=== PATIENT | female | born 1980 | race Caucasian/White ===

== ENCOUNTER 2023-01-20 06:49 | Outpatient (OUT) | payer OTHER, SELFPAY ==
[2023-01-20 07:29] LABS: Basophils Absolute Auto 0.1 10^3/uL (0.0-0.1); Eosinophils Absolute Auto 0.2 10^3/uL (0.0-0.7); Hematocrit 38.2 % (36.0-48.0); Hemoglobin 12.8 g/dL (12.0-16.0); Immature Granulocytes Abs Auto 0.01 10^3/uL (0.00-0.03); Immature Granulocytes Pct Auto 0.2 % (0.0-0.5); Lymphocytes Absolute Auto 2.2 10^3/uL (1.2-3.8); Lymphocytes Percent Auto 45.3 % (20.5-60.0); Mean Corpuscular HGB Conc 33.5 g/dL (29.9-35.2); Mean Corpuscular Volume 86.4 fL (81.0-99.0); Mean Platelet Volume 9.4 fL (9.5-13.5); Monocytes Absolute Auto 0.5 10^3/uL (0.3-0.8); Monocytes Percent Auto 9.5 % (1.7-12.0); Nucleated Red Blood Cells 0; Platelet Count 278 10^3/uL (150-450); Red Blood Count 4.42 10^6/uL (4.20-5.40); Red Cell Distribution Width 13.2 % (11.0-15.0)
[2023-01-20 07:39] LABS: Alanine Aminotransferase 25 U/L (14-59); Albumin Globulin Ratio 1.2; Alkaline Phosphatase 91 U/L (46-116); Anion Gap 12.7; Aspartate Amino Transferase 13 U/L (15-37); BUN Creatinine Ratio 14.6; Bilirubin Total 0.6 mg/dL (0.2-1.0); Calcium 8.9 mg/dL (8.5-10.1); Carbon Dioxide 31.2 mmol/L (21.0-32.0); Chloride 102 mmol/L (98-107); Chol HDL Ratio 2.6; Cholesterol 180 mg/dL (<=200); Estimated GFR (African America >60 (>=60); Estimated GFR (Non-African Ame >60 (>=60); Globulin 3.4 g/dL; Glucose 98 mg/dL (74-106); HDL Cholesterol 68 mg/dL (40-60); Potassium 3.9 mmol/L (3.5-5.1); Sodium 142 mmol/L (136-145); Thyroid Stimulating Hormone 2.219 uIU/mL (0.358-3.740); Total Protein 7.4 g/dL (6.4-8.2); Triglycerides 126 mg/dL (<=150); VLDL CHOLESTEROL 25.2 mg/dL
[2023-01-20 08:13] LABS: Estimated Average Glucose 111 mg/dL; Glycohemoglobin A1C 5.5 % (4.5-6.2)
[2023-01-20 10:31] LABS: Free T4 0.84 ng/dL (0.76-1.46)
[2023-01-21 09:53] LABS: FSH 97.3 mIU/mL (.); Luteinizing Hormone(LH) 40.6 mIU/mL (.)
== END 2023-01-20 06:50 ==
LOC: LAB 06:55
DX: N95.1 Menopausal and female climacteric states (principal)
CPT/HCPCS: 36415; 80053; 80061; 82306; 83001; 83002; 83036; 84439; 84443; 85025

== ENCOUNTER 2024-09-20 13:38 | Outpatient (OUT) | payer OTHER, SELFPAY ==
[2024-09-20 14:12] LABS: Alanine Aminotransferase 29 U/L (14-59); Aspartate Amino Transferase 14 U/L (15-37)
== END 2024-09-20 13:39 | disposition home or self-care (01) ==
LOC: LAB 13:41
PROVIDERS: PCP Internal Medicine; Visit Provider Orthopaedic Surgery
DX: B35.1 Tinea unguium (principal)
CPT/HCPCS: 36415; 84450; 84460

== ENCOUNTER 2024-10-26 07:48 | Outpatient (OUT) | payer OTHER, SELFPAY ==
--- OUTSIDE RECORDS SUMMARY | 2024-10-26 07:57 | XMS_ITS | CCD ---
Author Organization [facility] Care Team Providers Care Demand Manager Name Role Phone SUE JUNO Primary Care Unavailable PAY, DR GALVIN Admitting Unavailable PAY, DR GALVIN Attending Unavailable PAY, DR GALVIN Consulting Unavailable SAMANTA MARIN Consulting Unavailable SINDYARIANJUNO Admitting Unavailable SINDYARIANJUNO Attending Unavailable SINDYARIAN, JUNO Primary Care Unavailable SUE, JUNO Consulting Unavailable ASHLYAZARIAN, JUNO Primary Care Unavailable LAN, DR KNIGHT Admitting Unavailable LAN, DR KNIGHT Attending Unavailable ADE, DR SHERITA Soto Consulting Unavailable SAMANTA STRANGE Consulting Unavailable Yazmin Cash Unavailable KEDAR AGEE Attending Unavailable MARIANA BELTRAN Referring Unavailable MARIANA BELTRAN Attending Unavailable Sergo JAFFE Attending Unavailable Annel Teixeira Attending Unavailable ASHLYAZARIAN, JUNO Primary Care Unavailable ASHLYAZARIAN, JUNO Referring Unavailable GHAZARIAN, JUNO Referring Unavailable ASHLYAZARIAN, JUNO Primary Care Unavailable Pankaj Rogers MDhar Primary Care Provider Sue SKY Juno Primary Care Provider KIT SOLITARIO Attending Unavailable Unavailable Primary Care Provider Unavailabl e Allergies Allergy Classification Reported Allergen(s) Allergy Type Date of Onset Reaction(s) Facility (1 source) Clindamycin Drug Allergy 07-02-2019 [facility] Repository (6 sources) celecoxib; Translations: [CELECOXIB] Drug Allergy 01-11-2023 [facility] Repository (1 source) Clindamycin Drug Allergy 07-02-2019 [facility] Medications Current Medications Medication Drug Class(es) Dates Sig (Normalized) Sig (Original) Aircast Sport Ankle Brace/Left - (1 source) Start: 02-24-2022 Aircast Sport Ankle Brace/Left - as directed Feb, Active ascorbic acid 1000 mg oral tablet (6 sources) Vitamin C Start: 03-15-2022 End: 12-09-2023 take 1 tablet by mouth once daily [facility] VITAMIN C 1000 MG tablet TAKE 1 TABLET BY MOUTH EVERY DAY 30 tablet 3 03/15/2022 Active cephalexin 500 mg oral capsule (1 source) Cephalosporin Antibacterial Start: 04-16-2024 End: 04-23-2024 take 1 capsule by mouth twice daily cephALEXin (KEFLEX) 500 MG capsule Indications: Cough headache Take 1 capsule by mouth 2 times daily for 7 days 14 capsule 04/16/2024 04/23/2024 Active cholecalciferol 0.025 mg oral tablet (1 source) Vitamin D Start: 01-12-2022 take 2 tablets by mouth once daily vitamin D3 (CHOLECALCIFEROL) 25 MCG (1000 UT) TABS tablet TAKE 2 TABLETS BY MOUTH DAILY 30 tablet 01/12/2022 Active cyclobenzaprine hydrochloride 5 mg oral tablet (6 sources) Muscle Relaxant Start: 07-05-2022 take 1 tablet by mouth three times daily as needed for muscle spasms cyclobenzaprine (FLEXERIL) 5 MG tablet TAKE 1 TABLET BY MOUTH THREE TIMES A DAY NEEDED FOR MUSCLE SPASMS 90 tablet 1 07/05/2022 Active estradiol 0.1 mg/ml vaginal cream (6 sources) Estrogen Start: 10-25-2023 estradioL (ESTRACE) 0.01 % (0.1 mg/gram) vaginal cream Insert 1 g into the vagina in the morning. 42.5 g 1 10/25/2023 Active Start: 10-18-2023 End: 10-25-2023 estradioL (VAGIFEM) 10 mcg t ablet Indications: Rectocele , Vaginal prolapse , Stress incontinence of urine , Dyspareunia in female , Status post hysterectomy with oophorectomy Insert 1 tablet (10 mcg total) into the vagina in the morning. Daily for 2 weeks then twice weekly thereafter. 14 tablet 4 10/18/2023 10/25/2023 Discontinued 12 hr guaiFENesin 600 mg extended release oral tablet (1 source) Start: 07-29-2023 take 1 tablet by mouth twice daily guaiFENesin ([facility] MUCUS EXTENDED RELEASE) 600 MG extended release tablet Indications: Subacute bronchitis TAKE 1 TABLET BY MOUTH 2 TIMES DAILY FOR 15 DAYS 40 tablet 1 07/29/2023 Active magnesium gluconate 550 mg oral tablet (5 sources) take 1 tablet by mouth in the morning, then take 1 tablet by mouth at bedtime magnesium 30 mg tablet Take 1 tablet (30 mg total) by mouth in the morning and 1 tablet (30 mg total) before bedtime. Active naproxen 500 mg oral tablet (6 sources) Nonsteroidal Anti-inflammatory Drug Start: 11-15-2022 take 1 tablet by mouth twice daily at mealtime naproxen (NAPROSYN) 500 MG tablet Indications: Acute low back pain with bilateral sciatica, unspecified back pain laterality Take 1 tablet by mouth 2 times daily (with meals) 20 tablet 3 10/19/2023 Active terbinafine 250 mg oral tablet (2 sources) Allylamine Antifungal Start: 09-20-2024 End: 10-20-2024 take 1 tablet by mouth once daily terbinafine (LamISIL) 250 MG tablet Indications: Onychomycosis of Toenails Take 1 tablet (250 mg) by mouth Daily 30 tablet 09/20/2024 10/20/2024 Active zinc gluconate 50 mg oral tablet (1 source) Start: 08-11-2022 take 1 tablet by mouth once daily [facility] ZINC GLUCONATE 50 MG tablet TAKE 1 TABLET BY MOUTH EVERY DAY 30 tablet 1 08/11/2022 Active Completed/Discontinued Medications Medication Drug Class(es) Dates Sig (Normalized) Sig (Original) cefTRIAXone (1 source) Cephalosporin Antibacterial Start: 02-11-2014 Rocephin 500 mg Jan, 500 mg Problems Active Problems Problem Classification Problem Date Documented Da te Episodic/Chronic Anxiety disorders (2 sources) Anxiety disorder, unspecified; Translations: [Anxiety] Onset: 05-22-2018 05-22-2018 Chronic Conditions associated with dizziness or vertigo (1 source) Dizziness and giddiness; Translations: [DIZZINESS AND GIDDINESS] Onset: 08-10-2021 Episodic Genitourinary symptoms and ill-defined conditions (4 sources) Stress incontinence (female) (male); Translations: [Genuine stress incontinence] Onset: 12-07-2023 12-09-2023 Chronic Hepatitis (1 source) Chronic hepatitis C; Translations: [Chronic viral hepatitis C] Onset: 05-22-2018 05-22-2018 Chronic Hepatitis (1 source) Viral hepatitis C; Translations: [Hepatitis C] Episodic Malaise and fatigue (1 source) Weakness; Translations: [WEAKNESS] Onset: 08-10-2021 Episodic Menopausal disorders (1 source) Menopausal syndrome; Translations: [Menopausal and female climacteric states] 10-25-2023 Chronic Mycoses (4 sources) Pain in toe; Translations: [Tinea unguium] 09-20-2024 Episodic Other acquired deformities (2 sources) Contracture of joint of right ankle; Translations: [Contracture, right ankle] 09-20-2024 Chronic Other connective tissue disease (2 sources) Plantar fasciitis; Translations: [Plantar fascial fibromatosis] 09-20-2024 Episodic Other diseases of bladder and urethra (1 source) Overactive bladder; Translations: [Overactive bladder] 12-09-2023 Chronic Other female genital disorders (1 source) Unspecified dyspareunia; Translations: [Unspecified dyspareunia] Onset: 12-07-2023 Chronic Other female genital disorders (4 sources) Pain in female genitalia on intercourse; Translations: [Unspecified dyspareunia] 12-09-2023 Chronic Other nervous system disorders (3 sources) Other chronic pain; Translations: [Other chronic pain] Onset: 04-16-2024 Chronic Prolapse of female genital organs (7 sources) Rectocele; Translations: [Cystocele, unspecified] Onset: 12-07-2023 12-09-2023 Chronic Residual codes; unclassified (2 sources) Acquired absence of both cervix and uterus; Translations: [ACQUIRED ABSENCE BOTH CERVIX AND UTERUS] Onset: 08-10-2021 Episodic Residual codes; unclassified (1 source) Acquired absence of ovaries, unilateral; Translations: [Acquired absence of ovaries, unilateral] Onset: 10-18-2023 Episodic Spondylosis; intervertebral disc disorders; other back problems (1 source) Inflammation of sacroiliac joint; Translations: [Sacroiliitis] Chronic Spondylosis; intervertebral disc disorders; other back problems (6 sources) Lumbago with sciatica, right side; Translations: [Lumbago with sciatica, left side] Onset: 04-16-2024 Episodic Substance-related disorders (1 source) Nicotine dependence, cigarettes, uncomplicated; Translations: [NICOTINE DEPEND CIGARETTES UNCOMP] Onset: 08-10-2021 Chronic Unclassified (3 sources) COUGH, UNSPECIFIED; Translations: [COUGH, UNSPECIFIED] Onset: 08-10-2021 Unclassified (2 sources) CONTACT W/AND (SUSP) EXPOS COVID-19; Translations: [CONTACT W/AND (SUSP) EXPOS COVID-19] Onset: 05-28-2021 Unclassified (1 source) Vaginal Prolapse Onset: 12-07-2023 Unclassified (1 source) Prolapse Onset: 10-18-2023 Viral infection (1 source) COVID-19; Translations: [COVID-19] Onset: 08-10-2021 Past or Other Problems Problem Classification Problem Date Documented Da te Episodic/Chronic Abdominal pain (3 sources) Unspecified abdominal pain; Translations: [UNSPECIFIED ABDOMINAL PAIN] Onset: 03-03-2021 Episodic Fracture of lower limb (1 source) Other fracture of left lower leg, initial encounter for closed fracture Onset: 02-24-2022 Resolved: 02-24-2022 Episodic Gastritis and duodenitis (1 source) Gastritis, unspecified, without bleeding; Translations: [GASTRITIS UNS WITHOUT BLEEDING] Onset: 03-05-2021 Episodic Nausea and vomiting (1 source) Nausea; Translations: [NAUSEA] Onset: 03-05-2021 Episodic Other gastrointestinal disorders (2 sources) Constipation; Translations: [Constipation] 12-09-2023 Episodic Other lower respiratory disease (1 source) Cough; Translations: [Cough] Onset: 07-02-2019 Resolved: 10-08-2020 10-08-2020 Episodic Other non-traumatic joint disorders (1 source) Pain in left ankle and joints of left foot Onset: 02-24-2022 Resolved: 02-24-2022 Episodic Other upper respiratory infections (1 source) Acute sinusitis; Translations: [Other acute sinusitis] Onset: 07-04-2019 09-08-2020 Episodic Residual codes; unclassified (1 source) Acquired absence of cervix and uterus; Translations: [Acquired absence of both cervix and uterus] Onset: 07-04-2019 09-08-2020 Episodic Screening and history of mental health and substance abuse codes (1 source) Personal history of nicotine dependence; Translations: [PERSONAL HISTORY OF NICOTINE DEPEND] Onset: 03-05-2021 Episodic Unclassified (1 source) COUGH, UNSPECIFIED; Translations: [COUGH, UNSPECIFIED] Onset: 08-06-2021 Unclassified (1 source) CONTACT W/AND (SUSP) EXPOS COVID-19; Translations: [CONTACT W/AND (SUSP) EXPOS COVID-19] Onset: 05-15-2021 Results Test Name Value Interpretation Reference Range Facility XR LUMBAR SPINE (2-3 VIEWS)o n 04-16-2024 XR LUMBAR SPINE (2-3 VIEWS) EXAM: XR LUMBAR SPINE (2-3 VIEWS) HISTORY: Chronic midline low back pain with bilateral sciatica. COMPARISON: None. IMPRESSION: FINDINGS/IMPRESSIO N: 1. Normal vertebral body and disc space heights for age. 2. No significant degenerative change. 3. SI joints normal. 4. No pars defects or fracture. Interpreted by: Robin Glass Jr., MD Signed by: Robin Glass Jr., MD 04/16/24 Final result Normal [facility] Measure post void residualon 12-07-2023 Volume 45ml [facility] POCT urinalysis dipstick onl yon 12-07-2023 Appearance (U) clear [facility] Urine Blood Negative [facility] U[facility] Character clear [facility] Urine Color dark yellow [facility] Urine Glucose Negative [facility] Urine Ketones Negative [facility] Urine Leukocyte Esterase Negative [facility] Urine Nitrite Negative [facility] Urine Ph 5.0 [facility] Urine Protein 3+ [facility] XR ankle LT min 3V*on 2021 XR ankle LT min 3V* [facility] [address] [place] [address] XRay Report Signed Patient: Jazmin Cassidy MR#: [id number] 35 : 1980 Acct:[id number] Age/Sex: 41 / F ADM Date: 02/24/22 Loc: XDUCLY Room: Type: [facility] Attending Dr: Yazmin SORIA Copies to: YANG Dubon Ordering Provider: YANG Dubon Date of Service: 02/24/22 XR/XR ankle LT min 3V*: LEFT ANKLE INJURY 3views LEFTankle COMPARISON:None HISTORY: LEFT ankle injury. Mild anterior soft tissue swelling present. Tiny bony density inferior to the lateral malleolus may represent small avulsion fracture. Ankle mortise preserved. XR/XR ankle LT min 3V* IMPRESSION: Small avulsion fracture inferior to the lateral malleolus. Impression dictated by: Raoul Lindsey M.D.02/24/2022 7:00 PM Dictation Location: [place] [address] Transcribed By: [facility] 02/24/221899 Dictated By: Raoul Lindsey DO 02/24/221858 Signed By: 02/24/221899 Normal [facility] XR ankle LT min 3V* [facility] [employer] Other XR ankle LT min 3V* [facility] [employer] Other XR ankle LT min 3V* [address] [place] [address] [employer] Other XR ankle LT min 3V* [place] [address] [employer] Other XR ankle LT min 3V* XRay Report [employer] Other XR ankle LT min 3V* Signed [employer] Other XR ankle LT min 3V* Patient: Jazmin Cassidy MR#: [id number] [employer] Other XR ankle LT min 3V* 35 [employer] Other XR ankle LT min 3V* : 1980 Acct:[id number] [employer] Other XR ankle LT min 3V* Age/Sex: 41 / F ADM Date: 02/24/22 [employer] Other XR ankle LT min 3V* Loc: XDUCLY Room: Type: REG CLI [employer] Other XR ankle LT min 3V* Attending Dr: Yazmin SORIA [employer] Other XR ankle LT min 3V* Copies to: YANG Dubon [employer] Other XR ankle LT min 3V* Ordering Provider: YANG Dubon [employer] Other XR ankle LT min 3V* Date of Service: 02/24/22 [employer] Other XR ankle LT min 3V* XR/XR ankle LT min 3V*: LEFT ANKLE INJURY [employer] Other XR ankle LT min 3V* 3views LEFTankle [employer] Other XR ankle LT min 3V* COMPARISON:None [employer] Other XR ankle LT min 3V* HISTORY: LEFT ankle injury. [employer] Other XR ankle LT min 3V* Mild anterior soft tissue swelling present. Tiny bony density inferior to the lateral malleolus [employer] Other XR ankle LT min 3V* may represent small avulsion fracture. Ankle mortise preserved. [employer] Other XR ankle LT min 3V* XR/XR ankle LT min 3V* [employer] Other XR ankle LT min 3V* IMPRESSION: Small avulsion fracture inferior to the lateral malleolus. [employer] Other XR ankle LT min 3V* Impression dictated by: Raoul Lindsey M.D.02/24/2022 7:00 PM [employer] Other XR ankle LT min 3V* Dictation Location: [place] [address] [employer] Other XR ankle LT min 3V* Transcribed By: PWS 02/24/22 1900 [employer] Other XR ankle LT min 3V* Dictated By: Raoul Lindsey DO 02/24/22 1859 [employer] Other XR ankle LT min 3V* Signed By: [employer] Other XR ankle LT min 3V* 02/24/22 1900 [employer] Other CBC AUTO DIFFon 08-06-2021 BASO # 0.0 103/ul Normal 0.0-0.1 [facility] Comment on above: Performed By: #### C BC #### [facility] [address] [place] [address] Dr. Javier Hinton Basophils/100 WBC (Bld) 0.3 % Normal 0.2-2.0 [facility] Comment on above: Performed By: #### C BC #### [facility] [address] [place] [address] Dr. Javier Hinton EO # 0.0 103/ul Normal 0.0-0.7 [facility] Comment on above: Performed By: #### C BC #### [facility] [address] [place] [address] Dr. Javier Hinton Eosinophils/100 WBC (Bld) 0.3 % Critically low 0.9-7.0 [facility] Comment on above: Performed By: #### C BC #### [facility] [address] [place] [address] Dr. Javier Hinton Erythrocyte distribution width (RBC) [Ratio] 13.3 % Normal 11.0-15.0 [facility] Comment on above: Performed By: #### C BC #### [facility] [address] [place] [address] Dr. Javier Hinton Hematocrit (Bld) [Volume fraction] 41.7 % Normal 36.0-48.0 [facility] Comment on above: Performed By: #### C BC #### [facility] [address] [place] [address] Dr. Javier Hinton Hemoglobin (Bld) [Mass/Vol] 13.7 g/dL Normal 12.0-16.0 [facility] Comment on above: Performed By: #### C BC #### [facility] [address] [place] [address] Dr. Javier Hinton IG # 0.01 10e3/ul Normal 0.00-0.03 [facility] Comment on above: Performed By: #### C BC #### [facility] [address] [place] [address] Dr. Javier Hinton IG % 0.3 % Normal 0.0-0.5 [facility] Comment on above: Performed By: #### C BC #### [facility] [address] [place] [address] Dr. Javier Hinton LYMPH # 1.2 103/ul Normal 1.2-3.8 [facility] Comment on above: Performed By: #### C BC #### [facility] [address] [place] [address] Dr. Javier Hinton Lymphocytes/100 WBC (Bld) 31.4 % Normal 20.5-60.0 [facility] Comment on above: Performed By: #### C BC #### [facility] [address] [place] [address] Dr. Javier Hinton MANUAL DIFF REQ NO Normal [facility] Comment on above: Performed By: #### C BC #### [facility] [address] [place] [address] Dr. Javier Hinton MCH (RBC) [Entitic mass] 28.0 pg Normal 26.7-34.0 [facility] Comment on above: Performed By: #### C BC #### [facility] [address] [place] [address] Dr. Javier Hinton MCHC (RBC) [Mass/Vol] 32.9 g/dL Normal 29.9-35.2 [facility] Comment on above: Performed By: #### C BC #### [facility] [address] [place] [address] Dr. Javier Hinton MCV (RBC) [Entitic vol] 85.1 fL Normal 81.0-99.0 [facility] Comment on above: Performed By: #### C BC #### [facility] [address] [place] [address] [address] Javier Hinton MONO # 0.3 103/ul Normal 0.3-0.8 [facility] Comment on above: Performed By: #### C BC #### [facility] [address] [place] [address] [address] Javier Hinton Monocytes/100 WBC (Bld) 8.7 % Normal 1.7-12.0 [facility] Comment on above: Performed By: #### C BC #### [facility] [address] [place] [address] Dr. Javier Hinton NEUT # 2.3 103/ul Normal 1.4-6.5 [facility] Comment on above: Performed By: #### C BC #### [facility] [address] [place] [address] Dr. Javier Hinton Neutrophils/100 WBC (Bld) 59.0 % Normal 43.0-75.0 [facility] Comment on above: Performed By: #### C BC #### [facility] [address] [place] [address] Dr. Javier Hinton Platelet mean volume (Bld) [Entitic vol] 9.3 fL Critically low 9.5-13.5 [facility] Comment on above: Performed By: #### C BC #### [facility] [address] [place] [address] Dr. Javier Hinton PLT 187 103/ul Normal 150-450 [facility] Comment on above: Performed By: #### C BC #### [facility] [address] [place] [address] Dr. Javier Hinton RBC 4.90 106/ul Normal 4.20-5.40 [facility] Comment on above: Performed By: #### C BC #### [facility] [address] [place] [address] Dr. Javier Hinton WBC 3.9 103/ul Critically low 4.0-11.0 [facility] Comment on above: Performed By: #### C BC #### [facility] [address] [place] [address] Dr. Javier Hinton Covid-19 PCR (CVDTB)on 07-22 SARS-CoV-2 (COVID-19) RNA MITRA+probe Ql (Unsp spec) Detected Critically abnormal NOT DETECTED [facility] Comment on above: Result Comment: This test is not yet approved or cleared by the [place] FDA. When there are no FDA-approved or cleared tests available, and other criteria are met, FDA can make tests available under an emergency access mechanism called an Emergency Use Authorization (EUA). The EUA for this test is supported by the [place] of Health and Human Service's declaration that circumstances exist to justify the emergency use of in vitro diagnostics for the detection and/or diagnosis of the virus that causes COVID-19. This EUA will remain in effect for the duration of the COVID-19 declaration justifying emergency of IVDs, unless it is terminated or revoked by the FDA (after which the test may no longer be used). Performed By: #### C VDTBH #### [facility] [address] [place] [address] Dr. Javier Hinton ER URINE PROFILEon Bilirubin Ql (U) Negative Normal NEGATIVE [facility] Comment on above: Performed By: #### E RUR #### [facility] [address] [place] [address] Dr. Javier Hinton Clarity (U) CLEAR Normal CLEAR [facility] Comment on above: Performed By: #### E RUR #### [facility] [address] [place] [address] Dr. Javier Hinton Color (U) YELLOW Normal YELLOW [facility] Comment on above: Performed By: #### E RUR #### [facility] [address] [place] [address] Dr. Javier FRANK A micrscopic examination will be performed if indicated. Normal [facility] Comment on above: Performed By: #### E RUR #### [facility] [address] [place] [address] Dr. Javier Hinton Glucose Ql (U) Negative Normal NEGATIVE [facility] Comment on above: Performed By: #### E RUR #### [facility] [address] [place] [address] Dr. Javier Hinton Hemoglobin Ql (U) Negative Normal NEGATIVE [facility] Comment on above: Performed By: #### E RUR #### [facility] [address] [place] [address] Dr. Javier Hinton Ketones Ql (U) 40 mg/dl Abnormal NEGATIVE [facility] Comment on above: Performed By: #### E RUR #### [facility] [address] [place] [address] Dr. Javier Hinton LEUKOCYTES Negative Normal NEGATIVE [facility] Comment on above: Performed By: #### E RUR #### [facility] [address] [place] [address] Dr. Javier Hinton Nitrite Ql (U) Negative Normal NEGATIVE [facility] Comment on above: Performed By: #### E RUR #### [facility] [address] [place] [address] Dr. Javier Hinton pH (U) 6.0 [pH] Normal 5-9 [facility] Comment on above: Performed By: #### E RUR #### [facility] [address] [place] [address] Dr. Javier Hinton Protein (U) [Mass/Vol] 30 mg/dL Abnormal NEGATIVE/ TRACE [facility] Comment on above: Performed By: #### E RUR #### [facility] [address] [place] [address] Dr. Javier Hinton SPEC GRAVITY 1.025 Normal 1.005-<=1.025 [facility] Comment on above: Performed By: #### E RUR #### [facility] [address] [place] [address] Dr. Javier Hinton UR MICRO IND NOT INDICATED Normal [facility] Comment on above: Performed By: #### E RUR #### [facility] [address] [place] [address] Dr. Javier Hinton Urobilinogen Qn (U) 0.2 {Ericka'U}/dL Normal 0.2 - 1.0 [facility] Comment on above: Performed By: #### E RUR #### [facility] [address] [place] [address] Dr. Javier Hinton INFLUENZA A AND B AGon 08-06 INFLUANEGH SEE BELOW Normal [facility] Comment on above: Result Comment: Nega tive for Flu A protein angiten. Infection due to Flu A cannot be ruled out. Flu A angiten in the sample may be below the detection limit of the test. Performed By: #### I NFLUAB ####[facility] [address] [place], [place] [address]Dr. Javier Hinton INFLUBNEGH SEE BELOW Normal [facility] Comment on above: Result Comment: Nega tive for Flu B protein antigen. Infection due to Flu B cannot be ruled out. Flu B antigen in the sample may be below the detection limit of the test. Performed By: #### I NFLUAB ####[facility] [address] [place], [place] [address]Dr. Javier Hinton INFLUENZA A AG Negative Normal NEGATIVE SEE COMMENT [facility] Comment on above: Performed By: #### I NFLUAB ####[facility] [address] [place], [place] [address]DrKem Hinton INFLUENZA B AG Negative Normal NEGATIVE SEE COMMENT [facility] Comment on above: Performed By: #### I NFLUAB ####[facility] [address] [place], [place] [address]Dr. Javier Hinton INTERNAL CONTROLS Within Normal Limits Normal Within Normal Limits [facility] Comment on above: Performed By: #### I NFLUAB ####[facility] [address] [place], [place] [address]Dr. Javier Hinton LACTATE/LACTIC ACIDon 2020 Lactate [Moles/Vol] 0.9 mmol/L Normal 0.7-2.0 [facility] Comment on above: Performed By: #### L ACT ####[facility] [address] [place], [place] [address]DrKem Hinton PROF 14(COMP METB)on 021 Albumin [Mass/Vol] 3.7 g/dL Normal 3.5-5.0 [facility] Comment on above: Performed By: #### H GAYE, CMP #### [facility] [address] [address] [address] Javier Hinton Albumin/Globulin [Mass ratio] 0.9 {ratio} Normal [facility] Comment on above: Performed By: #### H GAYE, CMP #### [facility] [address] [address] [address] Javier Hinton ALP [Catalytic activity/Vol] 88 U/L Normal 38-126 [facility] Comment on above: Performed By: #### H GAYE, CMP #### [facility] [address] [address] [address] Javier Hinton ALT [Catalytic activity/Vol] 28 U/L Normal 9-52 [facility] Comment on above: Performed By: #### H GAYE, CMP #### [facility] [address] [address] [address] Javier Hinton Anion gap [Moles/Vol] 14.5 mmol/L Normal [facility] Comment on above: Performed By: #### H GAYE, CMP #### [facility] [address] [address] [address] Javier Hinton AST [Catalytic activity/Vol] 26 U/L Normal 14-36 [facility] Comment on above: Performed By: #### H GAYE, CMP #### [facility] [address] [address] [address] Javier Hinton Bilirubin [Mass/Vol] 0.7 mg/dL Normal 0.2-1.3 [facility] Comment on above: Performed By: #### H GAYE, CMP #### [facility] [address] [address] [address] Javier Hinton Calcium [Mass/Vol] 9.0 mg/dL Normal 8.4-10.2 [facility] Comment on above: Performed By: #### H GAYE, CMP #### [facility] [address] [place] [address] Dr. Javier Hinton Chloride [Moles/Vol] 99 mmol/L Normal 98-107 [facility] Comment on above: Performed By: #### H DEXTERPN, CMP #### [facility] [address] [place] [address] Dr. Javier Hinton CO2 [Moles/Vol] 29.2 mmol/L Normal 22.0-30.0 [facility] Comment on above: Performed By: #### H STROPN, CMP #### [facility] [address] [place] [address] Dr. Javier Hinton Creatinine [Mass/Vol] 0.80 mg/dL Normal 0.52-1.04 [facility] Comment on above: Performed By: #### H STROPN, CMP #### [facility] [address] [place] [address] Dr. Javier Hinton EGFR-AF SCOTTISH Normal >=60 [facility] Comment on above: Performed By: #### H STROPN, CMP #### [facility] [address] [place] [address] Dr. Javier Hinton EGFR-NON AF SCOTTISH Normal >=60 [facility] Comment on above: Performed By: #### H STROPN, CMP #### [facility] [address] [place] [address] Dr. Javier Hinton Globulin (S) [Mass/Vol] 4.3 g/dL Normal [facility] Comment on above: Performed By: #### H STROPN, CMP #### [facility] [address] [place] [address] Dr. Javier Hinton Glucose [Mass/Vol] 91 mg/dL Normal 74-106 [facility] Comment on above: Performed By: #### H STROPN, CMP #### [facility] [address] [place] [address] Dr. Javier Hinton Potassium [Moles/Vol] 3.7 mmol/L Normal 3.4-5.0 [facility] Comment on above: Performed By: #### H STROPN, CMP #### [facility] [address] [place] [address] Dr. Javier Hinton Protein [Mass/Vol] 8.0 g/dL Normal 6.1-8.2 [facility] Comment on above: Performed By: #### H GAYE, CMP #### [facility] [address] [address] [address] Javeir Hinton Sodium [Moles/Vol] 139 mmol/L Normal 137-145 [facility] Comment on above: Performed By: #### H GAYE, CMP #### [facility] [address] [address] [address] Javier Hinton Urea nitrogen [Mass/Vol] 15.0 mg/dL Normal 7.0-17.0 [facility] Comment on above: Performed By: #### H GAYE, CMP #### [facility] [address] [place] [address] Dr. Javier Hinton Urea nitrogen/Creatinin e [Mass ratio] 18.8 mg/mg Normal [facility] Comment on above: Performed By: #### H GAYE, CMP #### [facility] [address] [place] [address] Dr. Javier Hinton TROPONIN, HIGH SENSITIVITYon 08-06-2021 HSTROP 4.8 pg/mL Normal 4.0-35.5 [facility] Comment on above: Result Comment: CUT- OFF POINTS HAVE BEEN ESTABLISHED BASED ON THE FOURTH UNIVERSAL DEFINITIONS OF MYOCARDIAL INFARCTION. THE UPPER REFERENCE LIMIT (URL) OF TROPONIN, DEFINED THE 99TH PERCENTILE OF cTnI DISTRIBUTION IN A REFERENCE POPULATION, HAS BEEN CONFIRMED THE DECISION THRESHOLD FOR CT DIAGNOSIS. Performed By: #### H GAYE, CMP #### [facility] [address] [place] [address] Dr. Javier Hinton XR CHEST 1 Von 08-06-2021 XR CHEST 1 V EXAMINATION: XR CHEST 1 V HISTORY: COUGH , chest tightness, chills COMPARISON: No relevant comparison available. FINDINGS: LUNGS: Underexpanded lungs with mild haziness and stranding within the lung bases. VASCULATURE: No increased pulmonary vasculature. PLEURA: No pneumothorax, effusion, or pleural thickening. CARDIAC: No cardiomegaly or cardiac silhouette abnormality. MEDIASTINUM: No visible mass or adenopathy. BONES: No fracture or visible bone lesion. OTHER: Negative. IMPRESSION: 1. Underexpanded lungs with mild bibasilar infiltrates versus atelectasis. Electronically authenticated by: SHERITA BOOKER Date: 2021-08-06 16:56 Normal [facility] Covid-19 PCR (CVDTB)on 04-23 SARS-CoV-2 (COVID-19) RNA MITRA+probe Ql (Unsp spec) Detected Critically abnormal NOT DETECTED [facility] Comment on above: Result Comment: This test is not yet approved or cleared by the [place] FDA. When there are no FDA-approved or cleared tests available, and other criteria are met, FDA can make tests available under an emergency access mechanism called an Emergency Use Authorization (EUA). The EUA for this test is supported by the Video Manager of Health and Human Service's (HHS's) declaration that circumstances exist to justify the emergency use of in vitro diagnostics for the detection and/or diagnosis of the virus that causes COVID-19. This EUA will remain in effect (meaning this test can be used) for the duration of the COVID-19 declaration justifying emergency of IVDs, unless it is terminated or revoked by FDA (after which the test may no longer be used). Performed By: #### C VDTB #### [facility] [address] [place] [address] Dr. Javier Hinton AMYLASEon 03-03-2021 Amylase [Catalytic activity/Vol] 55 U/L Normal 31-110 [facility] Comment on above: Performed By: #### C MP, CAROLYN, LIPA #### [facility] [address] [place], [place] [address] Reji Debbie CBC AUTO DIFFon 03-03-2021 BASO # 0.0 103/ul Normal 0.0-0.1 [facility] Comment on above: Performed By: #### C BC ####[facility] [address] [id number] Debbie Basophils/100 WBC (Bld) 0.6 % Normal 0.2-2.0 [facility] Comment on above: Performed By: #### C BC ####[facility] [address] [place] [address] Debbie EO # 0.1 103/ul Normal 0.0-0.7 [facility] Comment on above: Performed By: #### C BC ####[facility] [address] [place] [address] Debbie Eosinophils/100 WBC (Bld) 2.1 % Normal 0.9-7.0 [facility] Comment on above: Performed By: #### C BC ####[facility] [address] [place] [address] Debbie Erythrocyte distribution width (RBC) [Ratio] 12.7 % Normal 11.0-15.0 [facility] Comment on above: Performed By: #### C BC ####[facility] [address] [place] [address] Debbie Hematocrit (Bld) [Volume fraction] 38.8 % Normal 36.0-48.0 [facility] Comment on above: Performed By: #### C BC ####[facility] [address] [place] [address] Debbie Hemoglobin (Bld) [Mass/Vol] 12.8 g/dL Normal 12.0-16.0 [facility] Comment on above: Performed By: #### C BC ####[facility] [address] [place] [address] Debbie IG # 0.02 10e3/ul Normal 0.00-0.03 [facility] Comment on above: Performed By: #### C BC ####[facility] [address] [place] [address] Debbie IG % 0.3 % Normal 0.0-0.5 [facility] Comment on above: Performed By: #### C BC ####[facility] [address] [place] [address] Debbie LYMPH # 2.3 103/ul Normal 1.2-3.8 [facility] Comment on above: Performed By: #### C BC ####[facility] [address] [place] [address] Debbie Lymphocytes/100 WBC (Bld) 33.7 % Normal 20.5-60.0 [facility] Comment on above: Performed By: #### C BC ####[facility] [address] [place] [address] Debbie MANUAL DIFF REQ NO Normal [facility] Comment on above: Performed By: #### C BC ####[facility] [address] Debbie MCH (RBC) [Entitic mass] 28.1 pg Normal 26.7-34.0 [facility] Comment on above: Performed By: #### C BC ####[facility] [address] [place] [address] Debbie MCHC (RBC) [Mass/Vol] 33.0 g/dL Normal 29.9-35.2 [facility] Comment on above: Performed By: #### C BC ####[facility] [address] [place] [address] Debbie MCV (RBC) [Entitic vol] 85.3 fL Normal 81.0-99.0 [facility] Comment on above: Performed By: #### C BC ####[facility] [address] [place] [address] Debbie MONO # 0.5 103/ul Normal 0.3-0.8 [facility] Comment on above: Performed By: #### C BC ####[facility] [address] [place] [address] Debbie Monocytes/100 WBC (Bld) 7.9 % Normal 1.7-12.0 [facility] Comment on above: Performed By: #### C BC ####[facility] [address] [place] [address] Debbie NEUT # 3.7 103/ul Normal 1.4-6.5 [facility] Comment on above: Performed By: #### C BC ####[facility] [address] [place] [address] Debbie Neutrophils/100 WBC (Bld) 55.4 % Normal 43.0-75.0 [facility] Comment on above: Performed By: #### C BC ####[facility] [address] [place] [address] Debbie Platelet mean volume (Bld) [Entitic vol] 9.6 fL Normal 9.5-13.5 [facility] Comment on above: Performed By: #### C BC ####[facility] [address] [place] [address] Debbie PLT 291 103/ul Normal 150-450 [facility] Comment on above: Performed By: #### C BC ####[facility] [address] [place] [address] Debbie RBC 4.55 106/ul Normal 4.20-5.40 [facility] Comment on above: Performed By: #### C BC ####[facility] [address] [place] [address] Debbie WBC 6.7 103/ul Normal 4.0-11.0 [facility] Comment on above: Performed By: #### C BC ####[facility] [address] [place] [address] Debbie ER URINE PROFILEon 1 Bilirubin Ql (U) Negative Normal NEGATIVE [facility] Comment on above: Performed By: #### E RUR ####[facility] [address] [place] [address] Debbie Clarity (U) CLEAR Normal CLEAR [facility] Comment on above: Performed By: #### E RUR ####[facility] [address] [place] [address] Debbie Color (U) LT. YELLOW Normal YELLOW [facility] Comment on above: Performed By: #### E RUR ####[facility] [address] [place] [address] Debbie ERUAHD A micrscopic examination will be performed if indicated. Normal [facility] Comment on above: Performed By: #### E RUR ####[facility] Eg[address] Debbie Glucose Ql (U) Negative Normal NEGATIVE The [facility] Comment on above: Performed By: #### E RUR ####[facility] [address] [place], [place] [address]Ger[place] Debbie Hemoglobin Ql (U) Negative Normal NEGATIVE [facility] Comment on above: Performed By: #### E RUR ####[facility] [address] [place] [address] Debbie Ketones Ql (U) Negative Normal NEGATIVE The [facility] Comment on above: Performed By: #### E RUR ####[facility] [address] [place] [address] Debbie LEUKOCYTES Negative Normal NEGATIVE [facility] Comment on above: Performed By: #### E RUR ####[facility] [address] [place] [address] Debbie Nitrite Ql (U) Negative Normal NEGATIVE The [facility] Comment on above: Performed By: #### E RUR ####[facility] [address] [place] [address] Debbie pH (U) 6.0 [pH] Normal 5-9 [facility] Comment on above: Performed By: #### E RUR ####[facility] [address] [place] [address] Debbie SPEC GRAVITY 1.010 Normal 1.005-<=1.025 [facility] Comment on above: Performed By: #### E RUR ####[facility] [address] [place] [address] Debbie UA PROTEIN Negative Normal NEGATIVE/ TRACE [facility] Comment on above: Performed By: #### E RUR ####[facility] [address] [place] [address] Debbie UR MICRO IND NOT INDICATED Normal [facility] Comment on above: Performed By: #### E RUR ####[facility] [address] [place] [address] Debbie Urobilinogen Qn (U) 0.2 {Ericka'U}/dL Normal 0.2 - 1.0 [facility] Comment on above: Performed By: #### E RUR ####[facility] [address] [place], [place] [address]Aiwtes Debbie LIPASEon 03-03-2021 Lipase [Catalytic activity/Vol] 67.0 U/L Normal 23.0-300.0 [facility] Comment on above: Performed By: #### C MP, CAROLYN, LIPA #### [facility] [address] [place], [place] [address] Reji Debbie PROF 14(COMP METB)on 021 Albumin [Mass/Vol] 4.2 g/dL Normal 3.5-5.0 [facility] Comment on above: Performed By: #### C MP, CAROLYN, LIPA #### [facility] [address] [place], [place] [address] Reji Debbie Albumin/Globulin [Mass ratio] 1.2 {ratio} Normal [facility] Comment on above: Performed By: #### C MP, CAROLYN, LIPA #### [facility] [address] [place], [place] [address] Reji Debbie ALP [Catalytic activity/Vol] 94 U/L Normal 38-126 [facility] Comment on above: Performed By: #### C MP, CAROLYN, LIPA #### [facility] [address] [place], [place] [address] Reji Debbie ALT [Catalytic activity/Vol] 27 U/L Normal 9-52 [facility] Comment on above: Performed By: #### C MP, CAROLYN, LIPA #### [facility] [address] [place], [place] [address] Reji Debibe Anion gap [Moles/Vol] 10.2 mmol/L Normal [facility] Comment on above: Performed By: #### C MP, CAROLYN, LIPA #### [facility] [address] [place], [place] [address] Reji Debbie AST [Catalytic activity/Vol] 13 U/L Critically low 14-36 [facility] Comment on above: Performed By: #### C MP, CAROLYN, LIPA #### [facility] [address] [place] [address] Reji Debbie Bilirubin [Mass/Vol] 0.5 mg/dL Normal 0.2-1.3 [facility] Comment on above: Performed By: #### C MP, CAROLYN, LIPA #### [facility] [address] [place] [address] Reji Debbie Calcium [Mass/Vol] 9.3 mg/dL Normal 8.4-10.2 [facility] Comment on above: Performed By: #### C MP, CAROLYN, LIPA #### [facility] [address] [place] [address] Reji Debbie Chloride [Moles/Vol] 106 mmol/L Normal 98-107 [facility] Comment on above: Performed By: #### C MP, CAROLYN, LIPA #### [facility] [address] [place] [address] Reji Debbie CO2 [Moles/Vol] 25.7 mmol/L Normal 22.0-30.0 [facility] Comment on above: Performed By: #### C MP, CAROLYN, LIPA #### [facility] [address] [place] [address] Reji Debbie Creatinine [Mass/Vol] 0.78 mg/dL Normal 0.52-1.04 [facility] Comment on above: Performed By: #### C MP, CAROLYN, LIPA #### [facility] [address] [place] [address] Reji Debbie EGFR-AF SCOTTISH >60 Normal >=60 [facility] Comment on above: Performed By: #### C MP, CAROLYN, LIPA #### [facility] [address] [place] [address] Reji Debbie EGFR-NON AF SCOTTISH >60 Normal >=60 [facility] Comment on above: Performed By: #### C MP, CAROLYN, LIPA #### [facility] [address] [place] [address] Reji Debbie Globulin (S) [Mass/Vol] 3.4 g/dL Normal [facility] Comment on above: Performed By: #### C CAROLYN MCKEON LIPA #### [facility] [address] [address] Reji Debbie Glucose [Mass/Vol] 94 mg/dL Normal 74-106 [facility] Comment on above: Performed By: #### C CAROLYN MCKEON LIPA #### [facility] [address] [place] [address] Reji Debbie Potassium [Moles/Vol] 3.9 mmol/L Normal 3.4-5.0 [facility] Comment on above: Performed By: #### C CAROLYN MCKEON LIPA #### [facility] [address] [place] [address] Reji Debbie Protein [Mass/Vol] 7.6 g/dL Normal 6.1-8.2 [facility] Comment on above: Performed By: #### C CAROLYN MCKEON LIPA #### [facility] [address] [place] [address] Reji Debbie Sodium [Moles/Vol] 138 mmol/L Normal 137-145 [facility] Comment on above: Performed By: #### C CAROLYN MCKEON LIPA #### [facility] [address] [place] [address] Reji Debbie Urea nitrogen [Mass/Vol] 14.0 mg/dL Normal 7.0-17.0 [facility] Comment on above: Performed By: #### C CAROLYN MCKEON LIPA #### [facility] [address] [place] [address] Reji Debbie Urea nitrogen/Creatinin e [Mass ratio] 17.9 mg/mg Normal [facility] Comment on above: Performed By: #### C CAROLYN MCKEON LIPA #### [facility] [address] [place], [place] [id number] Reji Debbie Vital Signs Date Time Vital Sign Value Performing Clinician Facility 09-20-2024 10:00-0500 Body height 172.7 cm Kit Solitario DPM Work Phone: [facility] 09-20-2024 10:00-0500 Body mass index (BMI) [Ratio] 27.83 kg/m2 Kit Solitario DPM Work Phone: [facility] 09-20-2024 10:00-0500 Body weight 83.01 kg Kit Solitario DPM Work Phone: [facility] 09-20-2024 10:00-0500 Respiratory rate 18 /min Kit Solitario DPM Work Phone: [facility] 12-07-2023 14:26-0400 Body height 172.7 cm Kedar Agee MD Work Phone: [facility] [employer] [facility] 12-07-2023 14:26-0400 Body mass index (BMI) [Ratio] 31.47 kg/m2 Kedar Agee MD Work Phone: [facility] 12-07-2023 14:26-0400 Body temperature 97.7 [degF] Kedar Agee MD Work Phone: [facility] 12-07-2023 14:26-0400 Body weight 93.89 kg Kedar Agee MD Work Phone: [facility] [employer] 12-07-2023 14:26-0400 Diastolic blood pressure 86 mm[Hg] Kedar Agee MD Work Phone: [facility] [employer] [facility] 12-07-2023 14:26-0400 Heart rate 72 /min Kedar Agee MD Work Phone: [facility] Comment on above: 98o2 12-07-2023 14:26-0400 Respiratory rate 14 /min Kedar Agee MD Work Phone: [facility] 12-07-2023 14:26-0400 Systolic blood pressure 126 mm[Hg] Kedar Agee MD Work Phone: [facility] 10-18-2023 09:54-0500 Body height 172.7 cm Mariana Beltran DO Work Phone: [facility] 10-18-2023 09:54-0500 Body mass index (BMI) [Ratio] 31.32 kg/m2 Mariana Beltran DO Work Phone: [employer] 10-18-2023 09:54-0500 Body weight 93.44 kg Mariana Beltran DO Work Phone: [employer] 10-18-2023 09:54-0500 Diastolic blood pressure 82 mm[Hg] [facility] 10-18-2023 09:54-0500 Systolic blood pressure 120 mm[Hg] [facility]an [facility] 02-24-2022 18:55-0400 Body height 171.45 cm Yazmin Cash Other [employer] Other 02-24-2022 18:55-0400 Body mass index (BMI) [Ratio] 29.62 kg/m2 Yazmin Cash Other [employer] Other 02-24-2022 18:55-0400 Body temperature 98.2 [degF] Yazmin Cash Other [employer] Other 02-24-2022 18:55-0400 Body weight 87.09 kg Yazmin Cash Other [employer] Other 02-24-2022 18:55-0400 Diastolic blood pressure 87 mm[Hg] Yazmin Cash Other [employer] Other 02-24-2022 18:55-0400 Respiratory rate 18 /min Yazmin Cash Other [employer] Other 02-24-2022 18:55-0400 SaO2% (BldA) [Mass fraction] 100 % Yazmin Cash Other [employer] Other 02-24-2022 18:55-0400 Systolic blood pressure 129 mm[Hg] Yazmin Cash Other [employer] Other Encounters Encounter Date Encounter Type Care Provider Facility Start: 09-20-2024 End: 09-20-2024 Bamboo flowsheet Kit Solitario DPM Work Phone: [facility] Start: 09-20-2024 End: 09-20-2024 Bamboo flowsheet Kit Solitario DPM Work Phone: [facility] Start: 09-20-2024 End: 09-20-2024 ambulatory KIT SOLITARIO Not Available Start: 09-20-2024 End: 09-20-2024 Office outpatient new 45 minutes Kit Solitario DPM Work Phone: [facility] Comment on above: Plantar fasciitis (P rimary Dx); Contracture of right ankle; Pain due to onychomycosis of toenails of both feet; Onychomycosis Start: 04-16-2024 ambulatory [facility] Start: 04-16-2024 End: 04-18-2024 Subsequent hospital visit by physician Juno Rogers MD Work Phone: [facility] Start: 12-26-2023 End: 12-27-2023 ambulatory Sergo JAFFE Facility:[facility] Start: 12-07-2023 End: 12-07-2023 ambulatory KEDAR AGEE [facility] Start: 12-07-2023 End: 12-07-2023 Office outpatient new 45 minutes Kedar Agee MD Work Phone: [facility] Comment on above: Rectocele (Primary D x); Stress incontinence of urine; Constipation, unspecified constipation type; Dyspareunia in female; OAB (overactive bladder) Start: 10-25-2023 Orders Only Mariana Beltran DO Work Phone: [facility] Comment on above: Dyspareunia in femal e (Primary Dx); Menopause syndrome Start: 10-24-2023 Orders Only Debra Camilo RN [facility] Comment on above: Rectocele (Primary D x); Vaginal prolapse; Stress incontinence of urine; Dyspareunia in female Start: 10-20-2023 Telephone encounter Faiza Sotelo [facility] [place] Start: 10-18-2023 End: 10-18-2023 ambulatory MARIANA BELTRAN [facility] Start: 10-18-2023 End: 10-18-2023 Office outpatient visit 15 minutes Mariana Beltran DO Work Phone: [facility] Comment on above: Vaginal prolapse (Pr imary Dx); Rectocele; Stress incontinence of urine; Dyspareunia in female; Status post hysterectomy with oophorectomy Start: 08-31-2023 End: 09-01-2023 ambulatory Annel Teixeira Facility:[facility] Start: 06-01-2023 ambulatory Sergo JAFFE Facility :[facility] Start: 02-24-2022 End: 02-24-2022 ambulatory Yazmin Cash Other [employer] Other Start: 02-24-2022 Office outpatient ne w 20 minutes Yazmin Cash [facility] Start: 08-06-2021 End: 08-06-2021 ambulatory [facility] Facility:[facility]1 Start: 05-15-2021 End: 05-15-2021 ambulatory [facility] Facility:[facility] Start: 03-03-2021 End: 03-03-2021 ambulatory [facility] Facility: Procedures Date Procedure Procedure Detail Performing Clinician Start: 12-07-2023 MEASURE POST VOID RESIDUAL Kedar Agee MD Work Phone: Start: 12-07-2023 Urnls dip stick/tabl et rgnt non-auto w/o micrscp Kedar Agee MD Work Phone: H/O: surgery Status post hyst erectomy with oophorectomy Mariana L Wes DO Work Phone: Plan of Treatment Date Care Activity Detail Author Start: 04-16-2025 Depression Screen Depression Screen [facility] Start: 01-20-2025 Screening for malignant neoplasm of breast Breast cancer screen [facility] Start: 12-08-2024 Tobacco Screening Tobacco Screening [facility] Start: 12-06-2024 Adult BMI Screening Adult BMI Screening [facility] Start: 10-25-2024 End: 10-25-2024 Patient encounter procedure 10/25/2024 10:20 AM EST Office Visit [facility] [address] [facility] [address] [place] [address] Kit Solitario, DPM [address] [facility] [address] [place] [address] [facility] Start: 10-18-2024 Adult BMI Screening Adult BMI Screening [facility] Start: 10-18-2024 Tobacco Screening Tobacco Screening [facility] Start: 09-20-2024 End: 10-19-2024 Alanine aminotransferase [Enzymatic activity/volume] in Serum or Plasma ALANINE AMINOTRANSFERASE Lab Routine Onychomycosis Expected: 09/20/2024 (Approximate), Expires: 10/19/2024 [facility] Comment on above: Expected: 09/20/2024 (Approximate), Expi res: 10/19/2024 Start: 09-20-2024 End: 10-19-2024 Aspartate aminotransferase [Enzymatic activity/volume] in Serum or Plasma ASPARTATE AMINO TRANSFERASE Lab Routine Onychomycosis Expected: 09/20/2024 (Approximate), Expires: 10/19/2024 [facility] Work Phone: Comment on above: Expected: 09/20/2024 (Approximate), Expi res: 10/19/2024 Start: 05-31-2024 End: 05-31-2024 Patient encounter procedure 05/31/2024 11:00 AM EDT Office Visit [facility] [address] [place] [id number] Jay Ryan, DO [address] [place] [address] M54.41, M54.42, G89.29 (ICD-10-CM) - Chronic midline low back pain with bilateral sciatica [facility] Comment on above: M54.41, M54.42, G89.29 (ICD-10-CM) - Chr onic midline low back pain with bilateral sciatica Start: 04-22-2024 Influenza vaccination Influenza Vaccine [facility] Start: 03-22-2024 Influenza vaccination Flu vaccine (#1) [facility] Start: 02-01-2024 End: 02-01-2024 Patient encounter procedure 02/01/2024 1:30 PM EDT Procedure visit [facility] [address] [facility] [address] [place] [address] Kedar Agee MD [address] [address] [facility] Start: 12-07-2023 End: 12-07-2023 Patient encounter procedure 12/07/2023 2:30 PM EDT Office Visit [facility] [address] [facility] [address] [place] [address] Kedar Agee MD [address] [place] [address] [facility] Start: 04-22-2023 COVID-19 Vaccine ( season) COVID-19 Vaccine ( season) [facility] Start: 04-22-2023 Influenza vaccination Influenza Vaccine [facility] Start: 2021 Lipid panel Lipids [facility] Start: 2016 Diabetes screen Diabetes screen [facility] Start: 2000 DTaP,Tdap and Td Vaccines (1 - Tdap) DTaP,Tdap and Td Vaccines (1 - Tdap) [facility] Start: 2000 DTaP/Tdap/Td vaccine (1 - Tdap) DTaP/Tdap/Td vaccine (1 - Tdap) [facility] Start: 2000 Hepatitis B vaccine (1 of 3 - 19+ 3-dose series) Hepatitis B vaccine (1 of 3 - 19+ 3-dose series) [facility] Start: 11-07-1999 Adult BMI Follow Up Plan Adult BMI Follow Up Plan [facility] Start: 1994 Varicella vaccine (1 of 2 - 13+ 2-dose series) Varicella vaccine (1 of 2 - 13+ 2-dose series) [facility] Start: 1993 Depression Screening Depression Screening [facility] Start: 11-07-1987 Pneumococcal 0-64 years Vaccine (1 of 2 - PCV) Pneumococcal 0-64 years Vaccine (1 of 2 - PCV) [facility] Immunizations Immunization Date Immunization Notes Care Provider Fa [facility] 11-04-2020 hepatitis A vaccine, adult dosage Juno Rogers MD Work Phone: [facility] 05-06-2020 hepatitis A vaccine, adult dosage Juno Rogers MD Work Phone: [facility] Payers Date Payer Category Payer Medicaid (Managed Care) [employer] [id number] 2021 Medicaid [employer] [id number] 2021-Present [phone] [address] [place] [address] [id number] 1981 Unknown [id number] 593 1981 Unknown [id number]. 593 1981 Unknown [id number]. 593 1981 Unknown [id number] [id number]. 1286 1981 Unknown [id number] [id number]. 1286 1981 Unknown [id number] [id number]. 727 1981 Unknown [id number] [id number]. 727 1981 Unknown [id number] [id number]. 727 1981 Unknown [id number] [id number]. 174 1981 Unknown [id number] [id number]. 174 1981 Unknown [id number]. 1259 1959 Unknown [id number] Social History Date Type Detail Facility Start: 01-11-2023 End: 04-16-2024 Sex Assigned At [employer] Other Start: 01-11-2023 End: 04-16-2024 Tobacco smoking status [facility] Ex-smoker [facility] Start: 10-20-2001 End: 10-21-2019 History of tobacco use [facility] Start: 10-20-2001 End: 10-21-2019 History of tobacco use [facility]ig[facility] Start: 01-11-2023 End: 04-16-2024 Cigarettes smoked current (pack per day) - [facility] Start: 01-11-2023 End: 04-16-2024 Tobacco use and exposure Smokeless tobacco [facility]-user [facility] Start: 04-16-2024 Alcoholic beverage intake Current non-drinker of alcohol (finding) [facility] How hard is it for y ou to pay for the very basics like food, housing, medical care, and heating Not hard at all [facility] (I/We) worried mounika prince (my/our) food would run out before (I/we) got money to buy more. Never true [facility] At any time in the p ast 12 months, were you homeless or living in nursing home [including now]? No [facility] Start: 07-15-2020 Education 14 [facility] Start: 1980 Sex assigned at Female [facility] Start: 03-02-2021 Gender identity Identifies as female gender (finding) [facility] Start: 03-02-2021 Sexual orientation Heterosexual (finding) [facility] Start: 09-20-2024 Tobacco smoking status DCIS Tobacco smoking consumption unknown [facility] Start: 1980 Sex assigned at Not on file [facility] Start: 10-18-2023 End: 12-09-2023 Alcoholic beverage intake Current drinker of alcohol (finding) [facility] Start: 01-11-2023 Alcohol Comment rare [facility] Clinical Notes 02-24-2022 to 09-20-2024 Kit Solitario, JOSE ANTONIO - 09/20/2024 9:40 AM Fouzia Agee MD - 12/07/2023 2:30 PM Asaf Beltran DO - 10/25/2023 4:32 PM ESTTelephone Encounter - Faiza Hancock LPN - 10/20/2023 8:35 AM EST Note Date & Type Note Facility 09-20-2024 History of Presen t illness Narrative Patient: Jazmin Cassidy : 1980 PCP: Juno Rogers MD SUBJECTIVE This is a 43 y.o. female that presents today for a chief complaint of painful bilateral great toenails that are painful with ambulation at times in shoe gear and thick and yellow in nature. Patient also states that she has had this problem for the past 2 years and also has pain to her right heel particularly 1st steps in the morning and is low-grade and that is history of plantar fasciitis in the past and does stretching exercises with positive improvement rates pain up to a 10/01. Allergies: No Known Allergies Past Medical History: History reviewed. No pertinent past medical history. Medications: No current outpatient medications on file. Social History: Social History Socioeconomic History Marital status: Unmarried Spouse name: Not on file Number of children: Not on file Years of education: Not on file Highest education level: Not on file Occupational History Not on file Tobacco Use Smoking status: Unknown Smokeless tobacco: Not on file Substance and Sexual Activity Alcohol use: Not on file Drug use: Not on file Sexual activity: Not on file Other Topics Concern Not on file Social History Narrative Not on file Social Drivers of Health Financial Resource Strain: Low Risk (04/16/2024) Received from [facility] Overall Financial Resource Strain (CARDIA) Difficulty of Paying Living Expenses: Not hard at all Food Insecurity: No Food Insecurity (04/16/2024) Received from [facility] Hunger Vital Sign Worried About Running Out of Food in the Last Year: Never true Ran Out of Food in the Last Year: Never true Transportation Needs: Unknown (04/16/2024) Received from [facility] PRAPARE - Transportation Lack of Transportation (Medical): Not on file Lack of Transportation (Non-Medical): No Physical Activity: Not on file Stress: Not on file Social Connections: Not on file Intimate Partner Violence: Not on file Housing Stability: Unknown (04/16/2024) Received from [facility] Housing Stability Vital Sign Unable to Pay for Housing in the Last Year: Not on file Number of Times Moved in the Last Year: Not on file Homeless in the Last Year: No ROS: General: denies fever, chills, fatigue, malaise Gastrointestinal: denies abdominal pain, ulcers, or changes in appetite or bowel habits. History hepatitis-C in the past but has been resolved with medication and patient states good liver function tests Musculoskeletal: denies arthritis, denies loss of strength, pain to hip, knees, back Cardiovascular: denies CP, palpitations, irregular rhythms OBJECTIVE LE EXAM: DERM: Positive hair growth to b/l feet with good skin turgor noted. Negative openings in skin. Elongated thick yellow crumbly nails to bilateral great digits and bilateral 2nd digits VASC: Palpable pedal pulsed b/l with warm to cool tibia to toes b/l NEURO: Gross sensation intact digits 1-10 and b/l feet ORTHO: +5/5 DF/PF/IN/EV right, +5/5 DF/PF/IN/EV left. 20 degrees inversion and 10 degrees eversion STJ b/l. Ankle ROM less than 10 degrees b/l. Positive pain on palpation to right hallux and right 1st toenail and left hallux and left 1st toenail Minimal palpation to right medial calcaneal tubercle XRAY: US: ASSESSMENT 1. Plantar fasciitis 2. Contracture of right ankle 3. Pain due to onychomycosis of toenails of both feet 4. Onychomycosis PLAN Patient to continue with oral anti - inflammatories as needed for pain and recommended OTC medications such as tylenol or Ibuprofen Pt presents today for casting of a removable foot inserts/orthotics today that was accomplished with scanning of feet and sent to orthotics lab.(L3020 right and L3020 left foot). Pt to have signed ABN for device if needed. It was explained to the patient of a break in period for the devices. The patient is ambulatory may benefit functionally for this device. It may be used for the following conditions as noted per EMR. Patient is to continue with stretching excercizes daily with patient to continue with night stretching splint or manual stretching. Patient education today with discussing diagnosis and treatment options for patient including risks and benefits of lamisil medication including liver interactions, side effects, and possible non resolution of nail fungus. Rx for lamisil x 30 d Rx for lfts today Pt to contact podiatry if any problems RTC one month Kit Solitario DPM documented in this encounter [facility] 12-07-2023 History of Presen t illness Narrative SUBJECTIVE Chief Complaint: POP HPI Ms. Jazmin Cassidy is a , 43 y.o. female who is referred by Dr. Beltran for evaluation of prolapse. She notes a 6 month h/o of vaginal bulge. Noticeable daily. Protrudes externally. More pronounced with constipation. Notes associated SP pressure. No prior treatments for POP. Notes UI occurring over the last 6-12 months. Leakage occurs with urgency. No valsalva related leakage. Experiences PV dribbling. Notes frequency q2-3hrs. Notes nocturia with 3 voids nightly. No dysuria, GH, RUTIs. Notes a long h/o chronic constipation. BMs occur daily or every other day. Stools often hard and pellet like. Tries to avoid straining. Digitates vaginally >50% of the time. Uses stool softeners regularly. She is sexually active and notes dyspareunia. Has recently started VET. 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, crack, heroin, anyform Past Surgical History: Procedure Laterality Date FINGER SURGERY extra bone removed from left middle finger HYSTERECTOMY OOPHORECTOMY Social History Tobacco Use Smoking status: Former Current packs/day: 0.00 Types: Cigarettes Quit date: 2019 Years since quittin.3 Smokeless tobacco: Never Vaping Use Vaping status: Former Substances: CBD Substance Use Topics Alcohol use: Yes Comment: rare Drug use: Not Currently Types: Heroin Family History Problem Relation Age of Onset Depression Mother Diabetes Maternal Grandmother Stroke Paternal Grandfather Breast cancer Neg Hx Current Outpatient Medications: cyclobenzaprine (FLEXERIL) 5 mg tablet, TAKE 1 TABLET BY MOUTH THREE TIMES A DAY NEEDED FOR MUSCLE SPASMS, Disp: , Rfl: estradioL (ESTRACE) 0.01 % (0.1 mg/gram) vaginal cream, Insert 1 g into the vagina in the morning., Disp: 42.5 g, Rfl: 1 magnesium 30 mg tablet, Take 1 tablet (30 mg total) by mouth in the morning and 1 tablet (30 mg total) before bedtime., Disp: , Rfl: naproxen (NAPROSYN) 500 mg tablet, Take 1 tablet (500 mg total) by mouth in the morning and 1 tablet (500 mg total) in the evening. Take with meals., Disp: , Rfl: ALLERGIES Celebrex [celecoxib] OBJECTIVE VITAL SIGNS BP 126/86 (BP Site: Left Wrist, BP Postition: Sitting, BP CUFF SIZE: M (9-13 inches)) Pulse 72 Comment: 98o2 Temp 36.5 C (97.7 F) (Temporal) Resp 14 Ht 172.7 cm (5' 8 ) Wt 93.9 kg (207 lb) BMI 31.47 kg/m PHYSICAL EXAM Constitutional: General: She is not in acute distress. Cardiovascular: Rate: Normal rate. Lower extremity edema: none. Pulmonary: Effort: No respiratory distress, normal effort. Abdominal: General: There is no distension. Palpations: Abdomen is soft. There is no hepatomegaly, splenomegaly or mass. Tenderness: There is no abdominal tenderness. Hernia: No hernia is observable. Genitourinary: External exam Vulva and introitus: Normal appearance for age, no lesions, no erythema. Urethra: No prolapse, mass, urethral pain or urethral lesion. Bladder: Not tender, no distention. Bartholin's glands: Normal size, non-tender. Perineum/anus: Normal appearance, no lesions or hemorrhoids. Internal exam Vagina: Mucosa is pale and thin, no discharge. Cervix: Absent. Uterus: Absent. Adnexa: Absent. Rectum: ITALO deferred. Pelvic floor spasm and myalgia: None Modified Garrett Scale 0-5: 2, weak muscle contraction Leakage with hard coughing or Valsalva? not present Anterior Wall -3 Aa Anterior Wall -3 Ba Cervix or Cuff -6 C Genital Hiatus 3 gH Perineal Body 2 pB TVL 9 TVL Posterior Wall 0 Ap Posterior Wall 0 Bp Posterior Fornix N/A cervix absent D Standing Stress Test: Negative Voided Volume: 100 mL Results for orders placed or performed in visit on 12/07/23 Measure post void residual Result Value Ref Range Volume 45ml POCT urinalysis dipstick only Result Value Ref Range External Poct Urine Color dark yellow External Poct Urine Character clear External Poct Urine Appearance clear External Poct Urine Glucose Negative External Poct Urine Ketones Negative External Poct Urine Blood Negative External Poct Urine Ph 5.0 External Poct Urine Protein 3+ External Poct Urine Nitrite Negative External Poct Urine Leukocyte Esterase Negative ASSESSMENT/PLAN ICD-10-CM 1. Rectocele N81.6 2. Stress incontinence of urine N39.3 3. Dyspareunia in female N94.10 4. OAB (overactive bladder) N32.81 Impression and Plan: On exam, there is an International Continence Society Stage 2 posterior compartment prolapse, rectocele. We discussed prolapse at length including epidemiology, pathophysiology, risk factors for development, associated symptoms, and treatment options. She was offered expectant management, pelvic floor muscle exercises, pelvic floor physical therapy, pessary trial and surgery. She was provided with written information on pelvic organ prolapse and pessaries from [facility]. She is interested in definitive surgical management. Would be a good candidate for [place] tissue repair - posterior colporrhaphy and iliococcygeal suspension. We discussed the correlation between chronic constipation and rectocele. I advised that her rectocele is likely related to years of straining. I advised that surgical correction of her prolapse is not advisable until/if she can improve her functional bowel symptoms. Otherwise, if she continues straining, likelihood of post-surgical recurrence is quite high. I encouraged her to work on improvement in dietary fiber intake, or to consider fiber supplementation. Encouraged improved hydration. Consider probiotic. Miralax prn. She has MIGEL. Offered pelvic floor strengthening/PT or continence device. Desires definitive surgical management. Is going to return for UDS. Avoid bladder irritants. PVR normal. 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 UA negative. This chart note was put together with the assistance of a speech recognition program. While intending to generate a timely document that accurately reflects the contents of the visit, no guarantee can be provided that every grammatical or spelling mistake has been or will be identified or corrected. Thank you for your understanding when reviewing this and similarly generated notes. documented in this encounter [facility] 10-25-2023 History of Presen t illness Narrative Vagifem was changed to Estrace vaginal cream documented in this encounter [facility] 10-20-2023 Miscellaneous Notes Formattin g of this note might be different from the original. Pts script for Vagifem got denied. Is there another medication you would like to try? Pt aware. documented in this encounter [facility] 10-20-2023 Telephone encount er Note Pts script for Vagifem got denied. Is there another medication you would like to try? Pt aware. [facility] 10-18-2023 History of Presen t illness Narrative Subjective Patient ID: Jazmin Cassidy is a 42 y.o. female who presents today with a complaint of feeling a lump outside of her vagina as well as having pain with intercourse, and losing urine. Patient had a hysterectomy with BSO at 27 years of age for severe endometriosis. She was initially on HRT, but self discontinued a few years into that process. She reports some pain with intercourse and vaginal dryness at this time. Patient also states that she has noticed a lump outside of her vagina recently. She is also losing urine and having some difficulties making it to the bathroom on time . She reports recently going to the [facility] and completely soaking her pants through. She states that she would like surgical treatment if possible. Chief Complaint: Vaginal prolapse after hysterectomy with stress urinary Menstrual History: OB History 2 Para 2 Term 2 AB Living SAB IAB Ectopic Multiple Live Births No LMP recorded. Patient has had a hysterectomy. The following portions of the patient's history were reviewed and updated as appropriate: allergies, current medications, past family history, past medical history, past social history, past surgical history, problem list, and medication reconciliation was completed including current medication and post discharge medication. Review of Systems Constitutional: negative Respiratory: negative Cardiovascular: negative Gastrointestinal: negative Genitourinary: Vaginal prolapse incontinence desires surgical management Objective BP 120/82 Ht 172.7 cm (5' 8 ) Wt 93.4 kg (206 lb) BMI 31.32 kg/m General: alert, appears stated age, and cooperative Heart: regular rate and rhythm, S1, S2 normal, no murmur, click, rub or gallop Lungs: clear to auscultation bilaterally Abdomen: soft, non-tender, without masses or organomegaly Vulva: Rectocele appreciated with Valsalva Vagina: Rectocele, small amount of vaginal prolapse appreciated Cervix: absent Uterus: Surgically absent Adnexa: no mass, fullness, tenderness Assessment 1. Vaginal prolapse 2. Rectocele 3. Stress incontinence of urine 4. Dyspareunia in female 5. Status post hysterectomy with oophorectomy Plan 1. Vaginal estrogen provided and patient instructed on use 2. Kegel exercises encouraged 3. Discussed pelvic floor physical therapy versus surgical management. Patient states that she has contemplated this prior to her appointment and knows that she would like to proceed with surgery if possible. She also request Dr. Sosa as his office is closer the [place]. Referral has been made documented in this encounter [facility] 02-24-2022 Evaluation note Encounter Date Diagnosis Assessment Notes Feb, Acute left ankle pain (ICD-10 - M25.572) Feb, Closed avulsion fracture of left ankle, initial encounter (ICD-10 - S82.892A) Wear the boot at all times until seen by your orthopedic physician. Ice and elevate your foot 2-3 times a day. You may bear weight as tolerated. Take Tylenol or Motrin as needed for pain. Call your orthopedic physician tomorrow morning for an appointment to be seen as soon as possible. Patient prefers to see Dr. Gabriel, orthopedic physician in [place] in follow-up. She states she will arrange her appointment Feb, Other Ankle fracture material was printed [employer] Other Evaluation note* Diagnosis Plantar fasciitis- Primary Plantar fascial fibromatosis Contracture of right ankle Pain due to onychomycosis of toenails of both feet Onychomycosis Dermatophytosis of nail [facility] Diagnosis Rectocele- Primary Stress incontinence of urine Constipation, unspecified constipation type Dyspareunia in female OAB (overactive bladder) documented in this encounter [facility] Diagnosis Vaginal prolapse- Primary Unspecified prolapse of vaginal chris Rectocele Stress incontinence of urine Dyspareunia in female 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 documented in [facility]* Diagnosis Rectocele- Primary Vaginal prolapse Unspecified prolapse of vaginal chris Stress incontinence of urine Dyspareunia in female documented in this [facility]* Diagnosis Dyspareunia in female- Primary Menopause syndrome Symptomatic menopausal or female climacteric states documented [facility] N[facility]ative - Reported* Type Description Date Medical History Endometriosis Medical History Back pain Medical History Seizures Medical History Migraines Medical History PTSD Medical History Anxiety Disorder Medical History Hepatitis C-per records from [facility] Surgical History Hysterectomy 2008 Surgical History Exploratory laparoscopy-endomet riosi (2) Surgical History Tumor removed left finger Hospitalization History See past surgical hx Hospitalization History Seizures [employer] Other InstructionsNot on filedocumented in this encounter [facility] [employer] SystemInstructions* Attachments The following attachments cannot be sent through Care Everywhere. * Pelvic Floor Exercises (Turkish) * Vaginal dryness (Turkish) * Vaginal Prolapse (Turkish) [facility] SystemInstructionsNot on file documented in this encounterPro[facility] SystemInstructionsNot on file documented in this [facility]Pro[facility] SystemReason for referral (narrative)* Consultation (Routine) - Pending Review Specialty Diagnoses / Procedures Referred By Ralph larkin Referred To Contact Urology Diagnoses Rectocele Vaginal prolapse Stress incontinence of urine Dyspareunia in female Status post hysterectomy with oophorectomy Mariana Beltran DO [address] [place] [address] [place] [address] [facility], [address] [address] Referral ID Status Reason Start Date Expiration Date Visits Requested Visits Authorized [id number] Pending Review Specialty Services Required 10/18/2023 10/17/2024 1 1 * Medication Prior Authorization - Pending Review Specialty Diagnoses / Procedures Referred By Contac t Referred To Contact Diagnoses Rectocele Vaginal prolapse Stress incontinence of urine Dyspareunia in female Status post hysterectomy with oophorectomy Mariana Beltran DO [address] [place] [address] Referral ID Status Reason Start Date Expiration Date V isits Requested Visits Authorized [id number] Pending Review 1 1 [employer] TechnologiesReason for referral (narrative)* Consultation (Routine) - Pending Review Specialty Diagnoses / Procedures Referred By Ralph larkin Referred To Contact Urogynecology / Gynecology Diagnoses Rectocele Vaginal prolapse Stress incontinence of urine Dyspareunia in female Mariana Beltran DO [address] [place] [address] Kedar Agee MD [address] [place] [address] Referral ID Status Reason Start Date Expiration Date Visits Requested Visits Authorized [id number] Pending Review Specialty Services Required 10/24/2023 10/23/2024 1 1 [employer] Summary Purpose Family History No Family History Records FoundNo Family History Records FoundNo Family History Records FoundNo Family History Records FoundNo Family History Records FoundNo Family History Records Found Advance Directives Healthcare Agents on File Name Relationship Healthcare Agent [facility] Communication Faviola Coolley Child Primary Decision Maker Reason for Referral Specialty Diagnoses / Procedures Referred By Ralph t Referred To Contact Diagnoses Rectocele Vaginal prolapse Stress incontinence of urine Dyspareunia in female Procedures Measure post void residual Kedar Agee MD [address] [place] [address] Referral ID Status Reason Start Date Expiration Date V isits Requested Visits Authorized [id number] Pending Review 12/07/2023 12/06/2024 1 1 Additional Source Comments INFORMATION SOURCE (unrecogn ized section and content) DATE CREATED AUTHOR 08/10/2021 [facility] DATE CREATED AUTHOR AUTHOR'S ORGANIZ ATION 03/11/2022 [facility] DATE CREATED AUTHOR AUTHOR'S ORGANIZ ATION 12/09/2023 [facility] DATE CREATED AUTHOR AUTHOR'S ORGANIZ ATION 12/28/2023 [facility] DATE CREATED AUTHOR AUTHOR'S ORGANIZ ATION 04/18/2024 [facility] DATE CREATED AUTHOR AUTHOR'S ORGANIZ ATION 09/22/2024 [facility] EPIC REASON FOR VISIT (unrecogniz ed section and content) Reason Comments Toenail Problem Thick nials, poss fu ngus Reason Comments Vaginal Prolapse Specialty Diagnoses / Procedures Referred By Contdami t Referred To Contact Urogynecology / Gynecology Diagnoses Rectocele Vaginal prolapse Stress incontinence of urine Dyspareunia in female Mariana Beltran, [address] [place] [address] Kedar Agee MD [address] [address] Referral ID Status Reason Start Date Expiration Date V isits Requested Visits Authorized [id number] Closed Specialty Services Required 10/24/2023 10/23/2024 1 1 Reason Comments Prolapse Noticed a few months ago, feels a bulge Care Teams (unrecognized sec tion and content) Demand Manager Relationship Specialty Start Date End Date Juno Rogers MD PCP - General Internal Medicine 05/22/18 Demand Manager Relationship Specialty Start Date End Date Juno Rogers MD [address] [place] [address] PCP - General Internal Medicine 09/20/24 Demand Manager Relationship Specialty Start Date End Date Juno Rogers MD [address] [place] [address] PCP - General Internal Medicine 09/20/24 FOR RECORDS PERTAINING TO PATIENTS WHO ARE OR HAVE BEEN ENROLLED IN A CHEMICAL DEPENDENCY/SUBSTANCEABUSE PROGRAM, SOME INFORMATION MAY BE OMITTED. This clinical summary was aggregated from multiple sources. Caution should be exercised in using it in the provision of clinical care. This summary normalizes information from multiple sources, and as a consequence, information in this document may materially change the coding, format and clinical context of patient data. In addition, data may be omitted in some cases. CLINICAL DECISIONS SHOULD BE BASED ON THE PRIMARY CLINICAL RECORDS. [employer] provides no warranty or guarantee of the accuracy or completeness of information in this document.
[2024-10-26 08:36] LABS: Basophils Absolute Auto 0.1 10^3/uL (0.0-0.1); Basophils Percent Auto 0.9 % (0.2-2.0); Eosinophils Absolute Auto 0.1 10^3/uL (0.0-0.7); Eosinophils Percent Auto 2.4 % (0.9-7.0); Hematocrit 40.8 % (36.0-48.0); Hemoglobin 13.1 g/dL (12.0-16.0); Immature Granulocytes Abs Auto 0.01 10^3/uL (0.00-0.03); Immature Granulocytes Pct Auto 0.2 % (0.0-0.5); Lymphocytes Absolute Auto 2.4 10^3/uL (1.2-3.8); Lymphocytes Percent Auto 41.2 % (20.5-60.0); Mean Corpuscular HGB Conc 32.1 g/dL (29.9-35.2); Mean Corpuscular Hemoglobin 28.5 pg (26.7-34.0); Mean Corpuscular Volume 88.9 fL (81.0-99.0); Mean Platelet Volume 9.8 fL (9.5-13.5); Monocytes Absolute Auto 0.5 10^3/uL (0.3-0.8); Monocytes Percent Auto 8.3 % (1.7-12.0); Neutrophils Absolute Auto 2.7 10^3/uL (1.4-6.5); Platelet Count 292 10^3/uL (150-450); Red Blood Count 4.59 10^6/uL (4.20-5.40); Red Cell Distribution Width 13.1 % (11.0-15.0); White Blood Count 5.8 10^3/uL (4.0-11.0)
[2024-10-26 10:14] LABS: Alanine Aminotransferase 30 U/L (14-59); Albumin Globulin Ratio 1.3; Albumin Level 3.9 g/dL (3.4-5.0); Alkaline Phosphatase 76 U/L (46-116); Anion Gap 11.9; Aspartate Amino Transferase 17 U/L (15-37); BUN Creatinine Ratio 16.9; Bilirubin Total 0.5 mg/dL (0.2-1.0); Calcium 8.7 mg/dL (8.5-10.1); Carbon Dioxide 29.2 mmol/L (21.0-32.0); Chloride 107 mmol/L (98-107); Estimated GFR (African America >60 (>=60 mL/min/1.73m^2); Estimated GFR (Non-African Ame >60 (>=60 mL/min/1.73m^2); Globulin 3.1 g/dL; Glucose 100 mg/dL (74-106); Percent Iron Saturation 18.3 %; Potassium 4.1 mmol/L (3.5-5.1); Sodium 144 mmol/L (136-145)
[2024-10-26 10:24] LABS: Chol HDL Ratio 2.2; Cholesterol 187 mg/dL (<=200); HDL Cholesterol 86 mg/dL (40-60); TSH W/ REFLEX FT4 1.482 uIU/mL (0.358-3.740); Triglycerides 73 mg/dL (<=150); VLDL CHOLESTEROL 14.6 mg/dL
[2024-10-27 05:10] LABS: Vitamin B12 747 pg/mL (232-1245)
== END 2024-10-26 07:49 | disposition home or self-care (01) ==
LOC: LAB 07:52
PROVIDERS: PCP Nurse Practitioner Family; Visit Provider Nurse Practitioner Family
DX: R42 Dizziness and giddiness (principal); Z13.220 Encounter for screening for lipoid disorders; E55.9 Vitamin D deficiency, unspecified; E53.8 Deficiency of other specified B group vitamins
CPT/HCPCS: 36415; 80053; 80061; 82306; 82607; 83540; 83550; 84443; 85025

== ENCOUNTER 2024-10-26 07:56 | Outpatient (OUT) | payer OTHER, SELFPAY ==
--- OUTSIDE RECORDS SUMMARY | 2024-10-26 08:04 | XMS_ITS | CCD ---
Author Organization [facility] Care Team Providers Care Habitat Management Coordinator Name Role Phone SUE JUNO Primary Care [...] (1 source) Clindamycin Drug Allergy 07-02-2019 [facility] (6 sources) celecoxib; Translations: [CELECOXIB] Drug Allergy 01-11-2023 [facility] (1 source) Clindamycin Drug Allergy 07-02-2019 [facility] Medications Current Medications Medication Drug Class(es) Dates [...] Glass Jr., MD 04/16/24 Final result Normal [facility] Measure post void residualon 12-07-2023 Volume 45ml [facility] POCT urinalysis dipstick onl yon 12-07-2023 Appearance (U) clear [facility] External Poct Urine Blood Negative [facility] External Poct Urine Character clear [facility] External Poct Urine Color dark yellow [facility] External Poct Urine Glucose Negative [facility] External Poct Urine Ketones Negative [facility] External Poct Urine Leukocyte Esterase Negative [facility] External Poct Urine Nitrite Negative [facility] External Poct Urine Ph 5.0 [facility] External Poct Urine Protein 3+ [facility] System XR ankle LT min 3V*on 2021 XR ankle LT min 3V* [facility] [place] [address] [place] [address] XRay Report Signed Patient: Jazmin Cassidy MR#: [id number] 35 : 1980 Acct:[id number] Age/Sex: 41 / F ADM Date: 02/24/22 Loc: XDUCLY Room: Type: [facility] Attending Dr: Yazmin SORIA Copies to: YANG [...] Raoul Lindsey M.D.02/24/2022 7:00 PM Dictation Location: [place] [address] Transcribed By: [facility] 02/24/221899 Dictated By: Raoul Lindsey DO 02/24/221858 Signed By: 02/24/221899 Normal [facility] XR ankle LT min 3V* [facility] [employer] Other XR ankle LT min 3V* [facility] [employer] Other XR ankle LT min 3V* [address] [place] [address] [employer] Other XR ankle LT min 3V* [place] [address] [employer] Other XR ankle LT min 3V* XRay Report [employer] Other XR ankle LT min 3V* Signed [employer] Other XR ankle LT min 3V* Patient: Jazmin Cassidy MR#: [id number] [employer] Other XR ankle LT min 3V* 35 [employer] Other XR ankle LT min 3V* : 1980 Acct:[id number] [employer] Other XR ankle LT min 3V* Age/Sex: 41 / F ADM Date: 02/24/22 [employer] Other XR ankle LT min 3V* Loc: XDUCLY Room: Type: REG CLI [employer] Other XR ankle LT min 3V* Attending Dr: Yazmin SORIA [employer] Other XR ankle LT min 3V* Copies to: YANG Dubon [employer] Other XR ankle LT min 3V* Ordering Provider: YANG Dubon [employer] Other XR ankle LT min 3V* Date of Service: 02/24/22 [employer] Other XR ankle LT min 3V* XR/XR ankle LT min 3V*: LEFT ANKLE INJURY [employer] Other XR ankle LT min 3V* 3views LEFTankle [employer] Other XR ankle LT min 3V* COMPARISON:None [employer] Other XR ankle LT min 3V* HISTORY: LEFT ankle injury. [employer] Other XR ankle LT min 3V* Mild anterior soft tissue swelling present. Tiny bony density inferior to the lateral malleolus [employer] Other XR ankle LT min 3V* may represent small avulsion fracture. Ankle mortise preserved. [employer] Other XR ankle LT min 3V* XR/XR ankle LT min 3V* [employer] Other XR ankle LT min 3V* IMPRESSION: Small avulsion fracture inferior to the lateral malleolus. [employer] Other XR ankle LT min 3V* Impression dictated by: Raoul Lindsey M.D.02/24/2022 7:00 PM [employer] Other XR ankle LT min 3V* Dictation Location: [place] [address] [employer] Other XR ankle LT min 3V* Transcribed By: [facility] 02/24/22 1900 [employer] Other XR ankle LT min 3V* Dictated By: Raoul Lindsey DO 02/24/22 1859 [employer] Other XR ankle LT min 3V* Signed By: [employer] Other XR ankle LT min 3V* 02/24/22 1900 [employer] Other CBC AUTO DIFFon 08-06-2021 BASO # 0.0 103/ul Normal 0.0-0.1 [facility] Comment on above: Performed By: #### C BC #### [facility] [address] [place] [address] Dr. Javier Hinton Basophils/100 WBC (Bld) 0.3 % Normal 0.2-2.0 [facility] Comment on above: Performed By: #### C BC #### [facility] [address] [place] [address] Dr. Javier Hinton EO # 0.0 103/ul Normal 0.0-0.7 [facility] Comment on above: Performed By: #### C BC #### [facility] [address] [place] [address] Dr. Javier Hinton Eosinophils/100 WBC (Bld) 0.3 % Critically low 0.9-7.0 [facility] Comment on above: Performed By: #### C BC #### [facility] [address] [place] [address] Dr. Javier Hinton Erythrocyte distribution width (RBC) [Ratio] 13.3 % Normal 11.0-15.0 [facility] Comment on above: Performed By: #### C BC #### [facility] [address] [place] [address] Dr. Javier Hinton Hematocrit (Bld) [Volume fraction] 41.7 % Normal 36.0-48.0 [facility] Comment on above: Performed By: #### C BC #### [facility] [address] [place] [address] Dr. Javier Hinton Hemoglobin (Bld) [Mass/Vol] 13.7 g/dL Normal 12.0-16.0 [facility] Comment on above: Performed By: #### C BC #### [facility] [address] [place] [address] Dr. Javier Hinton IG # 0.01 10e3/ul Normal 0.00-0.03 [facility] Comment on above: Performed By: #### C BC #### [facility] [address] [place] [address] Dr. Javier Hinton IG % 0.3 % Normal 0.0-0.5 [facility] Comment on above: Performed By: #### C BC #### [facility] [address] [place] [address] Dr. Javier Hinton LYMPH # 1.2 103/ul Normal 1.2-3.8 [facility] Comment on above: Performed By: #### C BC #### [facility] [address] [place] [address] Dr. Javier Hinton Lymphocytes/100 WBC (Bld) 31.4 % Normal 20.5-60.0 [facility] Comment on above: Performed By: #### C BC #### [facility] [address] [place] [address] Dr. Javier Hinton MANUAL DIFF REQ NO Normal [facility] Comment on above: Performed By: #### C BC #### [facility] [address] [place] [address] Dr. Javier Hinton MCH (RBC) [Entitic mass] 28.0 pg Normal 26.7-34.0 [facility] Comment on above: Performed By: #### C BC #### [facility] [address] [place] [address] Dr. Javier Hinton MCHC (RBC) [Mass/Vol] 32.9 g/dL Normal 29.9-35.2 [facility] Comment on above: Performed By: #### C BC #### [facility] [address] [place] [address] Dr. Javier Hinton MCV (RBC) [Entitic vol] 85.1 fL Normal 81.0-99.0 [facility] Comment on above: Performed By: #### C BC #### [facility] [address] [address] [address] Javier Hinton MONO # 0.3 103/ul Normal 0.3-0.8 [facility] Comment on above: Performed By: #### C BC #### [facility] [address] [address] [address] Javier Hinton Monocytes/100 WBC (Bld) 8.7 % Normal 1.7-12.0 [facility] Comment on above: Performed By: #### C BC #### [facility] [address] [place] [address] Dr. Javier Hinton NEUT # 2.3 103/ul Normal 1.4-6.5 [facility] Comment on above: Performed By: #### C BC #### [facility] [address] [place] [address] Dr. Javier Hinton Neutrophils/100 WBC (Bld) 59.0 % Normal 43.0-75.0 [facility] Comment on above: Performed By: #### C BC #### [facility] [address] [place] [address] Dr. Javier Hinton Platelet mean volume (Bld) [Entitic vol] 9.3 fL Critically low 9.5-13.5 [facility] Comment on above: Performed By: #### C BC #### [facility] [address] [place] [address] Dr. Javier Hinton PLT 187 103/ul Normal 150-450 [facility] Comment on above: Performed By: #### C BC #### [facility] [address] [place] [address] Dr. Javier Hinton RBC 4.90 106/ul Normal 4.20-5.40 [facility] Comment on above: Performed By: #### C BC #### [facility] [address] [place] [address] Dr. Javier Hinton WBC 3.9 103/ul Critically low 4.0-11.0 [facility] Comment on above: Performed By: #### C BC #### [facility] [address] [place] [address] Dr. Javier Hinton Covid-19 PCR (CVDTB)on 07-22 SARS-CoV-2 (COVID-19) RNA MITRA+probe Ql (Unsp spec) Detected Critically abnormal NOT DETECTED [facility] Comment on above: Result Comment: This test is not yet approved or cleared by the [place] FDA. When there are no FDA-approved or cleared tests available, and other criteria are met, FDA can make tests available under an emergency access mechanism called an Emergency Use Authorization (EUA). The EUA for this test is supported by the [place] of Health and Human Service's declaration that [...] used). Performed By: #### C VDTBH #### [facility] [address] [place] [address] Dr. Javier Hinton ER URINE PROFILEon Bilirubin Ql (U) Negative Normal NEGATIVE [facility] Comment on above: Performed By: #### E RUR #### [facility] [address] [place] [address] Dr. Javier Hinton Clarity (U) CLEAR Normal CLEAR [facility] Comment on above: Performed By: #### E RUR #### [facility] [address] [place] [address] Dr. Javier Hinton Color (U) YELLOW Normal YELLOW [facility] Comment on above: Performed By: #### E RUR #### [facility] [address] [place] [address] Dr. Javier FRANK A micrscopic examination will be performed if indicated. Normal [facility] Comment on above: Performed By: #### E RUR #### [facility] [address] [place] [address] Dr. Javier Hinton Glucose Ql (U) Negative Normal NEGATIVE [facility] Comment on above: Performed By: #### E RUR #### [facility] [address] [place] [address] Dr. Javier Hinton Hemoglobin Ql (U) Negative Normal NEGATIVE [facility] Comment on above: Performed By: #### E RUR #### [facility] [address] [place] [address] Dr. Javier Hinton Ketones Ql (U) 40 mg/dl Abnormal NEGATIVE [facility] Comment on above: Performed By: #### E RUR #### [facility] [address] [place] [address] Dr. Javier Hinton LEUKOCYTES Negative Normal NEGATIVE [facility] Comment on above: Performed By: #### E RUR #### [facility] [address] [place] [address] Dr. Javier Hinton Nitrite Ql (U) Negative Normal NEGATIVE [facility] Comment on above: Performed By: #### E RUR #### [facility] [address] [place] [address] Dr. Javier Hinton pH (U) 6.0 [pH] Normal 5-9 [facility] Comment on above: Performed By: #### E RUR #### [facility] [address] [place] [address] Dr. Javier Hinton Protein (U) [Mass/Vol] 30 mg/dL Abnormal NEGATIVE/ TRACE [facility] Comment on above: Performed By: #### E RUR #### [facility] [address] [place] [address] Dr. Javier Hinton SPEC GRAVITY 1.025 Normal 1.005-<=1.025 [facility] Comment on above: Performed By: #### E RUR #### [facility] [address] [place] [address] Dr. Javier Hinton UR MICRO IND NOT INDICATED Normal [facility] Comment on above: Performed By: #### E RUR #### [facility] [address] [place] [address] Dr. Javier Hinton Urobilinogen Qn (U) 0.2 {Ericka'U}/dL Normal 0.2 - 1.0 [facility] Comment on above: Performed By: #### E RUR #### [facility] [address] [place] [address] Dr. Javier Hinton INFLUENZA A AND B AGon 08-06 INFLUANEGH SEE BELOW Normal [facility] Comment on above: Result Comment: Nega tive for Flu A protein angiten. Infection due to Flu A cannot be ruled out. Flu A angiten in the sample may be below the detection limit of the test. Performed By: #### I NFLUAB ####[facility] [address] [place], [place] [address]Dr. Javier Hinton INFLUBNEGH SEE BELOW Normal [facility] Comment on above: Result Comment: Nega tive for Flu B protein antigen. Infection due to Flu B cannot be ruled out. Flu B antigen in the sample may be below the detection limit of the test. Performed By: #### I NFLUAB ####[facility] [address] [place], [place] [address]Dr. Javier Hinton INFLUENZA A AG Negative Normal NEGATIVE SEE COMMENT [facility] Comment on above: Performed By: #### I NFLUAB ####[facility] [address] [place], [place] [address]DrKem Hinton INFLUENZA B AG Negative Normal NEGATIVE SEE COMMENT [facility] Comment on above: Performed By: #### I NFLUAB ####[facility] [address] [place], [place] [address]Dr. Javier Hinton INTERNAL CONTROLS Within Normal Limits Normal Within Normal Limits [facility] Comment on above: Performed By: #### I NFLUAB ####[facility] [address] [place], [place] [address]Dr. Javier Hinton LACTATE/LACTIC ACIDon 2020 Lactate [Moles/Vol] 0.9 mmol/L Normal 0.7-2.0 [facility] Comment on above: Performed By: #### L ACT ####[facility] [address] [place], [place] [address]DrKem Hinton PROF 14(COMP METB)on 021 Albumin [Mass/Vol] 3.7 g/dL Normal 3.5-5.0 [facility] Comment on above: Performed By: #### H GAYE, CMP #### [facility] [address] [address] [address] Javier Hinton Albumin/Globulin [Mass ratio] 0.9 {ratio} Normal [facility] Comment on above: Performed By: #### H GAYE, CMP #### [facility] [address] [address] [address] Javier Hinton ALP [Catalytic activity/Vol] 88 U/L Normal 38-126 [facility] Comment on above: Performed By: #### H GAYE, CMP #### [facility] [address] [place] [address] [address] Javier Hinton ALT [Catalytic activity/Vol] 28 U/L Normal 9-52 [facility] Comment on above: Performed By: #### H GAYE, CMP #### [facility] [address] [place] [address] [address] Javier iHnton Anion gap [Moles/Vol] 14.5 mmol/L Normal [facility] Comment on above: Performed By: #### H GAYE, CMP #### [facility] [address] [place] [address] [address] Javier Hinton AST [Catalytic activity/Vol] 26 U/L Normal 14-36 [facility] Comment on above: Performed By: #### H GAYE, CMP #### [facility] [address] [place] [address] [address] Javier Hinton Bilirubin [Mass/Vol] 0.7 mg/dL Normal 0.2-1.3 [facility] Comment on above: Performed By: #### H GAYE, CMP #### [facility] [address] [address] [address] Javier Hinton Calcium [Mass/Vol] 9.0 mg/dL Normal 8.4-10.2 [facility] Comment on above: Performed By: #### H GAYE, CMP #### [facility] [address] [place] [address] Dr. Javier Hinton Chloride [Moles/Vol] 99 mmol/L Normal 98-107 [facility] Comment on above: Performed By: #### H DEXTERPN, CMP #### [facility] [address] [place] [address] Dr. Javier Hinton CO2 [Moles/Vol] 29.2 mmol/L Normal 22.0-30.0 [facility] Comment on above: Performed By: #### H STROPN, CMP #### [facility] [address] [place] [address] Dr. Javier Hinton Creatinine [Mass/Vol] 0.80 mg/dL Normal 0.52-1.04 [facility] Comment on above: Performed By: #### H STROPN, CMP #### [facility] [address] [place] [address] Dr. Javier Hinton EGFR-AF SAMOAN Normal >=60 [facility] Comment on above: Performed By: #### H STROPN, CMP #### [facility] [address] [place] [address] Dr. Javier Hinton EGFR-NON AF SAMOAN Normal >=60 [facility] Comment on above: Performed By: #### H STROPN, CMP #### [facility] [address] [place] [address] Dr. Javier Hinton Globulin (S) [Mass/Vol] 4.3 g/dL Normal [facility] Comment on above: Performed By: #### H STROPN, CMP #### [facility] [address] [place] [address] Dr. Javier Hinton Glucose [Mass/Vol] 91 mg/dL Normal 74-106 [facility] Comment on above: Performed By: #### H STROPN, CMP #### [facility] [address] [place] [address] Dr. Javier Hinton Potassium [Moles/Vol] 3.7 mmol/L Normal 3.4-5.0 [facility] Comment on above: Performed By: #### H STROPN, CMP #### [facility] [address] [place] [address] Dr. Javier Hinton Protein [Mass/Vol] 8.0 g/dL Normal 6.1-8.2 [facility] Comment on above: Performed By: #### H GAYE, CMP #### [facility] [address] [address] [address] Javier Hinton Sodium [Moles/Vol] 139 mmol/L Normal 137-145 [facility] Comment on above: Performed By: #### H GAYE, CMP #### [facility] [address] [address] [address] Javier Hinton Urea nitrogen [Mass/Vol] 15.0 mg/dL Normal 7.0-17.0 [facility] Comment on above: Performed By: #### H GAYE, CMP #### [facility] [address] [place] [address] Dr. Javier Hinton Urea nitrogen/Creatinin e [Mass ratio] 18.8 mg/mg Normal [facility] Comment on above: Performed By: #### H GAYE, CMP #### [facility] [address] [place] [address] Dr. Javier Hinton TROPONIN, HIGH SENSITIVITYon 08-06-2021 HSTROP 4.8 pg/mL Normal 4.0-35.5 [facility] Comment on above: Result Comment: CUT- OFF POINTS HAVE BEEN ESTABLISHED BASED ON THE FOURTH UNIVERSAL DEFINITIONS OF MYOCARDIAL INFARCTION. THE UPPER REFERENCE LIMIT (URL) OF TROPONIN, DEFINED THE 99TH PERCENTILE OF cTnI DISTRIBUTION IN A REFERENCE POPULATION, HAS BEEN CONFIRMED THE DECISION THRESHOLD FOR [place] DIAGNOSIS. Performed By: #### H GAYE, CMP #### [facility] [address] [place] [address] Dr. Javier Hinton XR CHEST 1 Von [...] SHERITA BOOKER Date: 2021-08-06 16:56 Normal [facility] Covid-19 PCR (CVDTB)on 04-23 SARS-CoV-2 (COVID-19) RNA MITRA+probe Ql (Unsp spec) Detected Critically abnormal NOT DETECTED [facility] Comment on above: Result Comment: This test is not yet approved or cleared by the [place] FDA. When there are no FDA-approved or cleared tests available, and other criteria are met, FDA can make tests available under an emergency access mechanism called an Emergency Use Authorization (EUA). The EUA for this test is supported by the [place] of Health and Human Service's (HHS's) declaration [...] used). Performed By: #### C VDTB #### [facility] [address] [place] [address] Dr. Javier Hinton AMYLASEon 03-03-2021 Amylase [Catalytic activity/Vol] 55 U/L Normal 31-110 [facility] Comment on above: Performed By: #### C MP, CAROLYN, LIPA #### [facility] [address] [place], [place] [address] Reji Debbie CBC AUTO DIFFon 03-03-2021 BASO # 0.0 103/ul Normal 0.0-0.1 [facility] Comment on above: Performed By: #### C BC ####[facility] [address] [place] [address] Debbie Basophils/100 WBC (Bld) 0.6 % Normal 0.2-2.0 [facility] Comment on above: Performed By: #### C BC ####[facility] [address] [place] [address] Debbie EO # 0.1 103/ul Normal 0.0-0.7 [facility] Comment on above: Performed By: #### C BC ####[facility] [address] [place] [address] Debbie Eosinophils/100 WBC (Bld) 2.1 % Normal 0.9-7.0 [facility] Comment on above: Performed By: #### C BC ####[facility] [address] [place] [address] Debbie Erythrocyte distribution width (RBC) [Ratio] 12.7 % Normal 11.0-15.0 [facility] Comment on above: Performed By: #### C BC ####[facility] [address] [place] [address] Debbie Hematocrit (Bld) [Volume fraction] 38.8 % Normal 36.0-48.0 [facility] Comment on above: Performed By: #### C BC ####[facility] [address] [place] [address] Debbie Hemoglobin (Bld) [Mass/Vol] 12.8 g/dL Normal 12.0-16.0 [facility] Comment on above: Performed By: #### C BC ####[facility] [address] [place] [address] Debbie IG # 0.02 10e3/ul Normal 0.00-0.03 [facility] Comment on above: Performed By: #### C BC ####[facility] [address] [place] [address] Debbie IG % 0.3 % Normal 0.0-0.5 [facility] Comment on above: Performed By: #### C BC ####[facility] [address] [place] [address] Debbie LYMPH # 2.3 103/ul Normal 1.2-3.8 [facility] Comment on above: Performed By: #### C BC ####[facility] [address] [place] [address] Debbie Lymphocytes/100 WBC (Bld) 33.7 % Normal 20.5-60.0 [facility] Comment on above: Performed By: #### C BC ####[facility] [address] [place] [address] Debbie MANUAL DIFF REQ NO Normal [facility] Comment on above: Performed By: #### C BC ####[facility] [address] Debbie MCH (RBC) [Entitic mass] 28.1 pg Normal 26.7-34.0 [facility] Comment on above: Performed By: #### C BC ####[facility] [id number] [place] [address] Debbie MCHC (RBC) [Mass/Vol] 33.0 g/dL Normal 29.9-35.2 [facility] Comment on above: Performed By: #### C BC ####[facility] [address] [place] [address] Debbie MCV (RBC) [Entitic vol] 85.3 fL Normal 81.0-99.0 [facility] Comment on above: Performed By: #### C BC ####[facility] [address] [place] [address] Debbie MONO # 0.5 103/ul Normal 0.3-0.8 [facility] Comment on above: Performed By: #### C BC ####[facility] [address] [place] [address] Debbie Monocytes/100 WBC (Bld) 7.9 % Normal 1.7-12.0 [facility] Comment on above: Performed By: #### C BC ####[facility] [address] [place] [address] Debbie NEUT # 3.7 103/ul Normal 1.4-6.5 [facility] Comment on above: Performed By: #### C BC ####[facility] [address] [place] [address] Debbie Neutrophils/100 WBC (Bld) 55.4 % Normal 43.0-75.0 [facility] Comment on above: Performed By: #### C BC ####[facility] [address] [place] [address] Debbie Platelet mean volume (Bld) [Entitic vol] 9.6 fL Normal 9.5-13.5 [facility] Comment on above: Performed By: #### C BC ####[facility] [address] [place] [address] Debbie PLT 291 103/ul Normal 150-450 [facility] Comment on above: Performed By: #### C BC ####[facility] [address] [place] [address] Debbie RBC 4.55 106/ul Normal 4.20-5.40 [facility] Comment on above: Performed By: #### C BC ####[facility] [address] [place] [address] Debbie WBC 6.7 103/ul Normal 4.0-11.0 [facility] Comment on above: Performed By: #### C BC ####[facility] [address] [place] [address] Debbie ER URINE PROFILEon 1 Bilirubin Ql (U) Negative Normal NEGATIVE [facility] Comment on above: Performed By: #### E RUR ####[facility] [address] [place] [address] Debbie Clarity (U) CLEAR Normal CLEAR [facility] Comment on above: Performed By: #### E RUR ####[facility] [address] [place] [address] Debbie Color (U) LT. YELLOW Normal YELLOW [facility] Comment on above: Performed By: #### E RUR ####[facility] [address] [place] [address] Debbie ERUAHD A micrscopic examination will be performed if indicated. Normal [facility] Comment on above: Performed By: #### E RUR ####[facility] [address] Debbie Glucose Ql (U) Negative Normal NEGATIVE [facility] Comment on above: Performed By: #### E RUR ####[facility] [address] [place], [place] [address] Debbie Hemoglobin Ql (U) Negative Normal NEGATIVE [facility] Comment on above: Performed By: #### E RUR ####[facility] [address] [place] [address] Debbie Ketones Ql (U) Negative Normal NEGATIVE [facility] Comment on above: Performed By: #### E RUR ####[facility] [address] [place] [address] Debbie LEUKOCYTES Negative Normal NEGATIVE [facility] Comment on above: Performed By: #### E RUR ####[facility] [address] [place] [address] Debbie Nitrite Ql (U) Negative Normal NEGATIVE The [facility] Comment on above: Performed By: #### E RUR ####[facility] [id number] [place] [address] Debbie pH (U) 6.0 [pH] Normal 5-9 [facility] Comment on above: Performed By: #### E RUR ####[facility] [id number] [place] [address] Debbie SPEC GRAVITY 1.010 Normal 1.005-<=1.025 The [facility] Comment on above: Performed By: #### E RUR ####[facility] [id number] [place] [address] Debbie UA PROTEIN Negative Normal NEGATIVE/ TRACE [facility] Comment on above: Performed By: #### E RUR ####[facility] [id number] [place] [address] Debbie UR MICRO IND NOT INDICATED Normal The [facility] Comment on above: Performed By: #### E RUR ####[facility] [id number] [place] [address] Debbie Urobilinogen Qn (U) 0.2 {Ericka'U}/dL Normal 0.2 - 1.0 [facility] Comment on above: Performed By: #### E RUR ####[facility] [address] [place], [place] [address]Ofuain Debbie LIPASEon 03-03-2021 Lipase [Catalytic activity/Vol] 67.0 U/L Normal 23.0-300.0 [facility] Comment on above: Performed By: #### C MP, CAROLYN, LIPA #### [facility] [address] [place], [place] [address] Reji Debbie PROF 14(COMP METB)on 021 Albumin [Mass/Vol] 4.2 g/dL Normal 3.5-5.0 [facility] Comment on above: Performed By: #### C MP, CAROLYN, LIPA #### [facility] [address] [place], [place] [address] Reji Debbie Albumin/Globulin [Mass ratio] 1.2 {ratio} Normal [facility] Comment on above: Performed By: #### C MP, CAROLYN, LIPA #### [facility] [address] [place], [place] [address] Reji Debbie ALP [Catalytic activity/Vol] 94 U/L Normal 38-126 [facility] Comment on above: Performed By: #### C MP, CAROLYN, LIPA #### [facility] [address] [place], [place] [address] Reji Debbie ALT [Catalytic activity/Vol] 27 U/L Normal 9-52 [facility] Comment on above: Performed By: #### C MP, CAROLYN, LIPA #### [facility] [address] [place], [place] [address] Reji Debbie Anion gap [Moles/Vol] 10.2 mmol/L Normal [facility] Comment on above: Performed By: #### C MP, CAROLYN, LIPA #### [facility] [address] [place], [place] [address] Reji Debbie AST [Catalytic activity/Vol] 13 U/L Critically low 14-36 [facility] Comment on above: Performed By: #### C MP, CAROLYN, LIPA #### [facility] [address] [place] [address] Reji Debbie Bilirubin [Mass/Vol] 0.5 mg/dL Normal 0.2-1.3 [facility] Comment on above: Performed By: #### C MP, CAROLYN, LIPA #### [facility] [address] [place] [address] Reji Debbie Calcium [Mass/Vol] 9.3 mg/dL Normal 8.4-10.2 [facility] Comment on above: Performed By: #### C MP, CAROLYN, LIPA #### [facility] [address] [place] [address] Reji Debbie Chloride [Moles/Vol] 106 mmol/L Normal 98-107 [facility] Comment on above: Performed By: #### C MP, CAROLYN, LIPA #### [facility] [address] [place] [address] Reji Debbie CO2 [Moles/Vol] 25.7 mmol/L Normal 22.0-30.0 [facility] Comment on above: Performed By: #### C MP, CAROLYN, LIPA #### [facility] [address] [place] [address] Reji Debbie Creatinine [Mass/Vol] 0.78 mg/dL Normal 0.52-1.04 [facility] Comment on above: Performed By: #### C MP, CAROLYN, LIPA #### [facility] [address] [place] [address] Reji Debbie EGFR-AF SAMOAN >60 Normal >=60 [facility] Comment on above: Performed By: #### C MP, CAROLYN, LIPA #### [facility] [address] [place] [address] Reji Debbie EGFR-NON AF SAMOAN >60 Normal >=60 [facility] Comment on above: Performed By: #### C MP, CAROLYN, LIPA #### [facility] [address] [place] [address] Reji Debbie Globulin (S) [Mass/Vol] 3.4 g/dL Normal [facility] Comment on above: Performed By: #### C CAROLYN MCKEON LIPA #### [facility] [address] [place] [address] Reji Debbie Glucose [Mass/Vol] 94 mg/dL Normal 74-106 [facility] Comment on above: Performed By: #### C CAROLYN MCKEON LIPA #### [facility] [address] [place] [address] Reji Debbie Potassium [Moles/Vol] 3.9 mmol/L Normal 3.4-5.0 [facility] Comment on above: Performed By: #### C CAROLYN MCKEON LIPA #### [facility] [address] [place] [address] Reji Debbie Protein [Mass/Vol] 7.6 g/dL Normal 6.1-8.2 [facility] Comment on above: Performed By: #### C CAROLYN MCKEON LIPA #### [facility] [address] [place] [address] Reji Debbie Sodium [Moles/Vol] 138 mmol/L Normal 137-145 [facility] Comment on above: Performed By: #### C CAROLYN MCKEON LIPA #### [facility] [address] [place] [address] Reji Debbie Urea nitrogen [Mass/Vol] 14.0 mg/dL Normal 7.0-17.0 [facility] Comment on above: Performed By: #### C CAROLYN MCKEON LIPA #### [facility] [address] [place] [address] Reji Debbie Urea nitrogen/Creatinin e [Mass ratio] 17.9 mg/mg Normal [facility] Comment on above: Performed By: #### C CAROLYN MCKEON LIPA #### [facility] [address] [place], [place] [address] Reji Debbie Vital Signs Date Time Vital Sign Value Performing Clinician Facility 09-20-2024 10:00-0500 Body height 172.7 cm Kit Solitario DPM Work Phone: [facility] 09-20-2024 10:00-0500 Body mass index (BMI) [Ratio] 27.83 kg/m2 Kit Solitario DPM Work Phone: [facility] 09-20-2024 10:00-0500 Body weight 83.01 kg Kit Solitario DPM Work Phone: [facility] 09-20-2024 10:00-0500 Respiratory rate 18 /min Kit Solitario DPM Work Phone: [facility] 12-07-2023 14:26-0400 Body height 172.7 cm Kedar Agee MD Work Phone: [facility] 12-07-2023 14:26-0400 Body mass index (BMI) [Ratio] 31.47 kg/m2 Kedar Agee MD Work Phone: [facility] 12-07-2023 14:26-0400 Body temperature 97.7 [degF] Kedar Agee MD Work Phone: [facility] 12-07-2023 14:26-0400 Body weight 93.89 kg Kedar Agee MD Work Phone: [facility] [employer] 12-07-2023 14:26-0400 Diastolic blood pressure 86 mm[Hg] Kedar Agee MD Work Phone: [facility] 12-07-2023 14:26-0400 Heart rate 72 /min Kedar Agee MD Work Phone: [facility] Comment on above: 98o2 12-07-2023 14:26-0400 Respiratory rate 14 /min Kedar Agee MD Work Phone: [facility] 12-07-2023 14:26-0400 Systolic blood pressure 126 mm[Hg] Kedar Agee MD Work Phone: [facility] 10-18-2023 09:54-0500 Body height 172.7 cm Mariana Beltran DO Work Phone: [facility] 10-18-2023 09:54-0500 Body mass index (BMI) [Ratio] 31.32 kg/m2 Mariana Beltran DO Work Phone: [employer] 10-18-2023 09:54-0500 Body weight 93.44 kg Mariana Beltran DO Work Phone: [employer] 10-18-2023 09:54-0500 Diastolic blood pressure 82 mm[Hg] [facility] 10-18-2023 09:54-0500 Systolic blood pressure 120 mm[Hg] Mariana Beltran DO [facility] 02-24-2022 18:55-0400 Body height 171.45 cm Yazmin Cash Other [facility] Other 02-24-2022 18:55-0400 Body mass index (BMI) [Ratio] 29.62 kg/m2 Yazmin Cash Other [facility] Other 02-24-2022 18:55-0400 Body temperature 98.2 [degF] Yazmin Cash Other [facility] Other 02-24-2022 18:55-0400 Body weight 87.09 kg Yazmin Cash Other [facility] Other 02-24-2022 18:55-0400 Diastolic blood pressure 87 mm[Hg] Yazmin Cash Other [facility] Other 02-24-2022 18:55-0400 Respiratory rate 18 /min Yazmin Cash Other [facility] Other 02-24-2022 18:55-0400 SaO2% (BldA) [Mass fraction] 100 % Yazmin Cash Other [facility] Other 02-24-2022 18:55-0400 Systolic blood pressure 129 mm[Hg] Yazmin Cash Other [facility] Other Encounters Encounter Date Encounter Type Care Provider Facility Start: 09-20-2024 End: 09-20-2024 Bamboo flowsheet Kit Solitario DPM Work Phone: [facility] Start: 09-20-2024 End: 09-20-2024 Bamboo flowsheet Kit Solitario DPM Work Phone: [facility] Start: 09-20-2024 End: 09-20-2024 ambulatory KIT SOLITARIO Not Available Start: 09-20-2024 End: 09-20-2024 Office outpatient new 45 minutes Kit Solitario DPM Work Phone: [facility] Comment on above: Plantar fasciitis (P rimary Dx); Contracture of right ankle; Pain due to onychomycosis of toenails of both feet; Onychomycosis Start: 04-16-2024 ambulatory [facility] Start: 04-16-2024 End: 04-18-2024 Subsequent hospital visit by physician Juno Rogers MD Work Phone: [facility] Start: 12-26-2023 End: 12-27-2023 ambulatory Sergo JAFFE Facility:[facility] Start: 12-07-2023 End: 12-07-2023 ambulatory KEDAR AGEE [facility] Start: 12-07-2023 End: 12-07-2023 Office outpatient new 45 minutes Kedar Agee MD Work Phone: [facility] Comment on [...] female Start: 10-20-2023 Telephone encounter Faiza Sotelo [facility] [place] Start: 10-18-2023 End: 10-18-2023 ambulatory MARIANA BELTRAN [facility] Start: 10-18-2023 End: 10-18-2023 Office [...] 02-24-2022 End: 02-24-2022 ambulatory Yazmin Cash Other [facility] Other Start: 02-24-2022 Office outpatient ne w 20 minutes Yazmin Cash [facility] Start: 08-06-2021 End: 08-06-2021 ambulatory [facility] Facility:H1 Start: 05-15-2021 End: 05-15-2021 ambulatory [facility] Facility:H1 Start: 03-03-2021 End: 03-03-2021 ambulatory [facility] Facility: Procedures Date Procedure Procedure Detail Performing Clinician Start: 12-07-2023 MEASURE POST VOID RESIDUAL Kedar Agee MD Work Phone: Start: 12-07-2023 Urnls dip stick/tabl et rgnt non-auto w/o micrscp Kedar Agee MD Work Phone: H/O: surgery Status post hyst erectomy with oophorectomy Mariana L Wes DO Work Phone: Plan of Treatment Date Care Activity Detail Author Start: 04-16-2025 Depression Screen Depression Screen [facility] Start: 01-20-2025 Screening for malignant neoplasm of breast Breast cancer screen [facility] Start: 12-08-2024 Tobacco Screening Tobacco Screening [facility] Start: 12-06-2024 Adult BMI Screening Adult BMI Screening [facility] Start: 10-25-2024 End: 10-25-2024 Patient encounter procedure 10/25/2024 10:20 AM EST Office Visit [facility] [address] [facility] [address] [place] [address] Kit Solitario, DPM [address] [facility] [place] [place] [address] [place] [address] [facility] Start: 10-18-2024 Adult BMI Screening Adult BMI Screening [facility] Start: 10-18-2024 Tobacco Screening Tobacco Screening [facility] Start: 09-20-2024 End: 10-19-2024 Alanine aminotransferase [Enzymatic activity/volume] in Serum or Plasma ALANINE AMINOTRANSFERASE Lab Routine Onychomycosis Expected: 09/20/2024 (Approximate), Expires: 10/19/2024 [facility] Comment on above: Expected: 09/20/2024 (Approximate), Expi res: 10/19/2024 Start: 09-20-2024 End: 10-19-2024 Aspartate aminotransferase [Enzymatic activity/volume] in Serum or Plasma ASPARTATE AMINO TRANSFERASE Lab Routine Onychomycosis Expected: 09/20/2024 (Approximate), Expires: 10/19/2024 [facility] Work Phone: Comment on above: Expected: 09/20/2024 (Approximate), Expi res: 10/19/2024 Start: 05-31-2024 End: 05-31-2024 Patient encounter procedure 05/31/2024 11:00 AM EDT Office Visit [facility] [address] [place] [address] Jay Ryan, DO [address] [place] [address] M54.41, M54.42, G89.29 (ICD-10-CM) - Chronic midline low back pain with bilateral sciatica [facility] Comment on above: M54.41, M54.42, G89.29 (ICD-10-CM) - Chr onic midline low back pain with bilateral sciatica Start: 04-22-2024 Influenza vaccination Influenza Vaccine [facility] Start: 03-22-2024 Influenza vaccination Flu vaccine (#1) [facility] Start: 02-01-2024 End: 02-01-2024 Patient encounter procedure 02/01/2024 1:30 PM EDT Procedure visit [facility] [address] [address] [place] [address] Kedar Agee MD [address] [address] [facility] Start: 12-07-2023 End: 12-07-2023 Patient encounter procedure 12/07/2023 2:30 PM EDT Office Visit [facility] [address] [place] [address] Kedar Agee MD [address] [place] [address] [facility] Start: 04-22-2023 COVID-19 Vaccine ( season) COVID-19 Vaccine ( season) [facility] Start: 04-22-2023 Influenza vaccination Influenza Vaccine [facility] Start: 2021 Lipid panel Lipids [facility] Start: 2016 Diabetes screen Diabetes screen [facility] Start: 2000 DTaP,Tdap and Td Vaccines (1 - Tdap) DTaP,Tdap and Td Vaccines (1 - Tdap) [facility] Start: 2000 DTaP/Tdap/Td vaccine (1 - Tdap) DTaP/Tdap/Td vaccine (1 - Tdap) [facility] Start: 2000 Hepatitis B vaccine (1 of 3 - 19+ 3-dose series) Hepatitis B vaccine (1 of 3 - 19+ 3-dose series) [facility] Start: 11-07-1999 Adult BMI Follow Up Plan Adult BMI Follow Up Plan [facility] Start: 1994 Varicella vaccine (1 of 2 - 13+ 2-dose series) Varicella vaccine (1 of 2 - 13+ 2-dose series) [facility] Start: 1993 Depression Screening Depression Screening [facility] Start: 11-07-1987 Pneumococcal 0-64 years Vaccine (1 of 2 - PCV) Pneumococcal 0-64 years Vaccine (1 of 2 - PCV) [facility] Immunizations Immunization Date Immunization Notes Care Provider Fa [facility] 11-04-2020 hepatitis A vaccine, adult dosage Juno Rogers MD Work Phone: [facility] 05-06-2020 hepatitis A vaccine, adult dosage Juno Rogers MD Work Phone: [facility] Payers Date Payer Category Payer Medicaid (Managed Care) [employer] [id number] 2021 Medicaid [employer] [id number] 2021-Present [phone] [address] [place] [address] [id number] 1981 Unknown [id number]. 593 1981 Unknown [id number] [id number]. 593 1981 Unknown [id number] [id number]. 593 1981 Unknown [id number] [id number]. 1286 1981 Unknown [id number] [id number]. 1286 1981 Unknown [id number] [id number]. 727 1981 Unknown [id number] [id number]. 727 1981 Unknown [id number] [id number]. 727 1981 Unknown [id number] [id number]. 174 1981 Unknown [id number] [id number]. 174 1981 Unknown [id number] [id number]. 1259 1959 Unknown [id number] Social History Date Type Detail Facility Start: 01-11-2023 End: 04-16-2024 Sex Assigned At [facility] Other Start: 01-11-2023 End: 04-16-2024 Tobacco smoking status [facility] Ex-smoker [facility] Start: 10-20-2001 End: 10-21-2019 History of tobacco use [facility] smoker [facility] Start: 10-20-2001 End: 10-21-2019 History of tobacco use Cigarette Smoker [facility] Start: 01-11-2023 End: 04-16-2024 Cigarettes smoked current (pack per day) - [facility]orted [facility].5 [facility] Start: 01-11-2023 End: 04-16-2024 Tobacco use and exposure Smokeless tobacco non-user [facility] Start: 04-16-2024 Alcoholic beverage intake Current non-drinker of alcohol (finding) [employer] How hard is it for y ou to pay for the very basics like food, housing, medical care, and heating Not hard at all [facility] (I/We) worried mounika prince (my/our) food would run out before (I/we) got money to buy more. Never true [employer] At any time in the p ast 12 months, were you homeless or living in halfway [including now]? No [employer] Start: 07-15-2020 Education 14 [employer] Start: 1980 Sex assigned at Female [employer] Start: 03-02-2021 Gender identity Identifies as female gender (finding) [employer] Start: 03-02-2021 Sexual orientation Heterosexual (finding) [employer] Start: 09-20-2024 Tobacco smoking status [facility]IS Tobacco smoking consumption unknown [facility] Start: 1980 Sex assigned at Not on file [facility] Start: 10-18-2023 End: 12-09-2023 Alcoholic beverage intake Current drinker of alcohol (finding) [facility] Start: 01-11-2023 Alcohol Comment rare [facility] Clinical Notes 02-24-2022 to 09-20-2024 [...] Resource Strain: Low Risk (04/16/2024) Received from [facility] Overall Financial Resource Strain (CARDIA) Difficulty of Paying Living Expenses: Not hard at all Food Insecurity: No Food Insecurity (04/16/2024) Received from [facility] Hunger Vital Sign Worried About Running Out of Food in the Last Year: Never true Ran Out of Food in the Last Year: Never true Transportation Needs: Unknown (04/16/2024) Received from [facility] PRAPARE - Transportation Lack of Transportation (Medical): Not on file Lack of Transportation (Non-Medical): No Physical Activity: Not on file Stress: Not on file Social Connections: Not on file Intimate Partner Violence: Not on file Housing Stability: Unknown (04/16/2024) Received from [facility] Housing Stability Vital Sign Unable to [...] Kit Solitario DPM documented in this encounter [facility] 12-07-2023 History of Presen t illness [...] notes dyspareunia. Has recently started VET. 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 She is interested in definitive surgical management. Would be a good candidate for chilkat tissue repair - posterior colporrhaphy and iliococcygeal [...] for UDS. Avoid bladder irritants. PVR normal. SUPERVISOR FILES negative. UA negative. This chart note was [...] similarly generated notes. documented in this encounter [facility] 10-25-2023 History of Presen t illness Narrative Vagifem was changed to Estrace vaginal cream documented in this encounter [facility] 10-20-2023 Miscellaneous Notes Formattin g of this note might be different from the original. Pts script for Vagifem got denied. Is there another medication you would like to try? Pt aware. documented in this encounter [facility] 10-20-2023 Telephone encount er Note Pts script for Vagifem got denied. Is there another medication you would like to try? Pt aware. [facility] 10-18-2023 History of Presen t illness Narrative [...] . She reports recently going to the [employer] and completely soaking her pants through. She [...] Sosa as his office is closer the [place]. Referral has been made documented in this encounter [facility] 02-24-2022 Evaluation note Encounter Date Diagnosis Assessment [...] to see Dr. Gabriel, orthopedic physician in [place] in follow-up. She states she will arrange her appointment Feb, Other Ankle fracture material was printed [facility] Other Evaluation note* Diagnosis Plantar fasciitis- Primary Plantar fascial fibromatosis Contracture of right ankle Pain due to onychomycosis of toenails of both feet Onychomycosis Dermatophytosis of nail [facility] Diagnosis Rectocele- Primary Stress incontinence of urine Constipation, unspecified constipation type Dyspareunia in female OAB (overactive bladder) [facility] Diagnosis Vaginal prolapse- Primary Unspecified prolapse of vaginal chris Rectocele Stress incontinence of urine Dyspareunia in female 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 [facility] Diagnosis Rectocele- Primary Vaginal prolapse Unspecified prolapse of vaginal chris Stress incontinence of urine Dyspareunia in female documented [facility]* Diagnosis Dyspareunia in female- Primary Menopause syndrome Symptomatic menopausal or female climacteric states documented in this encounter [facility] general Narrative - Reported* Type Description Date Medical History Endometriosis Medical History Back pain Medical History Seizures Medical History Migraines Medical History PTSD Medical History Anxiety Disorder Medical History Hepatitis C-per records [facility] Surgical History Hysterectomy 2008 Surgical History Exploratory laparoscopy-endomet riosi (2) Surgical History Tumor removed left finger Hospitalization History See past surgical hx Hospitalization History Seizures [facility] Other InstructionsNot on filedocumented in this encounter [facility]* Attachments The following attachments cannot be sent through Care Everywhere. * Pelvic Floor Exercises (Australian) * Vaginal dryness (Australian) * Vaginal Prolapse (Australian) [facility] on [facility] documented in this [facility] SystemInstructionsNot on file documented in this [facility] SystemReason for referral (narrative)* Consultation (Routine) - Pending Review Specialty Diagnoses / Procedures Referred By Ralph larkin Referred To Contact Urology Diagnoses Rectocele Vaginal prolapse Stress incontinence of urine Dyspareunia in female Status post hysterectomy with oophorectomy Mariana Beltran DO [address] [place] [address] [place] [address] [facility], [address] [address] Referral ID Status Reason Start Date Expiration Date Visits Requested Visits Authorized [id number] Pending Review Specialty Services Required 10/18/2023 10/17/2024 1 1 * Medication Prior Authorization - Pending Review Specialty Diagnoses / Procedures Referred By Contac t Referred To Contact Diagnoses Rectocele Vaginal prolapse Stress incontinence of urine Dyspareunia in female Status post hysterectomy with oophorectomy Mariana Beltran DO [address] [place] [address] Referral ID Status Reason Start Date Expiration Date V isits Requested Visits Authorized [id number] Pending Review 1 1 [facility] for referral (narrative)* Consultation (Routine) - Pending Review Specialty Diagnoses / Procedures Referred By Ralph larkin Referred To Contact Urogynecology / Gynecology Diagnoses Rectocele Vaginal prolapse Stress incontinence of urine Dyspareunia in female Mariana Beltran DO [address] [place] [address] Kedar Agee MD [address] [place] [address] Referral ID Status Reason Start Date Expiration Date Visits Requested Visits Authorized [id number] Pending Review Specialty Services Required 10/24/2023 10/23/2024 1 1 [employer] Summary Purpose Family History No Family History Records FoundNo Family History Records FoundNo Family History Records FoundNo Family History Records FoundNo Family History Records FoundNo Family History Records Found Advance Directives Healthcare Agents on File Name Relationship Healthcare Agent [facility] Communication Faviola Coolley Child Primary Decision Maker Reason for Referral Specialty Diagnoses / Procedures Referred By Ralph t Referred To Contact Diagnoses Rectocele Vaginal prolapse Stress incontinence of urine Dyspareunia in female Procedures Measure post void residual Kedar Agee MD [address] [place] [address] Referral ID Status Reason Start Date Expiration Date V isits Requested Visits Authorized [id number] Pending Review 12/07/2023 12/06/2024 1 1 Additional Source Comments INFORMATION SOURCE (unrecogn ized section and content) DATE CREATED AUTHOR 08/10/2021 [facility] DATE CREATED AUTHOR AUTHOR'S ORGANIZ ATION 03/11/[address] [facility] DATE CREATED AUTHOR AUTHOR'S ORGANIZ ATION 12/09/2023 [facility] DATE CREATED AUTHOR AUTHOR'S ORGANIZ ATION 12/28/2023 [facility] DATE CREATED AUTHOR AUTHOR'S ORGANIZ ATION 04/18/2024 [facility] DATE CREATED AUTHOR AUTHOR'S ORGANIZ ATION 09/22/2024 [facility] EPIC REASON FOR VISIT (unrecogniz ed section and content) Reason Comments Toenail Problem Thick nials, poss fu ngus Reason Comments Vaginal Prolapse Specialty Diagnoses / Procedures Referred By Contdami t Referred To Contact Urogynecology / Gynecology Diagnoses Rectocele Vaginal prolapse Stress incontinence of urine Dyspareunia in female Mariana Beltran, [address] [place] [address] Kedar Agee MD [address] [address] Referral ID Status Reason Start Date Expiration Date V isits Requested Visits Authorized [id number] Closed Specialty Services Required 10/24/2023 10/23/2024 1 1 Reason Comments Prolapse Noticed a few months ago, feels a bulge Care Teams (unrecognized sec tion and content) Habitat Management Coordinator Relationship Specialty Start Date End Date Juno Rogers MD PCP - General Internal Medicine 05/22/18 [employer]itat Management Coordinator Relationship Specialty Start Date End Date Juno Rogers MD [address] [place] [address] PCP - General Internal Medicine 09/20/24 Habitat Management Coordinator Relationship Specialty Start Date End Date Juno Rogers MD [address] [place] [address] PCP - General Internal Medicine 09/20/24 FOR [...] BE BASED ON THE PRIMARY CLINICAL RECORDS. [employer] provides no warranty or guarantee of the accuracy or completeness of information in this document.
== END 2024-10-26 07:57 | disposition home or self-care (01) ==
LOC: LAB 07:57
PROVIDERS: PCP Nurse Practitioner Family
DX: B35.1 Tinea unguium (principal)
CPT/HCPCS: 84450; 84460

== ENCOUNTER 2024-11-15 10:08 | Outpatient (OUT) | payer OTHER, SELFPAY ==
--- NOTE | 2024-11-15 10:31 | PM.CN ---
Consult Note: HPI Data of Consult Patient: new to practice Consult date: 11/15/24 Requesting Physician: Karolyn Baeza NP Primary Care Provider: GREGG WEAVER Consult Narrative Reason for consult: establish Narrative: Jazmin Cassidy a pleasant 44 year old female presents for evaluation and management of chronic back, right hip, right knee pain for many years. previously evaluated by PCP and pain management in [place] without benefit. no recent imaging or PT. currently utilizing naproxen without benefit. in the past failed flexeril and tramadol. pain today mild but increasing to 10/10 at times with standing, walking, sitting, and lying on right hip. finds benefit to topical cream she makes with persaud celio. cc:: CC: Karolyn Baeza NP Review of Systems ROS Status of ROS 10 or more systems reviewed and unremarkable except as noted in history and below Musculoskeletal Reports: back pain, neck pain and joint pain Exam Constitutional Documenting provider has reviewed patient's vital signs: yes Common normals: no apparent distress, oriented x3, healthy appearing, alert and well nourished General appearance: cooperative HENMT Common normals: normocephalic, hearing grossly normal bilaterally and moist oral mucous membranes Head and scalp: normocephalic Eye Common normals: PERRL Pupil: PERRL Neck & C-Spine Common normals: full ROM General: normal visual inspection Cervical spine: cervical ROM normal Chest Common normals: inspection of chest normal Respiratory Common normals: normal respiratory effort, no retractions and no use of accessory muscles Back & Pelvis Lumbar spine/lower back: lumbar ROM normal, pain with ROM and lumbar spinal tenderness Lumbar spinal tenderness location: L4 and L5; no paraspinal muscle tenderness and no paraspinal muscle spasm Sacroiliac joints: SI joint(s) abnormal Other: right sij positive sayra(patricks), gaenslens, thigh thrust, compression test intermittent radiculopathy to right L4,5,S1 strength 5/5 in BLE Neuro Common normals: oriented x3, CN's II-XII intact bilaterally, moves all extremities, no focal motor deficits, no sensory deficits noted and deep tendon reflexes 2+ bilaterally Sensorium/orientation: alert Motor exam: strength 5/5 throughout and no movement abnormalities noted Psych Common normals: mental status grossly normal, thought process normal, cooperative, affect normal, speech normal and activity/motor behavior normal Speech: normal speech Thought process: normal thought process Results Additional Findings Additional findings: If on a controlled substance or opioids, I have checked an [place]AR[place] report on this patient and there are no aberrancies noted in the prescribing history.??If on a controlled substance or opioid a drug screen was completed and reviewed within the last year, and if there has not been a drug screen completed we ordered one today to monitor higher risk, state monitored pain medication use. As part of providing excellent, safe, comprehensive care, the following was completed at our patient's visit: 1. A medication reconciliation and review to ensure accurate knowledge of current/active medications, including asking our patients to inform us about any [id number] medications or herbal remedies/nutritional supplements/alternative remedies. 2. A review to specifically ensure our patients have had annual screening for screening for depression, screening for tobacco use, and screening for unhealthy alcohol use. For concerning screenings had a discussion with the patient, provided patient education, and recommended follow-up with primary care provider when appropriate. If patient noted with a risk of falling, they received education on strength, gait, and balance training to prevent future risk of falling. Portions of this note may have been carried over from the previous visit and updated as appropriate. Please note this office utilizes paper charting in addition to the electronic medical record. A list of current medications, vitals, and PMH is available there as the clinical staff outside of myself do not have access to [employer] charting during the clinic day operations. As part of providing quality comprehensive care the current medications, vitals, and PMH were reviewed in the paper chart. Assessment and Plan Assessment and Plan (1) Chronic low back pain: Assessment and Plan: ROHITH 24% with pain impacting ADLs, sleep, social life and travel (2) Sacroiliitis: (3) Myalgia, other site: (4) Lumbar stenosis with neurogenic claudication: Plan update lumbar xray to assess low back pain and sacroilitis PT for chronic low back pain, sacroilitis, lumbar stenosis with NC start baclofen 10mg TID PRN pain/spasms, risks vs benefits reviewed DC naproxen, start mobic 7.5mg BID PRN pain. take with food. risks vs benefits reviewed f/u 6-8 weeks to review imaging and response to PT and medication regimen
== END 2024-11-15 10:09 | disposition home or self-care (01) ==
PROVIDERS: PCP Nurse Practitioner Family; Visit Provider Nurse Practitioner
DX: M54.50 Low back pain, unspecified (principal); M46.1 Sacroiliitis, not elsewhere classified; M79.18 Myalgia, other site; M48.062 Spinal stenosis, lumbar region with neurogenic claudication
CPT/HCPCS: G0463

== ENCOUNTER 2024-12-04 14:00 | Outpatient (RCR) | payer OTHER, SELFPAY | END 2024-12-05 13:42 | disposition home or self-care (01) | LOC: PT 14:00 | PROVIDERS: PCP Nurse Practitioner Family; Visit Provider Nurse Practitioner | DX: M54.50 Low back pain, unspecified (principal); M48.062 Spinal stenosis, lumbar region with neurogenic claudication; B35.1 Tinea unguium; M51.369 Other intervertebral disc degeneration, lumbar region without mention of lumbar back pain or lower extremity pain | CPT/HCPCS: 36415; 72110; 84460; 97110; 97161 ==

== ENCOUNTER 2024-12-04 15:16 | Outpatient (OUT) | payer OTHER, SELFPAY ==
--- NOTE | 2024-12-04 15:32 | XR_ITS ---
[place] [address] Patient Name: SHERYL VERGARA MRN: [id number] date: 1980 Sex: F Assigned Patient Location: [facility] Current Patient Location: [facility] Accession/Order Number: [id number] Exam Date: 12/04/2024 15:53 Report Date: 12/04/2024 15:54 At the request of: ANDRESSA PADILLA NP Procedure: XR lumbar spine min 4V 5 views Lumbar Spine HISTORY: Chronic lumbar pain radiating down the right leg COMPARISON: None POSTSURGICAL CHANGES: None BONY ALIGNMENT: Adequate HYPERMOBILITY:No bending imaging. LISTHESIS:None FRACTURE: None DEGENERATIVE CHANGES: Mild L4-5 and L5-S1 disc space narrowing. Lower lumbar hypertrophic facet changes. SOFT TISSUES: Unremarkable BONY MINERALIZATION:Adequate XR/XR lumbar spine min 4V IMPRESSION: Moderate lower lumbar degenerative change. Impression dictated by: Raoul Lindsey M.D.12/04/2024 3:54 PM Dictation Location: [place] [address] Electronically authenticated by: [id number] Y Date: 12/04/2024 15:54
--- OUTSIDE RECORDS SUMMARY | 2024-12-04 15:44 | XMS_ITS | CCD ---
Author Organization [facility] Care Team Providers Care Collision Repairer Name Role Phone CHINO JUNO Primary Care Unavailable PAY, DR GALVIN Admitting Unavailable PAY, DR GALVIN Attending Unavailable PAY, DR GALVIN Consulting Unavailable SAMANTA MARIN Consulting Unavailable SINDYARIANJUNO Admitting Unavailable JUNO ROGERS Attending Unavailable SINDYARIAN, JUNO Primary Care Unavailable CHINO, JUNO Consulting Unavailable ASHLYAZARIAN, JUNO Primary Care Unavailable LAN, DR KNIGHT Admitting Unavailable HAY, DR KNIGHT Attending Unavailable ADE, DR SHERITA Soto Consulting Unavailable SAMANTA STRANGE Consulting Unavailable Yazmin Cash Unavailable KEDAR AGEE Attending Unavailable MARIANA BELTRAN Referring Unavailable MARIANA BELTRAN Attending Unavailable Sergo JAFFE Attending Unavailable Annel Teixeira Attending Unavailable ASHLYAZARIAN, JUNO Primary Care Unavailable GHAZARIAN, JUNO Referring Unavailable GHAZARIAN, JUNO Referring Unavailable ASHLYAZARIAN, JUNO Primary Care Unavailable Juno Rogers MD Primary Care Provider Juno Rogers MD Primary Care Provider Unavailable Primary Care Provider UnavailKIT Mora Attending Unavailable KIT SOLITARIO Attending Unavailable Allergies Allergy Classification Reported Allergen(s) Allergy Type Date of Onset Reaction(s) Facility (1 source) Clindamycin Drug Allergy 07-02-2019 [facility] Repository (6 sources) celecoxib; Translations: [CELECOXIB] Drug Allergy 01-11-2023 [facility] Repository (1 source) Clindamycin Drug Allergy 07-02-2019 [facility] Medications Current Medications Medication Drug Class(es) Dates [...] 10/19/2023 Active terbinafine 250 mg oral tablet (4 sources) Allylamine Antifungal Start: 11-01-2024 End: 12-01-2024 take 1 tablet by mouth once daily terbinafine (LamISIL) 250 MG tablet Indications: Onychomycosis of Toenails Take 1 tablet (250 mg) by mouth Daily 30 tablet 1 11/01/2024 12/01/2024 Active Start: 09-20-2024 End: 10-20-2024 take 1 tablet [...] and female climacteric states] 10-25-2023 Chronic Mycoses (8 sources) Pain in toe; Translations: [Tinea unguium] 09-20-2024 Episodic Other acquired deformities (4 sources) Contracture of joint of right ankle; Translations: [Contracture, right ankle] 09-20-2024 Chronic Other connective tissue disease (4 sources) Plantar fasciitis; Translations: [Plantar fascial fibromatosis] [...] Glass Jr., MD 04/16/24 Final result Normal [facility] Measure post void residualon 12-07-2023 Volume 45ml [facility] POCT urinalysis dipstick onl yon 12-07-2023 Appearance (U) clear [facility] External Poct Urine Blood Negative [facility] External Poct Urine Character clear [facility] External Poct Urine Color dark yellow [facility] External Poct Urine Glucose Negative [facility] External Poct Urine Ketones Negative [facility] External Poct Urine Leukocyte Esterase Negative [facility] External Poct Urine Nitrite Negative [facility] External Poct Urine Ph 5.0 [facility] External Poct Urine Protein 3+ [facility] XR ankle LT min 3V*on 2021 XR ankle LT min 3V* [facility] Main [address] [address] XRay Report Signed Patient: Jazmin Cassidy MR#: [id number] 35 : 1980 Acct:[id number] Age/Sex: 41 / F ADM Date: 02/24/22 Loc: XDUCLY Room: Type: [facility] Attending Dr: Yazmin SORIA Copies to: [...] Raoul Lindsey M.D.02/24/2022 7:00 PM Dictation Location: [place] [address] Transcribed By: [facility] 02/24/221899 Dictated By: Raoul Lindsey DO 02/24/221858 Signed By: 02/24/221899 Normal [facility] XR ankle LT min 3V* [facility] [employer] Other XR ankle LT min 3V* [facility] [employer] Other XR ankle LT min 3V* [address] [place] [address] [employer] Other XR ankle LT min 3V* [place] [address] [employer] Other XR ankle LT min 3V* XRay Report [employer] Other XR ankle LT min 3V* Signed [employer] Other XR ankle LT min 3V* Patient: Jazmin Cassidy MR#: [id number] [employer] Other XR ankle LT min 3V* 35 [employer] Other XR ankle LT min 3V* : 1980 Acct:[id number] [employer] Other XR ankle LT min 3V* Age/Sex: 41 / F ADM Date: 02/24/22 [employer] Other XR ankle LT min 3V* Loc: XDUCLY Room: Type: [facility] [employer] Other XR ankle LT min 3V* Attending Dr: Yazmin SORIA [employer] Other XR ankle LT min 3V* Copies to: YANG Dubon [employer] Other XR ankle LT min 3V* Ordering Provider: YANG Dubon [employer] Other XR ankle LT min 3V* Date of Service: 02/24/22 [employer] Other XR ankle LT min 3V* XR/XR ankle LT min 3V*: LEFT ANKLE INJURY [employer] Other XR ankle LT min 3V* 3views LEFTankle [employer] Other XR ankle LT min 3V* COMPARISON:None [employer] Other XR ankle LT min 3V* HISTORY: LEFT ankle injury. [employer] Other XR ankle LT min 3V* Mild anterior soft tissue swelling present. Tiny bony density inferior to the lateral malleolus [employer] Other XR ankle LT min 3V* may represent small avulsion fracture. Ankle mortise preserved. [employer] Other XR ankle LT min 3V* XR/XR ankle LT min 3V* [employer] Other XR ankle LT min 3V* IMPRESSION: Small avulsion fracture inferior to the lateral malleolus. [employer] Other XR ankle LT min 3V* Impression dictated by: Raoul Lindsey M.D.02/24/2022 7:00 PM [employer] Other XR ankle LT min 3V* Dictation Location: [facility] [employer] Other XR ankle LT min 3V* Transcribed By: P[facility] 02/24/22 1900 [employer] Other XR ankle LT min 3V* Dictated By: Raoul Lindsey DO 02/24/22 1859 [employer] Other XR ankle LT min 3V* Signed By: [employer] Other XR ankle LT min 3V* 02/24/22 1900 [employer] Other CBC AUTO DIFFon 08-06-2021 BASO # 0.0 103/ul Normal 0.0-0.1 [facility] Comment on above: Performed By: #### C BC #### [facility] [address] [place] [address] Dr. Javier Hinton Basophils/100 WBC (Bld) 0.3 % Normal 0.2-2.0 [facility] Comment on above: Performed By: #### C BC #### [facility] [address] [place] [address] Dr. Javier Hinton EO # 0.0 103/ul Normal 0.0-0.7 [facility] Comment on above: Performed By: #### C BC #### [facility] [address] [place] [address] Dr. Javier Hinton Eosinophils/100 WBC (Bld) 0.3 % Critically low 0.9-7.0 [facility] Comment on above: Performed By: #### C BC #### [facility] [address] [place] [address] Dr. Javier Hinton Erythrocyte distribution width (RBC) [Ratio] 13.3 % Normal 11.0-15.0 [facility] Comment on above: Performed By: #### C BC #### [facility] [address] [place] [address] Dr. Javier Hinton Hematocrit (Bld) [Volume fraction] 41.7 % Normal 36.0-48.0 [facility] Comment on above: Performed By: #### C BC #### [facility] [address] [place] [address] Dr. Javier Hinton Hemoglobin (Bld) [Mass/Vol] 13.7 g/dL Normal 12.0-16.0 [facility] Comment on above: Performed By: #### C BC #### [facility] [address] [place] [address] Dr. Javier Hinton IG # 0.01 10e3/ul Normal 0.00-0.03 [facility] Comment on above: Performed By: #### C BC #### [facility] [address] [place] [address] Dr. Javier Hinton IG % 0.3 % Normal 0.0-0.5 [facility] Comment on above: Performed By: #### C BC #### [facility] [address] [place] [address] Dr. Javier Hinton LYMPH # 1.2 103/ul Normal 1.2-3.8 [facility] Comment on above: Performed By: #### C BC #### [facility] [address] [place] [address] Dr. Javier Hinton Lymphocytes/100 WBC (Bld) 31.4 % Normal 20.5-60.0 [facility] Comment on above: Performed By: #### C BC #### [facility] [address] [place] [address] Dr. Javier Hinton MANUAL DIFF REQ NO Normal [facility] Comment on above: Performed By: #### C BC #### [facility] [address] [place] [address] Dr. Javier Hinton MCH (RBC) [Entitic mass] 28.0 pg Normal 26.7-34.0 [facility] Comment on above: Performed By: #### C BC #### [facility] [address] [place] [address] Dr. Javier Hinton MCHC (RBC) [Mass/Vol] 32.9 g/dL Normal 29.9-35.2 [facility] Comment on above: Performed By: #### C BC #### [facility] [address] [place] [address] Dr. Javier Hinton MCV (RBC) [Entitic vol] 85.1 fL Normal 81.0-99.0 [facility] Comment on above: Performed By: #### C BC #### [facility] [address] [place] [address] Dr. Javier Hinton MONO # 0.3 103/ul Normal 0.3-0.8 [facility] Comment on above: Performed By: #### C BC #### [facility] [address] [place] [address] Dr. Javier Hinton Monocytes/100 WBC (Bld) 8.7 % Normal 1.7-12.0 [facility] Comment on above: Performed By: #### C BC #### [facility] [address] [place] [address] Dr. Javier Hinton NEUT # 2.3 103/ul Normal 1.4-6.5 [facility] Comment on above: Performed By: #### C BC #### [facility] [address] [place] [address] Dr. Javier Hinton Neutrophils/100 WBC (Bld) 59.0 % Normal 43.0-75.0 [facility] Comment on above: Performed By: #### C BC #### [facility] [address] [place] [address] Dr. Javier Hinton Platelet mean volume (Bld) [Entitic vol] 9.3 fL Critically low 9.5-13.5 [facility] Comment on above: Performed By: #### C BC #### [facility] [address] [place] [address] Dr. Javier Hinton PLT 187 103/ul Normal 150-450 [facility] Comment on above: Performed By: #### C BC #### [facility] [address] [place] [address] Dr. Javier Hinton RBC 4.90 106/ul Normal 4.20-5.40 [facility] Comment on above: Performed By: #### C BC #### [facility] [address] [place] [address] Dr. Javier Hinton WBC 3.9 103/ul Critically low 4.0-11.0 [facility] Comment on above: Performed By: #### C BC #### [facility] [address] [place] [address] Dr. Javier Hinton Covid-19 PCR (CVDTB)on 07-22 SARS-CoV-2 (COVID-19) RNA MITRA+probe Ql (Unsp spec) Detected Critically abnormal NOT DETECTED [facility] Comment on above: Result Comment: This test is not yet approved or cleared by the [place] FDA. When there are no FDA-approved or cleared tests available, and other criteria are met, FDA can make tests available under an emergency access mechanism called an Emergency Use Authorization (EUA). The EUA for this test is supported by the [place] of Health and Human Service's declaration that [...] used). Performed By: #### C VDTBH #### [facility] [address] [place] [address] Dr. Javier Hinton ER URINE PROFILEon Bilirubin Ql (U) Negative Normal NEGATIVE [facility] Comment on above: Performed By: #### E RUR #### [facility] [address] [place] [address] Dr. Javier Hinton Clarity (U) CLEAR Normal CLEAR [facility] Comment on above: Performed By: #### E RUR #### [facility] [address] [place] [address] Dr. Javier Hinton Color (U) YELLOW Normal YELLOW [facility] Comment on above: Performed By: #### E RUR #### [facility] [address] [place] [address] Dr. Javier FRANK A micrscopic examination will be performed if indicated. Normal [facility] Comment on above: Performed By: #### E RUR #### [facility] [address] [place] [address] Dr. Javier Hinton Glucose Ql (U) Negative Normal NEGATIVE [facility] Comment on above: Performed By: #### E RUR #### [facility] [address] [place] [address] Dr. Javier Hinton Hemoglobin Ql (U) Negative Normal NEGATIVE [facility] Comment on above: Performed By: #### E RUR #### [facility] [address] [place] [address] Dr. Javier Hinton Ketones Ql (U) 40 mg/dl Abnormal NEGATIVE [facility] Comment on above: Performed By: #### E RUR #### [facility] [address] [place] [address] Dr. Javier Hinton LEUKOCYTES Negative Normal NEGATIVE [facility] Comment on above: Performed By: #### E RUR #### [facility] [address] [place] [address] Dr. Javier Hinton Nitrite Ql (U) Negative Normal NEGATIVE [facility] Comment on above: Performed By: #### E RUR #### [facility] [address] [place] [address] Dr. Javier Hinton pH (U) 6.0 [pH] Normal 5-9 [facility] Comment on above: Performed By: #### E RUR #### [facility] [address] [place] [address] Dr. Javier Hinton Protein (U) [Mass/Vol] 30 mg/dL Abnormal NEGATIVE/ TRACE [facility] Comment on above: Performed By: #### E RUR #### [facility] [address] [place] [address] Dr. Javier Hinton SPEC GRAVITY 1.025 Normal 1.005-<=1.025 [facility] Comment on above: Performed By: #### E RUR #### [facility] [address] [place] [address] Dr. Javier Hinton UR MICRO IND NOT INDICATED Normal [facility] Comment on above: Performed By: #### E RUR #### [facility] [address] [place] [address] [address] Javier Hinton Urobilinogen Qn (U) 0.2 {Ericka'U}/dL Normal 0.2 - 1.0 [facility] Comment on above: Performed By: #### E RUR #### [facility] [address] [place] [address] [address] Javier Hinton INFLUENZA A AND B AGon 08-06 INFLUANEGH SEE BELOW Normal [facility] Comment on above: Result Comment: Nega tive for Flu A protein angiten. Infection due to Flu A cannot be ruled out. Flu A angiten in the sample may be below the detection limit of the test. Performed By: #### I NFLUAB ####[facility] [address] [place], [place] [address]DrKem Hinton INFLUBNEGH SEE BELOW Normal [facility] Comment on above: Result Comment: Nega tive for Flu B protein antigen. Infection due to Flu B cannot be ruled out. Flu B antigen in the sample may be below the detection limit of the test. Performed By: #### I NFLUAB ####[facility] [address] [place], [place] [address]Dr. Javier Hinton INFLUENZA A AG Negative Normal NEGATIVE SEE COMMENT [facility] Comment on above: Performed By: #### I NFLUAB ####[facility] [address] [place], [place] [address]DrKem Hinton INFLUENZA B AG Negative Normal NEGATIVE SEE COMMENT [facility] Comment on above: Performed By: #### I NFLUAB ####[facility] [address] [place], [place] [address]DrKem Hinton INTERNAL CONTROLS Within Normal Limits Normal Within Normal Limits [facility] Comment on above: Performed By: #### I NFLUAB ####[facility] [address] [place], [place] [address]DrKem Hinton LACTATE/LACTIC ACIDon 2020 Lactate [Moles/Vol] 0.9 mmol/L Normal 0.7-2.0 [facility] Comment on above: Performed By: #### L ACT ####[facility] [address] [place] [address]Dr. Javier GONSALEZ 14(COMP METB)on 021 Albumin [Mass/Vol] 3.7 g/dL Normal 3.5-5.0 [facility] Comment on above: Performed By: #### H STROPN, CMP #### [facility] [address] [place] [address] [address] Javier Hinton Albumin/Globulin [Mass ratio] 0.9 {ratio} Normal [facility] Comment on above: Performed By: #### H GAYE, CMP #### [facility] [address] [place] [address] [address] Javier Hinton ALP [Catalytic activity/Vol] 88 U/L Normal 38-126 [facility] Comment on above: Performed By: #### H DEXTERPN, CMP #### [facility] [address] [place] [address] [address] Javier Hinton ALT [Catalytic activity/Vol] 28 U/L Normal 9-52 [facility] Comment on above: Performed By: #### H DEXTERPN, CMP #### [facility] [address] [place] [address] [address] Javier Hinton Anion gap [Moles/Vol] 14.5 mmol/L Normal [facility] Comment on above: Performed By: #### H DEXTERPN, CMP #### [facility] [address] [place] [address] [address] Javier Hinton AST [Catalytic activity/Vol] 26 U/L Normal 14-36 [facility] Comment on above: Performed By: #### H STROPN, CMP #### [facility] [address] [place] [address] [address] Javier Hinton Bilirubin [Mass/Vol] 0.7 mg/dL Normal 0.2-1.3 [facility] Comment on above: Performed By: #### H DEXTERPN, CMP #### [facility] [address] [place] [address] [address] Javier Hinton Calcium [Mass/Vol] 9.0 mg/dL Normal 8.4-10.2 [facility] Comment on above: Performed By: #### H STROPN, CMP #### [facility] [address] [place] [address] [address] Javier Hinton Chloride [Moles/Vol] 99 mmol/L Normal 98-107 [facility] Comment on above: Performed By: #### H STROPN, CMP #### [facility] [address] [place] [address] [address] Javier Hinton CO2 [Moles/Vol] 29.2 mmol/L Normal 22.0-30.0 [facility] Comment on above: Performed By: #### H STROPN, CMP #### [facility] [address] [place] [address] Dr. Javier Hinton Creatinine [Mass/Vol] 0.80 mg/dL Normal 0.52-1.04 [facility] Comment on above: Performed By: #### H STROPN, CMP #### [facility] [address] [place] [address] Dr. Javier Hinton EGFR-[place] Normal >=60 [facility] Comment on above: Performed By: #### H STROPN, CMP #### [facility] [address] [place] [address] Dr. Javier Hinton EGFR-NON AF [place] Normal >=60 [facility] Comment on above: Performed By: #### H STROPN, CMP #### [facility] [address] [place] [address] Dr. Javier Hinton Globulin (S) [Mass/Vol] 4.3 g/dL Normal [facility] Comment on above: Performed By: #### H STROPN, CMP #### [facility] [address] [place] [address] Dr. Javier Hinton Glucose [Mass/Vol] 91 mg/dL Normal 74-106 [facility] Comment on above: Performed By: #### H STROPN, CMP #### [facility] [address] [address] [address] Javier Hinton Potassium [Moles/Vol] 3.7 mmol/L Normal 3.4-5.0 [facility] Comment on above: Performed By: #### H DEXTERPN, CMP #### [facility] [address] [place] [address] Dr. Javier Hinton Protein [Mass/Vol] 8.0 g/dL Normal 6.1-8.2 [facility] Comment on above: Performed By: #### H DEXTERPN, CMP #### [facility] [address] [place] [address] [address] Javier Hinton Sodium [Moles/Vol] 139 mmol/L Normal 137-145 [facility] Comment on above: Performed By: #### H GAYE, CMP #### [facility] [address] [place] [address] Dr. Javier Hinton Urea nitrogen [Mass/Vol] 15.0 mg/dL Normal 7.0-17.0 [facility] Comment on above: Performed By: #### H GAYE, CMP #### [facility] [address] [place] [address] Dr. Javier Hinton Urea nitrogen/Creatinin e [Mass ratio] 18.8 mg/mg Normal [facility] Comment on above: Performed By: #### H GAYE, CMP #### [facility] [address] [place] [address] Dr. Javier Hinton TROPONIN, HIGH SENSITIVITYon 08-06-2021 HSTROP 4.8 pg/mL Normal 4.0-35.5 [facility] Comment on above: Result Comment: CUT- OFF POINTS HAVE BEEN ESTABLISHED BASED ON THE FOURTH UNIVERSAL DEFINITIONS OF MYOCARDIAL INFARCTION. THE UPPER REFERENCE LIMIT (URL) OF TROPONIN, DEFINED THE 99TH PERCENTILE OF cTnI DISTRIBUTION IN A REFERENCE POPULATION, HAS BEEN CONFIRMED THE DECISION THRESHOLD FOR [place] DIAGNOSIS. Performed By: #### H GAYE, CMP #### [facility] [address] [place] [address] Dr. Javier Hinton XR CHEST 1 Von [...] SHERITA BOOKER Date: 2021-08-06 16:56 Normal [facility] Covid-19 PCR (CVDTBH)on 04-23 SARS-CoV-2 (COVID-19) RNA MITRA+probe Ql (Unsp spec) Detected Critically abnormal NOT DETECTED [facility] Comment on above: Result Comment: This test is not yet approved or cleared by the [place] FDA. When there are no FDA-approved or cleared tests available, and other criteria are met, FDA can make tests available under an emergency access mechanism called an Emergency Use Authorization (EUA). The EUA for this test is supported by the [place] of Health and Human Service's (HHS's) declaration [...] used). Performed By: #### C VDTBH #### [facility] [address] [address] [address] Javier Hinton AMYLASEon 03-03-2021 Amylase [Catalytic activity/Vol] 55 U/L Normal 31-110 [facility] Comment on above: Performed By: #### C CAROLYN MCKEON, LIPA #### [facility] [address] [address] Reji Lewis CBC AUTO DIFFon 03-03-2021 BASO # 0.0 103/ul Normal 0.0-0.1 [facility] Comment on above: Performed By: #### C BC ####[facility] [address] [place] [id number] Debbie Basophils/100 WBC (Bld) 0.6 % Normal 0.2-2.0 [facility] Comment on above: Performed By: #### C BC ####[facility] [address] [place] [address]Yoopcx Debbie EO # 0.1 103/ul Normal 0.0-0.7 [facility] Comment on above: Performed By: #### C BC ####[facility] [address] [place] [address]Kxhnvy Debbie Eosinophils/100 WBC (Bld) 2.1 % Normal 0.9-7.0 [facility] Comment on above: Performed By: #### C BC ####[facility] [address] [place], [place] [id number] Debbie Erythrocyte distribution width (RBC) [Ratio] 12.7 % Normal 11.0-15.0 [facility] Comment on above: Performed By: #### C BC ####[facility] [address] [place], [place] [id number] Debbie Hematocrit (Bld) [Volume fraction] 38.8 % Normal 36.0-48.0 [facility] Comment on above: Performed By: #### C BC ####[facility] [address] [place], [place] [id number] Debbie Hemoglobin (Bld) [Mass/Vol] 12.8 g/dL Normal 12.0-16.0 [facility] Comment on above: Performed By: #### C BC ####[facility] [address] [place], [place] [id number] Debbie IG # 0.02 10e3/ul Normal 0.00-0.03 [facility] Comment on above: Performed By: #### C BC ####[facility] [address] [place], [place] [id number] Debbie IG % 0.3 % Normal 0.0-0.5 [facility] Comment on above: Performed By: #### C BC ####[facility] [address] [place] [id number] Debbie LYMPH # 2.3 103/ul Normal 1.2-3.8 [facility] Comment on above: Performed By: #### C BC ####[facility] [address] [place] [id number] Debbie Lymphocytes/100 WBC (Bld) 33.7 % Normal 20.5-60.0 [facility] Comment on above: Performed By: #### C BC ####[facility] [address] [place] [id number] Debbie MANUAL DIFF REQ NO Normal [facility] Comment on above: Performed By: #### C BC ####[facility] [address] [place], [place] [id number] Debbie MCH (RBC) [Entitic mass] 28.1 pg Normal 26.7-34.0 [facility] Comment on above: Performed By: #### C BC ####[facility] [address] [place], [place] [id number] Debbie MCHC (RBC) [Mass/Vol] 33.0 g/dL Normal 29.9-35.2 [facility] Comment on above: Performed By: #### C BC ####[facility] [address] [place], [place] [id number] Debbie MCV (RBC) [Entitic vol] 85.3 fL Normal 81.0-99.0 [facility] Comment on above: Performed By: #### C BC ####[facility] [address] [place] [id number] Debbie MONO # 0.5 103/ul Normal 0.3-0.8 [facility] Comment on above: Performed By: #### C BC ####[facility] [address] [place], [place] [address]Gerken Debbie Monocytes/100 WBC (Bld) 7.9 % Normal 1.7-12.0 [facility] Comment on above: Performed By: #### C BC ####[facility] [address] [place] [address] Debbie NEUT # 3.7 103/ul Normal 1.4-6.5 [facility] Comment on above: Performed By: #### C BC ####[facility] [address] [place] [address] Debbie Neutrophils/100 WBC (Bld) 55.4 % Normal 43.0-75.0 [facility] Comment on above: Performed By: #### C BC ####[facility] [address] [place] [address] Debbie Platelet mean volume (Bld) [Entitic vol] 9.6 fL Normal 9.5-13.5 [facility] Comment on above: Performed By: #### C BC ####[facility] [address] [place] [address] Debbie PLT 291 103/ul Normal 150-450 [facility] Comment on above: Performed By: #### C BC ####[facility] [address] [place] [address] Debbie RBC 4.55 106/ul Normal 4.20-5.40 [facility] Comment on above: Performed By: #### C BC ####[facility] [address] [place] [address] Debbie WBC 6.7 103/ul Normal 4.0-11.0 [facility] Comment on above: Performed By: #### C BC ####[facility] [address] [place] [address] Debbie ER URINE PROFILEon 1 Bilirubin Ql (U) Negative Normal NEGATIVE The [facility] Comment on above: Performed By: #### E RUR ####[facility] [address] [place] [address] Debbie Clarity (U) CLEAR Normal CLEAR [facility] Comment on above: Performed By: #### E RUR ####[facility] [address] [place] [address] Debbie Color (U) LT. YELLOW Normal YELLOW [facility] Comment on above: Performed By: #### E RUR ####[facility] [address] [place] [id number] Debbie ERUAHD A micrscopic examination will be performed if indicated. Normal [facility] Comment on above: Performed By: #### E RUR ####[facility] [address] [place], [place] [address]Jodsyx Debbie Glucose Ql (U) Negative Normal NEGATIVE The [facility] Comment on above: Performed By: #### E RUR ####[facility] [address] [place] [id number] Debbie Hemoglobin Ql (U) Negative Normal NEGATIVE [facility] Comment on above: Performed By: #### E RUR ####[facility] [address] [place], [place] [address]Gerken Debbie Ketones Ql (U) Negative Normal NEGATIVE The [facility] Comment on above: Performed By: #### E RUR ####[facility] [address] [place], [place] [id number] Debbie LEUKOCYTES Negative Normal NEGATIVE [facility] Comment on above: Performed By: #### E RUR ####[facility] [address] [place], [place] [id number] Debbie Nitrite Ql (U) Negative Normal NEGATIVE The [facility] Comment on above: Performed By: #### E RUR ####[facility] [address] [place], [place] [phone] Debbie pH (U) 6.0 [pH] Normal 5-9 [facility] Comment on above: Performed By: #### E RUR ####[facility] [address] [place] [address] Debbie SPEC GRAVITY 1.010 Normal 1.005-<=1.025 [facility] Comment on above: Performed By: #### E RUR ####[facility] [address] [place], [place] [address]Gerken Debbie UA PROTEIN Negative Normal NEGATIVE/ TRACE [facility] Comment on above: Performed By: #### E RUR ####[facility] [address] [place], [place] [address]Vephek Debbie UR MICRO IND NOT INDICATED Normal [facility] Comment on above: Performed By: #### E RUR ####[facility] [address] [place], [place] [address]Mpmzhj Karen Urobilinogen Qn (U) 0.2 {Ericka'U}/dL Normal 0.2 - 1.0 [facility] Comment on above: Performed By: #### E RUR ####[facility] [address] [place], [place] [address]BxmdklReji Lewis LIPASEon 03-03-2021 Lipase [Catalytic activity/Vol] 67.0 U/L Normal 23.0-300.0 [facility] Comment on above: Performed By: #### C MIKE CAROLYN, LIPA #### [facility] [address] [place], [place] [id number] Reji Lewis PROF 14(COMP METB)on 021 Albumin [Mass/Vol] 4.2 g/dL Normal 3.5-5.0 [facility] Comment on above: Performed By: #### C MP, CAROLYN, LIPA #### [facility] [address] [place], [place] [phone] Rejigino Lewis Albumin/Globulin [Mass ratio] 1.2 {ratio} Normal [facility] Comment on above: Performed By: #### C MP, CAROLYN, LIPA #### [facility] [address] [place], [place] [phone] Reji Debbie ALP [Catalytic activity/Vol] 94 U/L Normal 38-126 [facility] Comment on above: Performed By: #### C MP, CAROLYN, LIPA #### [facility] [address] [place], [place] [phone] Reji Debbie ALT [Catalytic activity/Vol] 27 U/L Normal 9-52 [facility] Comment on above: Performed By: #### C MP, CAROLYN, LIPA #### [facility] [address] [phone] Reji Debbie Anion gap [Moles/Vol] 10.2 mmol/L Normal [facility] Comment on above: Performed By: #### C CAROLYN MCKEON LIPA #### [facility] [address] [place] [address] Reji Debbie AST [Catalytic activity/Vol] 13 U/L Critically low 14-36 [facility] Comment on above: Performed By: #### C CAROLYN MCKEON LIPA #### [facility] [address] [place] [address] Reji Debbie Bilirubin [Mass/Vol] 0.5 mg/dL Normal 0.2-1.3 [facility] Comment on above: Performed By: #### C CAROLYN MCKEON LIPA #### [facility] [address] [place] [address] Reji Debbie Calcium [Mass/Vol] 9.3 mg/dL Normal 8.4-10.2 [facility] Comment on above: Performed By: #### C CAROLYN MCKEON LIPA #### [facility] [address] [place] [address] Reji Debbie Chloride [Moles/Vol] 106 mmol/L Normal 98-107 [facility] Comment on above: Performed By: #### C CAROLYN MCKEON LIPA #### [facility] [address] [place] [address] Reji Debbie CO2 [Moles/Vol] 25.7 mmol/L Normal 22.0-30.0 The [facility] Comment on above: Performed By: #### C CAROLYN MCKEON LIPA #### [facility] [address] [place] [address] Reji Debbie Creatinine [Mass/Vol] 0.78 mg/dL Normal 0.52-1.04 [facility] Comment on above: Performed By: #### C CAROLYN MCKEON LIPA #### [facility] [address] [place] [address] Reji Debbie EGFR-AF CITIZEN [place] >60 Normal >=60 The [facility] Comment on above: Performed By: #### C CAROLYN MCKEON LIPA #### [facility] [address] [place] [address] Reji Debbie EGFR-NON AF CITIZEN OF [place] >60 Normal >=60 [facility] Comment on above: Performed By: #### C CAROLYN MCKEON LIPA #### [facility] [address] [place] [address] Reji Debbie Globulin (S) [Mass/Vol] 3.4 g/dL Normal [facility] Comment on above: Performed By: #### C CAROLYN MCKEON LIPA #### [facility] [address] [place] [address] Reji Debbie Glucose [Mass/Vol] 94 mg/dL Normal 74-106 [facility] Comment on above: Performed By: #### C CAROLYN MCKEON LIPA #### [facility] [address] [place] [address] Reji Debbie Potassium [Moles/Vol] 3.9 mmol/L Normal 3.4-5.0 [facility] Comment on above: Performed By: #### C CAROLYN MCKEON LIPA #### [facility] [address] [place] [address] Reji Debbie Protein [Mass/Vol] 7.6 g/dL Normal 6.1-8.2 [facility] Comment on above: Performed By: #### C CAROLYN MCKEON LIPA #### [facility] [address] [place] [address] Reji Debbie Sodium [Moles/Vol] 138 mmol/L Normal 137-145 [facility] Comment on above: Performed By: #### C CAROLYN CMKEON LIPA #### [facility] [address] [place] [address] Reji Debbie Urea nitrogen [Mass/Vol] 14.0 mg/dL Normal 7.0-17.0 [facility] Comment on above: Performed By: #### C CAROLYN MCKEON LIPA #### [facility] [address] [place] [address] Reji Debbie Urea nitrogen/Creatinin e [Mass ratio] 17.9 mg/mg Normal [facility] Comment on above: Performed By: #### C CAROLYN MCKEON LIPA #### [facility] [address] [phone] Reji Lewis Vital Signs Date Time Vital Sign Value Performing Clinician Facility 11-01-2024 11:16-0400 Body height 172.7 cm Kit Solitario DPM Work Phone: [facility] 11-01-2024 11:16-0400 Body mass index (BMI) [Ratio] 27.83 kg/m2 Kit Solitario DPM Work Phone: [facility] 11-01-2024 11:16-0400 Body weight 83.01 kg Kit Brown DPM Work Phone: [facility] 11-01-2024 11:16-0400 Respiratory rate 18 /min Kit Solitario DPM Work Phone: [facility] 09-20-2024 10:00-0500 Body height 172.7 cm Kit Solitario DPM Work Phone: [facility] 09-20-2024 10:00-0500 Body mass index (BMI) [Ratio] 27.83 kg/m2 Kit Solitario DPM Work Phone: [facility] 09-20-2024 10:00-0500 Body weight 83.01 kg Kit Solitario DPM Work Phone: [facility] 09-20-2024 10:00-0500 Respiratory rate 18 /min Kit Solitario DPM Work Phone: [facility] 12-07-2023 14:26-0400 Body height 172.7 cm Kedar Agee MD Work Phone: [facility] 12-07-2023 14:26-0400 Body mass index (BMI) [Ratio] 31.47 kg/m2 Kedar Agee MD Work Phone: [facility] 12-07-2023 14:26-0400 Body temperature 97.7 [degF] Kedar Agee MD Work Phone: [facility] 12-07-2023 14:26-0400 Body weight 93.89 kg Kedar [facility]e MD [facility] 12-07-2023 14:26-0400 Diastolic blood pressure 86 mm[Hg] Kedar Agee MD [facility] 12-07-2023 14:26-0400 Heart rate 72 /min Kedar Agee MD Work Phone: [facility] Comment on above: 98o2 12-07-2023 14:26-0400 Respiratory rate 14 /min Kedar Agee MD [facility] 12-07-2023 14:26-0400 Systolic blood pressure 126 mm[Hg] Kedar Agee MD [facility] 10-18-2023 09:54-0500 Body height 172.7 cm Mariana Beltran DO [facility] 10-18-2023 09:54-0500 Body mass index (BMI) [Ratio] 31.32 kg/m2 Mariana Beltran DO Work Phone: [employer] 10-18-2023 09:54-0500 Body weight 93.44 kg Mariana Beltran DO Work Phone: [employer] 10-18-2023 09:54-0500 Diastolic blood pressure 82 mm[Hg] Mariana Beltran DO Work Phone: [employer] 10-18-2023 09:54-0500 Systolic blood pressure 120 mm[Hg] Mariana Beltran DO Work Phone: [employer] 02-24-2022 18:55-0400 Body height 171.45 cm Yazmin Cash Other [employer] Other 02-24-2022 18:55-0400 Body mass index (BMI) [Ratio] 29.62 kg/m2 Yazmin Cash Other [employer] Other 02-24-2022 18:55-0400 Body temperature 98.2 [degF] Yazmin Cash Other [employer] Other 02-24-2022 18:55-0400 Body weight 87.09 kg Yazmin Cash Other [employer] Other 02-24-2022 18:55-0400 Diastolic blood pressure 87 mm[Hg] Yazmin Cash Other [employer] Other 02-24-2022 18:55-0400 Respiratory rate 18 /min Yazmin Cash Other [employer] Other 02-24-2022 18:55-0400 SaO2% (BldA) [Mass fraction] 100 % Yazmin Cash Other [employer] Other 02-24-2022 18:55-0400 Systolic blood pressure 129 mm[Hg] Yazmin Cash Other [employer] Other Encounters Encounter Date Encounter Type Care Provider Facility Start: 11-01-2024 End: 11-01-[address] Kit Solitario DPM Work Phone: [facility] Start: 11-01-2024 End: 11-01-[address] Kit Solitario DPM Work Phone: [facility] Start: 11-01-2024 End: 11-01-2024 Office outpatient visit 25 minutes Kit Solitario DPM Work Phone: [facility] Comment on above: Plantar fasciitis (P rimary Dx); Contracture of right ankle; Pain due to onychomycosis of toenails of both feet; Onychomycosis Start: 11-01-2024 End: 11-01-2024 ambulatory KIT SOLITARIO Not Available Start: 09-20-2024 End: 09-20-2024 Bamboo flowsheet Kit Solitario DPM Work Phone: [facility] Start: 09-20-2024 End: 09-20-2024 Bamboo flowsheet Kit Solitario DPM Work Phone: [facility] Start: 09-20-2024 End: 09-20-2024 ambulatory KIT SOLITARIO Not Available Start: 09-20-2024 End: 09-20-2024 Office outpatient new 45 minutes Kit Solitario DPM Work Phone: [facility] Comment on above: Plantar fasciitis (P rimary Dx); Contracture of right ankle; Pain due to onychomycosis of toenails of both feet; Onychomycosis Start: 04-16-2024 ambulatory [facility] Start: 04-16-2024 End: 04-18-2024 Subsequent hospital visit by physician Juno Rogers MD Work Phone: [facility] Start: 12-26-2023 End: 12-27-2023 ambulatory Sergo JAFFE Facility:[facility] Start: 12-07-2023 End: 12-07-2023 ambulatory KEDAR AGEE [facility] Start: 12-07-2023 End: 12-07-2023 Office outpatient new 45 minutes Kedar Agee MD Work Phone: [facility] Comment on above: Rectocele (Primary D x); Stress incontinence of urine; Constipation, unspecified constipation type; Dyspareunia in female; OAB (overactive bladder) Start: 10-25-2023 Orders Only Mariana Beltran DO Work Phone: [facility] Comment on above: Dyspareunia in femal e (Primary Dx); Menopause syndrome Start: 10-24-2023 Orders Only Debra Camilo RN [facility] Comment on above: Rectocele (Primary D x); Vaginal prolapse; Stress incontinence of urine; Dyspareunia in female Start: 10-20-2023 Telephone encounter Faiza Sotelo [facility] Start: 10-18-2023 End: 10-18-2023 ambulatory MARIANA BELTRAN [facility] Start: 10-18-2023 End: 10-18-2023 Office outpatient visit 15 minutes Mariana Beltran DO Work Phone: [facility] Comment on above: Vaginal prolapse (Pr imary Dx); Rectocele; Stress incontinence of urine; Dyspareunia in female; Status post hysterectomy with oophorectomy Start: 08-31-2023 End: 09-01-2023 ambulatory Annle KeithKem Hortonisiah Facility:[facility] Start: 06-01-2023 ambulatory Sergo JAFFE Facility :[facility] Start: 02-24-2022 End: 02-24-2022 ambulatory Yazmin Cash Other [employer] Other Start: 02-24-2022 Office outpatient ne w 20 minutes Yazmin Cash [facility] Start: 08-06-2021 End: 08-06-2021 ambulatory [facility] Facility: Start: 05-15-2021 End: 05-15-2021 ambulatory [facility] Facility: Start: 03-03-2021 End: 03-03-2021 ambulatory [facility] Facility: Procedures Date Procedure Procedure Detail Performing Clinician Start: 12-07-2023 MEASURE POST VOID RESIDUAL Kedar Agee MD Work Phone: Start: 12-07-2023 Urnls dip stick/tabl et rgnt non-auto w/o micrscp Kedar Agee MD Work Phone: H/O: surgery Status post hyst erectomy with oophorectomy Mariana Beltran DO Work Phone: Plan of Treatment Date Care Activity Detail Author Start: 04-16-2025 Depression Screen Depression Screen [facility] Start: 01-20-2025 Screening for malignant neoplasm of breast Breast cancer screen [facility] Start: 12-08-2024 Tobacco Screening Tobacco Screening [facility] Start: 12-06-2024 Adult BMI Screening Adult BMI Screening [facility] Start: 11-01-2024 End: 12-02-2024 Alanine aminotransferase [Enzymatic activity/volume] in Serum or Plasma ALANINE AMINOTRANSFERASE Lab Routine Onychomycosis Expected: 11/01/2024 (Approximate), Expires: 12/02/2024 [facility] Comment on above: Expected: 11/01/2024 (Approximate), Expi res: 12/02/2024 Start: 11-01-2024 End: 12-02-2024 Aspartate aminotransferase [Enzymatic activity/volume] in Serum or Plasma ASPARTATE AMINO TRANSFERASE Lab Routine Onychomycosis Expected: 11/01/2024 (Approximate), Expires: 12/02/2024 [facility] Work Phone: Comment on above: Expected: 11/01/2024 (Approximate), Expi res: 12/02/2024 Start: 11-01-2024 End: 11-01-2024 Patient encounter procedure 11/01/2024 11:10 AM EDT Office Visit [facility] [address] [place] [address] Kit Solitario DPM [address] [address] Plantar fasciitis (Primary Dx); Contracture of right ankle; Pain due to onychomycosis of toenails of both feet [facility] Comment on above: Plantar fasciitis (Primary Dx); Contracture of right ankle; Pain due to onychomycosis of toenails of both feet Start: 10-25-2024 End: 10-25-2024 Patient encounter procedure 10/25/2024 10:20 AM EST Office Visit [facility] [address] [facility] [address] [place] [address] Kit Solitario DPM [address] [address] [facility] Start: 10-18-2024 Adult BMI Screening Adult BMI Screening [facility] Start: 10-18-2024 Tobacco Screening Tobacco Screening [facility] Start: 09-20-2024 End: 10-19-2024 Alanine aminotransferase [Enzymatic activity/volume] in Serum or Plasma ALANINE AMINOTRANSFERASE Lab Routine Onychomycosis Expected: 09/20/2024 (Approximate), Expires: 10/19/2024 [facility] Comment on above: Expected: 09/20/2024 (Approximate), Expi res: 10/19/2024 Start: 09-20-2024 End: 10-19-2024 Aspartate aminotransferase [Enzymatic activity/volume] in Serum or Plasma ASPARTATE AMINO TRANSFERASE Lab Routine Onychomycosis Expected: 09/20/2024 (Approximate), Expires: 10/19/2024 [facility] Work Phone: Comment on above: Expected: 09/20/2024 (Approximate), Expi res: 10/19/2024 Start: 05-31-2024 End: 05-31-2024 Patient encounter procedure 05/31/2024 11:00 AM EDT Office Visit [facility] [address] [place], [place] [id number] Jay Ryan [address] [address] M54.41, M54.42, G89.29 (ICD-10-CM) - Chronic midline low back pain with bilateral sciatica [facility] Comment on above: M54.41, M54.42, G89.29 (ICD-10-CM) - Chr onic midline low back pain with bilateral sciatica Start: 04-22-2024 Influenza vaccination Influenza Vaccine [facility] Start: 03-22-2024 Influenza vaccination Flu vaccine (#1) KAYE MCCLAIN [facility] Start: 02-01-2024 End: 02-01-2024 Patient encounter procedure 02/01/2024 1:30 PM EDT Procedure visit [facility] [address] [place] [address] Kedar Agee MD [address] [place] [address] [facility] Start: 12-07-2023 End: 12-07-2023 Patient encounter procedure 12/07/2023 2:30 PM EDT Office Visit [facility] [address] [place] [address] Kedar Agee MD [address] [facility] [address] [place] [address] [facility] Start: 04-22-2023 COVID-19 Vaccine ( season) COVID-19 Vaccine ( season) [facility] Start: 04-22-2023 Influenza vaccination Influenza Vaccine [facility] Start: 2021 Lipid panel Lipids [facility] Start: 2016 Diabetes screen Diabetes screen [facility] Start: 2000 DTaP,Tdap and Td Vaccines (1 - Tdap) DTaP,Tdap and Td Vaccines (1 - Tdap) [facility] Start: 2000 DTaP/Tdap/Td vaccine (1 - Tdap) DTaP/Tdap/Td vaccine (1 - Tdap) [facility] Start: 2000 Hepatitis B vaccine (1 of 3 - 19+ 3-dose series) Hepatitis B vaccine (1 of 3 - 19+ 3-dose series) [facility] Start: 11-07-1999 Adult BMI Follow Up Plan Adult BMI Follow Up Plan [facility] Start: 1994 Varicella vaccine (1 of 2 - 13+ 2-dose series) Varicella vaccine (1 of 2 - 13+ 2-dose series) [facility] Start: 1993 Depression Screening Depression Screening [facility] Start: 11-07-1987 Pneumococcal 0-64 years Vaccine (1 of 2 - PCV) Pneumococcal 0-64 years Vaccine (1 of 2 - PCV) [facility] Immunizations Immunization Date Immunization Notes Care Provider Rosanne maurer 11-04-2020 hepatitis A vaccine, adult dosage Juno Rogers MD Work Phone: [facility] [facility] 05-06-2020 hepatitis A vaccine, adult dosage Juno Rogers MD Work Phone: [facility] Payers Date Payer Category Payer Medicaid (Managed Care) [employer] [id number] 2021 Medicaid [employer] [id number] 2021-Present [phone] [address] [place] [id number] 1981 Unknown [id number] 2.16.840.1.984471.3.579.2. 593 1981 Unknown [id number] 2.16.840.1.094536.3.579.2. 593 1981 Unknown [id number] 2.16.840.1.304948.3.579.2. 593 1981 Unknown [id number] 2.16.840.1.882368.3.579.2. 1286 1981 Unknown [id number] 2.16.840.1.504406.3.579.2. 1286 1981 Unknown [id number] 2.16.840.1.363462.3.579.2. 727 1981 Unknown [id number] 2.16.840.1.912161.3.579.2. 727 1981 Unknown [id number] 2.16.840.1.644369.3.579.2. 727 1981 Unknown [id number] 2.16.840.1.182763.3.579.2. 174 1981 Unknown [id number] 2.16.840.1.056424.3.579.2. 174 1981 Unknown [id number] 2.16.840.1.351874.3.579.2. 1259 1981 Unknown [id number] 2.16.840.1.960878.3.579.2. 1259 1959 Unknown [id number] Social History Date Type Detail Facility Start: 01-11-2023 End: 04-16-2024 Sex Assigned At [employer] Other Start: 01-11-2023 End: 04-16-2024 Tobacco smoking status [facility] Ex-smoker [facility] Start: 10-20-2001 End: 10-21-2019 History of tobacco use Current smoker [facility] Start: 10-20-2001 End: 10-21-2019 History of tobacco use Cigarette Smoker [facility] Start: 01-11-2023 End: 04-16-2024 Cigarettes smoked current (pack per day) - [facility] Start: 01-11-2023 End: 04-16-2024 Tobacco use and exposure Smokeless tobacco non-user [facility] Start: 04-16-2024 Alcoholic beverage intake Current non-drinker of alcohol (finding) [facility] How hard is it for y ou to pay for the very basics like food, housing, medical care, and heating Not hard at all [facility] (I/We) worried mounika er (my/our) food would run out before (I/we) got money to buy more. Never true [employer] At any time in the p ast 12 months, were you homeless or living in correction [including now]? No [facility] [employer] [facility] Start: 07-15-2020 Education 14 [facility] [employer] [facility] Start: 1980 Sex assigned at Female [facility] [facility] Start: 03-02-2021 Gender identity Identifies as female gender (finding) [facility] [employer] [facility] Start: 03-02-2021 Sexual orientation Heterosexual (finding) [facility] [facility] Start: 09-20-2024 Tobacco smoking status [facility] Tobacco smoking consumption unknown [facility] Start: 1980 Sex assigned at Not on file [facility] Start: 10-18-2023 End: 12-09-2023 Alcoholic beverage intake Current drinker of alcohol (finding) [facility] Start: 01-11-2023 Alcohol Comment [facility] 02-24-2022 to 11-01-2024 Kit Solitario DPM - 11/01/2024 11:10 AM Michelle Solitario DPM - 09/20/2024 9:40 AM Fouzia Agee MD - 12/07/2023 2:30 PM Asaf Beltran DO - 10/25/2023 4:32 PM EST Note Date & Type Note Facility 11-01-2024 History of Presen t illness Narrative Patient: Jazmin Santos Ange : 1980 PCP: Juno Rogers MD SUBJECTIVE This is a 43 y.o. female that presents today for a follow up of Lamisil medication for the past 30 days and states with minimal improvement to bilateral great digit nails Patient also states that she has had this problem for the past 2 years and also has pain to her right heel particularly 1st steps in the morning with plantar fasciitis and has been doing stretching exercises and taking anti-inflammatories Patient rates pain a 3/10. Patient was casted for covered orthotics on previous visit Allergies: No Known Allergies Past Medical History: No past medical history on file. Medications: No current outpatient medications on file. [...] Resource Strain: Low Risk (04/16/2024) [facility] Overall Financial Resource Strain (CARDIA) Difficulty of Paying Living Expenses: Not hard at all Food Insecurity: No Food Insecurity (04/16/2024) Received from [facility] Hunger Vital Sign Worried About Running Out of Food in the Last Year: Never true Ran Out of Food in the Last Year: Never true Transportation Needs: Unknown (04/16/2024) Received from [facility] PRAPARE - Transportation Lack of Transportation (Medical): Not on file Lack of Transportation (Non-Medical): No Physical Activity: Not on file Stress: Not on file Social Connections: Not on file Intimate Partner Violence: Not on file Housing Stability: Unknown (04/16/2024) Received from [facility] Housing Stability Vital Sign Unable to [...] Minimal palpation to right medial calcaneal tubercle AST/ALT: November 02, 2019 25 AST 17 ALT 30 ASSESSMENT 1. Plantar fasciitis 2. Contracture of right ankle 3. Pain due to onychomycosis of toenails of both feet PLAN Patient to continue with oral anti - inflammatories as needed for pain and recommended OTC medications such as tylenol or Ibuprofen Patient may stop in [place] location for orthotic pickup Patient is to continue with stretching excercizes daily with patient to continue with night stretching splint or manual stretching. Patient education today with discussing diagnosis and treatment options for patient including risks and benefits of lamisil medication including liver interactions, side effects, and possible non resolution of nail fungus. Rx for lamisil x 60 d Rx for lfts today Pt to contact podiatry if any problems RTC 2 months Kit Solitario DPM documented in this encounter [facility] 09-20-2024 History of Presen t illness Narrative [...] positive improvement rates pain up to a 2/10. Allergies: No Known Allergies Past Medical History: [...] Resource Strain: Low Risk (04/16/2024) Received from [facility] Overall Financial Resource Strain (CARDIA) Difficulty of Paying Living Expenses: Not hard at all Food Insecurity: No Food Insecurity (04/16/2024) Received from [facility] Hunger Vital Sign Worried About Running Out of Food in the Last Year: Never true Ran Out of Food in the Last Year: Never true Transportation Needs: Unknown (04/16/2024) Received from [facility] PRAPARE - Transportation Lack of Transportation (Medical): Not on file Lack of Transportation (Non-Medical): No Physical Activity: Not on file Stress: Not on file Social Connections: Not on file Intimate Partner Violence: Not on file Housing Stability: Unknown (04/16/2024) Received from [facility] Housing Stability Vital Sign Unable to [...] Kit Solitario DPM documented in this encounter [facility] 12-07-2023 History of Presen t illness Narrative [...] notes dyspareunia. Has recently started VET. Previous obstetrics gyn physician/abdominal surgeries/procedures: TVH/BSO Obstetrical history: Number of vaginal deliveries:2 Past Medical History: Diagnosis Date Anxiety Endometriosis Hepatitis C Substance abuse ([facility]) sober for 6 years-drug of choice, crack, [...] Pelvic floor spasm and myalgia: None Modified Lismore Scale 0-5: 2, weak muscle contraction Leakage [...] on pelvic organ prolapse and pessaries from [facility]. She is interested in definitive surgical management. Would be a good candidate for curyung tissue repair - posterior colporrhaphy and iliococcygeal [...] for UDS. Avoid bladder irritants. PVR normal. COURT SPECIALIST negative. UA negative. This chart note was [...] similarly generated notes. documented in this encounter [facility] 10-25-2023 History of Presen t illness Narrative Vagifem was changed to Estrace vaginal cream documented in this encounter [facility] 10-20-2023 Miscellaneous Notes Formattin g of this note might be different from the original. Pts script for Vagifem got denied. Is there another medication you would like to try? Pt aware. documented in this encounter [facility] 10-20-2023 Telephone encount er Note Pts script for Vagifem got denied. Is there another medication you would like to try? Pt aware. [facility] 10-18-2023 History of Presen t [...] . She reports recently going to the [employer] and completely soaking her pants through. She [...] as his office is closer the [place]. Referral has been made documented in this encounter [facility] 02-24-2022 Evaluation note Encounter Date [...] to see Dr. Gabriel, orthopedic physician in [place] in follow-up. She states she will arrange her appointment Feb, Other Ankle fracture material was printed [employer] Other Evaluation note* Diagnosis Plantar fasciitis- Primary Plantar fascial fibromatosis Contracture of right ankle Pain due to onychomycosis of toenails of both feet Onychomycosis Dermatophytosis of nail documented in this encounter [facility] Healthcare[facility]* Diagnosis Rectocele- Primary Stress incontinence of urine Constipation, unspecified constipation type Dyspareunia in female OAB (overactive bladder) documented in this encounter [facility]* Diagnosis Vaginal prolapse- Primary Unspecified prolapse of vaginal chris Rectocele Stress incontinence of urine Dyspareunia in female 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 documented in this encounter [facility]* Diagnosis Rectocele- Primary Vaginal prolapse Unspecified prolapse of vaginal chris Stress incontinence of urine Dyspareunia in female documented in this encounter [facility]* Diagnosis Dyspareunia in female- Primary Menopause syndrome Symptomatic menopausal or female climacteric states documented in this encounter [facility]* Diagnosis Plantar fasciitis- Primary Plantar fascial fibromatosis Contracture of right ankle Pain due to onychomycosis of toenails of both feet Onychomycosis Dermatophytosis of nail documented in this encounter [facility] HealthcareHistory general Narrative - Reported* Type Description Date Medical History Endometriosis Medical History Back pain Medical History Seizures Medical History Migraines Medical History PTSD Medical History Anxiety Disorder Medical History Hepatitis C-per records from [facility] Surgical History Hysterectomy 2008 Surgical History Exploratory laparoscopy-endomet riosi (2) Surgical History Tumor removed left finger Hospitalization History See past surgical hx Hospitalization History Seizures [employer] Other InstructionsNot on filedocumented in this encounter [facility]* Attachments The following attachments cannot be sent through Care Everywhere. * Pelvic Floor Exercises (Nicaraguan) * Vaginal dryness (Nicaraguan) * Vaginal Prolapse (Nicaraguan) documented in this [facility] SystemInstructionsNot on file documented in this encounterProMedivt Health SystemInstructionsNot on file documented in this encounterProUniversity [facility] SystemReason for referral (narrative)* Consultation (Routine) - Pending Review Specialty Diagnoses / Procedures Referred By Ralph larkin Referred To Contact Urology Diagnoses Rectocele Vaginal prolapse Stress incontinence of urine Dyspareunia in female Status post hysterectomy with oophorectomy Mariana Beltran DO [address] [place] [address] Ruben Sosa, [address] [place] [address] Referral ID Status Reason Start Date Expiration Date Visits Requested Visits Authorized [id number] Pending Review Specialty Services Required 10/18/2023 10/17/2024 1 1 * Medication Prior Authorization - Pending Review Specialty Diagnoses / Procedures Referred By Ralph larkin Referred To Contact Diagnoses Rectocele Vaginal prolapse Stress incontinence of urine Dyspareunia in female Status post hysterectomy with oophorectomy Mariana Beltran DO [address] [place] [address] Referral ID Status Reason Start Date Expiration Date V isits Requested Visits Authorized [id number] Pending Review 1 1 AppGratisReason for referral (narrative)* Consultation (Routine) - Pending Review Specialty Diagnoses / Procedures Referred By Contac t Referred To Contact Urogynecology / Gynecology Diagnoses Rectocele Vaginal prolapse Stress incontinence of urine Dyspareunia in female Mariana Beltran DO [address] [place] [address] Kedar Agee MD [address] [place] [address] Referral ID Status Reason Start Date Expiration Date Visits Requested Visits Authorized [id number] Pending Review Specialty Services Required 10/24/2023 10/23/2024 1 1 [facility] [employer] Summary Purpose Family History No Family History Records FoundNo Family History Records FoundNo Family History Records FoundNo Family History Records FoundNo Family History Records FoundNo Family History Records Found Advance Directives No Advanced Directives Records FoundHealthcare Agents on File Name Relationship Healthcare Agent Relationshi p Communication Faviola [place] Child Primary Decision Maker Reason for Referral Specialty Diagnoses / Procedures Referred By Ralph larkin Referred To Contact Diagnoses Rectocele Vaginal prolapse Stress incontinence of urine Dyspareunia in female Procedures Measure post void residual Kedar Agee MD [address] [place] [address] Referral ID Status Reason Start Date Expiration Date V isits Requested Visits Authorized [id number] Pending Review 12/07/2023 12/06/2024 1 1 Additional Source Comments INFORMATION SOURCE (unrecogn ized section and content) DATE CREATED AUTHOR 08/10/2021 [facility] DATE CREATED AUTHOR AUTHOR'S ORGANIZ ATION 03/11/2022 [facility] DATE CREATED AUTHOR AUTHOR'S ORGANIZ ATION 12/09/2023 [facility] DATE CREATED AUTHOR AUTHOR'S ORGANIZ ATION 12/28/2023 [facility] DATE CREATED AUTHOR AUTHOR'S ORGANIZ ATION 04/18/2024 [facility] DATE CREATED AUTHOR AUTHOR'S ORGANIZ ATION 11/04/2024 [facility] dical Specialists EPIC REASON FOR VISIT (unrecogniz ed section and content) Reason Comments Toenail Problem Thick nials, poss fu ngus Reason Comments Vaginal Prolapse Specialty Diagnoses / Procedures Referred By Contac t Referred To Contact Urogynecology / Gynecology Diagnoses Rectocele Vaginal prolapse Stress incontinence of urine Dyspareunia in female Mariana Beltran DO [address] [place] [address] Kedar Agee MD [address] [id number] Referral ID Status Reason Start Date Expiration Date V isits Requested Visits Authorized [id number] Closed Specialty Services Required 10/24/2023 10/23/2024 1 1 Reason Comments Prolapse Noticed a few months ago, feels a bulge Reason Comments Follow-up Rt pf check Care Teams (unrecognized sec tion and content) Collision Repairer Relationship Specialty Start Date End Date Juno Rogers MD PCP - General Internal Medicine 05/22/18 Collision Repairer Relationship Specialty Start Date End Date Juno Rogers MD [address] [place] [id number] PCP - General Internal Medicine 09/20/24 Collision Repairer Relationship Specialty Start Date End Date Juno Rogers MD [address] [place] [id number] PCP - General Internal Medicine 09/20/24 Collision Repairer Relationship Specialty Start Date End Date Juno Rogers MD [address] [place] [id number] PCP - General Internal Medicine 09/20/24 Collision Repairer Relationship Specialty Start Date End Date Juno Roegrs MD [address] [place] [address] PCP - General Internal Medicine 09/20/24 FOR [...] BE BASED ON THE PRIMARY CLINICAL RECORDS. [employer] [facility]. provides no warranty or guarantee of the accuracy or completeness of information in this document.
== END 2024-12-04 15:17 | disposition home or self-care (01) ==
LOC: RAD 15:17
PROVIDERS: PCP Nurse Practitioner Family; Visit Provider Nurse Practitioner
DX: M54.50 Low back pain, unspecified (principal); M51.369 Other intervertebral disc degeneration, lumbar region without mention of lumbar back pain or lower extremity pain
CPT/HCPCS: 72110

== ENCOUNTER 2024-12-04 15:20 | Outpatient (OUT) | payer OTHER, SELFPAY ==
[2024-12-04 16:16] LABS: Alanine Aminotransferase 28 U/L (14-59)
== END 2024-12-04 15:21 | disposition home or self-care (01) ==
LOC: LAB 15:20
PROVIDERS: PCP Nurse Practitioner Family
DX: B35.1 Tinea unguium (principal)
CPT/HCPCS: 36415; 84460

== ENCOUNTER 2025-01-23 10:01 | Outpatient (OUT) | payer OTHER, SELFPAY ==
--- OUTSIDE RECORDS SUMMARY | 2025-01-23 10:03 | XMS_ITS | Encounter Summary ---
Author Organization [facility] Address [address] [place] [address] Care Team Providers Care Lease Purchase Truck Driver Name Role Phone Juno Rogers MD Primary Care Provider [phone] Encounter Details Date Type Department Care Team (Late st Contact Info) Description 01/01/2021 Telephone [facility] [address] [place] [id number] Joe Kelly MD Social History Tobacco Use Types Packs/Day Years Used Date Smoking Tobacco: Former Cigarettes 0.5 18 0 10/2001 - 10/2019 Smokeless Tobacco: Never Alcohol Use Standard Drinks/Week Comments No 0 (1 standard drink = 0.6 oz pur e alcohol) Overall Financial Resource Strain (CARDIA) Answe r Date Recorded How hard is it for you to pa y for the very basics like food, housing, medical care, and heating? Not hard at all 07/15/2020 PHQ-2 Answer Date Recorded PHQ-2 Score 0 10/23/2019 Hunger Vital Sign Answer Date Recorded Within the past 12 months, y ou worried that your food would run out before you got the money to buy more. Never true 07/15/20 20 Within the past 12 months, t he food you bought just didn't last and you didn't have money to get more. Never true 07/15/2020 PRAPARE - Transportation Answer Date Re corded In the past 12 months, has l ack of transportation kept you from medical appointments or from getting medications? No 06/23 In the past 12 months, has l ack of transportation kept you from meetings, work, or from getting things needed for daily living? No 07/15/2020 Education Answer Date Recorded What is the highest level of school you have completed or the highest degree you have received? GED or equivalent Comments No Sex and Gender Information Value Date Recorded Sex Assigned at Female 03/02/2021 5:08 PM EDT Legal Sex Female 9:17 PM EST Gender Identity Female 03/02/2021 5:08 PM EDT Sexual Orientation Straight 03/02/2021 5: 08 PM EDT documented as of this encounter Plan of Treatment Not on file documented as of this encounter Visit Diagnoses Not on filedocumented in this encounter Care Teams [employer] Truck Driver Relationship Specialty Start Date End Date Juno Rogers MD PCP - General Internal Medicine 05/22/18 documented as of this encounter
--- OUTSIDE RECORDS SUMMARY | 2025-01-23 10:03 | XMS_ITS | Clinical Summary ---
Author Organization [facility] Address [address] [place] [address] Care Team Providers Care Lawn Care Worker Name Role Phone Juno Rogers MD Primary Care Provider [phone] Allergies Active Allergy Reactions Criticality Noted Date Comments Clindamycin 07/02/2019 Medications vitamin D3 (CHOLECALCIFEROL ) 25 MCG (1000 UT) TABS tablet TAKE 2 TABLETS BY MOUTH DAILY 30 tablet 2 Active Additional Information Patient not taking.Reported on 12/07/2022 [facility] VITAMIN C 1000 MG tablet TAKE 1 TABLET BY MOUTH EVERY DAY 30 tablet 3 2 Active Additional Information Patient not taking.Reported on 12/07/2022 cyclobenzaprine (FLEXERIL) 5 MG tablet TAKE 1 TABLET BY MOUTH THREE TIMES A DAY NEEDED FOR MUSCLE SPASMS 90 tablet 1 2 Active [facility] ZINC GLUCONATE 50 MG tablet TAKE 1 TABLET BY MOUTH EVERY DAY 30 tablet 1 2 Active Additional Information Patient not taking.Reported on 12/07/2022 guaiFENesin ([facility] MUCUS EXTENDED RELEASE) 600 MG extended release tabletIndication s:Subacute bronchitis TAKE 1 TABLET BY MOUTH 2 TIMES DAILY FOR 15 DAYS 40 tablet 1 3 Active naproxen (NAPROSYN) 500 MG tabletIndication s:Acute low back pain with bilateral sciatica, unspecified back pain laterality TAKE 1 TABLET BY MOUTH TWICE A DAY WITH FOOD 20 tablet 3 5 Active Active Problems Problem Noted Date Diagnosed Date Breast cancer screening by mammogram 11/12/2024 Acquired absence of both cervix and uterus 07/04 Other acute sinusitis 07/04/2019 Chronic hepatitis C without hepatic coma 018 Anxiety 05/22/2018 Resolved Problems Problem Noted Date Diagnosed Date Resolved Date Cough 07/02/2019 10/08/2020 Encounters Date Type Department Care Team Description 12/19/2024 Refill [facility] [address] [place] [address] Juno Rogers MD Medication Refill 11/12/2024 Orders Only [facility] [address] [place] [address] Juno oRgers MD Breast cancer screening by mammogram (Primary Dx) from Last 3 Months Immunizations Immunization Administration Dates Next Due Hep A, HAVRIX, VAQTA, (age 19y+), IM, 1mL 2020,05/06/2020 Family History Relation Name Status Comments Father Alive Mother Alive Social History Tobacco Use Types Packs/Day Years Used Date Smoking Tobacco: Former Cigarettes 0.5 18 0 10/2001 - 10/2019 Smokeless Tobacco: Never Tobacco Cessation:Counseling Given: Not Answered Alcohol Use Standard Drinks/Week Comments No 0 (1 standard drink = 0.6 oz pur e alcohol) Overall Financial Resource Strain (CARDIA) Answe r Date Recorded How hard is it for you to pa y for the very basics like food, housing, medical care, and heating? Not hard at all 04/16/2024 PHQ-2 Answer Date Recorded PHQ-9 Total Score 0 04/16/2024 Hunger Vital Sign Answer Date Recorded Within the past 12 months, y ou worried that your food would run out before you got the money to buy more. Never true 04/16/20 24 Within the past 12 months, t he food you bought just didn't last and you didn't have money to get more. Never true 04/16/2024 PRAPARE - Transportation Answer Date Re corded Lack of Transportation (Medical) Not on file 04/16/2024 In the past 12 months, has l ack of transportation kept you from meetings, work, or from getting things needed for daily living? No 04/16/2024 Housing Stability Vital Sign Answer Olivier e Recorded Unable to Pay for Housing in the Last Year Not o n file 12/07/2022 Number of Places Lived in the Last Year Not on f ile 12/07/2022 In the last 12 months, was t here a time when you did not have a steady place to sleep or slept in a usp (including now)? No 12/07/2022 Housing Stability Vital Sign Answer Olivier e Recorded Unable to Pay for Housing in the Last Year Not o n file 04/16/2024 Number of Times Moved in the Last Year Not on fi le 04/16/2024 At any time in the past 12 m [facility] [place], were you homeless or living in a usp (including now)? No 04/16/2024 Food Insecurity Answer Date Recorded Within the past 12 months, y ou worried that your food would run out before you got the money to buy more. 1 04/16/2024 Within the past 12 months, t he food you bought just didn't last and you didn't have money to get more. 1 04/16/2024 Education Answer Date Recorded What is the highest level of school you have completed or the highest degree you have received? GED or equivalent Comments No Sex and Gender Information Value Date Recorded Sex Assigned at Female 03/02/2021 5:08 PM EDT Legal Sex Female 9:17 PM EST Gender Identity Female 03/02/2021 5:08 PM EDT Sexual Orientation Straight 03/02/2021 5: 08 PM EDT Last Filed Vital Signs Vital Sign Reading Time Taken Comments Blood Pressure 118/82 04/16/2024 1:48 PM EDT Pulse 93 04/16/2024 1:48 PM EDT Temperature 36.4 C (97.5 F) 01/30/2021 11:29 AM EDT Respiratory Rate 18 04/16/2024 1:48 PM EDT Oxygen Saturation 97% 04/16/2024 1:48 PM EDT Inhaled Oxygen Concentration - - Weight 86.6 kg (191 lb) 04/16/2024 1:48 PM EDT Height 172.7 cm (5' 8 ) 04/16/2024 1:48 PM EDT Body Mass Index 29.04 04/16/2024 1:48 PM EDT Plan of Treatment Health Maintenance Due Date Last Done Comments Varicella vaccine (1 of 2 - 13+ 2-dose series) 1994 DTaP/Tdap/Td vaccine (1 - Tdap) 2000 Hepatitis B vaccine (1 of 3 - 19+ 3-dose series) 2000 Pneumococcal 0-49 years Vaccine (1 of 2 - PCV) 2000 Diabetes screen 2016 Lipids 2021 COVID-19 Vaccine (1 - 2023-2 5 season) 2024 Breast cancer screen 01/20/2025 01/20/2023 Flu vaccine (Season Ended) 2025 Depression Screen 04/16/2025 04/16/2024, 04/16/2024 HIV screen Completed 05/25/2018 Hepatitis A vaccine Completed 11/04/2020, 05/06/2020 HPV vaccine Aged Out No longer eligi ble based on patient's age to complete this topic Hib vaccine Aged Out No longer eligi ble based on patient's age to complete this topic Meningococcal (ACWY) vaccine Aged Out No longer eligible based on patient's age to complete this topic Meningococcal B vaccine Aged Out No l onger eligible based on patient's age to complete this topic Polio vaccine Aged Out No longer elig ible based on patient's age to complete this topic Procedures Procedure Name Priority Date/Time Associated Diagnosis Comments HIV SCREEN Routine 05/25/2018 Encounter for screening for HIV from Last 3 Months or Most Recently Relevant to Health Maintenance Results * HIV Screen (05/25/2018) HIV Ag/Ab non reactive BLOOD SPECIMEN / Unknown 05/25/2018 Juno Rogers MD IMMUNOLOGY ORDERABLES Edited Result - Final from Last 3 Months or Most Recently Relevant to Health Maintenance [place] [address] [place] [address] Advance Directives Healthcare Agents on File Name Relationship Healthcare Agent Relationshi p Communication Faviola Naranjo Child Primary Decision Maker Care Teams Lawn Care Worker Relationship Specialty Start Date End Date Juno Rogers MD PCP - General Internal Medicine 05/22/18
--- OUTSIDE RECORDS SUMMARY | 2025-01-23 10:03 | XMS_ITS | Patient Health Record ---
Author Organization [facility] Address [address] [place] [address] Care Team Providers Care Gang Rider Name Role Phone Edmundo Hammonds Primary Care Provider [phone] Reason For Referral No Information Medications Medication SIG (Take, Route, Frequency, Duration) Notes Start Date End Date Status Methadone HCl 10 mg 1 tablet Orally four times a day (qid) Dr. Schroeder Not-Taking ALPRAZolam 1 MG 1 tablet Orally Thre e times a day Dr. Schroeder Not-Taking Escitalopram Oxalate 10 MG 1 tablet Orally Once a day for 30 day(s) 07/28/2015 Not-Taking Vistaril 25 MG 1 capsule as needed Orally every 8 hrs for 30 day(s) 07/28/2015 Not-Taking Adderall 10 MG Orally Once a day Dr. Schroeder Not-Taking Plan Of Treatment No Information Insurance Providers Payer Name Payer Address Payer Phone Subscriber Number Group Number Insured Name Patient Relationship to Insured Coverage Start Date Coverage End Date [employer] [address] [place] [address] [id number] SHERYL VERGARA Self - patient is the insured 2 zMEDICAID C after [employer] [address] [place] [address] [id number] SHERYL VERGARA Self - patient is the insured 2 z[employer]AL [employer] [address] [address] [place] [address] [id number] SHERYL VERGARA Self - patient is the insured 2 [facility] after [facility] med [address] [place] [address] [id number] SHERYL VERGARA Self - patient is the insured 2 Medical (General) History Medical History History ICD Code back pain neck pain 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
--- OUTSIDE RECORDS SUMMARY | 2025-01-23 10:03 | XMS_ITS | Clinical Summary ---
Author Organization [facility] Address [address] [place] [address] Care Team Providers Care Ignition Specialist Name Role Phone Juno Rogers MD Primary Care Provider [phone] Allergies No known active allergies Medications meloxicam (Mobic) 7.5 MG tablet Take 7.5 mg by mouth 2 (two) times a day as needed Active Active Problems Problem Noted Date Diagnosed Date Rectocele 12/07/2024 Encounters Date Type Department Care Team Description 12/26/2024 Refill [facility] [address] [facility] [address] [place] [phone] Kit Solitario DPM Onychomycosis 12/07/2024 10:00 AM EDT Consult [facility] [address] [facility] [address] [place] [phone] Ernie Isaac DO Rectocele 12/07/2024 Travel 11/15/2024 Travel 11/01/2024 11:10 AM EDT Office Visit [facility] [address] [place] [address] [place] [phone] Kit Solitario DPM Plantar fasciitis (Primary Dx); Contracture of right ankle; Pain due to onychomycosis of toenails of both feet; Onychomycosis 11/01/2024 Bamboo flowsheet [facility] [address] [place] [address] [place] [address] Kit Solitario DPM 11/01/2024 Travel 10/23/2024 Orders Only [facility] [address] [place] [phone] RonRachelh Onychomycosis from Last 3 Months Family History Medical History Relation Name Comments Hypertension Mother foot problems Mother Relation Name Status Comments Father Alive Mother Alive Social History Tobacco Use Types Packs/Day Years Used Date Smoking Tobacco: Never Smokeless Tobacco: Never Tobacco Cessation:Counseling Given: Not Answered Alcohol Use Standard Drinks/Week Comments Yes 3 (1 standard drink = 0.6 oz pur e alcohol) Comments Unknown Sex and Gender Information Value Date Recorded Sex Assigned at Not on file Legal Sex Female 7:00 PM EDT Gender Identity Not on file Sexual Orientation Not on file Last Filed Vital Signs Vital Sign Reading Time Taken Comments Blood Pressure 110/74 08/05/2020 12:00 PM EST Pulse - - Temperature - - Respiratory Rate 18 11/01/2024 11:16 AM EDT Oxygen Saturation - - Inhaled Oxygen Concentration - - Weight 83.5 kg (184 lb) 12/07/2024 10:09 AM EDT Height 172.7 cm (5' 8 ) 12/07/2024 10:09 AM EDT Body Mass Index 27.98 12/07/2024 10:09 AM EDT Plan of Treatment Not on file Insurance [employer] Care Teams Ignition Specialist Relationship Specialty Start Date End Date Juno Rogers MD [address] [place] [id number] PCP - General Internal Medicine 09/20/24
--- OUTSIDE RECORDS SUMMARY | 2025-01-23 10:03 | XMS_ITS | Clinical Summary ---
Author Organization [facility] Address [address] [place], [place] [id number] Care Team Providers Care Transcriber Name Role Phone Steve Avila Primary Care Provider [phone] Medications XANAX 1MG TABLET Take one(1) tablet three times daily. 0 04/20/2004 Active PAXIL CR 25MG TABLET Take one(1) tablet daily. 0 04/20/2004 Active Social History Tobacco Use Types Packs/Day Years Used Date Smoking Tobacco: Never Assessed Comments No Sex and Gender Information Value Date Recorded Sex Assigned at Not on file Legal Sex Female 8:58 AM EST Gender Identity Not on file Sexual Orientation Not on file Last Filed Vital Signs Vital Sign Reading Time Taken Comments Blood Pressure 142/91 04/20/2004 1:00 PM EDT Pulse 77 04/20/2004 1:00 PM EDT Temperature - - Respiratory Rate - - Oxygen Saturation - - Inhaled Oxygen Concentration - - Weight 53.9 kg (118 lb 13.3 oz) 04/20/2004 1:00 PM EDT Height 170.2 cm (5' 7 ) 04/20/2004 1:00 PM EDT Body Mass Index 18.61 04/20/2004 1:00 PM EDT Plan of Treatment Health Maintenance Due Date Last Done Comments Anxiety Screening 11/07/1999 Depression Screening 11/07/1999 HIV Screening 11/07/1999 DTaP,Tdap,Td Vaccine (1 - Tdap) 2000 Hepatitis B Vaccine (1 of 3 - 19+ 3-dose series) 2000 Cervical Cancer Screening 2002 Mammogram Screening 2021 Covid-19 Vaccine (2023-2 5 season) 2024 Influenza Vaccine (Season Ended) 2025 Hepatitis C Screening Completed 04/20/2004 , 04/20/2004, 04/20/2004 Procedures Procedure Name Priority Date/Time Associated Diagnosis Comments HEPATITIS C VIRUS (HCV) RNA, QUANTITATIVE PCR, PLASMA/SERUM Routine 04/20/2004 2:09 PM EDT Vir Hep Nec W/O Coma W Hep C Chron from Last 3 Months or Most Recently Relevant to Health Maintenance Results * HCV QUANT RNA BY PCR (04/20/2004 2:09 PM EDT) HCV RNA by PCR 3,400,000 [facility] Comment: IU/mL The linear range of this assay is 600 IU/mL to 700,000 IU/mL. This test was developed and its performance characteristics determined by the Clinical Laboratories of the [facility]. It has not been cleared or approved by the US Food and Drug Administration. The FDA has determined that such clearance or approval is not necessary. Blood specimen (specimen) BLOOD SPECIMEN / Unknown 04/20/2004 2:09 PM EDT us Efrain Holland MD LABORATORY Final Result [facility] [address] [place] [address] from Last 3 Months or Most Recently Relevant to Health Maintenance Insurance [employer] Care Teams Transcriber Relationship Specialty Start Date End Date [place] Steve Gorge [address] [place] [address] PCP - General 03/03/04
--- OUTSIDE RECORDS SUMMARY | 2025-01-23 10:03 | XMS_ITS | Encounter Summary ---
Author Organization [facility] Address [address] [place] [address] Care Team Providers Care Machine Shorthand Teacher Name Role Phone Juno Rogers MD Primary Care Provider [phone] Reason for Visit * Reason Comments Medication Refill Encounter Details Date Type Department Care Team (Late st Contact Info) Description 01/13/2020 Refill [facility] Primary Care [address] [place], [place] [address] Juno Rogers MD [address] [phone] Medication Refill Social History Tobacco Use Types Packs/Day Years Used Date Smoking Tobacco: Every Day Cigarettes 0.5 18 Smokeless Tobacco: Never Alcohol Use Standard Drinks/Week Comments No 0 (1 standard drink = 0.6 oz pur e alcohol) PHQ-2 Answer Date Recorded PHQ-2 Score 0 10/23/2019 Comments No Sex and Gender Information Value Date Recorded Sex Assigned at Female 03/02/2021 5:08 PM EDT Legal Sex Female 9:17 PM EST Gender Identity Female 03/02/2021 5:08 PM EDT Sexual Orientation Straight 03/02/2021 5: 08 PM EDT documented as of this encounter Plan of Treatment Not on file documented as of this encounter Visit Diagnoses Diagnosis Anxiety Anxiety state, unspecified documented in this encounter Care Teams Machine Shorthand Teacher Relationship Specialty Start Date End Date Juno Rogers MD PCP - General Internal Medicine 05/22/18 documented as of this encounter
--- OUTSIDE RECORDS SUMMARY | 2025-01-23 10:03 | XMS_ITS | Encounter Summary ---
Author Organization [facility] Address [address] [place] [address] Care Team Providers Care Siding Installer Name Role Phone Juno Rogers MD Primary Care Provider [phone] Reason for Visit * Reason Comments Medication Refill Encounter Details Date Type Department Care Team (Late st Contact Info) Description 11/14/2019 Refill [facility] Primary Care [address] [place], [place] [phone] Juno Rogers MD [address] [phone] Medication Refill Social History Tobacco Use Types [...] unspecified documented in this encounter Care Teams Siding Installer Relationship Specialty Start Date End Date Juno Rogers MD PCP - General Internal Medicine 05/22/18 documented as of this encounter
--- OUTSIDE RECORDS SUMMARY | 2025-01-23 10:03 | XMS_ITS | Encounter Summary ---
Author Organization [facility] Address [address] [place] [address] Care Team Providers Care Chiller Hand Name Role Phone Juno Rogers MD Primary Care Provider [phone] Reason for Visit * Reason Comments Med Refill Encounter Details Date Type Department Care Team ([facility] st Contact Info) Description 12/26/2024 Refill [facility] [address] [facility] [address] [place] [phone] Kit Solitario DPM [address] [facility] [address] [place] [address] Onychomycosis Social History Tobacco Use Types Packs/Day Years Used Date Smoking Tobacco: Never Smokeless Tobacco: Never Alcohol Use Standard Drinks/Week Comments Yes 3 (1 standard drink = 0.6 oz pur e alcohol) Comments Unknown Sex and Gender Information Value Date Recorded Sex Assigned at Not on file Legal Sex Female 7:00 PM EDT Gender Identity Not on file Sexual Orientation Not on file documented as of this encounter Miscellaneous Notes * Telephone Encounter - Kit Solitario DPM - 12/30/2024 9:35 PM EDT Patient has finished 90 d course of medication, no refill documented in this encounter Plan of Treatment Not on file documented as of this encounter Visit Diagnoses Diagnosis Onychomycosis Dermatophytosis of nail documented in this encounter Care Teams Chiller Hand Relationship Specialty Start Date End Date Juno Rogers MD [address] [place] [address] PCP - General Internal Medicine 09/20/24 documented as of this encounter
--- OUTSIDE RECORDS SUMMARY | 2025-01-23 10:16 | XMS_ITS | CCD ---
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 Role Phone JUNO ROGERS Primary Care Unavailable PAY, DR GALVIN Admitting Unavailable PAY, DR GALVIN Attending Unavailable PAY, DR GALVIN Consulting Unavailable SAMANTA MARIN Consulting Unavailable SINDYARIANJUNO Admitting Unavailable JUNO ROGERS Attending Unavailable SUE, JUNO Primary Care Unavailable JUNO ROGERS Consulting Unavailable SINDYARIAN, JUNO Primary Care Unavailable LAN, DR KNIGHT Admitting Unavailable HAY, DR KNIGHT Attending Unavailable ADE, DR SHERITA Soto Consulting Unavailable SAMANTA STRANGE Consulting Unavailable Yazmin Cash Unavailable KEDAR AGEE Attending Unavailable MARIANA BELTRAN Referring Unavailable MARIANA BELTRAN Attending Unavailable Sergo JAFFE Attending Unavailable Annel Teixeira Attending Unavailable ASHLYAZARIAN, JUNO Primary Care Unavailable ASHLYAZARIAN, JUNO Referring Unavailable ASHLYAZARIAN, JUNO Referring Unavailable SINDYARIAN, JUNO Primary Care Unavailable Juno Rogers MD Primary Care Provider Sue SKY Juno Primary Care Provider Unavailable Primary Care Provider UnavailKIT Mora Attending Unavailable KIT SOLITARIO Attending Unavailable ERNEI PALMER Attending Unavailable ANA IBANEZ Referring Unavailab le Allergies Allergy Classification Reported Allergen(s) Allergy Type Date of Onset Reaction(s) Facility (1 source) Clindamycin Drug Allergy 07-02-2019 [facility] Repository (6 sources) celecoxib; Translations: [CELECOXIB] Drug Allergy 01-11-2023 [facility] Repository (1 source) Clindamycin Drug Allergy 07-02-2019 [facility] Medications Current Medications Medication Drug Class(es) [...] tablet (30 mg total) before bedtime. 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 (9 sources) Rectocele; Translations: [Cystocele, unspecified] Onset: 12-07-2023 [...] Glass Jr., MD 04/16/24 Final result Normal [facility] Measure post void residualon 12-07-2023 Volume 45ml [facility] POCT urinalysis dipstick onl yon 12-07-2023 Appearance (U) clear [facility] External Poct Urine Blood Negative [facility] External Poct Urine Character clear [facility] External Poct Urine Color dark yellow [facility] External Poct Urine Glucose Negative [facility] External Poct Urine Ketones Negative [facility] External Poct Urine Leukocyte Esterase Negative [facility] External Poct Urine Nitrite Negative [facility] External Poct Urine Ph 5.0 [facility] External Poct Urine Protein 3+ [facility] XR ankle LT min 3V*on 2021 XR ankle LT min 3V* [facility] [address] [place] [address] XRay Report Signed Patient: Jazmin Cassidy MR#: [id number] 35 : 1980 Acct:[id number] Age/Sex: 41 / F ADM Date: 02/24/22 Loc: XDUCLY Room: Type: [facility] Attending Dr: Yazmin SORIA Copies to: [...] Raoul Lindsey M.D.02/24/2022 7:00 PM Dictation Location: [place] [address] Transcribed By: [facility] 02/24/221899 Dictated By: Raoul Lindsey DO 02/24/22 185 Signed By: 02/24/22 190 Normal [facility] XR ankle LT min 3V* [facility] [email or web address] Other XR ankle LT min 3V* [facility] [email or web address] Other XR ankle LT min 3V* [address] [facility] [email or web address] Other XR ankle LT min 3V* [place] [address] [facility] [email or web address] Other XR ankle LT min 3V* XRay Report [facility] [employer] Other XR ankle LT min 3V* Signed [employer] Other XR ankle LT min 3V* Patient: Jazmin Cassidy MR#: [id number] [employer] Other XR ankle LT min 3V* 35 [employer] Other XR ankle LT min 3V* : 1980 Acct:[id number] [employer] Other XR ankle LT min 3V* Age/Sex: 41 / F ADM Date: 02/24/22 [employer] Other XR ankle LT min 3V* Loc: XDUCLY Room: Type: [facility] [employer] Other XR ankle LT min 3V* Attending Dr: Yazmin SORIA [employer] Other XR ankle LT min 3V* Copies to: YANG Dubon [employer] Other XR ankle LT min 3V* Ordering Provider: YANG Dubon [employer] Other XR ankle LT min 3V* Date of Service: 02/24/22 [employer] Other XR ankle LT min 3V* XR/XR ankle LT min 3V*: LEFT ANKLE INJURY [employer] Other XR ankle LT min 3V* 3views LEFTankle [employer] Other XR ankle LT min 3V* COMPARISON:None [employer] Other XR ankle LT min 3V* HISTORY: LEFT ankle injury. [employer] Other XR ankle LT min 3V* Mild anterior soft tissue swelling present. Tiny bony density inferior to the lateral malleolus [employer] Other XR ankle LT min 3V* may represent small avulsion fracture. Ankle mortise preserved. [employer] Other XR ankle LT min 3V* XR/XR ankle LT min 3V* [employer] Other XR ankle LT min 3V* IMPRESSION: Small avulsion fracture inferior to the lateral malleolus. [employer] Other XR ankle LT min 3V* Impression dictated by: Raoul Lindsey M.D.02/24/2022 7:00 PM [employer] Other XR ankle LT min 3V* Dictation Location: [place] [address] [employer] Other XR ankle LT min 3V* Transcribed By: PWS 02/24/22 190 [employer] Other XR ankle LT min 3V* Dictated By: Raoul Lindsey DO 02/24/22 1859 [employer] Other XR ankle LT min 3V* Signed By: [employer] Other XR ankle LT min 3V* 02/24/22 1900 [employer] Other CBC AUTO DIFFon 08-06-2021 BASO # 0.0 103/ul Normal 0.0-0.1 [facility] Comment on above: Performed By: #### C BC #### [facility] [address] [place] [address] Dr. Javier Hinton Basophils/100 WBC (Bld) 0.3 % Normal 0.2-2.0 [facility] Comment on above: Performed By: #### C BC #### [facility] [address] [place] [address] Dr. Javier Hinton EO # 0.0 103/ul Normal 0.0-0.7 [facility] Comment on above: Performed By: #### C BC #### [facility] [address] [place] [address] Dr. Javier Hinton Eosinophils/100 WBC (Bld) 0.3 % Critically low 0.9-7.0 [facility] Comment on above: Performed By: #### C BC #### [facility] [address] [place] [address] Dr. Javier Hinton Erythrocyte distribution width (RBC) [Ratio] 13.3 % Normal 11.0-15.0 [facility] Comment on above: Performed By: #### C BC #### [facility] [address] [place] [address] Dr. Javier Hinton Hematocrit (Bld) [Volume fraction] 41.7 % Normal 36.0-48.0 [facility] Comment on above: Performed By: #### C BC #### [facility] [address] [place] [address] Dr. Javier Hinton Hemoglobin (Bld) [Mass/Vol] 13.7 g/dL Normal 12.0-16.0 [facility] Comment on above: Performed By: #### C BC #### [facility] [address] [place] [address] Dr. Javier Hinton IG # 0.01 10e3/ul Normal 0.00-0.03 [facility] Comment on above: Performed By: #### C BC #### [facility] [address] [place] [address] Dr. Javier Hinton IG % 0.3 % Normal 0.0-0.5 [facility] Comment on above: Performed By: #### C BC #### [facility] [address] [place] [address] Dr. Javier Hinton LYMPH # 1.2 103/ul Normal 1.2-3.8 [facility] Comment on above: Performed By: #### C BC #### [facility] [address] [place] [address] Dr. Javier Hinton Lymphocytes/100 WBC (Bld) 31.4 % Normal 20.5-60.0 [facility] Comment on above: Performed By: #### C BC #### [facility] [address] [place] [address] Dr. Javier Hinton MANUAL DIFF REQ NO Normal [facility] Comment on above: Performed By: #### C BC #### [facility] [address] [place] [address] Dr. Javier Hinton MCH (RBC) [Entitic mass] 28.0 pg Normal 26.7-34.0 [facility] Comment on above: Performed By: #### C BC #### [facility] [address] [place] [address] Dr. Javier Hinton MCHC (RBC) [Mass/Vol] 32.9 g/dL Normal 29.9-35.2 [facility] Comment on above: Performed By: #### C BC #### [facility] [address] [place] [address] Dr. Javier Hinton MCV (RBC) [Entitic vol] 85.1 fL Normal 81.0-99.0 [facility] Comment on above: Performed By: #### C BC #### [facility] [address] [place] [address] Dr. Javier Hinton MONO # 0.3 103/ul Normal 0.3-0.8 [facility] Comment on above: Performed By: #### C BC #### [facility] [address] [place] [address] Dr. Javier Hinton Monocytes/100 WBC (Bld) 8.7 % Normal 1.7-12.0 [facility] Comment on above: Performed By: #### C BC #### [facility] [address] [place] [address] Dr. Javier Hinton NEUT # 2.3 103/ul Normal 1.4-6.5 [facility] Comment on above: Performed By: #### C BC #### [facility] [address] [place] [address] Dr. Javier Hinton Neutrophils/100 WBC (Bld) 59.0 % Normal 43.0-75.0 [facility] Comment on above: Performed By: #### C BC #### [facility] [address] [place] [address] Dr. Javier Hinton Platelet mean volume (Bld) [Entitic vol] 9.3 fL Critically low 9.5-13.5 [facility] Comment on above: Performed By: #### C BC #### [facility] [address] [place] [address] Dr. Javier Hinton PLT 187 103/ul Normal 150-450 [facility] Comment on above: Performed By: #### C BC #### [facility] [address] [place] [address] Dr. Javier Hinton RBC 4.90 106/ul Normal 4.20-5.40 [facility] Comment on above: Performed By: #### C BC #### [facility] [address] [place] [address] Dr. Javier Hinton WBC 3.9 103/ul Critically low 4.0-11.0 [facility] Comment on above: Performed By: #### C BC #### [facility] [address] [place] [address] Dr. Javier Hinton Covid-19 PCR ([facility])on 07-22 SARS-CoV-2 (COVID-19) RNA MITRA+probe Ql (Unsp spec) Detected Critically abnormal NOT DETECTED [facility] Comment on above: Result Comment: This test is not yet approved or cleared by the [place] FDA. When there are no FDA-approved or cleared tests available, and other criteria are met, FDA can make tests available under an emergency access mechanism called an Emergency Use Authorization (EUA). The EUA for this test is supported by the [place] of Health and Human Service's declaration that [...] used). Performed By: #### C VDTBH #### [facility] [address] [place] [address] Dr. Javier Hinton ER URINE PROFILEon 1 Bilirubin Ql (U) Negative Normal NEGATIVE [facility] Comment on above: Performed By: #### E RUR #### [facility] [address] [place] [address] Dr. Javier Hinton Clarity (U) CLEAR Normal CLEAR [facility] Comment on above: Performed By: #### E RUR #### [facility] [address] [place] [address] Dr. Javier Hinton Color (U) YELLOW Normal YELLOW [facility] Comment on above: Performed By: #### E RUR #### [facility] [address] [place] [address] Dr. Javier FRANK A micrscopic examination will be performed if indicated. Normal [facility] Comment on above: Performed By: #### E RUR #### [facility] [address] [place] [address] Dr. Javier Hinton Glucose Ql (U) Negative Normal NEGATIVE [facility] Comment on above: Performed By: #### E RUR #### [facility] [address] [place] [address] Dr. Javier Hinton Hemoglobin Ql (U) Negative Normal NEGATIVE [facility] Comment on above: Performed By: #### E RUR #### [facility] [address] [place] [address] Dr. Javier Hinton Ketones Ql (U) 40 mg/dl Abnormal NEGATIVE [facility] Comment on above: Performed By: #### E RUR #### [facility] [address] [place] [address] Dr. Javier Hinton LEUKOCYTES Negative Normal NEGATIVE [facility] Comment on above: Performed By: #### E RUR #### [facility] [address] [place] [address] Dr. Javier Hinton Nitrite Ql (U) Negative Normal NEGATIVE [facility] Comment on above: Performed By: #### E RUR #### [facility] [address] [place] [address] Dr. Javier Hinton pH (U) 6.0 [pH] Normal 5-9 [facility] Comment on above: Performed By: #### E RUR #### [facility] [address] [place] [address] Dr. Javier Hinton Protein (U) [Mass/Vol] 30 mg/dL Abnormal NEGATIVE/ TRACE [facility] Comment on above: Performed By: #### E RUR #### [facility] [address] [place] [address] [address] Javier Hinton SPEC GRAVITY 1.025 Normal 1.005-<=1.025 [facility] Comment on above: Performed By: #### E RUR #### [facility] [address] [place] [address] Dr. Javier Hinton UR MICRO IND NOT INDICATED Normal [facility] Comment on above: Performed By: #### E RUR #### [facility] [address] [place] [address] [address] Javier Hinton Urobilinogen Qn (U) 0.2 {Ericka'U}/dL Normal 0.2 - 1.0 [facility] Comment on above: Performed By: #### E RUR #### [facility] [address] [place] [address] Dr. Javier Hinton INFLUENZA A AND B AGon 08-06 [facility] SEE BELOW Normal [facility] Comment on above: Result Comment: Nega tive for Flu A protein angiten. Infection due to Flu A cannot be ruled out. Flu A angiten in the sample may be below the detection limit of the test. Performed By: #### I NFLUAB ####[facility] [address] [place], [place] [address]Dr. Javier Hinton INFLUBNEGH SEE BELOW Normal [facility] Comment on above: Result Comment: Nega tive for Flu B protein antigen. Infection due to Flu B cannot be ruled out. Flu B antigen in the sample may be below the detection limit of the test. Performed By: #### I NFLUAB ####[facility] [address] [place] [address]Dr. Javier Hinton INFLUENZA A AG Negative Normal NEGATIVE SEE COMMENT [facility] Comment on above: Performed By: #### I NFLUAB ####[facility] [address] [place] [address]Dr. Javier Hinton INFLUENZA B AG Negative Normal NEGATIVE SEE COMMENT [facility] Comment on above: Performed By: #### I NFLUAB ####[facility] [address] [place] [address]Dr. Javier Hinton INTERNAL CONTROLS Within Normal Limits Normal Within Normal Limits [facility] Comment on above: Performed By: #### I NFLUAB ####[facility] [address] [place] [address]Dr. Javier Hinton LACTATE/LACTIC ACIDon 2020 Lactate [Moles/Vol] 0.9 mmol/L Normal 0.7-2.0 [facility] Comment on above: Performed By: #### L ACT ####[facility] [address] [place] [address]Dr. Javier Hinton PROF 14(COMP METB)on 021 Albumin [Mass/Vol] 3.7 g/dL Normal 3.5-5.0 [facility] Comment on above: Performed By: #### H STROPN, CMP #### [facility] [address] [place] [address] [address] Javier Hinton Albumin/Globulin [Mass ratio] 0.9 {ratio} Normal [facility] Comment on above: Performed By: #### H STROPN, CMP #### [facility] [address] [place] [address] [address] Javier Hinton ALP [Catalytic activity/Vol] 88 U/L Normal 38-126 [facility] Comment on above: Performed By: #### H STROPN, CMP #### [facility] [address] [place] [address] [address] Javier Hinton ALT [Catalytic activity/Vol] 28 U/L Normal 9-52 [facility] Comment on above: Performed By: #### H STROPN, CMP #### [facility] [address] [place] [address] [address] Javier Hinton Anion gap [Moles/Vol] 14.5 mmol/L Normal [facility] Comment on above: Performed By: #### H STROPN, CMP #### [facility] [address] [place] [address] [address] Javier Hinton AST [Catalytic activity/Vol] 26 U/L Normal 14-36 [facility] Comment on above: Performed By: #### H STROPN, CMP #### [facility] [address] [place] [address] [address] Javier Hinton Bilirubin [Mass/Vol] 0.7 mg/dL Normal 0.2-1.3 [facility] Comment on above: Performed By: #### H STROPN, CMP #### [facility] [address] [place] [address] Dr. Javier Hinton Calcium [Mass/Vol] 9.0 mg/dL Normal 8.4-10.2 [facility] Comment on above: Performed By: #### H STROPN, CMP #### [facility] [address] [place] [address] Dr. Javier Hinton Chloride [Moles/Vol] 99 mmol/L Normal 98-107 [facility] Comment on above: Performed By: #### H STROPN, CMP #### [facility] [address] [place] [address] Dr. Javier Hinton CO2 [Moles/Vol] 29.2 mmol/L Normal 22.0-30.0 [facility] Comment on above: Performed By: #### H STROPN, CMP #### [facility] [address] [place] [address] Dr. Javier Hinton Creatinine [Mass/Vol] 0.80 mg/dL Normal 0.52-1.04 [facility] Comment on above: Performed By: #### H STROPN, CMP #### [facility] [address] [place] [address] Dr. Javier Hinton EGFR-AF AZERBAIJANI Normal >=60 [facility] Comment on above: Performed By: #### H STROPN, CMP #### [facility] [address] [place] [address] Dr. Javier Hinton EGFR-NON AF AZERBAIJANI Normal >=60 [facility] Comment on above: Performed By: #### H STROPN, CMP #### [facility] [address] [place] [address] Dr. Javier Hinton Globulin (S) [Mass/Vol] 4.3 g/dL Normal [facility] Comment on above: Performed By: #### H STROPN, CMP #### [facility] [address] [place] [address] [address] Javier Hinton Glucose [Mass/Vol] 91 mg/dL Normal 74-106 [facility] Comment on above: Performed By: #### H STROPN, CMP #### [facility] [address] [place] [address] [address] Javier Hinton Potassium [Moles/Vol] 3.7 mmol/L Normal 3.4-5.0 [facility] Comment on above: Performed By: #### H STROPN, CMP #### [facility] [address] [place] [address] [address] Javier Hinton Protein [Mass/Vol] 8.0 g/dL Normal 6.1-8.2 [facility] Comment on above: Performed By: #### H STROPN, CMP #### [facility] [address] [place] [address] [address] Javier Hinton Sodium [Moles/Vol] 139 mmol/L Normal 137-145 [facility] Comment on above: Performed By: #### H STROPN, CMP #### [facility] [address] [place] [address] [address] Javier Hinton Urea nitrogen [Mass/Vol] 15.0 mg/dL Normal 7.0-17.0 [facility] Comment on above: Performed By: #### H STROPN, CMP #### [facility] [address] [place] [address] [address] Javier Hinton Urea nitrogen/Creatinin e [Mass ratio] 18.8 mg/mg Normal [facility] Comment on above: Performed By: #### H STROPN, CMP #### [facility] [address] [place] [address] [address] Javier Hinton TROPONIN, HIGH SENSITIVITYon 08-06-2021 HSTROP 4.8 pg/mL Normal 4.0-35.5 [facility] Comment on above: Result Comment: CUT- OFF POINTS HAVE BEEN ESTABLISHED BASED ON THE FOURTH UNIVERSAL DEFINITIONS OF MYOCARDIAL INFARCTION. THE UPPER REFERENCE LIMIT (URL) OF TROPONIN, DEFINED THE 99TH PERCENTILE OF cTnI DISTRIBUTION IN A REFERENCE POPULATION, HAS BEEN CONFIRMED THE DECISION THRESHOLD FOR [place] DIAGNOSIS. Performed By: #### H STROPN, CMP #### [facility] [address] [place], [place] [address] Dr. Javier Hinton XR CHEST 1 Von [...] SHERITA BOOKER Date: 2021-08-06 16:56 Normal [facility] Covid-19 PCR ([facility])on 04-23 SARS-CoV-2 (COVID-19) RNA MITRA+probe Ql (Unsp spec) Detected Critically abnormal NOT DETECTED [facility] Comment on above: Result Comment: This test is not yet approved or cleared by the [place] FDA. When there are no FDA-approved or cleared tests available, and other criteria are met, FDA can make tests available under an emergency access mechanism called an Emergency Use Authorization (EUA). The EUA for this test is supported by the [place] of Health and Human Service's (HHS's) declaration [...] used). Performed By: #### C VDTBH #### [facility] [address] [place], [place] [address] Dr. Javier Hinton AMYLASEon 03-03-2021 Amylase [Catalytic activity/Vol] 55 U/L Normal 31-110 [facility] Comment on above: Performed By: #### C MP, CAROLYN, LIPA #### [facility] [address] [place], [place] [address] Reji Debbie CBC AUTO DIFFon 03-03-2021 BASO # 0.0 103/ul Normal 0.0-0.1 [facility] Comment on above: Performed By: #### C BC ####[facility] [address] [place], [place] [address]Aumjgt Debbie Basophils/100 WBC (Bld) 0.6 % Normal 0.2-2.0 [facility] Comment on above: Performed By: #### C BC ####[facility] [address] [place], [place] [address]Atnabs Debbie EO # 0.1 103/ul Normal 0.0-0.7 [facility] Comment on above: Performed By: #### C BC ####[facility] [address] [place], [place] [address]Xlfzef Debbie Eosinophils/100 WBC (Bld) 2.1 % Normal 0.9-7.0 [facility] Comment on above: Performed By: #### C BC ####[facility] [address] [place], [place] [address]Uvakfo Debbie Erythrocyte distribution width (RBC) [Ratio] 12.7 % Normal 11.0-15.0 [facility] Comment on above: Performed By: #### C BC ####[facility] [address] [place], [place] [address]Mwcpgt Debbie Hematocrit (Bld) [Volume fraction] 38.8 % Normal 36.0-48.0 [facility] Comment on above: Performed By: #### C BC ####[facility] [address] [place], [place] [address]Immeyc Debbie Hemoglobin (Bld) [Mass/Vol] 12.8 g/dL Normal 12.0-16.0 [facility] Comment on above: Performed By: #### C BC ####[facility] [address] [place] [id number] Debbie IG # 0.02 10e3/ul Normal 0.00-0.03 [facility] Comment on above: Performed By: #### C BC ####[facility] [address] Debbie IG % 0.3 % Normal 0.0-0.5 [facility] Comment on above: Performed By: #### C BC ####[facility] [address] [place] [address] Debbie LYMPH # 2.3 103/ul Normal 1.2-3.8 [facility] Comment on above: Performed By: #### C BC ####[facility] [address] [place] [address] Debbie Lymphocytes/100 WBC (Bld) 33.7 % Normal 20.5-60.0 [facility] Comment on above: Performed By: #### C BC ####[facility] [address] [place] [address] Debbie MANUAL DIFF REQ NO Normal [facility] Comment on above: Performed By: #### C BC ####[facility] [address] [place] [address] Debbie MCH (RBC) [Entitic mass] 28.1 pg Normal 26.7-34.0 [facility] Comment on above: Performed By: #### C BC ####[facility] [address] [place], [place] [address]Gerken Debbie MCHC (RBC) [Mass/Vol] 33.0 g/dL Normal 29.9-35.2 [facility] Comment on above: Performed By: #### C BC ####[facility] [address] [place] [address] Debbie MCV (RBC) [Entitic vol] 85.3 fL Normal 81.0-99.0 [facility] Comment on above: Performed By: #### C BC ####[facility] [address] [place] [address] Debbie MONO # 0.5 103/ul Normal 0.3-0.8 [facility] Comment on above: Performed By: #### C BC ####[facility] [address]wf[address] [place], [place] [address]Boklvm Debbie Monocytes/100 WBC (Bld) 7.9 % Normal 1.7-12.0 [facility] Comment on above: Performed By: #### C BC ####[facility] [address]ho[address] [place], [place] [address]Dbzkvb Debbie NEUT # 3.7 103/ul Normal 1.4-6.5 [facility] Comment on above: Performed By: #### C BC ####[facility] [address] [place] [address]Gerken Debbie Neutrophils/100 WBC (Bld) 55.4 % Normal 43.0-75.0 [facility] Comment on above: Performed By: #### C BC ####[facility] [address]wykewric[address] [place], [place] [address]Gergino Lewis Platelet mean volume (Bld) [Entitic vol] 9.6 fL Normal 9.5-13.5 [facility] Comment on above: Performed By: #### C BC ####[facility] Y[address] [place], [place] [address]Gerken Debbie PLT 291 103/ul Normal 150-450 [facility] Comment on above: Performed By: #### C BC ####[facility] [address] [place], [place] [address]Gerken Debbie RBC 4.55 106/ul Normal 4.20-5.40 [facility] Comment on above: Performed By: #### C BC ####[facility] [address]qsxf[address] [place], [place] [address]Gerken Debbie WBC 6.7 103/ul Normal 4.0-11.0 [facility] Comment on above: Performed By: #### C BC ####[facility] [address] [place], [place] [address]Gergino Lewis ER URINE PROFILEon 1 Bilirubin Ql (U) Negative Normal NEGATIVE [facility] Comment on above: Performed By: #### E RUR ####[facility] [address] [place], [place] [address]ken Debbie Clarity (U) CLEAR Normal CLEAR [facility] Comment on above: Performed By: #### E RUR ####[facility] [address] [place] [address] Debbie Color (U) LT. YELLOW Normal YELLOW [facility] Comment on above: Performed By: #### E RUR ####[facility] [address] [place] [address] Debbie ERUAHD A micrscopic examination will be performed if indicated. Normal [facility] Comment on above: Performed By: #### E RUR ####[facility] [address] [place] [address] Debbie Glucose Ql (U) Negative Normal NEGATIVE [facility] Comment on above: Performed By: #### E RUR ####[facility] [address] [place] [address] Debbie Hemoglobin Ql (U) Negative Normal NEGATIVE [facility] Comment on above: Performed By: #### E RUR ####[facility] [address] [place] [address] Debbie Ketones Ql (U) Negative Normal NEGATIVE [facility] Comment on above: Performed By: #### E RUR ####[facility] [address] [place] [address] Debbie LEUKOCYTES Negative Normal NEGATIVE [facility] Comment on above: Performed By: #### E RUR ####[facility] Q[address] [place] [address] Debbie Nitrite Ql (U) Negative Normal NEGATIVE The [facility] Comment on above: Performed By: #### E RUR ####[facility] [address] [place] [address] Debbie pH (U) 6.0 [pH] Normal 5-9 [facility] Comment on above: Performed By: #### E RUR ####[facility] [address] [place] [address] Debbie SPEC GRAVITY 1.010 Normal 1.005-<=1.025 The [facility] Comment on above: Performed By: #### E RUR ####[facility] [address] [place] [address]Gergino Lewis UA PROTEIN Negative Normal NEGATIVE/ TRACE [facility] Comment on above: Performed By: #### E RUR ####[facility] Z[address]kfwtaqc[address] Debbie UR MICRO IND NOT INDICATED Normal [facility] Comment on above: Performed By: #### E RUR ####[facility] Lffxrqouqq[address] Debbie Urobilinogen Qn (U) 0.2 {Ericka'U}/dL Normal 0.2 - 1.0 [facility] Comment on above: Performed By: #### E RUR ####[facility] [address] [place] [address] Debbie LIPASEon 03-03-2021 Lipase [Catalytic activity/Vol] 67.0 U/L Normal 23.0-300.0 [facility] Comment on above: Performed By: #### C MIKE CAROLYN, LIPA #### [facility] [address] [place] [address] Reji Lewis PROF 14(COMP METB)on 021 Albumin [Mass/Vol] 4.2 g/dL Normal 3.5-5.0 The [facility] Comment on above: Performed By: #### C MP CAROLYN, LIPA #### [facility] [address] [place] [address] Reji Debbie Albumin/Globulin [Mass ratio] 1.2 {ratio} Normal [facility] Comment on above: Performed By: #### C MP, CAROLYN, LIPA #### [facility] [address] [place] [address] Reji Debbie ALP [Catalytic activity/Vol] 94 U/L Normal 38-126 [facility] Comment on above: Performed By: #### C MP CAROLYN, LIPA #### [facility] [address] [place] [address] Reji Debbie ALT [Catalytic activity/Vol] 27 U/L Normal 9-52 [facility] Comment on above: Performed By: #### C CAROLYN MCKEON LIPA #### [facility] [address] [place] [address] Reji Debbie Anion gap [Moles/Vol] 10.2 mmol/L Normal [facility] Comment on above: Performed By: #### C CAROLYN MCKEON LIPA #### [facility] [address] [place] [address] Reji Debbie AST [Catalytic activity/Vol] 13 U/L Critically low 14-36 [facility] Comment on above: Performed By: #### C CAROLYN MCKEON LIPA #### [facility] [address] [place] [address] Reji Debbie Bilirubin [Mass/Vol] 0.5 mg/dL Normal 0.2-1.3 [facility] Comment on above: Performed By: #### C CAROLYN MCKEON LIPA #### [facility] [address] [place] [address] Reji Debbie Calcium [Mass/Vol] 9.3 mg/dL Normal 8.4-10.2 The [facility] Comment on above: Performed By: #### C CAROLYN MCKEON LIPA #### [facility] [address] [place] [address] Reji Debbie Chloride [Moles/Vol] 106 mmol/L Normal 98-107 [facility] Comment on above: Performed By: #### C CAROLYN MCKEON LIPA #### [facility] [address] [place] [address] Reji Debbie CO2 [Moles/Vol] 25.7 mmol/L Normal 22.0-30.0 [facility] Comment on above: Performed By: #### C CAROLYN MCKEON LIPA #### [facility] [address] [place] [address] Reji Debbie Creatinine [Mass/Vol] 0.78 mg/dL Normal 0.52-1.04 [facility] Comment on above: Performed By: #### C CAROLYN MCKEON LIPA #### [facility] [address] [place] [id number] Reji Debbie EGFR-AF AZERBAIJANI >60 Normal >=60 [facility] Comment on above: Performed By: #### C CAROLYN MCKEON LIPA #### [facility] [address] [place] [address] Reji Debbie EGFR-NON AF AZERBAIJANI >60 Normal >=60 [facility] Comment on above: Performed By: #### C CAROLYN MCKEON LIPA #### [facility] [address] [place] [address] Reji Debbie Globulin (S) [Mass/Vol] 3.4 g/dL Normal [facility] Comment on above: Performed By: #### C CAROLYN MCKEON LIPA #### [facility] [address] [place] [address] Reji Debbie Glucose [Mass/Vol] 94 mg/dL Normal 74-106 The [facility] Comment on above: Performed By: #### C CAROLYN MCKEON LIPA #### [facility] [address] [place] [address] Reji Debbie Potassium [Moles/Vol] 3.9 mmol/L Normal 3.4-5.0 [facility] Comment on above: Performed By: #### C CAROLYN MCKEON LIPA #### [facility] [address] [place] [address] Reji Debbie Protein [Mass/Vol] 7.6 g/dL Normal 6.1-8.2 The [facility] Comment on above: Performed By: #### C CAROLYN MCKEON LIPA #### [facility] [address] [place] [address] Reji Debbie Sodium [Moles/Vol] 138 mmol/L Normal 137-145 The [facility] Comment on above: Performed By: #### C CAROLYN MCKEON LIPA #### [facility] [address] [place] [address] Reji Debbie Urea nitrogen [Mass/Vol] 14.0 mg/dL Normal 7.0-17.0 [facility] Comment on above: Performed By: #### C CAROLYN MCKEON LIPA #### [facility] [address] [place], [place] [address] Reji Lewis Urea nitrogen/Creatinin e [Mass ratio] 17.9 mg/mg Normal [facility] Comment on above: Performed By: #### C CAROLYN MCKEON LIPA #### [facility] [address] [place], [place] [address] Reji Lewis Vital Signs Date Time Vital Sign Value Performing Clinician Facility 12-07-2024 10:09-0400 Body height 172.7 cm Ernie JeffersonID90Temili DO Work Phone: [facility] 12-07-2024 10:09-0400 Body mass index (BMI) [Ratio] 27.98 kg/m2 Ernie JeffersonMallstreet DO Work Phone: [facility] 12-07-2024 10:09-0400 Body weight 83.46 kg Ernie Codingpeople DO Work Phone: [facility] 11-01-2024 11:16-0400 Body height 172.7 cm Kit Brown DPM Work Phone: [facility] 11-01-2024 11:16-0400 Body mass index (BMI) [Ratio] 27.83 kg/m2 Kit Brown DPM Work Phone: [facility] 11-01-2024 11:16-0400 Body weight 83.01 kg Kit Brown DPM Work Phone: [facility] 11-01-2024 11:16-0400 Respiratory rate 18 /min Kit Brown DPM Work Phone: [facility] 09-20-2024 10:00-0500 Body height 172.7 cm Kit Solitario DPM Work Phone: [facility] 09-20-2024 10:00-0500 Body mass index (BMI) [Ratio] 27.83 kg/m2 Kit Solitario DPM Work Phone: [facility] 09-20-2024 10:00-0500 Body weight 83.01 kg Kit Altaf DPM Work Phone: [facility] 09-20-2024 10:00-0500 Respiratory rate 18 /min Kit Altaf DPM Work Phone: [facility] 12-07-2023 14:26-0400 Body height 172.7 cm Kedar Agee MD Work Phone: [facility] 12-07-2023 14:26-0400 Body mass index (BMI) [Ratio] 31.47 kg/m2 Kedar Agee MD Work Phone: [facility] 12-07-2023 14:26-0400 Body temperature 97.7 [degF] Kedar Agee MD Work Phone: [facility] 12-07-2023 14:26-0400 Body weight 93.89 kg Kedar Agee MD Work Phone: [facility] 12-07-2023 14:26-0400 Diastolic blood pressure 86 mm[Hg] Kedar Agee MD Work Phone: [facility] 12-07-2023 14:26-0400 Heart rate 72 /min Kedar Agee MD Work Phone: [facility] Comment on above: 98o2 12-07-2023 14:26-0400 Respiratory rate 14 /min Kedar Agee MD Work Phone: [facility] 12-07-2023 14:26-0400 Systolic blood pressure 126 mm[Hg] [facility]e MD [facility] 10-18-2023 09:54-0500 Body height 172.7 cm Mariana Beltran DO Work Phone: [facility] 10-18-2023 09:54-0500 Body mass index (BMI) [Ratio] 31.32 kg/m2 Mariana Beltran DO [facility] 10-18-2023 09:54-0500 Body weight 93.44 kg Mariana Beltran DO Work Phone: [employer] 10-18-2023 09:54-0500 Diastolic blood pressure 82 mm[Hg] Mariana Beltran DO Work Phone: [employer] 10-18-2023 09:54-0500 Systolic blood pressure 120 mm[Hg] Mariana Beltran DO Work Phone: [employer] 02-24-2022 18:55-0400 Body height 171.45 cm Yazmin Shreya Other [employer] Other 02-24-2022 18:55-0400 Body mass index (BMI) [Ratio] 29.62 kg/m2 Yazmin Shreya Other [employer] Other 02-24-2022 18:55-0400 Body temperature 98.2 [degF] Yazmin Shreya Other [employer] Other 02-24-2022 18:55-0400 Body weight 87.09 kg Yazmin Shreya Other [employer] Other 02-24-2022 18:55-0400 Diastolic blood pressure 87 mm[Hg] Yazmin Shreya Other [employer] Other 02-24-2022 18:55-0400 Respiratory rate 18 /min Yazmin Shreya Other [employer] Other 02-24-2022 18:55-0400 SaO2% (BldA) [Mass fraction] 100 % Yazmin Cash Other [employer] Other 02-24-2022 18:55-0400 Systolic blood pressure 129 mm[Hg] Yazmin Cash Other [employer] Other Encounters Encounter Date Encounter Type Care Provider Facility Start: 12-07-2024 End: 12-07-2024 ambulatory ERNIE PALMER Not Available Start: 12-07-2024 End: 12-07-2024 Office outpatient new 45 minutes Ernie Palmer DO Work Phone: [facility] Comment on above: Rectocele Start: 11-01-2024 End: 11-01-2024 Bamboo flowsheet Kit Solitario DPM Work Phone: [facility] Start: 11-01-2024 End: 11-01-2024 Bamboo flowsheet Kit Solitario DPM Work Phone: [facility] Start: 11-01-2024 End: 11-01-2024 Office outpatient visit 25 minutes Kit Solitario DPM Work Phone: [facility] Comment on above: Plantar fasciitis (P rimary Dx); Contracture of right ankle; Pain due to onychomycosis of toenails of both feet; Onychomycosis Start: 11-01-2024 End: 11-01-2024 ambulatory KIT SOLITARIO Not Available Start: 09-20-2024 End: 09-20-2024 Bamboo flowsheet Kit Solitario DPM Work Phone: [facility] Start: 09-20-2024 End: 09-20-2024 Bamboo flowsheet Kit Solitario DPM Work Phone: [facility] Start: 09-20-2024 End: 09-20-2024 ambulatory KIT SOLITARIO Not Available Start: 09-20-2024 End: 09-20-2024 Office outpatient new 45 minutes Kit Solitario DPM Work Phone: [facility] Comment on above: Plantar fasciitis (P rimary Dx); Contracture of right ankle; Pain due to onychomycosis of toenails of both feet; Onychomycosis Start: 04-16-2024 ambulatory JUNO ROGERS [facility] Start: 04-16-2024 End: 04-18-2024 Subsequent hospital visit by physician Juno Rogers MD Work Phone: [facility] Start: 12-26-2023 End: 12-27-2023 ambulatory Sergo JAFFE Facility:[facility] Start: 12-07-2023 End: 12-07-2023 ambulatory KEDAR AGEE [facility] Start: 12-07-2023 End: 12-07-2023 Office outpatient new 45 minutes Kedar Agee MD [facility] Comment on [...] female Start: 10-20-2023 Telephone encounter Faiza Sotelo [facility] Start: 10-18-2023 End: 10-18-2023 ambulatory MARIANA BELTRAN [facility] Start: 10-18-2023 End: 10-18-2023 Office outpatient visit 15 minutes Mariana Beltran DO [facility] Comment on above: Vaginal prolapse (Pr imary Dx); Rectocele; Stress incontinence of urine; Dyspareunia in female; Status post hysterectomy with oophorectomy Start: 08-31-2023 End: 09-01-2023 ambulatory Annel Teixeira Facility:[facility] Start: 06-01-2023 ambulatory Sergo JAFFE Facility :[facility] Start: 02-24-2022 End: 02-24-2022 ambulatory Yazmin Cash Other [facility] [email or web address] Other Start: 02-24-2022 Office outpatient ne w 20 minutes Yazmin Cash [facility] Start: 08-06-2021 End: 08-06-2021 ambulatory [facility] Facility: Start: 05-15-2021 End: 05-15-2021 ambulatory [facility] Facility: Start: 03-03-2021 End: 03-03-2021 ambulatory [facility] Facility: Procedures Date Procedure Procedure Detail Performing Clinician Start: 12-07-2023 MEASURE POST VOID RESIDUAL Kedar Agee MD Work Phone: Start: 12-07-2023 Urnls dip stick/tabl et rgnt non-auto w/o micrscp Kedar Agee MD Work Phone: H/O: surgery Status post hyst erectomy with oophorectomy Mariana Beltran DO Work Phone: Plan of Treatment Date Care Activity Detail Author Start: 04-16-2025 Depression Screen Depression Screen [facility] Start: 01-20-2025 Screening for malignant neoplasm of breast Breast cancer screen [facility] Start: 12-08-2024 Tobacco Screening Tobacco Screening [facility] Start: 12-06-2024 Adult BMI Screening Adult BMI Screening [facility] Start: 11-01-2024 End: 12-02-2024 Alanine aminotransferase [Enzymatic activity/volume] in Serum or Plasma ALANINE AMINOTRANSFERASE Lab Routine Onychomycosis Expected: 11/01/2024 (Approximate), Expires: 12/02/2024 [facility] Comment on above: Expected: 11/01/2024 (Approximate), Expi res: 12/02/2024 Start: 11-01-2024 End: 12-02-2024 Aspartate aminotransferase [Enzymatic activity/volume] in Serum or Plasma ASPARTATE AMINO TRANSFERASE Lab Routine Onychomycosis Expected: 11/01/2024 (Approximate), Expires: 12/02/2024 [facility] Work Phone: Comment on above: Expected: 11/01/2024 (Approximate), Expi res: 12/02/2024 Start: 11-01-2024 End: 11-01-2024 Patient encounter procedure 11/01/2024 11:10 AM EDT Office Visit [facility] [address] [facility] [address] [place] [address] Kit Solitario, DPM [address] [address] Plantar fasciitis (Primary Dx); Contracture of right ankle; Pain due to onychomycosis of toenails of both feet [facility] Comment on above: Plantar fasciitis (Primary Dx); Contracture of right ankle; Pain due to onychomycosis of toenails of both feet Start: 10-25-2024 End: 10-25-2024 Patient encounter procedure 10/25/2024 10:20 AM EST Office Visit [facility] [address] [facility] [address] [place] [address] Kti Solitario, DPM [address] [address] [facility] Start: 10-18-2024 Adult BMI Screening Adult BMI Screening [facility] Start: 10-18-2024 Tobacco Screening Tobacco Screening [facility] Start: 09-20-2024 End: 10-19-2024 Alanine aminotransferase [Enzymatic activity/volume] in Serum or Plasma ALANINE AMINOTRANSFERASE Lab Routine Onychomycosis Expected: 09/20/2024 (Approximate), Expires: 10/19/2024 [facility] Comment on above: Expected: 09/20/2024 (Approximate), Expi res: 10/19/2024 Start: 09-20-2024 End: 10-19-2024 Aspartate aminotransferase [Enzymatic activity/volume] in Serum or Plasma ASPARTATE AMINO TRANSFERASE Lab Routine Onychomycosis Expected: 09/20/2024 (Approximate), Expires: 10/19/2024 [facility] Work Phone: Comment on above: Expected: 09/20/2024 (Approximate), Expi res: 10/19/2024 Start: 05-31-2024 End: 05-31-2024 Patient encounter procedure 05/31/2024 11:00 AM EDT Office Visit [facility] [address] [place] [address] Jay Ryan, [address] [place] [address] M54.41, M54.42, G89.29 (ICD-10-CM) - Chronic midline low back pain with bilateral sciatica [facility] Comment on above: M54.41, M54.42, G89.29 (ICD-10-CM) - Chr onic midline low back pain with bilateral sciatica Start: 04-22-2024 Influenza vaccination Influenza Vaccine [facility] Start: 03-22-2024 Influenza vaccination Flu vaccine (#1) [facility] Start: 02-01-2024 End: 02-01-2024 Patient encounter procedure 02/01/2024 1:30 PM EDT Procedure visit [facility] [address] [address] [place] [address] Kedar Agee MD [address] [address] [facility] Start: 12-07-2023 End: 12-07-2023 Patient encounter procedure 12/07/2023 2:30 PM EDT Office Visit [facility] [address] [place] [address] Kedar Agee MD [address] [place] [address] [facility] Start: 04-22-2023 COVID-19 Vaccine ( season) COVID-19 Vaccine ( season) [facility] Start: 04-22-2023 Influenza vaccination Influenza Vaccine [facility] Start: 2021 Lipid panel Lipids [facility] Start: 2016 Diabetes screen Diabetes screen [facility] Start: 2000 DTaP,Tdap and Td Vaccines (1 - Tdap) DTaP,Tdap and Td Vaccines (1 - Tdap) [facility] Start: 2000 DTaP/Tdap/Td vaccine (1 - Tdap) DTaP/Tdap/Td vaccine (1 - Tdap) [facility] Start: 2000 Hepatitis B vaccine (1 of 3 - 19+ 3-dose series) Hepatitis B vaccine (1 of 3 - 19+ 3-dose series) [facility] Start: 11-07-1999 Adult BMI Follow Up Plan Adult BMI Follow Up Plan [facility] Start: 1994 Varicella vaccine (1 of 2 - 13+ 2-dose series) Varicella vaccine (1 of 2 - 13+ 2-dose series) [facility] Start: 1993 Depression Screening Depression Screening [facility] Start: 11-07-1987 Pneumococcal 0-64 years Vaccine (1 of 2 - PCV) Pneumococcal 0-64 years Vaccine (1 of 2 - PCV) [facility] Immunizations Immunization Date Immunization Notes Care Provider Rosanne briggs 11-04-2020 hepatitis A vaccine, adult dosage Juno Rogers MD Work Phone: [facility] 05-06-2020 hepatitis A vaccine, adult dosage Juno Rogers MD Work Phone: [facility] Payers Date Payer Category Payer Medicaid (Managed Care) [facility] MEDICAID [id number] 2021 Medicaid [place] [employer] [place] [employer] [id number] 2021-Present [phone] [address] [place] [address] [id number] 1981 Unknown [id number] [id number]. 593 1981 Unknown [id number] 2.16.840.1.856375.3.579.2. 593 1981 Unknown [id number] 2.16.840.1.153023.3.579.2. 593 1981 Unknown [id number] 2.16.840.1.797410.3.579.2. 1286 1981 Unknown [id number] 2.16.840.1.866375.3.579.2. 1286 1981 Unknown [id number] 2.16.840.1.682234.3.579.2. 727 1981 Unknown [id number] 2.16.840.1.837522.3.579.2. 727 1981 Unknown [id number] 2.16.840.1.755090.3.579.2. 727 1981 Unknown [id number] 2.16.840.1.310570.3.579.2. 174 1981 Unknown [id number] 2.16.840.1.401049.3.579.2. 174 1981 Unknown [id number] 2.16.840.1.703585.3.579.2. 1259 1981 Unknown [id number] 2.16.840.1.631052.3.579.2. 1259 1981 Unknown [id number] 2.16.840.1.211398.3.579.2. 1259 1959 Unknown [id number] Social History Date Type Detail Facility Start: 04-16-2024 End: 12-07-2024 Sex Assigned At [employer] Other Start: 01-11-2023 End: 04-16-2024 Tobacco smoking status NHIS [facility] Start: 10-20-2001 End: 10-21-2019 History of tobacco use Current smoker [employer] Start: 10-20-2001 End: 10-21-2019 History of tobacco use [facility]igarette [facility] [employer] Start: 04-16-2024 End: 12-07-2024 Cigarettes smoked current (pack per day) - Reported 0.5 [employer] Start: 04-16-2024 End: 12-07-2024 Tobacco use and exposure [facility]ok[facility] Start: 04-16-2024 Alcoholic beverage intake Current non-drinker of alcohol (finding) [employer] How hard is it for y ou to pay for the very basics like food, housing, medical care, and heating Not hard at all [facility] (I/We) worried mounika er (my/our) food would run out before (I/we) got money to buy more. Never true [employer] At any time in the p ast 12 months, were you homeless or living in residential [including now]? No [employer] Start: 07-15-2020 Education 14 [employer] Start: 1980 Sex assigned at Female [employer] Start: 03-02-2021 Gender identity Identifies as female gender (finding) [employer] Start: 03-02-2021 Sexual orientation Heterosexual (finding) [employer] Start: 09-20-2024 Tobacco smoking status NEIS Tobacco smoking consumption unknown [facility] Start: 1980 Sex assigned at Not on file [facility] Start: 12-09-2023 End: 12-07-2024 Alcoholic beverage intake Current drinker of alcohol (finding) [facility] Start: 01-11-2023 Alcohol Comment rare [facility] Start: 12-07-2024 Tobacco smoking status NHIS Never smoked tobacco [facility] Clinical Notes 02-24-2022 to 12-07-2024 Ernie Palmer DO - 12/07/2024 10:00 AM Michelle Solitario, BENEDICTO - 11/01/2024 11:10 AM Michelle Solitario, JOSE ANTONIO - 09/20/2024 9:40 AM Fouzia Agee MD - 12/07/2023 2:30 PM EDT Note Date & Type Note Facility 12-07-2024 History of Presen t illness Narrative Images from the original note were not included. Jazmin Cassidy 1980 Jazmin Cassidy is a 44 y.o. female presents with chief complaint of Consult (Rectal prolapse) HPI: HPI Patient said that she gets a bulging at her vagina where she has to push in her vagina to help her have a stool. This has been going on for several years. It seems to be getting a little bit worse. She did see a surgeon that she was referred to about that who discussed with her dietary modification and better bowel movements before considering any surgery. She does not have any prolapse from her anus. She has no rectal bleeding. She has not having anything pushing out of her anus. SUBJECTIVE: MEDICATIONS: ALLERGIES No current outpatient medications No Known Allergies PAST MEDICAL HISTORY: SOCIAL HISTORY SURGICAL HISTORY: No past medical history on file. Social History Tobacco Use Smoking status: Unknown Past Surgical History: Procedure Laterality Date HYSTERECTOMY REVIEW OF SYMPTOMS: Review of Systems Constitutional: Negative for appetite change, fatigue and fever. HENT: Negative for trouble swallowing. Respiratory: Negative for cough and shortness of breath. Cardiovascular: Negative for chest pain. Gastrointestinal: Negative for abdominal pain. Genitourinary: Negative for hematuria. Musculoskeletal: Negative for back pain. Skin: Negative for wound. Neurological: Negative for seizures. OBJECTIVE: Visit Vitals Smoking Status Unknown Physical Exam Exam conducted with a personnel scheduler present. Constitutional: Appearance: Normal appearance. HENT: Head: Atraumatic. Eyes: General: No scleral icterus. Cardiovascular: Rate and Rhythm: Regular rhythm. Pulmonary: Effort: No respiratory distress. Abdominal: General: There is no distension. Tenderness: There is no abdominal tenderness. Genitourinary: Comments: On visual inspection of the anus there is no prolapse. There is no significant hemorrhoids. With Valsalva there is no pushing out or prolapse. On digital exam there is good tone there is no gross blood there is no masses. Skin: Findings: No bruising. Neurological: Mental Status: She is alert. Gait: Gait normal. ASSESSMENT AND PLAN: Assessment/Plan Diagnoses and all orders for this visit: Rectocele - Ambulatory referral to General Surgery Patient has a symptomatic rectocele she does not have rectal prolapse. That was confirmed by evaluation by Gynecology in [place] previously. I do not fix rectocele. I did educate patient on the difference between rectal prolapse and rectocele which she appreciated. She will call that bookkeeper receptionist back and see them about possible repair. I will see her again on an as-needed basis otherwise she is discharged from my care. documented in this encounter [facility] 11-01-2024 History of Presen t illness Narrative [...] Resource Strain: Low Risk (04/16/2024) Received from [employer] [facility] Overall Financial Resource Strain (CARDIA) Difficulty of Paying Living Expenses: Not hard at all Food Insecurity: No Food Insecurity (04/16/2024) Received from [employer] [facility] Hunger Vital Sign Worried About Running Out of Food in the Last Year: Never true Ran Out of Food in the Last Year: Never true Transportation Needs: Unknown (04/16/2024) Received from [employer] [facility] PRAPARE - Transportation Lack of Transportation (Medical): Not on file Lack of Transportation (Non-Medical): No Physical Activity: Not on file Stress: Not on file Social Connections: Not on file Intimate Partner Violence: Not on file Housing Stability: Unknown (04/16/2024) Received from [employer] [facility] Housing Stability Vital Sign Unable to [...] tylenol or Ibuprofen Patient may stop in [place] location for orthotic pickup Patient is to [...] Kit Solitario DPM documented in this encounter [facility] 09-20-2024 History of Presen t illness Narrative [...] Resource Strain: Low Risk (04/16/2024) Received from [facility] [employer] [facility] Overall Financial Resource Strain (CARDIA) Difficulty of Paying Living Expenses: Not hard at all Food Insecurity: No Food Insecurity (04/16/2024) [facility] Hunger Vital Sign Worried About Running Out of Food in the Last Year: Never true Ran Out of Food in the Last Year: Never true Transportation Needs: Unknown (04/16/2024) [facility] PRAPARE - Transportation Lack of Transportation (Medical): Not on file Lack of Transportation (Non-Medical): No Physical Activity: Not on file Stress: Not on file Social Connections: Not on file Intimate Partner Violence: Not on file Housing Stability: Unknown (04/16/2024) [facility] Housing Stability Vital Sign Unable to [...] Kit Solitario DPM documented in this encounter [facility] 12-07-2023 History of Presen t illness Narrative [...] notes dyspareunia. Has recently started VET. 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 Would be a good candidate for [place] tissue repair - posterior colporrhaphy and iliococcygeal [...] for UDS. Avoid bladder irritants. PVR normal. 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 UA negative. This chart note was [...] similarly generated notes. documented in this encounter [facility] 10-25-2023 History of Presen t illness Narrative Vagifem was changed to Estrace vaginal cream documented in this encounter [facility] 10-20-2023 Miscellaneous Notes Formattin g of this note might be different from the original. Pts script for Vagifem got denied. Is there another medication you would like to try? Pt aware. documented in this encounter [facility] 10-20-2023 Telephone encount er Note Pts script for Vagifem got denied. Is there another medication you would like to try? Pt aware. [facility] 10-18-2023 History of Presen t illness Narrative [...] . She reports recently going to the [facility] and completely soaking her pants through. She [...] Sosa as his office is closer the [place]. Referral has been made documented in this encounter [facility] 02-24-2022 Evaluation note Encounter Date Diagnosis Assessment [...] to see Dr. Gabriel, orthopedic physician in [place] in follow-up. She states she will arrange her appointment Feb, Other Ankle fracture material was printed [employer] Other Evaluation note* Diagnosis Plantar fasciitis- Primary Plantar fascial fibromatosis Contracture of right ankle Pain due to onychomycosis of toenails of both feet Onychomycosis Dermatophytosis of nail documented in this encounter [facility] HealthcareEvaluation note* Diagnosis Rectocele- Primary Stress incontinence of urine Constipation, unspecified constipation type Dyspareunia in female OAB (overactive bladder) documented in this encounter [facility]* Diagnosis Vaginal prolapse- Primary Unspecified prolapse of vaginal chris Rectocele Stress incontinence of urine Dyspareunia in female 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 [facility] Diagnosis Rectocele- Primary Vaginal prolapse Unspecified prolapse of vaginal chris Stress incontinence of urine Dyspareunia in female documented in this encounter [facility]* Diagnosis Dyspareunia in female- Primary Menopause syndrome Symptomatic menopausal or female climacteric states documented in this encounter [facility]* Diagnosis Plantar fasciitis- Primary Plantar fascial fibromatosis Contracture of right ankle Pain due to onychomycosis of toenails of both feet Onychomycosis Dermatophytosis of nail documented in this encounter [facility] HealthcareEvaluation note* Diagnosis Rectocele documented in this encounter [facility] HealthcareHistory general Narrative - Reported* Type Description Date Medical History Endometriosis Medical History Back pain Medical History Seizures Medical History Migraines Medical History PTSD Medical History Anxiety Disorder Medical History Hepatitis C-per records from [facility] Surgical History Hysterectomy 2007 Surgical History Exploratory laparoscopy-endomet riosi (2) Surgical History Tumor removed left finger Hospitalization History See past surgical hx Hospitalization History Seizures [employer] Other InstructionsNot on filedocumented in this encounter [facility]* Attachments The following attachments cannot be sent through Care Everywhere. * Pelvic Floor Exercises (Gibraltarian) * Vaginal dryness (Gibraltarian) * Vaginal Prolapse (Gibraltarian) [facility]ructionsNot on file documented in this encounterProMed[facility] SystemInstructionsNot on file documented in this encounterPro[facility] SystemReason for referral (narrative)* Consultation (Routine) - Pending Review Specialty Diagnoses / Procedures Referred By Contac t Referred To Contact Urology Diagnoses Rectocele Vaginal prolapse Stress incontinence of urine Dyspareunia in female Status post hysterectomy with oophorectomy Mariana Beltran DO [address] [place] [address] Ruben Sosa, [address] [place] [address] Referral ID Status Reason Start Date Expiration Date Visits Requested Visits Authorized [id number] Pending Review Specialty Services Required 10/18/2023 10/17/2024 1 1 * Medication Prior Authorization - Pending Review Specialty Diagnoses / Procedures Referred By Contac t Referred To Contact Diagnoses Rectocele Vaginal prolapse Stress incontinence of urine Dyspareunia in female Status post hysterectomy with oophorectomy Mariana Beltran DO [address] [place] [address] Referral ID Status Reason Start Date Expiration Date V isits Requested Visits Authorized [id number] Pending Review 1 1 [facility] SystemReason for referral (narrative)* Consultation (Routine) - Pending Review Specialty Diagnoses / Procedures Referred By Contac t Referred To Contact Urogynecology / Gynecology Diagnoses Rectocele Vaginal prolapse Stress incontinence of urine Dyspareunia in female Mariana Beltran DO [address] [place] [address] Kedar Agee MD [address] [place] [address] Referral ID Status Reason Start Date Expiration Date Visits Requested Visits Authorized [id number] Pending Review Specialty Services Required 10/24/2023 10/23/2024 1 1 [facility] Summary Purpose Family History No Family History [...] [address] [place] [address] Referral ID Status Reason Start Date Expiration Date V isits Requested Visits Authorized [id number] Pending Review 12/07/2023 12/06/2024 1 1 Additional Source Comments INFORMATION SOURCE (unrecogn ized section and content) DATE CREATED AUTHOR 08/10/2021 [facility] DATE CREATED AUTHOR AUTHOR'S ORGANIZ ATION 03/11/2022 [facility] DATE CREATED AUTHOR AUTHOR'S ORGANIZ ATION 12/09/2023 [facility] DATE CREATED AUTHOR AUTHOR'S ORGANIZ ATION 12/28/2023 [facility] DATE CREATED AUTHOR AUTHOR'S ORGANIZ ATION 04/18/2024 [facility] DATE CREATED AUTHOR AUTHOR'S ORGANIZ ATION 12/09/2024 [facility] EPIC REASON FOR VISIT (unrecogniz ed section and content) Reason Comments Toenail Problem Thick nials, poss fu ngus Reason Comments Vaginal Prolapse Specialty Diagnoses / Procedures Referred By Contac t Referred To Contact Urogynecology / Gynecology Diagnoses Rectocele Vaginal prolapse Stress incontinence of urine Dyspareunia in female Mariana Beltran DO [address] [place] [address] Kedar Agee MD [address] [facility] [address] [place] [address] Referral ID Status Reason Start Date Expiration Date V isits Requested Visits Authorized [id number] Closed Specialty Services Required 10/24/2023 10/23/2024 1 1 Reason Comments Prolapse Noticed a few months ago, feels a bulge Reason Comments Follow-up Rt pf check Reason Comments Consult Rectal prolapse Specialty Diagnoses / Procedures Referred By Contac t Referred To Contact General Surgery Diagnoses Rectal prolapse Procedures MA OFFICE/OUTPATIENT [facility] 60 MINUTES Ana Ibanez, SCHEDULING CLERK [address] [place] [address] Phone: tel: fax: [facility] [address] [facility] [address] [place] [address] Phone: tel: fax: Referral ID Status Reason Start Date Expiration Date V isits Requested Visits Authorized [id number] Closed Specialty Services Required 10/24/2024 04/22/2025 1 1 Care Teams (unrecognized sec tion and content) [employer] Relationship Specialty Start Date End Date Juno Rogers MD PCP - General Internal Medicine 05/22/18 [employer] Operator Relationship Specialty Start Date End Date Juno Rogers MD [address] [place] [id number] PCP - General Internal Medicine 09/20/24 [employer] Operator Relationship Specialty Start Date End Date Juno Rogers MD [address] [place] [id number] PCP - General Internal Medicine 09/20/24 [employer] Operator Relationship Specialty Start Date End Date Juno Rogers MD [address] [place] [id number] PCP - General Internal Medicine 09/20/24 [employer] Operator Relationship Specialty Start Date End Date Juno Rogers MD [address] [place] [id number] PCP - General Internal Medicine 09/20/24 [employer] Operator Relationship Specialty Start Date End Date Juno Rogers MD [address] [place] [id number] PCP - General Internal Medicine 09/20/24 FOR [...] BE BASED ON THE PRIMARY CLINICAL RECORDS. [employer] provides no warranty or guarantee of the accuracy or completeness of information in this document.
--- NOTE | 2025-01-23 10:21 | P.CN_ITS ---
Consult Note: HPI Data of Consult Patient: known to practice within the last 3 years Consult date: 11/15/24 Requesting Physician: Karolyn Baeza NP Primary Care Provider: GREGG WEAVER Consult Narrative Reason for consult: establish Narrative: Jazmin montilla pleasant 44 year old female presents for evaluation and management of chronic back, right hip, right knee pain for many years. previously evaluated by PCP and pain management in [place] without benefit. currently utilizing naproxen and baclofen with mild benefit. in the past failed flexeril and tramadol. pain today 4/10 but increasing to 10/10 at times with standing, walking, sitting, and lying on right hip. attended 1 PT visit with significant pain per pt. recent lumbar xray consitent with lumbar ddd and facet arthropathy L4-S1 cc:: CC: Karolyn Baeza NP Review of Systems ROS Status of ROS 10 or more systems reviewed and unremark able except as noted in history and below Musculoskeletal Reports: back pain, neck pain and joint pain Meds Home Medications and Allergies Home Medications ?Medication ?Instructions ?Recorded ?Confirmed ?Type baclofen 10 mg tablet 10 mg PO TID PRN muscle spas m #90 11/15/24 Rx tabs meloxicam 7.5 mg tablet 7.5 mg PO BID PRN pain #60 t abs 11/15/24 Rx Exam Constitutional Documenting provider has reviewed patient's vital signs: yes Common normals: no apparent distress, oriented x3, healthy appearing, alert and well nourished General appearance: cooperative HENMT Common normals: normocephalic, hearing grossly normal bilaterally and moist oral mucous membranes Head and scalp: normocephalic Eye Common normals: PERRL Pupil: PERRL Neck & C-Spine Common normals: full ROM General: normal visual inspection Cervical spine: cervical ROM normal Chest Common normals: inspection of chest normal Respiratory Common normals: normal respiratory effort, no retractions and no use of accessory muscles Back & Pelvis Lumbar spine/lower back: lumbar ROM normal, pain with ROM and lumbar spinal tenderness Lumbar spinal tenderness location: L4 and L5; no paraspinal muscle tenderness and no paraspinal muscle spasm Sacroiliac joints: SI joint(s) abnormal Other: right sij positive sayra(patricks), gaenslens, thigh thrust, compression test intermittent radiculopathy to right L4,5,S1 strength 5/5 in BLE Neuro Common normals: oriented x3, CN's II-XII intact bilaterally, moves all extremities, no focal motor deficits, no sensory deficits noted and deep tendon reflexes 2+ bilaterally Sensorium/orientation: alert Motor exam: strength 5/5 throughout and no movement abnormalities noted Psych Common normals: mental status grossly normal, thought process normal, cooperative, affect normal, speech normal and activity/motor behavior normal Speech: normal speech Thought process: normal thought process Results Additional Findings Additional findings: If on a controlled substance or opioids, I have checked an OARRS report on this patient and there are no aberrancies noted in the prescribing history.??If on a controlled substance or opioid a drug screen was completed and reviewed within the last year, and if there has not been a drug screen completed we ordered one today to monitor higher risk, state monitored pain medication use. As part of providing excellent, safe, comprehensive care, the following was completed at our patient's visit: 1. A medication reconciliation and review to ensure accurate knowledge of current/active medications, including asking our patients to inform us about any [id number] medications or herbal remedies/nutritional supple ments/alternative remedies. 2. A review to specifically ensure our patients have had annual screening for screening for depression, screening for tobacco use, and screening for unhealthy alcohol use. For concerning screenings had a discussion with the patient, provided patient education, and recommended follow-up with primary care provider when appropriate. If patient noted with a risk of falling, they received education on strength, gait, and balance training to prevent future risk of falling. Portions of this note may have been carried over from the previous visit and updated as appropriate. Please note this office utilizes paper charting in addition to the electronic medical record. A list of current medications, vitals, and PMH is available there as the clinical staff outside of myself do not have access to [employer] charting during the clinic day operations. As part of providing quality comprehensive care the current medications, vitals, and PMH were reviewed in the paper chart. Assessment and Plan Assessment and Plan (1) Degenerative disc disease (DDD) of lumbar region with discogenic back pain and leg pain: Assessment and Plan: The patient has had over 3 months of moderate to severe low back with intermittent right leg pain with functional impairment and inadequate response to conservative care including NSAIDS (unless there are contraindication such as concurrent blood thinners), multiple oral or topical pain medications, and home exercise program/physical therapy.? The Oswestry Disability Index was completed, and the patient scored a 18%.? The patient noted the following:?? moderate to severe pain impacting ADLs (2) Lumbar spondylosis: (3) Sacroiliitis: (4) Lumbar stenosis with neurogenic claudication: (5) Myalgia, other site: Plan lumbar xray reviewed, pt could not tolerate PT due to severe pain. change baclofen 5-10mg TID PRN pain/spasms. continue naproxen PRN. update lumbar MRI without contrast to assess lumbar DDD with discogenic low back pain and leg pain. f/u to review MRI
== END 2025-01-23 10:02 | disposition home or self-care (01) ==
LOC: PM 10:02
PROVIDERS: PCP Nurse Practitioner Family; Visit Provider Nurse Practitioner
DX: M51.369 Other intervertebral disc degeneration, lumbar region without mention of lumbar back pain or lower extremity pain (principal); M47.816 Spondylosis without myelopathy or radiculopathy, lumbar region; M46.1 Sacroiliitis, not elsewhere classified; M48.062 Spinal stenosis, lumbar region with neurogenic claudication; M79.18 Myalgia, other site
CPT/HCPCS: G0463

== ENCOUNTER 2025-03-15 07:30 | Outpatient (OUT) | payer OTHER, SELFPAY ==
--- OUTSIDE RECORDS SUMMARY | 2025-03-15 07:32 | XMS_ITS | Encounter Summary ---
Author Organization [employer] s tem Address [id number] [address] [place] [address] Care Team Providers Care Microfilm Operator Name Role Phone Unavailable Primary Care Provider Unavailabl e Encounter Details Date Type Department Care Team (Late st Contact Info) Description 10/25/2023 Telephone [facility] [address] [place] [address] Cria Harvey DO [address] [place] [address] Social History Tobacco Use Types Packs/Day Years Used Date Smoking Tobacco: Former Cigarettes Q uit: 2020 Smokeless Tobacco: Never Alcohol Use Standard Drinks/Week Comments Yes 0 (1 standard drink = 0.6 oz pur e alcohol) rare Hunger Screening Answer Date Recorded Within the past 12 months we worried whether our food would run out before we got money to buy more. Never True 01/11/2023 Within the past 12 months th e food we bought just didn't last and we didn't have money to get more. Never True 01/11/2023 Comments No Sex and Gender Information Value Date Recorded Sex Assigned at Not on file Legal Sex Female 11:21 AM EDT Gender Identity Not on file Sexual Orientation Not on file documented as of this encounter Miscellaneous Notes * Telephone Encounter - Danni Fields CMA - 10/25/2023 4:33 PM EST Called and spoke to pt and informed her of new Rx sent documented in this encounter Plan of Treatment Not on file documented as of this encounter Visit Diagnoses Not on filedocumented in this encounter
--- OUTSIDE RECORDS SUMMARY | 2025-03-15 07:32 | XMS_ITS | Patient Health Record ---
Author Organization [facility] Address [address] [place] [address] Care Team Providers Care Silver Miner Blasting Name Role Phone Edmundo Hammonds Primary Care Provider Reason For Referral No Information Medications Medication SIG (Take, Route, Frequency, Duration) Notes Start Date End Date Status Methadone HCl 10 mg 1 tablet Orally four times a day (qid) Dr. Schroeder Not-Taking ALPRAZolam 1 MG 1 tablet Orally Thre e times a day Dr. Schroeder Not-Taking Escitalopram Oxalate 10 MG 1 tablet Orally Once a day; Duration: 30 day(s) 07/28/2015 Not-Taking Vistaril 25 MG 1 capsule as needed Orally every 8 hrs; Duration: 30 day(s) 07/28/2015 Not-Taking Adderall 10 MG Orally Once a day Dr. Schroeder Not-Taking Plan Of Treatment No Information Insurance Providers Payer Name Payer Address Payer Phone Subscriber Number Group Number Insured Name Patient Relationship to Insured Coverage Start Date Coverage End Date [employer] [address] [place] [address] [id number] SHERYL VERGARA Self - patient is the insured 2 zMEDICAID [facility] after [employer] [address] [place] [address] [id number] SHERYL VERGARA Self - patient is the insured 2 zDENTAL [employer] [address] [address] [place] [address] [id number] SHERYL VERGARA Self - patient is the insured 2 zDental MEDICAID C after [facility] [address] [place] [address] [id number] VERGARAINGRIDCY Self - patient is the insured 2 Medical (General) History Medical History History ICD Code back pain neck pain 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
--- OUTSIDE RECORDS SUMMARY | 2025-03-15 07:32 | XMS_ITS | Encounter Summary ---
Author Organization [facility] Address [address] [place] [address] Care Team Providers Care Chemical Laboratory Chief Name Role Phone Juno Rogers MD Primary Care Provider [phone] Reason for Visit * Reason Comments Med Refill Encounter Details Date Type Department Care Team ([facility] st Contact Info) Description 12/26/2024 Refill [facility] [address] [facility] [address] [place] [phone] Kit Solitario DPM [address] [facility] [address] [place] [address] Onychomycosis Social History Tobacco Use Types Packs/Day [...] nail documented in this encounter Care Teams Chemical Laboratory Chief Relationship Specialty Start Date End Date Juno Rogers MD PCP - General Internal Medicine 09/20/24 documented as of this encounter
--- OUTSIDE RECORDS SUMMARY | 2025-03-15 07:32 | XMS_ITS | Clinical Summary ---
Author Organization [facility] Address [address] [place] [address] Care Team Providers Care Equipment Service Engineer Name Role Phone Juno Rogers MD Primary Care Provider [phone] Allergies No known active allergies Medications meloxicam (Mobic) 7.5 MG tablet Take 7.5 mg by mouth 2 (two) times a day as needed Active Active Problems Problem Noted Date Diagnosed Date Rectocele 12/07/2024 Encounters Date Type Department Care Team Description 02/04/2025 Bamboo flowsheet [facility] [address] [place] [phone] Kit Solitario DPM 02/01/2025 2:50 PM EDT Office Visit [facility] [address] [place] [address] Kit Solitario DPM Plantar fasciitis (Primary Dx); Contracture of right ankle; Contracture of left ankle 01/26/2025 Refill [facility] [address] [place] [address] [place] [id number] Kit Solitario DPM Onychomycosis 12/26/2024 Refill [facility] [address] [place] [address] [place] [phone] Kit Solitario DPM Onychomycosis from Last 3 Months Family History [...] file Insurance [employer] Care Teams Equipment Service Engineer Relationship Specialty Start Date End Date Juno Rogers MD PCP - General Internal Medicine 09/20/24
--- OUTSIDE RECORDS SUMMARY | 2025-03-15 07:32 | XMS_ITS | Clinical Summary ---
Author Organization [employer] tem Address [id number] [address] [place] [address] Care Team Providers Care Computer Drafter Name Role Phone Unavailable Primary Care Provider Unavailabl e Allergies Active Allergy Reactions Criticality Noted Date Comments Celecoxib 01/11/2023 Chest pain Medications cyclobenzaprine (FLEXERIL) 5 mg tablet TAKE 1 TABLET BY MOUTH THREE TIMES A DAY NEEDED FOR MUSCLE SPASMS 07/05/2022 Active naproxen (NAPROSYN) 500 mg tablet Take 1 tablet (500 mg total) by mouth in the morning and 1 tablet (500 mg total) in the evening. Take with meals. 11/15/2022 Active magnesium 30 mg tablet Take 1 tablet (30 mg total) by mouth in the morning and 1 tablet (30 mg total) before bedtime. Active estradioL (ESTRACE) 0.01 % (0.1 mg/gram) vaginal cream Insert 1 g into the vagina in the morning. 42.5 g 1 10/25/2023 Active Active Problems No known active problems Family History Medical History Relation Name Comments Diabetes Maternal Grandmother Depression Mother Stroke Paternal Grandfather Breast cancer Neg Hx Relation Name Status Comments Maternal Grandmother Mother Paternal Grandfather Social History Tobacco Use Types Packs/Day Years Used Date Smoking Tobacco: Former Cigarettes Q uit: 2020 Smokeless Tobacco: Never Tobacco Cessation:Counseling Given: Not Answered Alcohol Use Standard Drinks/Week Comments Yes 0 (1 standard drink = 0.6 oz pur e alcohol) rare Hunger Screening Answer Date Recorded Within the past 12 months we worried whether our food would run out before we got money to buy more. Never True 12/07/2023 Within the past 12 months th e food we bought just didn't last and we didn't have money to get more. Never True 12/07/2023 Comments No Sex and Gender Information Value Date Recorded Sex Assigned at Not on file Legal Sex Female 11:21 AM EDT Gender Identity Not on file Sexual Orientation Not on file Last Filed Vital Signs Vital Sign Reading Time Taken Comments Blood Pressure 126/86 12/07/2023 2:26 PM EDT Pulse 72 12/07/2023 2:26 PM EDT 98o2 Temperature 36.5 C (97.7 F) 12/07/2023 2:26 PM EDT Respiratory Rate 14 12/07/2023 2:26 PM EDT Oxygen Saturation - - Inhaled Oxygen Concentration - - Weight 93.9 kg (207 lb) 12/07/2023 2:26 PM EDT Height 172.7 cm (5' 8 ) 12/07/2023 2:26 PM EDT Body Mass Index 31.47 12/07/2023 2:26 PM EDT Plan of Treatment Health Maintenance Due Date Last Done Comments Depression Screening 1993 DTaP,Tdap and Td Vaccines (1 - Tdap) 2000 Adult BMI Screening 12/06/2024 12/07/2023 Tobacco Screening 12/08/2024 12/09/2023 Influenza Vaccine 04/22/2025 Medical Devices Not on file Insurance [employer] [place] [id number]
--- OUTSIDE RECORDS SUMMARY | 2025-03-15 07:33 | XMS_ITS | Clinical Summary ---
Author Organization [facility] Address [address], [address] [place] [address] Care Team Providers Care Director Insurance Name Role Phone Juno Rogers MD Primary Care Provider [phone] Allergies Active Allergy Reactions Criticality Noted Date [...] Type Department Care Team Description 12/19/2024 Refill [facility] [address] [place] [address] Juno Rogers MD Medication Refill from Last 3 Months Immunizations Immunization Administration [...] place to sleep or slept in a longterm (including now)? No 12/07/2022 Housing Stability Vital Sign Answer Olivier e Recorded Unable to Pay for Housing in the Last Year Not o n file 04/16/2024 Number of Times Moved in the Last Year Not on fi le 04/16/2024 At any time in the past 12 m [facility], were you homeless or living in a longterm (including now)? No 04/16/2024 Food Insecurity Answer [...] Breast cancer screen 01/20/2025 01/20/2023 Flu vaccine (#1) 03/22/2025 Depression Screen 04/16/2025 04/16/2024, 04/16/2024 HIV screen [...] Most Recently Relevant to Health Maintenance [place] [address] [place] [address] PLAN Advance Directives Healthcare Agents on File Name Relationship Healthcare Agent [facility] p Communication Faviola Naranjo Child Primary Decision Maker Care Teams Director Insurance Relationship Specialty Start Date End Date Juno Rogers MD PCP - General Internal Medicine 05/22/18
--- OUTSIDE RECORDS SUMMARY | 2025-03-15 07:33 | XMS_ITS | Encounter Summary ---
Author Organization [facility] tem Address [id number] [address] [place] [address] Care Team Providers Care Vending Route Driver Name Role Phone Unavailable Primary Care Provider Unavailabl e Encounter Details Date Type Department Care Team (Late st Contact Info) Description 02/07/2023 Orders Only [facility] [address] [place] [address] Joselin Wilson Menopause syndrome Social History Tobacco Use Types Packs/Day Years [...] on file documented as of this encounter Plan of Treatment Not on file documented as of this encounter Procedures Procedure Name Priority Date/Time Associated Diagnosis Comments VITAMIN D 25 HYDROXY Routine 01/20/2023 Menopause syndrome CBC (NO DIFF) Routine 01/20/2023 Menopause syndrome TSH Routine 01/20/2023 Menopause syndrome T4, FREE Routine 01/20/2023 Menopause syndrome HEMOGLOBIN A1C Routine 01/20/2023 Menopause syndrome LUTEINIZING HORMONE Routine 01/20/2023 Menopause syndrome FOLLICLE STIMULATING HORMONE Routine 01/20/2023 Menopause syndrome LIPID PROFILE Routine 01/20/2023 Menopause syndrome COMPREHENSIVE METABOLIC PANEL Routine 01/20/2023 Menopause syndrome documented in this encounter Results * CBC without diff (01/20/2023) 01/20/2023 Rohini Banerjee MD LAB BLOOD ORDERABLES Final Res ult Performing Organization Address [facility] de Phone Number SUNQUEST * Follicle stimulating hormone (01/20/2023) 01/20/2023 Rohini Banerjee MD LAB BLOOD ORDERABLES Final Res ult Performing Organization Address [facility] de Phone Number SUNQUEST * Luteinizing hormone (01/20/2023) 01/20/2023 Rohini Banerjee MD LAB BLOOD ORDERABLES Final Res ult Performing Organization Address [facility] de Phone Number SUNQUEST * T4, free (01/20/2023) 01/20/2023 us Rohini Banerjee MD LAB BLOOD ORDERABLES Final Res ult Performing Organization Address [facility] de Phone Number SUNQUEST * TSH (01/20/2023) 01/20/2023 us Rohini Banerjee MD LAB BLOOD ORDERABLES Final Res ult Performing Organization Address [facility] de Phone Number SUNQUEST * Lipid profile (01/20/2023) 01/20/2023 us Rohini Banerjee MD LAB BLOOD ORDERABLES Final Res ult Performing Organization Address [facility] de Phone Number SUNQUEST * Comprehensive metabolic panel (01/20/2023) 01/20/2023 us Rohini Banerjee MD LAB BLOOD ORDERABLES Final Res ult Performing Organization Address [facility] de Phone Number SUNQUEST * Vitamin D 25 (01/20/2023) 01/20/2023 Rohini Banerjee MD LAB BLOOD ORDERABLES Final Res ult Performing Organization Address [facility] de Phone Number SUNQUEST * Hemoglobin A1c (01/20/2023) 01/20/2023 us Rohini Banerjee MD LAB BLOOD ORDERABLES Final Res ult Performing Organization Address [facility] de Phone Number SUNQUEST documented in this encounter Visit Diagnoses Diagnosis Menopause syndrome Symptomatic menopausal or female climacteric states documented in this encounter
--- OUTSIDE RECORDS SUMMARY | 2025-03-15 07:33 | XMS_ITS | Encounter Summary ---
Author Organization [facility] Address [address] [place] [address], [address] [place] [address] Care Team Providers Care Business Development Professional Name Role Phone Juno Rogers MD Primary Care Provider [phone] Reason for Visit * Reason Comments Medication Refill Encounter Details Date Type Department Care Team (Late st Contact Info) Description 01/13/2020 [facility] Primary Care [address] [place], [place] [id number] Juno Rogers MD [address] [id number] Medication Refill Social History Tobacco Use Types [...] unspecified documented in this encounter Care Teams Business Development Professional Relationship Specialty Start Date End Date Juno Rogers MD PCP - General Internal Medicine 05/22/18 documented as of this encounter
--- OUTSIDE RECORDS SUMMARY | 2025-03-15 07:33 | XMS_ITS | Clinical Summary ---
Author Organization [facility] Address [address] [place], [place] [address] Care Team Providers Care Rn School Name Role Phone Steve Avila Primary Care Provider [phone] Medications XANAX 1MG TABLET Take one(1) tablet [...] Vaccine (2023-2 5 season) 2024 Influenza Vaccine (#1) 2025 Hepatitis C Screening Completed 04/20/2004 , [...] PM EDT) HCV RNA by PCR 3,400,000 [facility] Comment: IU/mL The linear range of this assay is 600 IU/mL to 700,000 IU/mL. This test was developed and its performance characteristics determined by the Clinical Laboratories of the [facility]. It has not been cleared or approved by the [place] Food and Drug Administration. The FDA has determined that such clearance or approval is not necessary. Blood specimen (specimen) BLOOD SPECIMEN / Unknown 04/20/2004 2:09 PM EDT us Efrain Holland MD LABORATORY Final Result [facility] [address] [place] [address] from Last 3 Months or Most Recently Relevant to Health Maintenance Insurance [employer] Care Teams Rn School Relationship Specialty Start Date End Date [place] Gorge [address] [place] [address] PCP - General 03/03/04
--- OUTSIDE RECORDS SUMMARY | 2025-03-15 07:33 | XMS_ITS | CCD ---
Author Organization [facility] [place] [facility] Care Team Providers Care Can Patcher Name Role Phone SUE JUNO Primary Care Unavailable PAY, DR GALVIN Admitting Unavailable PAY, DR GALVIN Attending Unavailable PAY, DR GALVIN Consulting Unavailable SAMANTA MARIN Consulting Unavailable SINDYARIANJUNO Admitting Unavailable JUNO ROGERS Attending Unavailable SINDYARIAN, JUNO Primary Care Unavailable JUNO ROGERS Consulting Unavailable ASHLYAZARIAN, JUNO Primary Care Unavailable LAN, DR KNIGHT Admitting Unavailable HAY, DR KNIGHT Attending Unavailable ADE, DR SHERITA Soto Consulting Unavailable SAMANTA STRANGE Consulting Unavailable Yazmin Cash Unavailable KEDAR AGEE Attending Unavailable MARIANA BELTRAN Referring Unavailable MARIANA BELTRAN Attending Unavailable Sergo JAFFE Attending Unavailable Annel Teixeira Attending Unavailable ASHLYAZARIAN, JUNO Primary Care Unavailable ASHLYAZARIAN, JUNO Referring Unavailable ASHLYAZARIAN, JUNO Referring Unavailable ASHLYAZARIAN, JUNO Primary Care Unavailable Sue SKY [facility] Primary Care Provider Sue SKY [facility] Primary Care Provider Unavailable Primary Care Provider UnavailKIT Mora Attending Unavailable KIT SOLITARIO Attending Unavailable ERNIE PALMER Attending Unavailable ANA IBANEZ Referring Unavailab KIT Nunez Attending Unavailable Allergies Allergy Classification Reported Allergen(s) Allergy Type Date of Onset Reaction(s) Facility (1 source) Clindamycin Drug Allergy 07-02-2019 [facility] Repository (6 sources) celecoxib; Translations: [CELECOXIB] Drug Allergy 01-11-2023 [facility] Repository (1 source) Clindamycin Drug Allergy 07-02-2019 [facility] Medications Current Medications Medication Drug Class(es) [...] bedtime. Active meloxicam 7.5 mg oral tablet (4 sources) Nonsteroidal Anti-inflammatory Drug take 1 tablet by [...] [Tinea unguium] 09-20-2024 Episodic Other acquired deformities (6 sources) Contracture of joint of right ankle; Translations: [Contracture, right ankle] 09-20-2024 Chronic Other acquired deformities (2 sources) Contracture of joint of left ankle; Translations: [Contracture, left ankle] 02-04-2025 Chronic Other connective tissue disease (6 sources) Plantar fasciitis; Translations: [Plantar fascial fibromatosis] [...] 04-16-2024 Chronic Prolapse of female genital organs (12 sources) Rectocele; Translations: [Cystocele, unspecified] Onset: 12-07-2023 [...] Glass Jr., MD 04/16/24 Final result Normal [facility] Measure post void residualon 12-07-2023 Volume 45ml [facility] POCT urinalysis dipstick onl yon 12-07-2023 Appearance (U) clear [facility] External Poct Urine Blood Negative [facility] External Poct Urine Character clear [facility] External Poct Urine Color dark yellow [facility] External Poct Urine Glucose Negative [facility] External Poct Urine Ketones Negative [facility] External Poct Urine Leukocyte Esterase Negative [facility] External Poct Urine Nitrite Negative [facility] External Poct Urine Ph 5.0 [facility] Poct Urine Protein 3+ [facility] XR ankle LT min 3V*on 2021 XR ankle LT min 3V* [facility] [address] [place] [address] XRay Report Signed Patient: Jazmin Cassidy MR#: [id number] 35 : 1980 Acct:[id number] Age/Sex: 41 / F ADM Date: 02/24/22 Loc: XDUCLY Room: Type: [facility] Attending Dr: Yazmin SORIA Copies to: YANG [...] Raoul Lindsey M.D.02/24/2022 7:00 PM Dictation Location: [place] [address] Transcribed By: [facility] 02/24/221899 Dictated By: Raoul Lindsey DO 02/24/22 185 Signed By: 02/24/22 190 Normal [facility] XR ankle LT min 3V* [facility] Other XR ankle LT min 3V* [facility] Other XR ankle LT min 3V* [address] [facility] Other XR ankle LT min 3V* [place] [address] [facility] Other XR ankle LT min 3V* XRay Report [facility] Other XR ankle LT min 3V* Signed [employer] Other XR ankle LT min 3V* Patient: Jazmin Cassidy MR#: [id number] [employer] Other XR ankle LT min 3V* 35 [employer] Other XR ankle LT min 3V* : 1980 Acct:[id number] [employer] Other XR ankle LT min 3V* Age/Sex: 41 / F ADM Date: 02/24/22 [employer] Other XR ankle LT min 3V* Loc: XDUCLY Room: Type: [facility] [employer] Other XR ankle LT min 3V* Attending Dr: Yazmin SORIA [employer] Other XR ankle LT min 3V* Copies to: YANG Dubon [employer] Other XR ankle LT min 3V* Ordering Provider: YANG Dubon [employer] Other XR ankle LT min 3V* Date of Service: 02/24/22 [employer] Other XR ankle LT min 3V* XR/XR ankle LT min 3V*: LEFT ANKLE INJURY [employer] Other XR ankle LT min 3V* 3views LEFTankle [employer] Other XR ankle LT min 3V* COMPARISON:None [employer] Other XR ankle LT min 3V* HISTORY: LEFT ankle injury. [employer] Other XR ankle LT min 3V* Mild anterior soft tissue swelling present. Tiny bony density inferior to the lateral malleolus [employer] Other XR ankle LT min 3V* may represent small avulsion fracture. Ankle mortise preserved. [employer] Other XR ankle LT min 3V* XR/XR ankle LT min 3V* [employer] Other XR ankle LT min 3V* IMPRESSION: Small avulsion fracture inferior to the lateral malleolus. [employer] Other XR ankle LT min 3V* Impression dictated by: Raoul Lindsey M.D.02/24/2022 7:00 PM [employer] Other XR ankle LT min 3V* Dictation Location: [place] [address] [employer] Other XR ankle LT min 3V* Transcribed By: PWS 02/24/22 190 [employer] Other XR ankle LT min 3V* Dictated By: Raoul Lindsey DO 02/24/22 1859 [employer] Other XR ankle LT min 3V* Signed By: [employer] Other XR ankle LT min 3V* 02/24/22 190 [employer] Other CBC AUTO DIFFon 08-06-2021 BASO # 0.0 103/ul Normal 0.0-0.1 [facility] Comment on above: Performed By: #### C BC #### [facility] [address] [place] [address] Dr. Javier Hinton Basophils/100 WBC (Bld) 0.3 % Normal 0.2-2.0 [facility] Comment on above: Performed By: #### C BC #### [facility] [address] [place] [address] Dr. Javier Hinton EO # 0.0 103/ul Normal 0.0-0.7 [facility] Comment on above: Performed By: #### C BC #### [facility] [address] [place] [address] Dr. Javier Hinton Eosinophils/100 WBC (Bld) 0.3 % Critically low 0.9-7.0 [facility] Comment on above: Performed By: #### C BC #### [facility] [address] [place] [address] Dr. Javier Hinton Erythrocyte distribution width (RBC) [Ratio] 13.3 % Normal 11.0-15.0 [facility] Comment on above: Performed By: #### C BC #### [facility] [address] [place] [address] Dr. Javier Hinton Hematocrit (Bld) [Volume fraction] 41.7 % Normal 36.0-48.0 [facility] Comment on above: Performed By: #### C BC #### [facility] [address] [place] [address] Dr. Javier Hinton Hemoglobin (Bld) [Mass/Vol] 13.7 g/dL Normal 12.0-16.0 [facility] Comment on above: Performed By: #### C BC #### [facility] [address] [place] [address] Dr. Javier Hinton IG # 0.01 10e3/ul Normal 0.00-0.03 [facility] Comment on above: Performed By: #### C BC #### [facility] [address] [place] [address] Dr. Javier Hinton IG % 0.3 % Normal 0.0-0.5 [facility] Comment on above: Performed By: #### C BC #### [facility] [address] [place] [address] Dr. Javier Hinton LYMPH # 1.2 103/ul Normal 1.2-3.8 [facility] Comment on above: Performed By: #### C BC #### [facility] [address] [place] [address] Dr. Javier Hinton Lymphocytes/100 WBC (Bld) 31.4 % Normal 20.5-60.0 [facility] Comment on above: Performed By: #### C BC #### [facility] [address] [place] [address] Dr. Javier Hinton MANUAL DIFF REQ NO Normal [facility] Comment on above: Performed By: #### C BC #### [facility] [address] [place] [address] Dr. Javier Hniton MCH (RBC) [Entitic mass] 28.0 pg Normal 26.7-34.0 [facility] Comment on above: Performed By: #### C BC #### [facility] [address] [place] [address] Dr. Javier Hinton MCHC (RBC) [Mass/Vol] 32.9 g/dL Normal 29.9-35.2 [facility] Comment on above: Performed By: #### C BC #### [facility] [address] [place] [address] Dr. Javier Hinton MCV (RBC) [Entitic vol] 85.1 fL Normal 81.0-99.0 [facility] Comment on above: Performed By: #### C BC #### [facility] [address] [place] [address] Dr. Javier Hinton MONO # 0.3 103/ul Normal 0.3-0.8 [facility] Comment on above: Performed By: #### C BC #### [facility] [address] [place] [address] Dr. Javier Hinton Monocytes/100 WBC (Bld) 8.7 % Normal 1.7-12.0 [facility] Comment on above: Performed By: #### C BC #### [facility] [address] [place] [address] Dr. Javier Hinton NEUT # 2.3 103/ul Normal 1.4-6.5 [facility] Comment on above: Performed By: #### C BC #### [facility] [address] [place] [address] Dr. Javier Hinton Neutrophils/100 WBC (Bld) 59.0 % Normal 43.0-75.0 [facility] Comment on above: Performed By: #### C BC #### [facility] [address] [place] [address] Dr. Javier Hinton Platelet mean volume (Bld) [Entitic vol] 9.3 fL Critically low 9.5-13.5 [facility] Comment on above: Performed By: #### C BC #### [facility] [address] [place] [address] [address] Javier Hinton PLT 187 103/ul Normal 150-450 [facility] Comment on above: Performed By: #### C BC #### [facility] [address] [place] [id number] Javier Hinton RBC 4.90 106/ul Normal 4.20-5.40 [facility] Comment on above: Performed By: #### C BC #### [facility] [address] [place] [id number] Javier Hinton WBC 3.9 103/ul Critically low 4.0-11.0 [facility] Comment on above: Performed By: #### C BC #### [facility] [address] [place] [address] Dr. Javier Hinton Covid-19 PCR (CVDTBH)on 07-22 SARS-CoV-2 (COVID-19) RNA IMTRA+probe Ql (Unsp spec) Detected Critically abnormal NOT DETECTED [facility] Comment on above: Result Comment: This test is not yet approved or cleared by the [place] FDA. When there are no FDA-approved or cleared tests available, and other criteria are met, FDA can make tests available under an emergency access mechanism called an Emergency Use Authorization (EUA). The EUA for this test is supported by the [place] of Health and Human Service's declaration that [...] used). Performed By: #### C VDTBH #### [facility] [address] [place] [address] Dr. Javier Hinton ER URINE PROFILEon Bilirubin Ql (U) Negative Normal NEGATIVE [facility] Comment on above: Performed By: #### E RUR #### [facility] [address] [place] [address] Dr. Javier Hinton Clarity (U) CLEAR Normal CLEAR [facility] Comment on above: Performed By: #### E RUR #### [facility] [address] [place] [address] Dr. Javier Hinton Color (U) YELLOW Normal YELLOW [facility] Comment on above: Performed By: #### E RUR #### [facility] [address] [place] [address] Dr. Javier FRANK A micrscopic examination will be performed if indicated. Normal [facility] Comment on above: Performed By: #### E RUR #### [facility] [address] [place] [address] Dr. Javier Hinton Glucose Ql (U) Negative Normal NEGATIVE [facility] Comment on above: Performed By: #### E RUR #### [facility] [address] [place] [address] Dr. Javier Hinton Hemoglobin Ql (U) Negative Normal NEGATIVE [facility] Comment on above: Performed By: #### E RUR #### [facility] [address] [place] [address] Dr. Javier Hinton Ketones Ql (U) 40 mg/dl Abnormal NEGATIVE [facility] Comment on above: Performed By: #### E RUR #### [facility] [address] [place] [address] Dr. Javier Hinton LEUKOCYTES Negative Normal NEGATIVE [facility] Comment on above: Performed By: #### E RUR #### [facility] [address] [place] [address] Dr. Javier Hinton Nitrite Ql (U) Negative Normal NEGATIVE [facility] Comment on above: Performed By: #### E RUR #### [facility] [address] [place] [address] Dr. Javier Hinton pH (U) 6.0 [pH] Normal 5-9 [facility] Comment on above: Performed By: #### E RUR #### [facility] [address] [place] [address] Dr. Javier Hinton Protein (U) [Mass/Vol] 30 mg/dL Abnormal NEGATIVE/ TRACE [facility] Comment on above: Performed By: #### E RUR #### [facility] [address] [place] [address] Dr. Javier Hinton SPEC GRAVITY 1.025 Normal 1.005-<=1.025 [facility] Comment on above: Performed By: #### E RUR #### [facility] [address] [place] [address] [address] Javier Hinton UR MICRO IND NOT INDICATED Normal [facility] Comment on above: Performed By: #### E RUR #### [facility] [address] [place] [address] Dr. Javier Hinton Urobilinogen Qn (U) 0.2 {Ericka'U}/dL Normal 0.2 - 1.0 [facility] Comment on above: Performed By: #### E RUR #### [facility] [address] [place] [address] Dr. Javier Hinton INFLUENZA A AND B AGon 08-06 INFLUANEGH SEE BELOW Normal [facility] Comment on above: Result Comment: Nega tive for Flu A protein angiten. Infection due to Flu A cannot be ruled out. Flu A angiten in the sample may be below the detection limit of the test. Performed By: #### I NFLUAB ####[facility] [address] [place], [place] [address]DrKem Hinton INFLUBNEGH SEE BELOW Normal [facility] Comment on above: Result Comment: Nega tive for Flu B protein antigen. Infection due to Flu B cannot be ruled out. Flu B antigen in the sample may be below the detection limit of the test. Performed By: #### I NFLUAB ####[facility] [address] [place], [place] [address]DrKem Hinton INFLUENZA A AG Negative Normal NEGATIVE SEE COMMENT [facility] Comment on above: Performed By: #### I NFLUAB ####[facility] [address] [place], [place] [address]Dr. Javier Hinton INFLUENZA B AG Negative Normal NEGATIVE SEE COMMENT [facility] Comment on above: Performed By: #### I NFLUAB ####[facility] [address] [place] [address]Dr. Javier Hinton INTERNAL CONTROLS Within Normal Limits Normal Within Normal Limits [facility] Comment on above: Performed By: #### I NFLUAB ####[facility] [address] [place] [id number]. Javier Hinton LACTATE/LACTIC ACIDon 2020 Lactate [Moles/Vol] 0.9 mmol/L Normal 0.7-2.0 [facility] Comment on above: Performed By: #### L ACT ####[facility] [address] [place] [address]Dr. Javier Hinton PROF 14(COMP METB)on Albumin [Mass/Vol] 3.7 g/dL Normal 3.5-5.0 [facility] Comment on above: Performed By: #### H GAYE, CMP #### [facility] [address] [place] [address] [address] Javier Hinton Albumin/Globulin [Mass ratio] 0.9 {ratio} Normal [facility] Comment on above: Performed By: #### H GAYE, CMP #### [facility] [address] [place] [address] [address] Javier Hinton ALP [Catalytic activity/Vol] 88 U/L Normal 38-126 [facility] Comment on above: Performed By: #### H GAYE, CMP #### [facility] [address] [place] [address] [address] Javier Hinton ALT [Catalytic activity/Vol] 28 U/L Normal 9-52 [facility] Comment on above: Performed By: #### H GAYE, CMP #### [facility] [address] [place] [address] [address] Javier Hinton Anion gap [Moles/Vol] 14.5 mmol/L Normal [facility] Comment on above: Performed By: #### H GAYE, CMP #### [facility] [address] [place] [address] [address] Javier Hinton AST [Catalytic activity/Vol] 26 U/L Normal 14-36 [facility] Comment on above: Performed By: #### H STROPN, CMP #### [facility] [address] [place] [address] [address] Javier Hinton Bilirubin [Mass/Vol] 0.7 mg/dL Normal 0.2-1.3 [facility] Comment on above: Performed By: #### H STROPN, CMP #### [facility] [address] [place] [address] Dr. Javier Hinton Calcium [Mass/Vol] 9.0 mg/dL Normal 8.4-10.[address] [facility] Comment on above: Performed By: #### H STROPN, CMP #### [facility] [address] [place] [address] Dr. Javier Hinton Chloride [Moles/Vol] 99 mmol/L Normal 98-107 [facility] Comment on above: Performed By: #### H STROPN, CMP #### [facility] [address] [place] [address] Dr. Javier Hinton CO2 [Moles/Vol] 29.2 mmol/L Normal 22.0-30.0 [facility] Comment on above: Performed By: #### H STROPN, CMP #### [facility] [address] [place] [address] Dr. Javier Hinton Creatinine [Mass/Vol] 0.80 mg/dL Normal 0.52-1.04 [facility] Comment on above: Performed By: #### H STROPN, CMP #### [facility] [address] [place] [address] Dr. Javier Hinton EGFR-AF GUATEMALAN Normal >=60 [facility] Comment on above: Performed By: #### H STROPN, CMP #### [facility] [address] [place] [address] Dr. Javier Hinton EGFR-NON AF GUATEMALAN Normal >=60 [facility] Comment on above: Performed By: #### H STROPN, CMP #### [facility] [address] [place] [address] Dr. Javier Hinton Globulin (S) [Mass/Vol] 4.3 g/dL Normal [facility] Comment on above: Performed By: #### H GAYE, CMP #### [facility] [address] [place] [address] [address] Javier Hinton Glucose [Mass/Vol] 91 mg/dL Normal 74-[address] [facility] Comment on above: Performed By: #### H GAYE, CMP #### [facility] [address] [place] [address] [address] Javier Hinton Potassium [Moles/Vol] 3.7 mmol/L Normal 3.4-5.0 [facility] Comment on above: Performed By: #### H GAYE, CMP #### [facility] [address] [place] [address] Dr. Javier Hinton Protein [Mass/Vol] 8.0 g/dL Normal 6.1-8.[address] [facility] Comment on above: Performed By: #### H GAYE, CMP #### [facility] [address] [place] [address] Dr. Jvaier Hinton Sodium [Moles/Vol] 139 mmol/L Normal 137-[address] [facility] Comment on above: Performed By: #### H GAYE, CMP #### [facility] [address] [place] [address] Dr. Javier Hinton Urea nitrogen [Mass/Vol] 15.0 mg/dL Normal 7.0-17.0 [facility] Comment on above: Performed By: #### H GAYE, CMP #### [facility] [address] [place] [address] Dr. Javier Hinton Urea nitrogen/Creatinin e [Mass ratio] 18.8 mg/mg Normal [facility] Comment on above: Performed By: #### H GAYE, CMP #### [facility] [address] [place] [address] Dr. Javier Hinton TROPONIN, HIGH SENSITIVITYon 08-06-2021 HSTROP 4.8 pg/mL Normal 4.0-35.5 [facility] Comment on above: Result Comment: CUT- OFF POINTS HAVE BEEN ESTABLISHED BASED ON THE FOURTH UNIVERSAL DEFINITIONS OF MYOCARDIAL INFARCTION. THE UPPER REFERENCE LIMIT (URL) OF TROPONIN, DEFINED THE 99TH PERCENTILE OF cTnI DISTRIBUTION IN A REFERENCE POPULATION, HAS BEEN CONFIRMED THE DECISION THRESHOLD FOR VT DIAGNOSIS. Performed By: #### H GAYE, CMP #### [facility] [address] [place], [place] [address] Dr. Javier Hinton XR CHEST 1 Von [...] SHERITA BOOKER Date: 2021-08-06 16:56 Normal [facility] Covid-19 PCR (CVDTBH)on 04-23 SARS-CoV-2 (COVID-19) RNA MITRA+probe Ql (Unsp spec) Detected Critically abnormal NOT DETECTED [facility] Comment on above: Result Comment: This test is not yet approved or cleared by the [place] FDA. When there are no FDA-approved or cleared tests available, and other criteria are met, FDA can make tests available under an emergency access mechanism called an Emergency Use Authorization (EUA). The EUA for this test is supported by the [place] of Health and Human Service's (HHS's) declaration [...] used). Performed By: #### C VDTBH #### [facility] [address] [place], [place] [address] Dr. Javier Hinton AMYLASEon 03-03-2021 Amylase [Catalytic activity/Vol] 55 U/L Normal 31-110 [facility] Comment on above: Performed By: #### C CAROLYN MCKEON LIPA #### [facility] [address] [place], [place] [address] Reji Debbie CBC AUTO DIFFon 03-03-2021 BASO # 0.0 103/ul Normal 0.0-0.1 [facility] Comment on above: Performed By: #### C BC ####[facility] [address] [place], [place] [address]Tcgqxf Debbie Basophils/100 WBC (Bld) 0.6 % Normal 0.2-2.0 [facility] Comment on above: Performed By: #### C BC ####[facility] [address] [place], [place] [address]Zwusdg Debbie EO # 0.1 103/ul Normal 0.0-0.7 [facility] Comment on above: Performed By: #### C BC ####[facility] [address] [place], [place] [address]Lzzqii Debbie Eosinophils/100 WBC (Bld) 2.1 % Normal 0.9-7.0 [facility] Comment on above: Performed By: #### C BC ####[facility] [address] [place], [place] [address]Edqwyz Debbie Erythrocyte distribution width (RBC) [Ratio] 12.7 % Normal 11.0-15.0 [facility] Comment on above: Performed By: #### C BC ####[facility] [address] [place], [place] [address]Ohmzvj Debbie Hematocrit (Bld) [Volume fraction] 38.8 % Normal 36.0-48.0 [facility] Comment on above: Performed By: #### C BC ####[facility] [address] [place], [place] [address]Oxvhvl Debbie Hemoglobin (Bld) [Mass/Vol] 12.8 g/dL Normal 12.0-16.0 [facility] Comment on above: Performed By: #### C BC ####[facility] [address] Debbie IG # 0.02 10e3/ul Normal 0.00-0.03 [facility] Comment on above: Performed By: #### C BC ####[facility] [address] Debbie IG % 0.3 % Normal 0.0-0.5 [facility] Comment on above: Performed By: #### C BC ####[facility] [address] [place] [address] Debbie LYMPH # 2.3 103/ul Normal 1.2-3.8 [facility] Comment on above: Performed By: #### C BC ####[facility] [address] [place] [address] Debbie Lymphocytes/100 WBC (Bld) 33.7 % Normal 20.5-60.0 [facility] Comment on above: Performed By: #### C BC ####[facility] [address] [place] [address] Debbie MANUAL DIFF REQ NO Normal [facility] Comment on above: Performed By: #### C BC ####[facility] [address] [place] [address] Debbie MCH (RBC) [Entitic mass] 28.1 pg Normal 26.7-34.0 [facility] Comment on above: Performed By: #### C BC ####[facility] [address] [place] [address] Debbie MCHC (RBC) [Mass/Vol] 33.0 g/dL Normal 29.9-35.2 [facility] Comment on above: Performed By: #### C BC ####[facility] [address] [place] [address] Debbie MCV (RBC) [Entitic vol] 85.3 fL Normal 81.0-99.0 [facility] Comment on above: Performed By: #### C BC ####[facility] [address] [place] [address] Debbie MONO # 0.5 103/ul Normal 0.3-0.8 [facility] Comment on above: Performed By: #### C BC ####[facility] [address] [place] [address]Reji eLwis Monocytes/100 WBC (Bld) 7.9 % Normal 1.7-12.0 [facility] Comment on above: Performed By: #### C BC ####[facility] Rdrwpxivew2607 [address]ino Kingsleyen NEUT # 3.7 103/ul Normal 1.4-6.5 [facility] Comment on above: Performed By: #### C BC ####[facility] [address] [place], [place] [address]gino Lewis Neutrophils/100 WBC (Bld) 55.4 % Normal 43.0-75.0 [facility] Comment on above: Performed By: #### C BC ####[facility] [address] [place], [place] [address]Reji Lewis Platelet mean volume (Bld) [Entitic vol] 9.6 fL Normal 9.5-13.5 [facility] Comment on above: Performed By: #### C BC ####[facility] [address] [place], [place] [address]Reji Lewis PLT 291 103/ul Normal 150-450 [facility] Comment on above: Performed By: #### C BC ####[facility] [address] [place], [place] [address]Reji Kingsleyen RBC 4.55 106/ul Normal 4.20-5.40 [facility] Comment on above: Performed By: #### C BC ####[facility] [address] [place] [address]Reji Kingsleyen WBC 6.7 103/ul Normal 4.0-11.0 [facility] Comment on above: Performed By: #### C BC ####[facility] [address] [place], [place] [address]Reji Lewis ER URINE PROFILEon 1 Bilirubin Ql (U) Negative Normal NEGATIVE [facility] Comment on above: Performed By: #### E RUR ####[facility] [address] [place], [place] [address]Gerken Debbie Clarity (U) CLEAR Normal CLEAR [facility] Comment on above: Performed By: #### E RUR ####[facility] [address]ocl[address] [place], [place] [address]Nojdha Debbie Color (U) LT. YELLOW Normal YELLOW [facility] Comment on above: Performed By: #### E RUR ####[facility] [address] [place], [place] [id number] Debbie ERUAHD A micrscopic examination will be performed if indicated. Normal [facility] Comment on above: Performed By: #### E RUR ####[facility] [address]my[address] [place], [place] [address]Gerken Debbie Glucose Ql (U) Negative Normal NEGATIVE [facility] Comment on above: Performed By: #### E RUR ####[facility] [address] [place], [place] [address]Gerken Debbie Hemoglobin Ql (U) Negative Normal NEGATIVE [facility] Comment on above: Performed By: #### E RUR ####[facility] [address] [place], [place] [address]Gerken Debbie Ketones Ql (U) Negative Normal NEGATIVE [facility] Comment on above: Performed By: #### E RUR ####[facility] [address] [place], [place] [address]Gerken Debbie LEUKOCYTES Negative Normal NEGATIVE [facility] Comment on above: Performed By: #### E RUR ####[facility] [address] [place], [place] [address]Gerken Debbie Nitrite Ql (U) Negative Normal NEGATIVE [facility] Comment on above: Performed By: #### E RUR ####[facility] [address] [place], [place] [address]Gerken Debbie pH (U) 6.0 [pH] Normal 5-9 [facility] Comment on above: Performed By: #### E RUR ####[facility] [address]wc[address] [place], [place] [address]TbovsqReji Lewis SPEC GRAVITY 1.010 Normal 1.005-<=1.025 [facility] Comment on above: Performed By: #### E RUR ####[facility] [address] [place], [place] [address]FvpxnkReji Lewis UA PROTEIN Negative Normal NEGATIVE/ TRACE [facility] Comment on above: Performed By: #### E RUR ####[facility] [address] [place] [id number] Kingsleyen UR MICRO IND NOT INDICATED Normal [facility] Comment on above: Performed By: #### E RUR ####[facility] [address] [place] [id number] Lewis Urobilinogen Qn (U) 0.2 {Ericka'U}/dL Normal 0.2 - 1.0 [facility] Comment on above: Performed By: #### E RUR ####[facility] Fujmypaobg[address] [place] [id number] Lewis LIPASEon 03-03-2021 Lipase [Catalytic activity/Vol] 67.0 U/L Normal 23.0-300.0 [facility] Comment on above: Performed By: #### C CAROLYN MCKEON, LIPA #### [facility] [address] [place] [id number] Reji Lewis PROF 14(COMP METB)on 021 Albumin [Mass/Vol] 4.2 g/dL Normal 3.5-5.0 [facility] Comment on above: Performed By: #### C MIKE CAROLYN, LIPA #### [facility] [address] [place] [id number] Reji Debbie Albumin/Globulin [Mass ratio] 1.2 {ratio} Normal [facility] Comment on above: Performed By: #### C MIKE CAROLYN, LIPA #### [facility] [address] [place] [id number] Reji Debbie ALP [Catalytic activity/Vol] 94 U/L Normal 38-126 [facility] Comment on above: Performed By: #### C MP, CAROLYN, LIPA #### [facility] [address] [place] [address] Reji Debbie ALT [Catalytic activity/Vol] 27 U/L Normal 9-52 [facility] Comment on above: Performed By: #### C MP, CAROLYN, LIPA #### [facility] [address] [place] [address] Reji Debbie Anion gap [Moles/Vol] 10.2 mmol/L Normal [facility] Comment on above: Performed By: #### C MP, CAROLYN, LIPA #### [facility] [address] [place] [address] Reji Debbie AST [Catalytic activity/Vol] 13 U/L Critically low 14-36 [facility] Comment on above: Performed By: #### C MP, CAROLYN, LIPA #### [facility] [address] [place] [address] Reji Debbie Bilirubin [Mass/Vol] 0.5 mg/dL Normal 0.2-1.3 [facility] Comment on above: Performed By: #### C MP, CAROLYN, LIPA #### [facility] [address] [place] [address] Reji Debbie Calcium [Mass/Vol] 9.3 mg/dL Normal 8.4-10.2 [facility] Comment on above: Performed By: #### C MP, CAROLYN, LIPA #### [facility] [address] [place] [address] Reji Debbie Chloride [Moles/Vol] 106 mmol/L Normal 98-107 [facility] Comment on above: Performed By: #### C MP, CAROLYN, LIPA #### [facility] [address] [place] [address] Reji Debbie CO2 [Moles/Vol] 25.7 mmol/L Normal 22.0-30.0 [facility] Comment on above: Performed By: #### C MP, CAROLYN, LIPA #### [facility] [address] [place] [address] Reji Debbie Creatinine [Mass/Vol] 0.78 mg/dL Normal 0.52-1.04 [facility] Comment on above: Performed By: #### C CAROLYN MCKEON, LIPA #### [facility] [address] [place], [place] [phone] Reji Debbie EGFR-AF GUATEMALAN >60 Normal >=60 [facility] Comment on above: Performed By: #### C MIKE CAROLYN, LIPA #### [facility] [address] [place] [address] Reji Debbie EGFR-NON AF GUATEMALAN >60 Normal >=60 [facility] Comment on above: Performed By: #### C MIKE CAROLYN, LIPA #### [facility] [address] [place] [address] Reji Debbie Globulin (S) [Mass/Vol] 3.4 g/dL Normal [facility] Comment on above: Performed By: #### C MIKE CAROLYN, LIPA #### [facility] [address] [place] [address] Reji Debbie Glucose [Mass/Vol] 94 mg/dL Normal 74-[address] [facility] Comment on above: Performed By: #### C MIKE CAROLYN, LIPA #### [facility] [address] [place] [address] Reji Debibe Potassium [Moles/Vol] 3.9 mmol/L Normal 3.4-5.0 [facility] Comment on above: Performed By: #### C MIKE CAROLYN, LIPA #### [facility] [address] [place] [address] Reji Debbie Protein [Mass/Vol] 7.6 g/dL Normal 6.1-8.[address] [facility] Comment on above: Performed By: #### C CAROLYN MCKEON, LIPA #### [facility] [address] [place] [address] Reji Debbie Sodium [Moles/Vol] 138 mmol/L Normal 137-[address] [facility] Comment on above: Performed By: #### C MIKE CAROLYN, LIPA #### [facility] [address] [place] [address] Reji Debbie Urea nitrogen [Mass/Vol] 14.0 mg/dL Normal 7.0-17.0 [facility] Comment on above: Performed By: #### C CAROLYN MCKEON LIPA #### [facility] [address] [place], [place] [address] Reji Lewis Urea nitrogen/Creatinin e [Mass ratio] 17.9 mg/mg Normal [facility] Comment on above: Performed By: #### C CAROLYN MCKEON LIPA #### [facility] [address] [place], [place] [address] Reji Lewis Vital Signs Date Time Vital Sign Value Performing Clinician Facility 12-07-2024 10:09-0400 Body height 172.7 cm Ernie JeffersonSportsyemili DO Work Phone: [facility] 12-07-2024 10:09-0400 Body mass index (BMI) [Ratio] 27.98 kg/m2 Ernie [employer] Work Phone: [facility] 12-07-2024 10:09-0400 Body weight 83.46 kg Ernie Jeffersonrosanneemili DO Work Phone: [facility] 11-01-2024 11:16-0400 Body height 172.7 cm Kit Solitario DPM Work Phone: [facility] 11-01-2024 11:16-0400 Body mass index (BMI) [Ratio] 27.83 kg/m2 Kit Solitario DPM Work Phone: [facility] 11-01-2024 11:16-0400 Body weight 83.01 kg Kit Solitario DPM Work Phone: [facility] 11-01-2024 11:16-0400 Respiratory rate 18 /min Kit Solitario DPM Work Phone: [facility] 09-20-2024 10:00-0500 Body height 172.7 cm Kit Solitario DPM Work Phone: [facility] 09-20-2024 10:00-0500 Body mass index (BMI) [Ratio] 27.83 kg/m2 Kit Solitario DPM Work Phone: [facility] 09-20-2024 10:00-0500 Body weight 83.01 kg Kit Solitario DPM Work Phone: [facility] 09-20-2024 10:00-0500 Respiratory rate 18 /min Kit Solitario DPM Work Phone: [facility] 12-07-2023 14:26-0400 Body height 172.7 cm Kedar Agee MD Work Phone: [facility] 12-07-2023 14:26-0400 Body mass index (BMI) [Ratio] 31.47 kg/m2 Kedar Agee MD Work Phone: [facility] 12-07-2023 14:26-0400 Body temperature 97.7 [degF] Kedar Agee MD Work Phone: [facility] 12-07-2023 14:26-0400 Body weight 93.89 kg Kedar Agee MD Work Phone: [facility] 12-07-2023 14:26-0400 Diastolic blood pressure 86 mm[Hg] Kedar Agee MD Work Phone: [facility] 12-07-2023 14:26-0400 Heart rate 72 /min Kedar Agee MD Work Phone: [facility] Comment on above: 98o2 12-07-2023 14:26-0400 Respiratory rate 14 /min Kedar Agee MD Work Phone: [facility] 12-07-2023 14:26-0400 Systolic blood pressure 126 mm[Hg] Kedar Agee MD Work Phone: [facility] 10-18-2023 09:54-0500 Body height 172.7 cm Mariana Beltran DO Work Phone: [facility] 10-18-2023 09:54-0500 Body mass index (BMI) [Ratio] 31.32 kg/m2 [employer] DO Work Phone: [facility] 10-18-2023 09:54-0500 Body weight 93.44 kg Mariana Beltran DO Work Phone: [facility] 10-18-2023 09:54-0500 Diastolic blood pressure 82 mm[Hg] Mariana iiMonde DO Work Phone: [facility] 10-18-2023 09:54-0500 Systolic blood pressure 120 mm[Hg] Mariana iiMonde DO Work Phone: [facility] 02-24-2022 18:55-0400 Body height 171.45 cm Yazmin Cash Other [employer] Other 02-24-2022 18:55-0400 Body mass index (BMI) [Ratio] 29.62 kg/m2 Yazmin Cash Other [employer] Other 02-24-2022 18:55-0400 Body temperature 98.2 [degF] Yazmin Shreya Other [employer] Other 02-24-2022 18:55-0400 Body weight 87.09 kg Yazmin Shreya Other [employer] Other 02-24-2022 18:55-0400 Diastolic blood pressure 87 mm[Hg] Yazmin Shreya Other [employer] Other 02-24-2022 18:55-0400 Respiratory rate 18 /min Yazmin Cash Other [employer] Other 02-24-2022 18:55-0400 SaO2% (BldA) [Mass fraction] 100 % Yazmin Cash Other [employer] Other 02-24-2022 18:55-0400 Systolic blood pressure 129 mm[Hg] Yazmin Cash Other [employer] Other Encounters Encounter Date Encounter Type Care Provider Facility Start: 02-04-2025 End: 02-04-2025 Bamboo flowsheet Kit Solitario DPM Work Phone: [facility] Start: 02-04-2025 End: 02-04-2025 Bamboo flowsheet Kit Solitario DPM Work Phone: [facility] Start: 02-04-2025 End: 02-04-2025 ambulatory KIT SOLITARIO Not Available Start: 02-01-2025 End: 02-04-2025 Patient encounter procedure Kit Solitario DPM Work Phone: [facility] Comment on above: Plantar fasciitis (P rimary Dx); Contracture of right ankle; Contracture of left ankle Start: 12-07-2024 End: 12-07-2024 ambulatory ERNIE PALMER Not Available Start: 12-07-2024 End: 12-07-2024 Office outpatient new 45 minutes Ernie Palmer DO Work Phone: [facility] Comment on above: Rectocele Start: 11-01-2024 End: 11-01-2024 Bamboo flowsheet Kit Solitario DPM Work Phone: [facility] Start: 11-01-2024 End: 11-01-2024 Bamboo flowsheet Kit Solitario DPM Work Phone: [facility] Start: 11-01-2024 End: 11-01-2024 Office outpatient visit 25 minutes Kit Solitario DPM Work Phone: [facility] Comment on above: Plantar fasciitis (P rimary Dx); Contracture of right ankle; Pain due to onychomycosis of toenails of both feet; Onychomycosis Start: 11-01-2024 End: 11-01-2024 ambulatory KIT SLOITARIO Not Available Start: 09-20-2024 End: 09-20-2024 Bamboo flowsheet Kit Solitario DPM Work Phone: [facility] Start: 09-20-2024 End: 09-20-2024 Bamboo flowsheet Kit Solitario DPM Work Phone: [facility] Start: 09-20-2024 End: 09-20-2024 ambulatory KIT SOLITARIO Not Available Start: 09-20-2024 End: 09-20-2024 Office outpatient new 45 minutes Kit Solitario DPM Work Phone: [facility] Comment on above: Plantar fasciitis (P rimary Dx); Contracture of right ankle; Pain due to onychomycosis of toenails of both feet; Onychomycosis Start: 04-16-2024 ambulatory JUNO ROGERS [facility] Start: 04-16-2024 End: 04-18-2024 Subsequent hospital visit by physician Juno Rogers MD Work Phone: [facility] Start: 12-26-2023 End: 12-27-2023 ambulatory Sergo JAFFE Facility:[facility] Start: 12-07-2023 End: 12-07-2023 ambulatory KEDAR AGEE [facility] Start: 12-07-2023 End: 12-07-2023 Office outpatient new 45 minutes [facility] Agee MD [facility] Comment on [...] female Start: 10-20-2023 Telephone encounter Faiza Sotelo [facility] Start: 10-18-2023 End: 10-18-2023 ambulatory MARIANA BELTRAN [facility] Start: 10-18-2023 End: 10-18-2023 Office outpatient visit 15 minutes Mariana Beltran DO Work Phone: [facility] Comment on above: Vaginal prolapse (Pr imary Dx); Rectocele; Stress incontinence of urine; Dyspareunia in female; Status post hysterectomy with oophorectomy Start: 08-31-2023 End: 09-01-2023 ambulatory Annel Teixeira Facility:[facility] Start: 06-01-2023 ambulatory Sergo JAFFE Facility :[facility] Start: 02-24-2022 End: 02-24-2022 ambulatory Yazmin Cash Other [employer] Other Start: 02-24-2022 Office outpatient ne w 20 minutes Yazmin Cash [facility] Start: 08-06-2021 End: 08-06-2021 ambulatory [facility] Facility: Start: 05-15-2021 End: 05-15-2021 ambulatory [facility] Facility:[facility]1 Start: 03-03-2021 End: 03-03-2021 ambulatory [facility] Facility: Procedures Date Procedure Procedure Detail Performing Clinician Start: 12-07-2023 MEASURE POST VOID RESIDUAL Kedar Agee MD Work Phone: Start: 12-07-2023 Urnls dip stick/tabl et rgnt non-auto w/o micrscp Kedar Agee MD Work Phone: H/O: surgery Status post hyst erectomy with oophorectomy Mariana Beltran DO Work Phone: Plan of Treatment Date Care Activity Detail Author Start: 04-16-2025 Depression Screen Depression Screen [facility] Start: 01-20-2025 Screening for malignant neoplasm of breast Breast cancer screen [facility] Start: 12-08-2024 Tobacco Screening Tobacco Screening [facility] Start: 12-06-2024 Adult BMI Screening Adult BMI Screening [facility] Start: 11-01-2024 End: 12-02-2024 Alanine aminotransferase [Enzymatic activity/volume] in Serum or Plasma ALANINE AMINOTRANSFERASE Lab Routine Onychomycosis Expected: 11/01/2024 (Approximate), Expires: 12/02/2024 [facility] Comment on above: Expected: 11/01/2024 (Approximate), [...] [facility] [address] [place] [id number] Kit Solitario DPM [address] [address] Plantar fasciitis (Primary Dx); Contracture of right ankle; Pain due to onychomycosis of toenails of both feet [facility] Comment on above: Plantar fasciitis (Primary Dx); Contracture of right ankle; Pain due to onychomycosis of toenails of both feet Start: 10-25-2024 End: 10-25-2024 Patient encounter procedure 10/25/2024 10:20 AM EST Office Visit [facility] [address] [place] [address] Kit Solitario DPM [address] [address] [facility] Start: 10-18-2024 Adult BMI Screening Adult BMI Screening [facility] Start: 10-18-2024 Tobacco Screening Tobacco Screening [facility] Start: 09-20-2024 End: 10-19-2024 Alanine aminotransferase [Enzymatic activity/volume] in Serum or Plasma ALANINE AMINOTRANSFERASE Lab Routine Onychomycosis Expected: 09/20/2024 (Approximate), Expires: 10/19/2024 [facility] Comment on above: Expected: 09/20/2024 (Approximate), Expi res: 10/19/2024 Start: 09-20-2024 End: 10-19-2024 Aspartate aminotransferase [Enzymatic activity/volume] in Serum or Plasma ASPARTATE AMINO TRANSFERASE Lab Routine Onychomycosis Expected: 09/20/2024 (Approximate), Expires: 10/19/2024 [facility] Work Phone: Comment on above: Expected: 09/20/2024 (Approximate), Expi res: 10/19/2024 Start: 05-31-2024 End: 05-31-2024 Patient encounter procedure 05/31/2024 11:00 AM EDT Office Visit [facility] [address] [place] [address] Jay Ryan DO [address] [place] [address] M54.41, M54.42, G89.29 (ICD-10-CM) - Chronic midline low back pain with bilateral sciatica [facility] Comment on above: M54.41, M54.42, G89.29 (ICD-10-CM) - Chr onic midline low back pain with bilateral sciatica Start: 04-22-2024 Influenza vaccination Influenza Vaccine [facility] Start: 03-22-2024 Influenza vaccination Flu vaccine (#1) [facility] Start: 02-01-2024 End: 02-01-2024 Patient encounter procedure 02/01/2024 1:30 PM EDT Procedure visit [facility] [address] [place] [address] Kedar Agee MD [address] [facility] [address] [place] [address] [facility] Start: 12-07-2023 End: 12-07-2023 Patient encounter procedure 12/07/2023 2:30 PM EDT Office Visit [facility] [address] [place] [address] Kedar Agee MD [address] [facility] [address] [place] [address] [facility] Start: 04-22-2023 COVID-19 Vaccine ( season) COVID-19 Vaccine () [facility] Start: 04-22-2023 Influenza vaccination Influenza Vaccine [facility] Start: 2021 Lipid panel Lipids [facility] Start: 2016 Diabetes screen Diabetes screen [facility] Start: 2000 DTaP,Tdap and Td Vaccines (1 - Tdap) DTaP,Tdap and Td Vaccines (1 - Tdap) [facility] Start: 2000 DTaP/Tdap/Td vaccine (1 - Tdap) DTaP/Tdap/Td vaccine (1 - Tdap) [facility] Start: 2000 Hepatitis B vaccine (1 of 3 - 19+ 3-dose series) Hepatitis B vaccine (1 of 3 - 19+ 3-dose series) [facility] Start: 11-07-1999 Adult BMI Follow Up Plan Adult BMI Follow Up Plan [facility] Start: 1994 Varicella vaccine (1 of 2 - 13+ 2-dose series) Varicella vaccine (1 of 2 - 13+ 2-dose series) [facility] Start: 1993 Depression Screening Depression Screening [facility] Start: 11-07-1987 Pneumococcal 0-64 years Vaccine (1 of 2 - PCV) Pneumococcal 0-64 years Vaccine (1 of 2 - PCV) [facility] Immunizations Immunization Date Immunization Notes Care Provider Rosanne maurer 11-04-2020 hepatitis A vaccine, adult dosage Juno Rogers MD Work Phone: [facility] [employer] [facility] 05-06-2020 hepatitis A vaccine, adult dosage Juno Rogers MD Work Phone: [facility] Payers Date Payer Category Payer Medicaid (Managed Care) [employer] [id number] 2021 Medicaid [employer] [id number] 2021-Present [phone] [place] [address] [id number] 1981 Unknown [id number] [id number]. 593 1981 Unknown [id number] 2.16.840.1.068853.3.579.2. 593 1981 Unknown [id number] 2.16.840.1.665162.3.579.2. 593 1981 Unknown [id number] 2.16.840.1.997074.3.579.2. 1286 1981 Unknown [id number] 2.16.840.1.031495.3.579.2. 1286 1981 Unknown [id number] 2.16.840.1.121448.3.579.2. 727 1981 Unknown [id number] 2.16.840.1.557326.3.579.2. 727 1981 Unknown [id number] 2.16.840.1.892328.3.579.2. 727 1981 Unknown [id number] 2.16.840.1.276392.3.579.2. 174 1981 Unknown [id number] 2.16.840.1.578000.3.579.2. 174 1981 Unknown [id number] 2.16.840.1.439469.3.579.2. 1259 1981 Unknown [id number] 2.16.840.1.314952.3.579.2. 9 1981 Unknown [id number] 2.16.840.1.227698.3.579.2. 1259 1981 Unknown [id number] 2.16.840.1.627404.3.579.2. 1259 1959 Unknown [id number] Social History Date Type Detail Facility Start: 04-16-2024 End: 12-07-2024 Sex Assigned At [employer] Other Start: 01-11-2023 End: 04-16-2024 Tobacco smoking status ALIS Ex-smoker [facility] Start: 10-20-2001 End: 10-21-2019 History of tobacco use Current smoker [facility] Start: 10-20-2001 End: 10-21-2019 History of tobacco use Cigarette Smoker [facility] Start: 04-16-2024 End: 12-07-2024 Cigarettes smoked current (pack per day) - Reported 0.5 [facility] Start: 04-16-2024 End: 12-07-2024 Tobacco use and exposure Smokeless tobacco non-user [facility] Start: 04-16-2024 Alcoholic beverage intake Current non-drinker of alcohol (finding) [facility] How hard is it for y ou to pay for the very basics like food, housing, medical care, and heating Not hard at all [facility] (I/We) worried mounika er (my/our) food would run out before (I/we) got money to buy more. Never true [employer] At any time in the p ast 12 months, were you homeless or living in senior living [including now]? No [employer] Start: 07-15-2020 Education 14 [employer] Start: 1980 Sex assigned at Female [employer] Start: 03-02-2021 Gender identity Identifies as female gender (finding) [employer] Start: 03-02-2021 Sexual orientation Heterosexual (finding) [employer] Start: 09-20-2024 Tobacco smoking status ALIS Tobacco smoking consumption unknown [facility] Start: 1980 Sex assigned at Not on file [facility] Start: 12-09-2023 End: 12-07-2024 Alcoholic beverage intake Current drinker of alcohol (finding) [facility] Start: 01-11-2023 Alcohol Comment rare [facility] Start: 12-07-2024 Tobacco smoking status NHIS Never smoked tobacco [facility] Clinical Notes 02-24-2022 to 02-01-2025 Kit Solitario DPM - 02/01/2025 2:50 PM YEYOTPrishabh Palmer DO - 12/07/2024 10:00 AM Michelle Solitario DPM - 11/01/2024 11:10 AM Michelle Solitario DPM - 09/20/2024 9:40 AM EST Note Date & Type Note Facility 02-01-2025 History of Presen t illness Narrative Pt was f dispensedcustom made orthotics today. Patient informedof proper break in of devices. Patient education on break in of device. ABN signed and in chart if warranted. 1. Plantar fasciitis 2. Contracture of right ankle 3. Contracture of left ankle documented in this encounter [facility] 12-07-2024 History of Presen t illness Narrative [...] Unknown Physical Exam Exam conducted with a mining plant operator present. Constitutional: Appearance: Normal appearance. HENT: Head: [...] was confirmed by evaluation by Gynecology in [place] previously. I do not fix rectocele. I did educate patient on the difference between rectal prolapse and rectocele which she appreciated. She will call that gang tailer back and see them about possible repair. I will see her again on an as-needed basis otherwise she is discharged from my care. documented in this encounter [facility] 11-01-2024 History of Presen t illness Narrative [...] Resource Strain: Low Risk (04/16/2024) Received from [facility] Overall Financial Resource Strain (CARDIA) Difficulty of Paying Living Expenses: Not hard at all Food Insecurity: No Food Insecurity (04/16/2024) Received from [facility] Hunger Vital Sign Worried About Running Out of Food in the Last Year: Never true Ran Out of Food in the Last Year: Never true Transportation Needs: Unknown (04/16/2024) Received from [facility] PRAPARE - Transportation Lack of Transportation (Medical): Not on file Lack of Transportation (Non-Medical): No Physical Activity: Not on file Stress: Not on file Social Connections: Not on file Intimate Partner Violence: Not on file Housing Stability: Unknown (04/16/2024) [facility] Housing Stability Vital Sign Unable to [...] tylenol or Ibuprofen Patient may stop in [place] location for orthotic pickup Patient is to [...] Kit Solitario DPM documented in this encounter [facility] 09-20-2024 History of Presen t illness Narrative [...] Resource Strain: Low Risk (04/16/2024) Received from [facility] Overall Financial Resource Strain (CARDIA) Difficulty of Paying Living Expenses: Not hard at all Food Insecurity: No Food Insecurity (04/16/2024) Received from [facility] Hunger Vital Sign Worried About Running Out of Food in the Last Year: Never true Ran Out of Food in the Last Year: Never true Transportation Needs: Unknown (04/16/2024) Received from [facility] PRAPARE - Transportation Lack of Transportation (Medical): Not on file Lack of Transportation (Non-Medical): No Physical Activity: Not on file Stress: Not on file Social Connections: Not on file Intimate Partner Violence: Not on file Housing Stability: Unknown (04/16/2024) Received from [facility] Housing Stability Vital Sign Unable to [...] Kit Solitario DPM documented in this encounter [facility] 12-07-2023 History of Presen t illness Narrative [...] notes dyspareunia. Has recently started VET. 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 She is interested in definitive surgical management. Would be a good candidate for alatna tissue repair - posterior colporrhaphy and iliococcygeal [...] for UDS. Avoid bladder irritants. PVR normal. HOUSEFELLOW negative. UA negative. This chart note was [...] similarly generated notes. documented in this encounter [facility] 10-25-2023 History of Presen t illness Narrative Vagifem was changed to Estrace vaginal cream documented in this encounter [facility] 10-20-2023 Miscellaneous Notes Formattin g of this note might be different from the original. Pts script for Vagifem got denied. Is there another medication you would like to try? Pt aware. documented in this encounter [facility] 10-20-2023 Telephone encount er Note Pts script for Vagifem got denied. Is there another medication you would like to try? Pt aware. [facility] 10-18-2023 History of Presen t illness [...] . She reports recently going to the [employer] and completely soaking her pants through. She [...] Sosa as his office is closer the [place]. Referral has been made documented in this encounter [facility] 02-24-2022 Evaluation note Encounter Date Diagnosis [...] to see Dr. Gabriel, orthopedic physician in [place] in follow-up. She states she will arrange her appointment Feb, Other Ankle fracture material was printed [employer] Other Evaluation note* Diagnosis Plantar fasciitis- Primary Plantar fascial fibromatosis Contracture of right ankle Pain due to onychomycosis of toenails of both feet Onychomycosis Dermatophytosis of nail [facility] Diagnosis Rectocele- Primary Stress incontinence of urine Constipation, unspecified constipation type Dyspareunia in female OAB (overactive bladder) documented [facility] Diagnosis Vaginal prolapse- Primary Unspecified prolapse of vaginal chris Rectocele Stress incontinence of urine Dyspareunia in female 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 documented [facility]* Diagnosis Rectocele- Primary Vaginal prolapse Unspecified prolapse of vaginal chris Stress incontinence of urine Dyspareunia in female documented [facility]* Diagnosis Dyspareunia in female- Primary Menopause syndrome Symptomatic menopausal or female climacteric states documented [facility]* Diagnosis Plantar fasciitis- Primary Plantar fascial fibromatosis Contracture of right ankle Pain due to onychomycosis of toenails of both feet Onychomycosis Dermatophytosis of nail [facility] Diagnosis Rectocele [facility] Diagnosis Plantar fasciitis- Primary Plantar fascial fibromatosis Contracture of right ankle Contracture of left ankle [facility] Narrative - Reported* Type Description Date Medical History Endometriosis Medical History Back pain Medical History Seizures Medical History Migraines Medical History PTSD Medical History Anxiety Disorder Medical History Hepatitis C-per records from [facility] Surgical History Hysterectomy 2007 Surgical History Exploratory laparoscopy-endomet riosi (2) Surgical History Tumor removed left finger Hospitalization History See past surgical hx Hospitalization History Seizures [employer] Other InstructionsNot on filedocumented in this encounter [facility]* Attachments The following attachments cannot be sent through Care Everywhere. * Pelvic Floor Exercises (Bahraini) * Vaginal dryness (Bahraini) * Vaginal Prolapse (Bahraini) [facility] System[facility]ructionsNot on file documented in this [facility]Pro[facility] SystemInstructionsNot on file documented in this encounterProPromed[facility] HospitalReason for referral (narrative)* Consultation (Routine) - Pending Review Specialty Diagnoses / Procedures Referred By Ralph larkin Referred To Contact Urology Diagnoses Rectocele Vaginal prolapse Stress incontinence of urine Dyspareunia in female Status post hysterectomy with oophorectomy Mariana Beltran DO [address] [place] [address] [place] [address], [facility] [address] [place] [address] Referral ID Status Reason Start Date Expiration Date Visits Requested Visits Authorized [id number] Pending Review Specialty Services Required 10/18/2023 10/17/2024 1 1 * Medication Prior Authorization - Pending Review Specialty Diagnoses / Procedures Referred By Ralph larkin Referred To Contact Diagnoses Rectocele Vaginal prolapse Stress incontinence of urine Dyspareunia in female Status post hysterectomy with oophorectomy Mariana Beltran DO [address] [place] [address] Referral ID Status Reason Start Date Expiration Date V isits Requested Visits Authorized [id number] Pending Review 1 1 [facility] (narrative)* Consultation (Routine) - Pending Review Specialty Diagnoses / Procedures Referred By Ralph larkin Referred To Contact Urogynecology / Gynecology Diagnoses Rectocele Vaginal prolapse Stress incontinence of urine Dyspareunia in female Mariana Beltran DO [address] [place] [address] Kedar Agee MD [address] [address] Referral ID Status Reason Start Date Expiration Date Visits Requested Visits Authorized [id number] Pending Review Specialty Services Required 10/24/2023 10/23/2024 1 1 [facility] Summary Purpose Family History No Family History Records FoundNo Family History Records FoundNo Family History Records FoundNo Family History Records FoundNo Family History Records FoundNo Family History Records Found Advance Directives No Advanced Directives Records FoundHealthcare Agents on File Name Relationship Healthcare Agent Relationshi p Communication Faviola [place] Child Primary Decision Maker Reason for Referral Specialty Diagnoses / Procedures Referred By Contac t Referred To Contact Diagnoses Rectocele Vaginal prolapse Stress incontinence of urine Dyspareunia in female Procedures Measure post void residual Kedar Agee MD [address] [place] [address] Referral ID Status Reason Start Date Expiration Date V isits Requested Visits Authorized [id number] Pending Review 12/07/2023 12/06/2024 1 1 Additional Source Comments INFORMATION SOURCE (unrecogn ized section and content) DATE CREATED AUTHOR 08/10/2021 [facility] DATE CREATED AUTHOR AUTHOR'S ORGANIZ ATION 03/11/2022 [facility] DATE CREATED AUTHOR AUTHOR'S ORGANIZ ATION 12/09/2023 [facility] DATE CREATED AUTHOR AUTHOR'S ORGANIZ ATION 12/28/2023 [facility] DATE CREATED AUTHOR AUTHOR'S ORGANIZ ATION 04/18/2024 [facility] DATE CREATED AUTHOR AUTHOR'S ORGANIZ ATION 02/05/2025 [facility] dical Specialists EPIC REASON FOR VISIT (unrecogniz ed section and content) Reason Comments Toenail Problem Thick nials, poss fu ngus Reason Comments Vaginal Prolapse Specialty Diagnoses / Procedures Referred By Contac t Referred To Contact Urogynecology / Gynecology Diagnoses Rectocele Vaginal prolapse Stress incontinence of urine Dyspareunia in female Mariana Beltran DO [address] [place] [address] Kedar Agee MD [address] [place] [address] Referral ID Status Reason Start Date Expiration Date V isits Requested Visits Authorized [id number] Closed Specialty Services Required 10/24/2023 10/23/2024 1 1 Reason Comments Prolapse Noticed a few months ago, feels a bulge Reason Comments Follow-up Rt pf check Reason Comments Consult Rectal prolapse Specialty Diagnoses / Procedures Referred By Contac t Referred To Contact General Surgery Diagnoses Rectal prolapse Procedures TX OFFICE/OUTPATIENT NEW HIGH MDM 60 MINUTES Ana Ibanez, SENIOR SYSTEMS DEVELOPER [address] [facility] [place] [address] [place] [address] Phone: tel: fax: [facility] [address] [address] Phone: tel: fax: Referral ID Status Reason Start Date Expiration Date V isits Requested Visits Authorized [id number] Closed Specialty Services Required 10/24/2024 04/22/2025 1 1 Care Teams (unrecognized sec tion and content) Can Patcher Relationship Specialty Start Date End Date Juno Rogers MD PCP - General Internal Medicine 05/22/18 Can Patcher Relationship Specialty Start Date End Date Juno Rogers MD [address] [place] [address] PCP - General Internal Medicine 09/20/24 Can Patcher Relationship Specialty Start Date End Date Juno Rogers MD [address] [place] [address] PCP - General Internal Medicine 09/20/24 Can Patcher Relationship Specialty Start Date End Date Juno Rogers MD [address] [place] [address] PCP - General Internal Medicine 09/20/24 Can Patcher Relationship Specialty Start Date End Date Juno Rogers MD [address] [place], [place] [id number] PCP - General Internal Medicine 09/20/24 Can Patcher Relationship Specialty Start Date End Date Juno Rogers MD [address] [place] [address] PCP - General Internal Medicine 09/20/24 FOR [...] BE BASED ON THE PRIMARY CLINICAL RECORDS. [employer] [facility]. provides no warranty or guarantee of the accuracy or completeness of information in this document.
--- OUTSIDE RECORDS SUMMARY | 2025-03-15 07:33 | XMS_ITS | Encounter Summary ---
Author Organization [facility] Address [address] [facility] [address], [address] [place] [address] Care Team Providers Care Annual Giving Manager Name Role Phone Juno Rogers MD Primary Care Provider [phone] Encounter Details Date Type Department Care Team (Late st Contact Info) Description 01/01/2021 Telephone [place] [facility] [address] [place], [place] [phone] Joe Kelly MD Social History Tobacco Use [...] on filedocumented in this encounter Care Teams Annual Giving Manager Relationship Specialty Start Date End Date Juno Rogers MD PCP - General Internal Medicine 05/22/18 documented as of this encounter
--- OUTSIDE RECORDS SUMMARY | 2025-03-15 07:33 | XMS_ITS | Encounter Summary ---
Author Organization [facility] Address [address] [place] [address] Care Team Providers Care Cathead Operator Name Role Phone Juno Rogers MD Primary Care Provider [phone] Reason for Visit * Reason Comments Med Refill Encounter Details Date Type Department Care Team (Late st Contact Info) Description 01/26/2025 Refill [facility] [address] [facility] [address] [place] [phone] Kit Solitario DPM [address] [facility] [address] [place] [address] Onychomycosis Social History Tobacco Use Types Packs/Day [...] nail documented in this encounter Care Teams Cathead Operator Relationship Specialty Start Date End Date Juno Rogers MD PCP - General Internal Medicine 09/20/24 documented as of this encounter
--- OUTSIDE RECORDS SUMMARY | 2025-03-15 07:33 | XMS_ITS | Encounter Summary ---
Author Organization [facility] Address [address] [place] [address], [address] [place] [address] Care Team Providers Care Fitness Supervisor Name Role Phone Juno Rogers MD Primary Care Provider [phone] Reason for Visit * Reason Comments Medication Refill Encounter Details Date Type Department Care Team (Late st Contact Info) Description 11/14/2019 [facility] [address] [place], [place] [phone] Juno Rogers MD [address] [place] [phone] Medication Refill Social History Tobacco Use Types [...] unspecified documented in this encounter Care Teams Fitness Supervisor Relationship Specialty Start Date End Date Juno Rogers MD PCP - General Internal Medicine 05/22/18 documented as of this encounter
--- NOTE | 2025-03-15 07:35 | MR_ITS ---
The [address] [address] Patient Name: SHERYL VERGARA MRN: [id number] date: 1980 Sex: F Assigned Patient Location: MRI Current Patient Location: MRI Accession/Order Number: [id number] Exam Date: 03/15/2025 11:13 Report Date: 03/15/2025 11:41 At the request of: ANDRESSA PADILLA NP Procedure: MR lumbar spine wo con MRI LUMBAR THE LUMBAR SPINE PERFORMED WITHOUT CONTRAST INDICATION: Spinal stenosis of lumbar region, spondylosis COMPARISON: X-rays lumbar spine 12/04/2024 FINDINGS: Mild dextrocurvature. Otherwise, the Lumbar vertebral heights, alignment and bone marrow signal is unremarkable. Incidental hemangioma involving the T11 and S1 vertebral bodies. Mild intervertebral space narrowing L5-S1. Conus medullaris terminates normally at L1-L2 T12-L4: No significant disease, central canal or neural from narrowing identified. L4-5: Broad-based disc bulge with left foraminal zone protrusion with associated T2 hyperintense signal this appears to contact the exiting left L4 nerve root. Otherwise mild rights and [id number] left neural from narrowing. Mild facet arthropathy. L5-S1: Circumferential disc bulge paracentral protrusion with central bulge with associated T2 signal. There is moderate facet arthropathy. Mild foraminal narrowing. Canal is patent. MR/MR lumbar spine wo con IMPRESSION: Mild degenerative changes L4-S1 notably in left at L4-5, correlate with possible left L4 radiculopathy. Impression dictated by: Saud [place] M.D. 03/15/2025 11:41 AM Dictation Location: [place] [address] Electronically authenticated by: [id number] Y Date: 03/15/2025 11:41
== END 2025-03-15 07:31 | disposition home or self-care (01) ==
LOC: MRI 07:31
PROVIDERS: PCP Nurse Practitioner Family; Visit Provider Nurse Practitioner
DX: M48.062 Spinal stenosis, lumbar region with neurogenic claudication (principal); M47.816 Spondylosis without myelopathy or radiculopathy, lumbar region; M51.369 Other intervertebral disc degeneration, lumbar region without mention of lumbar back pain or lower extremity pain
CPT/HCPCS: 72148

== ENCOUNTER 2025-04-03 14:57 | Outpatient (OUT) | payer OTHER, SELFPAY ==
--- OUTSIDE RECORDS SUMMARY | 2025-04-03 15:00 | XMS_ITS | Encounter Summary ---
Author Organization [facility] Address [address] [place] [address], [address] [place] [address] Care Team Providers Care Food Service Manager Name Role Phone Juno Rogers MD Primary Care Provider [phone] Reason for Visit * Reason Comments Medication Refill Encounter Details Date Type Department Care Team (Late st Contact Info) Description 01/13/2020 [facility] [address] [place], [place] [phone] Juno Rogers MD [address] [place] [phone] Medication Refill Social History Tobacco Use Types [...] unspecified documented in this encounter Care Teams Food Service Manager Relationship Specialty Start Date End Date Juno Rogers MD PCP - General Internal Medicine 05/22/18 documented as of this encounter
--- OUTSIDE RECORDS SUMMARY | 2025-04-03 15:00 | XMS_ITS | Clinical Summary ---
Author Organization [facility] Address [address] [place] [address] Care Team Providers Care Wood Caulker Name Role Phone Juno Rogers MD Primary Care Provider [phone] Allergies No known active allergies Medications meloxicam (Mobic) 7.5 MG tablet Take 7.5 mg by mouth 2 (two) times a day as needed Active Active Problems Problem Noted Date Diagnosed Date Rectocele 12/07/2024 Encounters Date Type Department Care Team Description 02/04/2025 Bamboo flowsheet [facility] [address] [place] [phone] Kit Solitario DPM 02/01/2025 2:50 PM EDT Office Visit [facility] [address] [place] [phone] Kit Solitario DPM Plantar fasciitis (Primary Dx); Contracture of right ankle; Contracture of left ankle 01/26/2025 Refill [facility] [address] [place] [address] Kit Solitario DPM Onychomycosis from Last 3 [...] file Insurance [employer] Care Teams Wood Caulker Relationship Specialty Start Date End Date Juno Rogers MD PCP - General Internal Medicine 09/20/24
--- OUTSIDE RECORDS SUMMARY | 2025-04-03 15:00 | XMS_ITS | Encounter Summary ---
Author Organization [facility] Address [address] [facility] [address], [address] [place] [address] Care Team Providers Care Medical Instrument Cable Fabricator Name Role Phone Juno Rogers MD Primary Care Provider [phone] Encounter Details Date Type Department Care Team (Late st Contact Info) Description 01/01/2021 Telephone [facility] [address] [place], [place] [phone] Joe Kelly MD Social History Tobacco Use [...] on filedocumented in this encounter Care Teams Medical Instrument Cable Fabricator Relationship Specialty Start Date End Date Juno Rogers MD PCP - General Internal Medicine 05/22/18 documented as of this encounter
--- OUTSIDE RECORDS SUMMARY | 2025-04-03 15:00 | XMS_ITS | Clinical Summary ---
Author Organization [facility] Address [address] [place], [place] [phone] Care Team Providers Care Transit Operator Name Role Phone Steve Avila Primary Care Provider [phone] Medications XANAX 1MG TABLET Take one(1) tablet [...] 3-dose series) 2000 Cervical Cancer Screening 2002 HPV Vaccine (1 - 3-dose SCDM series) 2008 Mammogram Screening 2021 Influenza Vaccine (#1) 2025 Hepatitis C Screening [...] PM EDT) HCV RNA by PCR 3,400,000 [facility] Comment: IU/mL The linear range of this assay is 600 IU/mL to 700,000 IU/mL. This test was developed and its performance characteristics determined by the Clinical Laboratories of the [facility]. It has not been cleared or approved by the US Food and Drug Administration. The FDA has determined that such clearance or approval is not necessary. Blood specimen (specimen) BLOOD SPECIMEN / Unknown 04/20/2004 2:09 PM EDT Efrain Holland MD LABORATORY Final Result [facility] [address] [place] [address] from Last 3 Months or Most Recently Relevant to Health Maintenance Insurance [employer] Care Teams Transit Operator Relationship Specialty Start Date End Date Steve Avila [address] [place] [phone] PCP - General 03/03/04
--- OUTSIDE RECORDS SUMMARY | 2025-04-03 15:00 | XMS_ITS | Encounter Summary ---
Author Organization [employer] [facility] tem Address [id number] [address] [place] [address] Care Team Providers Care Front End Drupal Developer Name Role Phone Unavailable Primary Care Provider Unavailabl e Encounter Details Date Type Department Care Team (Late st Contact Info) Description 02/07/2023 Orders Only [facility] Ob[facility]necology [address] [place] [address] Joselin Wilson Menopause syndrome Social History [...] ORDERABLES Final Res ult Performing Organization Address [facility] de Phone Number SUNQUEST * Follicle stimulating hormone (01/20/2023) 01/20/2023 Rohini Banerjee MD LAB BLOOD ORDERABLES Final Res ult Performing Organization Address [facility] de Phone Number SUNQUEST * Luteinizing hormone (01/20/2023) 01/20/2023 Rohini Banerjee MD LAB BLOOD ORDERABLES Final Res ult Performing Organization Address [facility] de Phone Number SUNQUEST * T4, free (01/20/2023) 01/20/2023 us Rohini Banerjee MD LAB BLOOD ORDERABLES Final Res ult Performing Organization Address [facility] de Phone Number SUNQUEST * TSH (01/20/2023) 01/20/2023 us Rohini Banerjee MD LAB BLOOD ORDERABLES Final Res ult Performing Organization Address [facility] de Phone Number SUNQUEST * Lipid profile (01/20/2023) 01/20/2023 us Rohini Banerjee MD LAB BLOOD ORDERABLES Final Res ult Performing Organization Address [facility] Co de Phone Number SUNQUEST * Comprehensive metabolic panel (01/20/2023) 01/20/2023 us Rohini Banerjee MD LAB BLOOD ORDERABLES Final Res ult Performing Organization Address [facility] de Phone Number SUNQUEST * Vitamin D 25 (01/20/2023) 01/20/2023 Rohini aBnerjee MD LAB BLOOD ORDERABLES Final Res ult Performing Organization Address [facility] de Phone Number SUNQUEST * Hemoglobin A1c (01/20/2023) 01/20/2023 us Rohini Banerjee MD LAB BLOOD ORDERABLES Final Res ult Performing Organization Address [facility] Co de Phone Number SUNQUEST documented in this encounter Visit Diagnoses Diagnosis Menopause syndrome Symptomatic menopausal or female climacteric states documented in this encounter
--- OUTSIDE RECORDS SUMMARY | 2025-04-03 15:00 | XMS_ITS | Encounter Summary ---
Author Organization [employer] tem Address [id number] [address] [place] [address] Care Team Providers Care Peanut Cleaner Name Role Phone Unavailable Primary Care Provider Unavailabl e Encounter Details Date Type Department Care Team (Late st Contact Info) Description 10/25/2023 Telephone [facility] Obstetrics/Gynecology [address] [place] [address] Cira Harvey DO [address] [place] [address] Social History Tobacco Use Types [...]
--- OUTSIDE RECORDS SUMMARY | 2025-04-03 15:00 | XMS_ITS | Patient Health Record ---
Author Organization [facility] Address [address] [place] [address] Care Team Providers Care Clinical Informatics Spec Name Role Phone Edmundo Hammonds Primary Care [...] End Date [employer] [address] [place] [address] [id number] SHERYL VERGARA Self - patient is the insured 2 zMEDICAID [facility] after [facility] [address] [place] [address] [id number] SHERYL VERGARA Self - patient is the insured 2 zDENTAL [employer] [address] [address] [place] [address] [id number] SHERYL VERGARA Self - patient is the insured 2 zDental MEDICAID C after 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
--- OUTSIDE RECORDS SUMMARY | 2025-04-03 15:00 | XMS_ITS | Encounter Summary ---
Author Organization [facility] Address [address] [place] [address] Care Team Providers Care Chlorobutadiene Scrubber Operator Name Role Phone Juno Rogers MD Primary Care Provider [phone] Reason for Visit * Reason Comments Med Refill Encounter Details Date Type Department Care Team (Late st Contact Info) Description 01/26/2025 Refill [facility] [address] [facility] [address] [place] [id number] Kit Solitario DPM [address] [facility] [address] [place] [address] Onychomycosis Social History Tobacco Use Types Packs/Day [...] nail documented in this encounter Care Teams Chlorobutadiene Scrubber Operator Relationship Specialty Start Date End Date Juno Rogers MD PCP - General Internal Medicine 09/20/24 documented as of this encounter
--- OUTSIDE RECORDS SUMMARY | 2025-04-03 15:00 | XMS_ITS | Encounter Summary ---
Author Organization [facility] Address [address] [place] [address], [address] [place] [address] Care Team Providers Care Plate Washer Name Role Phone Juno Rogers MD Primary Care Provider [phone] Reason for Visit * Reason Comments Medication Refill Encounter Details Date Type Department Care Team (Late st Contact Info) Description 11/14/[address] [facility] Primary Care [address] [place], [place] [id number] Juno Rogers MD [address] [id number] Medication Refill Social History Tobacco Use Types [...] unspecified documented in this encounter Care Teams Plate Washer Relationship Specialty Start Date End Date Juno Rogers MD PCP - General Internal Medicine 05/22/18 documented as of this encounter
--- OUTSIDE RECORDS SUMMARY | 2025-04-03 15:00 | XMS_ITS | Clinical Summary ---
Author Organization [facility] Address [address] [facility], [address] [place] [address] Care Team Providers Care Senior Strategy Manager Name Role Phone Juno Rogers MD Primary Care Provider [phone] Allergies Active Allergy Reactions Criticality Noted Date [...] Diagnosed Date Resolved Date Cough 07/02/2019 10/08/2020 Immunizations Immunization Administration Dates Next Due Hep [...] place to sleep or slept in a prison (including now)? No 12/07/2022 Housing Stability Vital Sign Answer Olivier e Recorded Unable to Pay for Housing in the Last Year Not o n file 04/16/2024 Number of Times Moved in the Last Year Not on fi le 04/16/2024 At any time in the past 12 m [facility], were you homeless or living in a prison (including now)? No 04/16/2024 Food Insecurity Answer [...] Diabetes screen 2016 Lipids 2021 COVID-19 Vaccine ( - 2023-2 5 season) 2024 Breast cancer screen 01/20/2025 01/20/2023 Flu vaccine (#1) 03/22/2025 Depression Screen 04/16/2025 04/16/2024, 04/16/2024 HIV screen Completed 05/25/2018 Hepatitis A vaccine Completed 11/04/2020, 05/06/2020 HPV vaccine (No Doses Required) Completed Hib vaccine Aged Out No longer eligi [...] Most Recently Relevant to Health Maintenance [place] [address] [address] [address] Advance Directives Healthcare Agents on File Name Relationship Healthcare Agent Relationshi p Communication Faviola Naranjo Child Primary Decision Maker Care Teams Senior Strategy Manager Relationship Specialty Start Date End Date Juno Rogers MD PCP - General Internal Medicine 05/22/18
--- OUTSIDE RECORDS SUMMARY | 2025-04-03 15:00 | XMS_ITS | Encounter Summary ---
Author Organization [facility] Address [address] [place] [address] Care Team Providers Care Plan Checker Name Role Phone Juno Rogers MD Primary Care Provider [phone] Reason for Visit * Reason Comments Med Refill Encounter Details Date Type Department Care Team ([facility] st Contact Info) Description 12/26/2024 Refill [facility] [address] [facility] [address] [place] [id number] Kit Solitario DPM [address] [facility] [address] [place] [address] Onychomycosis Social History Tobacco Use Types Packs/Day [...] nail documented in this encounter Care Teams Plan Checker Relationship Specialty Start Date End Date Juno Rogers MD PCP - General Internal Medicine 09/20/24 documented as of this encounter
--- OUTSIDE RECORDS SUMMARY | 2025-04-03 15:00 | XMS_ITS | Clinical Summary ---
Author Organization [employer] tem Address [id number] [address] [place] [address] Care Team Providers Care Procurement Professional Logistics Name Role Phone Unavailable Primary Care Provider [...]
--- NOTE | 2025-04-03 15:21 | P.CN_ITS ---
Consult Note: HPI Data of Consult Patient: known to practice within the last 3 years Consult date: 11/15/24 Requesting Physician: Karolyn Baeza NP Primary Care Provider: GREGG WEAVER Consult Narrative Reason for consult: establish Narrative: Jazmin montilla pleasant 44 year old female presents for evaluation and management of chronic back, right hip, right knee pain for many years. previously evaluated by PCP and pain management in [place] without benefit. currently utilizing naproxen and baclofen with mild benefit. in the past failed flexeril and tramadol. pain today 3/10 but increasing to 10/10 at times with standing, walking, sitting, and lying on right hip. attended 1 PT visit with significant pain per pt. recent lumbar xray consitent with lumbar ddd and facet arthropathy L4-S1 and lumbar MRI with results below. pt noting new onset left foot pain and edema, hx of chronic foot pain and following with podiatry, but has noticed increased left foot pain/edema for 1.5 weeks without injury. cc:: CC: Karolyn Baeza NP Review of Systems 2 ROS0 Status of ROS 10 or more systems reviewed and unremark able except as noted in history and below Musculoskeletal Reports: back pain, neck pain and joint pain Meds Home Medications and Allergies Home Medications ?Medication ?Instructions ?Recorded ?Confirmed ?Type baclofen 10 mg tablet 10 mg PO TID PRN muscle spas m #90 11/15/24 Rx tabs meloxicam 7.5 mg tablet 7.5 mg PO BID PRN pain #60 t abs 11/15/24 Rx Exam Constitutional Documenting provider has reviewed patient's vital signs: yes Common normals: no apparent distress, oriented x3, healthy appearing, alert and well nourished General appearance: cooperative [facility] Common normals: normocephalic, hearing grossly normal bilaterally and moist oral mucous membranes Head and scalp: normocephalic Eye Common normals: PERRL Pupil: PERRL Neck & C-Spine Common normals: full ROM General: normal visual inspection Cervical spine: cervical ROM normal Chest Common normals: inspection of chest normal Respiratory Common normals: normal respiratory effort, no retractions and no use of accessory muscles Back & Pelvis Lumbar spine/lower back: lumbar ROM normal, pain with ROM, lumbar spinal tenderness Lumbar spinal tenderness location: L4 and L5 and straight leg raise positive right; no paraspinal muscle tenderness and no paraspinal muscle spasm Sacroiliac joints: SI joint(s) abnormal Other: right sij positive sayra(patricks), gaenslens, thigh thrust, compression test intermittent radiculopathy to right L4,5,S1 strength 5/5 in BLE Extremity Other: moderate edema to inner aspect of left foot with pain to touch. increased pain with flexion, extension, and rotation Extremity image (front): 2 1. 2. Neuro Common normals: oriented x3, CN's II-XII intact bilaterally, moves all extremities, no focal motor deficits, no sensory deficits noted and deep tendon reflexes 2+ bilaterally Sensorium/orientation: alert Motor exam: strength 5/5 throughout and no movement abnormalities noted Psych Common normals: mental status grossly normal, thought process normal, cooperative, affect normal, speech normal and activity/motor behavior normal Speech: normal speech Thought process: normal thought process Results Additional Findings Additional findings: If on a controlled substance or opioids, I have checked an [place]AR[place] report on this patient and there are no aberrancies noted in the prescribing history.??If on a controlled substance or opioid a drug screen was completed and reviewed within the last year, and if there has not been a drug screen completed we ordered one today to monitor higher risk, state monitored pain medication use. As part of providing excellent, safe, comprehensive care, the following was completed at our patient's visit: 1. A medication reconciliation and review to ensure accurate knowledge of current/active medications, including asking our patients to inform us about any [id number] medications or herbal remedies/nutritional supplements/alternative remedies. 2. A review to specifically ensure our patients have had annual screening for screening for depression, screening for tobacco use, and screening for unhealthy alcohol use. For concerning screenings had a discussion with the patient, provided patient education, and recommended follow-up with primary care provider when appropriate. If patient noted with a risk of falling, they received education on strength, gait, and balance training to prevent future risk of falling. Portions of this note may have been carried over from the previous visit and updated as appropriate. Please note this office utilizes paper charting in addition to the electronic medical record. A list of current medications, vitals, and PMH is available there as the clinical staff outside of myself do not have access to [employer] charting during the clinic day operations. As part of providing quality comprehensive care the current medications, vitals, and PMH were reviewed in the paper chart. Assessment and Plan Assessment and Plan (1) Lumbar stenosis with neurogenic claudication: Assessment and Plan: The patient has had over 3 months of moderate to severe low back with intermittent right leg pain with functional impairment and inadequate response to conservative care including NSAIDS (unless there are contraindication such as concurrent blood thinners), multiple oral or topical pain medications, and home exercise program/physical therapy.? The Oswestry Disability Index was completed, and the patient scored a 26%.? The patient noted the following:?? moderate to severe pain impacting ADLs (2) Degenerative disc disease (DDD) of lumbar region with discogenic back pain and leg pain: (3) Lumbar spondylosis: (4) Sacroiliitis: (5) Myalgia, other site: (6) Left foot pain: Plan proceed with right L4-5 L5-S1 TFESI under fluoroscopy for lumbar stenosis with NC update left foot xray for worsening left foot pain, refer back to podiatry Dr Solitario at [facility] for evaluation continue current medications f/u 2 weeks after injection
--- OUTSIDE RECORDS SUMMARY | 2025-04-03 15:41 | XMS_ITS | CCD ---
Author Organization [facility] Care Team Providers Care Manager Administrative Services Name Role Phone SUE JUNO Primary Care [...] JUNO Primary Care Unavailable Sue SKY [facility] Primary Care Provider Sue SKY [facility] Primary Care Provider Unavailable Primary Care Provider UnavailKIT Mora Attending Unavailable KIT SOLITARIO Attending Unavailable ERNIE PALMER Attending Unavailable ANA IBANEZ Referring Unavailab KIT Nunez Attending Unavailable Allergies Allergy Classification Reported Allergen(s) Allergy Type Date of Onset Reaction(s) Facility (1 source) Clindamycin Drug Allergy 07-02-2019 [facility] Repository (6 sources) celecoxib; Translations: [CELECOXIB] Drug Allergy 01-11-2023 [facility] Repository (1 source) Clindamycin Drug Allergy 07-02-2019 [facility] Medications Current Medications Medication Drug Class(es) [...] Glass Jr., MD 04/16/24 Final result Normal [facility] Measure post void residualon 12-07-2023 Volume 45ml [facility] POCT urinalysis dipstick onl yon 12-07-2023 Appearance (U) clear [facility] External Poct Urine Blood Negative [facility] External Poct Urine Character clear [facility] External Poct Urine Color dark yellow [facility] External Poct Urine Glucose Negative [facility] External Poct Urine Ketones Negative [facility] External Poct Urine Leukocyte Esterase Negative [facility] External Poct Urine Nitrite Negative [facility] External Poct Urine Ph 5.0 [facility] External Poct Urine Protein 3+ [facility] XR ankle LT min 3V*on 2021 XR ankle LT min 3V* [facility] [address] [place] [address] XRay Report Signed Patient: Jazmin Cassidy MR#: [id number] 35 : 1980 Acct:[id number] Age/Sex: 41 / F ADM Date: 02/24/22 Loc: XDUCLY Room: Type: [facility] Attending Dr: Yazmin SORIA Copies to: YANG [...] Raoul Lindsey M.D.02/24/2022 7:00 PM Dictation Location: [place] [address] Transcribed By: [facility] 02/24/221899 Dictated By: Raoul Lindsey DO 02/24/22 185 Signed By: 02/24/22 190 Normal [facility] XR ankle LT min 3V* [facility] [employer] Other XR ankle LT min 3V* [facility] [employer] Other XR ankle LT min 3V* [address] [facility] [employer] Other XR ankle LT min 3V* [place] [address] [facility] [employer] Other XR ankle LT min 3V* XRay Report [facility] [employer] Other XR ankle LT min 3V* Signed [facility] Other XR ankle LT min 3V* Patient: Jazmin Cassidy MR#: [id number] [facility] Other XR ankle LT min 3V* 35 [facility] Other XR ankle LT min 3V* : 1980 Acct:[id number] [facility] Other XR ankle LT min 3V* Age/Sex: 41 / F ADM Date: 02/24/22 [facility] Other XR ankle LT min 3V* Loc: XDUCLY Room: Type: [facility] Other XR ankle LT min 3V* Attending Dr: Yazmin SORIA [facility] Other XR ankle LT min 3V* Copies to: YANG Dubon [facility] Other XR ankle LT min 3V* Ordering Provider: YANG Dubon [facility] Other XR ankle LT min 3V* Date of Service: 02/24/22 [facility] Other XR ankle LT min 3V* XR/XR ankle LT min 3V*: LEFT ANKLE INJURY [facility] Other XR ankle LT min 3V* 3views LEFTankle [facility] Other XR ankle LT min 3V* COMPARISON:None [facility] Other XR ankle LT min 3V* HISTORY: LEFT ankle injury. [facility] Other XR ankle LT min 3V* Mild anterior soft tissue swelling present. Tiny bony density inferior to the lateral malleolus [facility] Other XR ankle LT min 3V* may represent small avulsion fracture. Ankle mortise preserved. [facility] Other XR ankle LT min 3V* XR/XR ankle LT min 3V* [facility] Other XR ankle LT min 3V* IMPRESSION: Small avulsion fracture inferior to the lateral malleolus. [facility] Other XR ankle LT min 3V* Impression dictated by: Raoul Lindsey M.D.02/24/2022 7:00 PM [facility] Other XR ankle LT min 3V* Dictation Location: [place] [address] [facility] Other XR ankle LT min 3V* Transcribed By: PWS 02/24/22 190 [facility] Other XR ankle LT min 3V* Dictated By: Raoul Lindsey DO 02/24/22 1859 [facility] Other XR ankle LT min 3V* Signed By: [facility] Other XR ankle LT min 3V* 02/24/22 190 [facility] Other CBC AUTO DIFFon 08-06-2021 BASO # 0.0 103/ul Normal 0.0-0.1 [facility] Comment on above: Performed By: #### C BC #### [facility] [address] [place] [address] Dr. Javier Hinton Basophils/100 WBC (Bld) 0.3 % Normal 0.2-2.0 [facility] Comment on above: Performed By: #### C BC #### [facility] [address] [place] [address] Dr. Javier Hinton EO # 0.0 103/ul Normal 0.0-0.7 [facility] Comment on above: Performed By: #### C BC #### [facility] [address] [place] [address] Dr. Javier Hinton Eosinophils/100 WBC (Bld) 0.3 % Critically low 0.9-7.0 [facility] Comment on above: Performed By: #### C BC #### [facility] [address] [place] [address] Dr. Javier Hinton Erythrocyte distribution width (RBC) [Ratio] 13.3 % Normal 11.0-15.0 [facility] Comment on above: Performed By: #### C BC #### [facility] [address] [place] [address] Dr. Javier Hinton Hematocrit (Bld) [Volume fraction] 41.7 % Normal 36.0-48.0 [facility] Comment on above: Performed By: #### C BC #### [facility] [address] [place] [address] Dr. Javier Hinton Hemoglobin (Bld) [Mass/Vol] 13.7 g/dL Normal 12.0-16.0 [facility] Comment on above: Performed By: #### C BC #### [facility] [address] [place] [address] Dr. Javier Hinton IG # 0.01 10e3/ul Normal 0.00-0.03 [facility] Comment on above: Performed By: #### C BC #### [facility] [address] [place] [address] Dr. Javier Hinton IG % 0.3 % Normal 0.0-0.5 [facility] Comment on above: Performed By: #### C BC #### [facility] [address] [place] [address] Dr. Javier Hinton LYMPH # 1.2 103/ul Normal 1.2-3.8 [facility] Comment on above: Performed By: #### C BC #### [facility] [address] [place] [address] Dr. Javier Hinton Lymphocytes/100 WBC (Bld) 31.4 % Normal 20.5-60.0 [facility] Comment on above: Performed By: #### C BC #### [facility] [address] [place] [address] Dr. Javier Hinton MANUAL DIFF REQ NO Normal [facility] Comment on above: Performed By: #### C BC #### [facility] [address] [place] [address] Dr. Javier Hinton MCH (RBC) [Entitic mass] 28.0 pg Normal 26.7-34.0 [facility] Comment on above: Performed By: #### C BC #### [facility] [address] [place] [address] Dr. Javier Hinton MCHC (RBC) [Mass/Vol] 32.9 g/dL Normal 29.9-35.2 [facility] Comment on above: Performed By: #### C BC #### [facility] [address] [place] [address] Dr. Javier Hinton MCV (RBC) [Entitic vol] 85.1 fL Normal 81.0-99.0 [facility] Comment on above: Performed By: #### C BC #### [facility] [address] [place] [address] Dr. Javier Hinton MONO # 0.3 103/ul Normal 0.3-0.8 [facility] Comment on above: Performed By: #### C BC #### [facility] [address] [place] [address] Dr. Javier Hinton Monocytes/100 WBC (Bld) 8.7 % Normal 1.7-12.0 [facility] Comment on above: Performed By: #### C BC #### [facility] [address] [place] [address] Dr. Javier Hinton NEUT # 2.3 103/ul Normal 1.4-6.5 [facility] Comment on above: Performed By: #### C BC #### [facility] [address] [place] [address] Dr. Javier Hinton Neutrophils/100 WBC (Bld) 59.0 % Normal 43.0-75.0 [facility] Comment on above: Performed By: #### C BC #### [facility] [address] [place] [address] Dr. Javier Hinton Platelet mean volume (Bld) [Entitic vol] 9.3 fL Critically low 9.5-13.5 [facility] Comment on above: Performed By: #### C BC #### [facility] [address] [place] [address] [address] Javier Hinton PLT 187 103/ul Normal 150-450 [facility] Comment on above: Performed By: #### C BC #### [facility] [address] [place] [id number] Javier Hinton RBC 4.90 106/ul Normal 4.20-5.40 [facility] Comment on above: Performed By: #### C BC #### [facility] [address] [place] [id number] Javier Hinton WBC 3.9 103/ul Critically low 4.0-11.0 [facility] Comment on above: Performed By: #### C BC #### [facility] [address] [place] [address] Dr. Javier Hinton Covid-19 PCR (CVDTBH)on 07-22 SARS-CoV-2 (COVID-19) RNA MITRA+probe Ql (Unsp spec) Detected Critically abnormal NOT DETECTED [facility] Comment on above: Result Comment: This test is not yet approved or cleared by the [place] FDA. When there are no FDA-approved or cleared tests available, and other criteria are met, FDA can make tests available under an emergency access mechanism called an Emergency Use Authorization (EUA). The EUA for this test is supported by the [place] of Health and Human Service's declaration that [...] used). Performed By: #### C VDTBH #### [facility] [address] [place] [address] Dr. Javier Hinton ER URINE PROFILEon Bilirubin Ql (U) Negative Normal NEGATIVE [facility] [place] [facility] Comment on above: Performed By: #### E RUR #### [facility] [address] [place] [address] Dr. Javier Hinton Clarity (U) CLEAR Normal CLEAR [facility] Comment on above: Performed By: #### E RUR #### [facility] [address] [place] [address] Dr. Javier Hinton Color (U) YELLOW Normal YELLOW [facility] Comment on above: Performed By: #### E RUR #### [facility] [address] [place] [address] Dr. Javier FRANK A micrscopic examination will be performed if indicated. Normal [facility] Comment on above: Performed By: #### E RUR #### [facility] [address] [place] [address] Dr. Javier Hinton Glucose Ql (U) Negative Normal NEGATIVE [facility] Comment on above: Performed By: #### E RUR #### [facility] [address] [place] [address] Dr. Javier Hinton Hemoglobin Ql (U) Negative Normal NEGATIVE [facility] Comment on above: Performed By: #### E RUR #### [facility] [address] [place] [address] Dr. Javier Hinton Ketones Ql (U) 40 mg/dl Abnormal NEGATIVE [facility] Comment on above: Performed By: #### E RUR #### [facility] [address] [place] [address] Dr. Javier Hinton LEUKOCYTES Negative Normal NEGATIVE [facility] Comment on above: Performed By: #### E RUR #### [facility] [address] [place] [address] Dr. Javier Hinton Nitrite Ql (U) Negative Normal NEGATIVE [facility] Comment on above: Performed By: #### E RUR #### [facility] [address] [place] [address] Dr. Javier Hinton pH (U) 6.0 [pH] Normal 5-9 [facility] Comment on above: Performed By: #### E RUR #### [facility] [address] [place] [address] Dr. Javier Hinton Protein (U) [Mass/Vol] 30 mg/dL Abnormal NEGATIVE/ TRACE [facility] Comment on above: Performed By: #### E RUR #### [facility] [address] [place] [address] Dr. Javier Hinton SPEC GRAVITY 1.025 Normal 1.005-<=1.025 [facility] Comment on above: Performed By: #### E RUR #### [facility] [address] [place] [address] [address] Javier Hinton UR MICRO IND NOT INDICATED Normal [facility] Comment on above: Performed By: #### E RUR #### [facility] [address] [place] [address] Dr. Javier Hinton Urobilinogen Qn (U) 0.2 {Ericka'U}/dL Normal 0.2 - 1.0 [facility] Comment on above: Performed By: #### E RUR #### [facility] [address] [place] [address] Dr. Javier Hinton INFLUENZA A AND B AGon 08-06 INFLUANEGH SEE BELOW Normal [facility] Comment on above: Result Comment: Nega tive for Flu A protein angiten. Infection due to Flu A cannot be ruled out. Flu A angiten in the sample may be below the detection limit of the test. Performed By: #### I NFLUAB ####[facility] [address] [place], [place] [address]DrKem Hinton INFLUBNEGH SEE BELOW Normal [facility] Comment on above: Result Comment: Nega tive for Flu B protein antigen. Infection due to Flu B cannot be ruled out. Flu B antigen in the sample may be below the detection limit of the test. Performed By: #### I NFLUAB ####[facility] [address] [place], [place] [address]DrKem Hinton INFLUENZA A AG Negative Normal NEGATIVE SEE COMMENT [facility] Comment on above: Performed By: #### I NFLUAB ####[facility] [address] [place], [place] [address]Dr. Javier Hinton INFLUENZA B AG Negative Normal NEGATIVE SEE COMMENT [facility] Comment on above: Performed By: #### I NFLUAB ####[facility] [address] [place] [address]Dr. Javier Hinton INTERNAL CONTROLS Within Normal Limits Normal Within Normal Limits [facility] Comment on above: Performed By: #### I NFLUAB ####[facility] [address] [place] [id number]. Javier Hinton LACTATE/LACTIC ACIDon 2020 Lactate [Moles/Vol] 0.9 mmol/L Normal 0.7-2.0 [facility] Comment on above: Performed By: #### L ACT ####[facility] [address] [place] [address]Dr. Javier Hinton PROF 14(COMP METB)on Albumin [Mass/Vol] 3.7 g/dL Normal 3.5-5.0 [facility] Comment on above: Performed By: #### H GAYE, CMP #### [facility] [address] [place] [address] [address] Javier Hinton Albumin/Globulin [Mass ratio] 0.9 {ratio} Normal [facility] Comment on above: Performed By: #### H GAYE, CMP #### [facility] [address] [place] [address] [address] Javier Hinton ALP [Catalytic activity/Vol] 88 U/L Normal 38-126 [facility] Comment on above: Performed By: #### H GAYE, CMP #### [facility] [address] [place] [address] [address] Javier Hinton ALT [Catalytic activity/Vol] 28 U/L Normal 9-52 [facility] Comment on above: Performed By: #### H GAYE, CMP #### [facility] [address] [place] [address] [address] Javier Hinton Anion gap [Moles/Vol] 14.5 mmol/L Normal [facility] Comment on above: Performed By: #### H GAYE, CMP #### [facility] [address] [place] [address] [address] Javier Hinton AST [Catalytic activity/Vol] 26 U/L Normal 14-36 [facility] Comment on above: Performed By: #### H STROPN, CMP #### [facility] [address] [place] [address] [address] Javier Hinton Bilirubin [Mass/Vol] 0.7 mg/dL Normal 0.2-1.3 [facility] Comment on above: Performed By: #### H STROPN, CMP #### [facility] [address] [place] [address] Dr. Javier Hinton Calcium [Mass/Vol] 9.0 mg/dL Normal 8.4-10.2 [facility] Comment on above: Performed By: #### H STROPN, CMP #### [facility] [address] [place] [address] Dr. Javier iHnton Chloride [Moles/Vol] 99 mmol/L Normal 98-107 [facility] Comment on above: Performed By: #### H STROPN, CMP #### [facility] [address] [place] [address] Dr. Javier Hinton CO2 [Moles/Vol] 29.2 mmol/L Normal 22.0-30.0 [facility] [place] [facility] Comment on above: Performed By: #### H STROPN, CMP #### [facility] [address] [place] [address] Dr. Javier Hinton Creatinine [Mass/Vol] 0.80 mg/dL Normal 0.52-1.04 [facility] Comment on above: Performed By: #### H STROPN, CMP #### [facility] [address] [place] [address] Dr. Javier Hinton EGFR-AF IVORIAN Normal >=60 [facility] [place] [facility] Comment on above: Performed By: #### H STROPN, CMP #### [facility] [address] [place] [address] Dr. Javier Hinton EGFR-NON AF IVORIAN Normal >=60 [facility] Comment on above: Performed By: #### H STROPN, CMP #### [facility] [address] [place] [address] Dr. Javier Hinton Globulin (S) [Mass/Vol] 4.3 g/dL Normal [facility] Comment on above: Performed By: #### H GAYE, CMP #### [facility] [address] [place] [address] [address] Javier Hinton Glucose [Mass/Vol] 91 mg/dL Normal 74-106 [facility] Comment on above: Performed By: #### H GAYE, CMP #### [facility] [address] [place] [address] [address] Javier Hinton Potassium [Moles/Vol] 3.7 mmol/L Normal 3.4-5.0 [facility] Comment on above: Performed By: #### H GAYE, CMP #### [facility] [address] [place] [address] Dr. Javier Hinton Protein [Mass/Vol] 8.0 g/dL Normal 6.1-8.2 [facility] Comment on above: Performed By: #### H GAYE, CMP #### [facility] [address] [place] [address] Dr. Javier Hinton Sodium [Moles/Vol] 139 mmol/L Normal 137-145 [facility] Comment on above: Performed By: #### H GAYE, CMP #### [facility] [address] [place] [address] Dr. Javier Hinton Urea nitrogen [Mass/Vol] 15.0 mg/dL Normal 7.0-17.0 [facility] Comment on above: Performed By: #### H GAYE, CMP #### [facility] [address] [place] [address] Dr. Javier Hinton Urea nitrogen/Creatinin e [Mass ratio] 18.8 mg/mg Normal [facility] Comment on above: Performed By: #### H GAYE, CMP #### [facility] [address] [place] [address] Dr. Javier Hinton TROPONIN, HIGH SENSITIVITYon 08-06-2021 HSTROP 4.8 pg/mL Normal 4.0-35.5 [facility] Comment on above: Result Comment: CUT- OFF POINTS HAVE BEEN ESTABLISHED BASED ON THE FOURTH UNIVERSAL DEFINITIONS OF MYOCARDIAL INFARCTION. THE UPPER REFERENCE LIMIT (URL) OF TROPONIN, DEFINED THE 99TH PERCENTILE OF cTnI DISTRIBUTION IN A REFERENCE POPULATION, HAS BEEN CONFIRMED THE DECISION THRESHOLD FOR [place] DIAGNOSIS. Performed By: #### H GAYE, CMP #### [facility] [address] [place], [place] [address] Dr. Javier Hinton XR CHEST 1 Von [...] SHERITA BOOKER Date: 2021-08-06 16:56 Normal [facility] Covid-19 PCR (CVDTBH)on 04-23 SARS-CoV-2 (COVID-19) RNA MITRA+probe Ql (Unsp spec) Detected Critically abnormal NOT DETECTED [facility] Comment on above: Result Comment: This test is not yet approved or cleared by the [place] FDA. When there are no FDA-approved or cleared tests available, and other criteria are met, FDA can make tests available under an emergency access mechanism called an Emergency Use Authorization (EUA). The EUA for this test is supported by the [place] of Health and Human Service's (HHS's) declaration [...] used). Performed By: #### C VDTBH #### [facility] [address] [place], [place] [address] Dr. Javier Hinton AMYLASEon 03-03-2021 Amylase [Catalytic activity/Vol] 55 U/L Normal 31-110 [facility] Comment on above: Performed By: #### C CAROLYN MCKEON LIPA #### [facility] [address] [place], [place] [address] Reji Debbie CBC AUTO DIFFon 03-03-2021 BASO # 0.0 103/ul Normal 0.0-0.1 [facility] Comment on above: Performed By: #### C BC ####[facility] [address] [place], [place] [address]Uvvjaa Debbie Basophils/100 WBC (Bld) 0.6 % Normal 0.2-2.0 [facility] Comment on above: Performed By: #### C BC ####[facility] [address] [place], [place] [address]Htboli Debbie EO # 0.1 103/ul Normal 0.0-0.7 [facility] Comment on above: Performed By: #### C BC ####[facility] [address] [place], [place] [address]Uwkisk Debbie Eosinophils/100 WBC (Bld) 2.1 % Normal 0.9-7.0 [facility] Comment on above: Performed By: #### C BC ####[facility] [address] [place], [place] [address]Pwpudb Debbie Erythrocyte distribution width (RBC) [Ratio] 12.7 % Normal 11.0-15.0 [facility] Comment on above: Performed By: #### C BC ####[facility] [address] [place], [place] [address]Xzxcjv Debbie Hematocrit (Bld) [Volume fraction] 38.8 % Normal 36.0-48.0 [facility] Comment on above: Performed By: #### C BC ####[facility] [address] [place], [place] [address]Kxymlp Debbie Hemoglobin (Bld) [Mass/Vol] 12.8 g/dL Normal 12.0-16.0 [facility] Comment on above: Performed By: #### C BC ####[facility] [address] Debbie IG # 0.02 10e3/ul Normal 0.00-0.03 [facility] Comment on above: Performed By: #### C BC ####[facility] [address] Debbie IG % 0.3 % Normal 0.0-0.5 [facility] Comment on above: Performed By: #### C BC ####[facility] [address] [place] [address] Debbie LYMPH # 2.3 103/ul Normal 1.2-3.8 [facility] Comment on above: Performed By: #### C BC ####[facility] [facility] [address] [place] [address] Debbie Lymphocytes/100 WBC (Bld) 33.7 % Normal 20.5-60.0 [facility] Comment on above: Performed By: #### C BC ####[facility] [address] [place] [address] Debbie MANUAL DIFF REQ NO Normal [facility] Comment on above: Performed By: #### C BC ####[facility] Eulsbdwrox[address] [place] [address] Debbie MCH (RBC) [Entitic mass] 28.1 pg Normal 26.7-34.0 [facility] Comment on above: Performed By: #### C BC ####[facility] [address] [place] [address] Debbie MCHC (RBC) [Mass/Vol] 33.0 g/dL Normal 29.9-35.2 [facility] Comment on above: Performed By: #### C BC ####[facility] Anskeazxcd[address] [place] [address] Debbie MCV (RBC) [Entitic vol] 85.3 fL Normal 81.0-99.0 [facility] Comment on above: Performed By: #### C BC ####[facility] Ek[address] [place] [address] Debbie MONO # 0.5 103/ul Normal 0.3-0.8 [facility] Comment on above: Performed By: #### C BC ####[facility] [address]bf[address] [place] [address]Reji Lewis Monocytes/100 WBC (Bld) 7.9 % Normal 1.7-12.0 [facility] Comment on above: Performed By: #### C BC ####[facility] Odqjbtlkgx9796 [address] Kingsleyen NEUT # 3.7 103/ul Normal 1.4-6.5 [facility] Comment on above: Performed By: #### C BC ####[facility] Zcdnagduex[address] [place], [place] [address]gino Lewis Neutrophils/100 WBC (Bld) 55.4 % Normal 43.0-75.0 [facility] Comment on above: Performed By: #### C BC ####[facility] X[address] [place], [place] [address]Reji Lewis Platelet mean volume (Bld) [Entitic vol] 9.6 fL Normal 9.5-13.5 [facility] Comment on above: Performed By: #### C BC ####[facility] E[address]wwx[address] [place], [place] [address]Reji Lewis PLT 291 103/ul Normal 150-450 [facility] Comment on above: Performed By: #### C BC ####[facility] [address] [place], [place] [address]Reji Kingsleyen RBC 4.55 106/ul Normal 4.20-5.40 [facility] Comment on above: Performed By: #### C BC ####[facility] [address]xm[address] [place] [address]Reji Kingsleyen WBC 6.7 103/ul Normal 4.0-11.0 [facility] Comment on above: Performed By: #### C BC ####[facility] [address] [place], [place] [address]Reji Lewis ER URINE PROFILEon 1 Bilirubin Ql (U) Negative Normal NEGATIVE [facility] [place] [facility] Comment on above: Performed By: #### E RUR ####[facility] L[address]rjwbtve[address] [place], [place] [id number] Debbie Clarity (U) CLEAR Normal CLEAR [facility] Comment on above: Performed By: #### E RUR ####[facility] L[address]woxvnl[address]386 [place], [place] [address]Yktbpw Debbie Color (U) LT. YELLOW Normal YELLOW [facility] Comment on above: Performed By: #### E RUR ####[facility] [address]th[address] [place], [place] [address]Gerken Debbie ERUAHD A micrscopic examination will be performed if indicated. Normal [facility] Comment on above: Performed By: #### E RUR ####[facility] F[address] [place], [place] [address]Gerken Debbie Glucose Ql (U) Negative Normal NEGATIVE [facility] Comment on above: Performed By: #### E RUR ####[facility] Oswt[address]cqbh[address] [place], [place] [address]Gerken Debbie Hemoglobin Ql (U) Negative Normal NEGATIVE [facility] Comment on above: Performed By: #### E RUR ####[facility] [address]of[address]hts[address] [place], [place] [address]Gerken Debbie Ketones Ql (U) Negative Normal NEGATIVE [facility] Comment on above: Performed By: #### E RUR ####[facility] Emo[address] [place], [place] [address]Gerken Debbie LEUKOCYTES Negative Normal NEGATIVE [facility] Comment on above: Performed By: #### E RUR ####[facility] Uavvaeasbo[address] [place], [place] [address]Gerken Debbie Nitrite Ql (U) Negative Normal NEGATIVE [facility] Comment on above: Performed By: #### E RUR ####[facility] D[address]zsis[address] [place], [place] [address]Gerken Debbie pH (U) 6.0 [pH] Normal 5-9 [facility] Comment on above: Performed By: #### E RUR ####[facility] Scyswbnvdt50[address] [place], [place] [address]RespliReji Lewis SPEC GRAVITY 1.010 Normal 1.005-<=1.025 [facility] Comment on above: Performed By: #### E RUR ####[facility] Bol[address]gaio[address] [place], [place] [address]NxhxwrReji Lewis UA PROTEIN Negative Normal NEGATIVE/ TRACE [facility] Comment on above: Performed By: #### E RUR ####[facility] [address]sa[address] [place] [address]Reji Kingsleyen UR MICRO IND NOT INDICATED Normal [facility] Comment on above: Performed By: #### E RUR ####[facility] [address]ht[address] [place] [address]Reji Lewis Urobilinogen Qn (U) 0.2 {Ericka'U}/dL Normal 0.2 - 1.0 [facility] Comment on above: Performed By: #### E RUR ####[facility] [address]cbar[address] [place] [address]Reji Lewis LIPASEon 03-03-2021 Lipase [Catalytic activity/Vol] 67.0 U/L Normal 23.0-300.0 [facility] Comment on above: Performed By: #### C CAROLYN MCKEON, LIPA #### [facility] [address] [id number] Reji Lewis PROF 14(COMP METB)on 021 Albumin [Mass/Vol] 4.2 g/dL Normal 3.5-5.0 [facility] Comment on above: Performed By: #### C MIKE CAROLYN, LIPA #### [facility] [address] [address] Reji Debbie Albumin/Globulin [Mass ratio] 1.2 {ratio} Normal [facility] Comment on above: Performed By: #### C MIKE CAROLYN, LIPA #### [facility] [address] [address] Reji Debbie ALP [Catalytic activity/Vol] 94 U/L Normal 38-126 [facility] Comment on above: Performed By: #### C MP, CAROLYN, LIPA #### [facility] [address] [place] [address] Reji Debbie ALT [Catalytic activity/Vol] 27 U/L Normal 9-52 [facility] Comment on above: Performed By: #### C MP, CAROLYN, LIPA #### [facility] [address] [place] [address] Reji Debbie Anion gap [Moles/Vol] 10.2 mmol/L Normal [facility] Comment on above: Performed By: #### C MP, CAROLYN, LIPA #### [facility] [address] [place] [address] Reji Debbie AST [Catalytic activity/Vol] 13 U/L Critically low 14-36 [facility] Comment on above: Performed By: #### C MP, CAROLYN, LIPA #### [facility] [address] [place] [address] Reji Debbie Bilirubin [Mass/Vol] 0.5 mg/dL Normal 0.2-1.3 [facility] Comment on above: Performed By: #### C MP, CAROLYN, LIPA #### [facility] [address] [place] [address] Reji Debbie Calcium [Mass/Vol] 9.3 mg/dL Normal 8.4-10.2 [facility] Comment on above: Performed By: #### C MP, CAROLYN, LIPA #### [facility] [address] [place] [address] Reji Debbie Chloride [Moles/Vol] 106 mmol/L Normal 98-107 [facility] Comment on above: Performed By: #### C MP, CAROLYN, LIPA #### [facility] [address] [place] [address] Reji Debbie CO2 [Moles/Vol] 25.7 mmol/L Normal 22.0-30.0 [facility] Comment on above: Performed By: #### C MP, CAROLYN, LIPA #### [facility] [address] [place] [address] Reji Debbie Creatinine [Mass/Vol] 0.78 mg/dL Normal 0.52-1.04 [facility] Comment on above: Performed By: #### C CAROLYN MCKEON, LIPA #### [facility] [address] [place], [place] [address] Reji Debbie EGFR-AF IVORIAN >60 Normal >=60 [facility] [place] [facility] Comment on above: Performed By: #### C MIKE CAROLYN, LIPA #### [facility] [address] [place] [address] Reji Debbie EGFR-NON AF IVORIAN >60 Normal >=60 [facility] Comment on above: Performed By: #### C MIKE CAROLYN, LIPA #### [facility] [address] [place] [address] Reji Debbie Globulin (S) [Mass/Vol] 3.4 g/dL Normal [facility] Comment on above: Performed By: #### C MIKE CAROLYN, LIPA #### [facility] [address] [place] [address] Reji Debbie Glucose [Mass/Vol] 94 mg/dL Normal 74-106 [facility] Comment on above: Performed By: #### C MIKE CAROLYN, LIPA #### [facility] [address] [place] [address] Reji Debbie Potassium [Moles/Vol] 3.9 mmol/L Normal 3.4-5.0 [facility] Comment on above: Performed By: #### C MIKE CAROLYN, LIPA #### [facility] [address] [place] [address] Reji Debbie Protein [Mass/Vol] 7.6 g/dL Normal 6.1-8.2 [facility] Comment on above: Performed By: #### C CAROLYN MCKEON, LIPA #### [facility] [address] [place] [address] Reji Debbie Sodium [Moles/Vol] 138 mmol/L Normal 137-145 [facility] Comment on above: Performed By: #### C MIKE CAROLYN, LIPA #### [facility] [address] [place] [address] Reji Debbie Urea nitrogen [Mass/Vol] 14.0 mg/dL Normal 7.0-17.0 [facility] Comment on above: Performed By: #### C CAROLYN MCKEON LIPA #### [facility] [address] [place], [place] [address] Reji Lewis Urea nitrogen/Creatinin e [Mass ratio] 17.9 mg/mg Normal [facility] Comment on above: Performed By: #### C CAROLYN MCKEON LIPA #### [facility] [address] [place], [place] [address] Reji Lewis Vital Signs Date Time Vital Sign Value Performing Clinician Facility 12-07-2024 10:09-0400 Body height 172.7 cm Ernie JeffersonLootWorksemili DO Work Phone: [facility] 12-07-2024 10:09-0400 Body mass index (BMI) [Ratio] 27.98 kg/m2 Ernie Snapette Work Phone: [facility] 12-07-2024 10:09-0400 Body weight 83.46 kg Ernie Jeffersonrosanneemili DO Work Phone: [facility] 11-01-2024 11:16-0400 Body height 172.7 cm Kit Solitario DPM Work Phone: [facility] 11-01-2024 11:16-0400 Body mass index (BMI) [Ratio] 27.83 kg/m2 Kit Solitario DPM Work Phone: [facility] 11-01-2024 11:16-0400 Body weight 83.01 kg Kit Solitario DPM Work Phone: [facility] 11-01-2024 11:16-0400 Respiratory rate 18 /min Kit Solitario DPM Work Phone: [facility] 09-20-2024 10:00-0500 Body height 172.7 cm Kit Solitario DPM Work Phone: [facility] 09-20-2024 10:00-0500 Body mass index (BMI) [Ratio] 27.83 kg/m2 Kit Solitario DPM Work Phone: [facility] 09-20-2024 10:00-0500 Body weight 83.01 kg Kit Solitario DPM Work Phone: [facility] 09-20-2024 10:00-0500 Respiratory rate 18 /min Kit Solitario DPM Work Phone: [facility] 12-07-2023 14:26-0400 Body height 172.7 cm Kedar Agee MD Work Phone: [facility] 12-07-2023 14:26-0400 Body mass index (BMI) [Ratio] 31.47 kg/m2 Kedar Agee MD Work Phone: [facility] 12-07-2023 14:26-0400 Body temperature 97.7 [degF] Kedar Agee MD Work Phone: [facility] 12-07-2023 14:26-0400 Body weight 93.89 kg Kedar Agee MD Work Phone: [facility] 12-07-2023 14:26-0400 Diastolic blood pressure 86 mm[Hg] Kedar Agee MD Work Phone: [facility] 12-07-2023 14:26-0400 Heart rate 72 /min Kedar Agee MD Work Phone: [facility] Comment on above: 98o2 12-07-2023 14:26-0400 Respiratory rate 14 /min Kedar Agee MD Work Phone: [facility] 12-07-2023 14:26-0400 Systolic blood pressure 126 mm[Hg] Kedar Agee MD Work Phone: [facility] 10-18-2023 09:54-0500 Body height 172.7 cm Mariana Beltran DO Work Phone: [facility] 10-18-2023 09:54-0500 Body mass index (BMI) [Ratio] 31.32 kg/m2 Glocal DO Work Phone: [employer] 10-18-2023 09:54-0500 Body weight 93.44 kg Mariana Beltran DO Work Phone: [employer] 10-18-2023 09:54-0500 Diastolic blood pressure 82 mm[Hg] Mariana Heyday DO Work Phone: [employer] 10-18-2023 09:54-0500 Systolic blood pressure 120 mm[Hg] Mariana Heyday DO Work Phone: [employer] 02-24-2022 18:55-0400 Body height 171.45 cm Yazmin Cash Other [facility] Other 02-24-2022 18:55-0400 Body mass index (BMI) [Ratio] 29.62 kg/m2 Yazmin Cash Other [facility] Other 02-24-2022 18:55-0400 Body temperature 98.2 [degF] Yazmin Shreya Other [facility] Other 02-24-2022 18:55-0400 Body weight 87.09 kg Yazmin Shreya Other [facility] Other 02-24-2022 18:55-0400 Diastolic blood pressure 87 mm[Hg] Yazmin Shreya Other [facility] Other 02-24-2022 18:55-0400 Respiratory rate 18 /min Yazmin Cash Other [facility] Other 02-24-2022 18:55-0400 SaO2% (BldA) [Mass fraction] 100 % Yazmin Cash Other [facility] Other 02-24-2022 18:55-0400 Systolic blood pressure 129 mm[Hg] Yazimn Cash Other [facility] Other Encounters Encounter Date Encounter Type Care [...] 45 minutes Ernie Palmer DO Work Phone: [facility] Comment on above: Rectocele [...] Bamboo flowsheet Kit Solitario DPM Work Phone: [facility] Start: 09-20-2024 End: 09-20-2024 Bamboo flowsheet Kit Solitaroi DPM Work Phone: [facility] Start: 09-20-2024 End: 09-20-2024 ambulatory KIT SOLITARIO Not Available Start: 09-20-2024 End: 09-20-2024 Office outpatient new 45 minutes Kit Solitario DPM Work Phone: [facility] Comment on above: Plantar fasciitis (P rimary Dx); Contracture of right ankle; Pain due to onychomycosis of toenails of both feet; Onychomycosis Start: 04-16-2024 ambulatory JUNO ROGERS [facility] Start: 04-16-2024 End: 04-18-2024 Subsequent hospital visit by physician Juno Rogers MD Work Phone: [facility] Start: 12-26-2023 End: 12-27-2023 ambulatory Sergo JAFFE Facility:[facility] Start: 12-07-2023 End: 12-07-2023 ambulatory KEDAR AGEE [facility] Start: 12-07-2023 End: 12-07-2023 Office outpatient new 45 minutes Kedar Agee MD [facility] Comment on [...] female Start: 10-20-2023 Telephone encounter Faiza Sotelo [facility] [place] Start: 10-18-2023 End: 10-18-2023 ambulatory MARIANA BELTRAN [facility] Start: 10-18-2023 End: 10-18-2023 Office outpatient visit 15 minutes Mariana Beltran DO Work Phone: [facility] Comment on above: Vaginal prolapse (Pr imary Dx); Rectocele; Stress incontinence of urine; Dyspareunia in female; Status post hysterectomy with oophorectomy Start: 08-31-2023 End: 09-01-2023 ambulatory Annel Teixeira Facility:[facility] Start: 06-01-2023 ambulatory Sergo JAFFE Facility :[facility] Start: 02-24-2022 End: 02-24-2022 ambulatory Yazmin Cash Other [facility] Other Start: 02-24-2022 Office outpatient ne w 20 minutes Yazmin Cash [facility] Start: 08-06-2021 End: 08-06-2021 ambulatory [facility] Facility: Start: 05-15-2021 End: 05-15-2021 ambulatory [facility] Facility:[facility]1 Start: 03-03-2021 End: 03-03-2021 ambulatory [facility] Facility: Procedures Date Procedure Procedure Detail Performing Clinician Start: 12-07-2023 MEASURE POST VOID RESIDUAL Kedar Agee MD Work Phone: Start: 12-07-2023 Urnls dip stick/tabl et rgnt non-auto w/o micrscp Kedar Agee MD Work Phone: H/O: surgery Status post hyst erectomy with oophorectomy Mariana Beltran DO Work Phone: Plan of Treatment Date Care Activity Detail Author Start: 04-16-2025 Depression Screen Depression Screen [facility] Start: 01-20-2025 Screening for malignant neoplasm of breast Breast cancer screen [facility] Start: 12-08-2024 Tobacco Screening Tobacco Screening [facility] Start: 12-06-2024 Adult BMI Screening Adult BMI Screening [facility] Start: 11-01-2024 End: 12-02-2024 Alanine [...] [facility] [address] [place] [id number] Kit Solitario DPM [address] [address] Plantar fasciitis (Primary Dx); Contracture of right ankle; Pain due to onychomycosis of toenails of both feet [facility] Comment on above: Plantar fasciitis (Primary Dx); Contracture of right ankle; Pain due to onychomycosis of toenails of both feet Start: 10-25-2024 End: 10-25-2024 Patient encounter procedure 10/25/2024 10:20 AM EST Office Visit [facility] [address] [place] [address] Kit Solitario DPM [address] [address] [facility] Start: 10-18-2024 Adult BMI Screening Adult BMI Screening [facility] Start: 10-18-2024 Tobacco Screening Tobacco Screening [facility] Start: 09-20-2024 End: 10-19-2024 Alanine aminotransferase [Enzymatic activity/volume] in Serum or Plasma ALANINE AMINOTRANSFERASE Lab Routine Onychomycosis Expected: 09/20/2024 (Approximate), Expires: 10/19/2024 [facility] Comment on above: Expected: 09/20/2024 (Approximate), Expi res: 10/19/2024 Start: 09-20-2024 End: 10-19-2024 Aspartate aminotransferase [Enzymatic activity/volume] in Serum or Plasma ASPARTATE AMINO TRANSFERASE Lab Routine Onychomycosis Expected: 09/20/2024 (Approximate), Expires: 10/19/2024 [facility] Work Phone: Comment on above: Expected: 09/20/2024 (Approximate), Expi res: 10/19/2024 Start: 05-31-2024 End: 05-31-2024 Patient encounter procedure 05/31/2024 11:00 AM EDT Office Visit [facility] [address] [place] [address] Jay Ryan DO [address] [place] [address] M54.41, M54.42, G89.29 (ICD-10-CM) - Chronic midline low back pain with bilateral sciatica [facility] Comment on above: M54.41, M54.42, G89.29 (ICD-10-CM) - Chr onic midline low back pain with bilateral sciatica Start: 04-22-2024 Influenza vaccination Influenza Vaccine [facility] Start: 03-22-2024 Influenza vaccination Flu vaccine (#1) [facility] Start: 02-01-2024 End: 02-01-2024 Patient encounter procedure 02/01/2024 1:30 PM EDT Procedure visit [facility] [address] [place] [address] Kedar Agee MD [address] [facility] [address] [place] [address] [facility] Start: 12-07-2023 End: 12-07-2023 Patient encounter procedure 12/07/2023 2:30 PM EDT Office Visit [facility] [address] [place] [address] Kedar Agee MD [address] [facility] [address] [place] [address] [facility] Start: 04-22-2023 COVID-19 Vaccine ( season) COVID-19 Vaccine () [facility] Start: 04-22-2023 Influenza vaccination Influenza Vaccine [facility] Start: 2021 Lipid panel Lipids [facility] Start: 2016 Diabetes screen Diabetes screen [facility] Start: 2000 DTaP,Tdap and Td Vaccines (1 - Tdap) DTaP,Tdap and Td Vaccines (1 - Tdap) [facility] Start: 2000 DTaP/Tdap/Td vaccine (1 - Tdap) DTaP/Tdap/Td vaccine (1 - Tdap) [facility] Start: 2000 Hepatitis B vaccine (1 of 3 - 19+ 3-dose series) Hepatitis B vaccine (1 of 3 - 19+ 3-dose series) [facility] Start: 11-07-1999 Adult BMI Follow Up Plan Adult BMI Follow Up Plan [facility] Start: 1994 Varicella vaccine (1 of 2 - 13+ 2-dose series) Varicella vaccine (1 of 2 - 13+ 2-dose series) [facility] Start: 1993 Depression Screening Depression Screening [facility] Start: 11-07-1987 Pneumococcal 0-64 years Vaccine (1 of 2 - PCV) Pneumococcal 0-64 years Vaccine (1 of 2 - PCV) [facility] Immunizations Immunization Date Immunization Notes Care Provider Rosanne maurer 11-04-2020 hepatitis A vaccine, adult dosage Juno Rogers MD Work Phone: [facility] [employer] [facility] 05-06-2020 hepatitis A vaccine, adult dosage Juno Rogers MD Work Phone: [facility] Payers Date Payer Category Payer Medicaid (Managed Care) [employer] [id number] 2021 Medicaid [employer] [id number] 2021-Present [phone] [place] [id number] 1981 Unknown [id number] [id number]. 593 1981 Unknown [id number] 2.16.840.1.978318.3.579.2. 593 1981 Unknown [id number] 2.16.840.1.895389.3.579.2. 593 1981 Unknown [id number] 2.16.840.1.772414.3.579.2. 1286 1981 Unknown [id number] 2.16.840.1.226753.3.579.2. 1286 1981 Unknown [id number] 2.16.840.1.869100.3.579.2. 727 1981 Unknown [id number] 2.16.840.1.240825.3.579.2. 727 1981 Unknown [id number] 2.16.840.1.973304.3.579.2. 727 1981 Unknown [id number] 2.16.840.1.360998.3.579.2. 174 1981 Unknown [id number] 2.16.840.1.101390.3.579.2. 174 1981 Unknown [id number] 2.16.840.1.926342.3.579.2. 1259 1981 Unknown [id number] 2.16.840.1.301441.3.579.2. 9 1981 Unknown [id number] 2.16.840.1.612927.3.579.2. 1259 1981 Unknown [id number] 2.16.840.1.529305.3.579.2. 1259 1959 Unknown [id number] Social History Date Type Detail Facility Start: 04-16-2024 End: 12-07-2024 Sex Assigned At [facility] Start: 01-11-2023 End: 04-16-2024 Tobacco smoking status INIS Ex-smoker [facility] Start: 10-20-2001 End: 10-21-2019 History of tobacco use Current smoker [facility] [employer] [facility] Start: 10-20-2001 End: 10-21-2019 History of tobacco use Cigarette Smoker [facility] Start: 04-16-2024 End: 12-07-2024 Cigarettes smoked current (pack per day) - Reported 0.5 [facility] [facility] Start: 04-16-2024 End: 12-07-2024 Tobacco use and exposure Smokeless tobacco non-user [facility] Start: 04-16-2024 Alcoholic beverage intake Current non-drinker of alcohol (finding) [facility] How hard is it for y ou to pay for the very basics like food, housing, medical care, and heating Not hard at all [facility] (I/We) worried mounika er (my/our) food would run out before (I/we) got money to buy more. Never true [employer] At any time in the p ast 12 months, were you homeless or living in custodial [including now]? No [employer] Start: 07-15-2020 Education 14 [employer] Start: 1980 Sex assigned at Female [employer] Start: 03-02-2021 Gender identity Identifies as female gender (finding) [employer] Start: 03-02-2021 Sexual orientation Heterosexual (finding) [employer] Start: 09-20-2024 Tobacco smoking status INIS Tobacco smoking consumption unknown [facility] Start: 1980 Sex assigned at Not on file [facility] [employer] [facility] Start: 12-09-2023 End: 12-07-2024 Alcoholic beverage intake Current drinker of alcohol (finding) [facility] Start: 01-11-2023 Alcohol Comment rare [facility] Start: 12-07-2024 Tobacco smoking status NHIS Never smoked tobacco [facility] Clinical Notes 02-24-2022 to 02-01-2025 [...] of left ankle documented in this encounter [facility] 12-07-2024 History of Presen t illness [...] Unknown Physical Exam Exam conducted with a manager council present. Constitutional: Appearance: Normal appearance. HENT: Head: [...] was confirmed by evaluation by Gynecology in [place] previously. I do not fix rectocele. I did educate patient on the difference between rectal prolapse and rectocele which she appreciated. She will call that datapower consultant back and see them about possible repair. I will see her again on an as-needed basis otherwise she is discharged from my care. documented in this encounter [facility] 11-01-2024 History of Presen t illness [...] Resource Strain: Low Risk (04/16/2024) Received from [facility] Overall Financial Resource Strain (CARDIA) Difficulty of Paying Living Expenses: Not hard at all Food Insecurity: No Food Insecurity (04/16/2024) Received from [facility] Hunger Vital Sign Worried About Running Out of Food in the Last Year: Never true Ran Out of Food in the Last Year: Never true Transportation Needs: Unknown (04/16/2024) Received from [facility] PRAPARE - Transportation Lack of Transportation (Medical): Not on file Lack of Transportation (Non-Medical): No Physical Activity: Not on file Stress: Not on file Social Connections: Not on file Intimate Partner Violence: Not on file Housing Stability: Unknown (04/16/2024) [facility] Housing Stability Vital Sign Unable to [...] tylenol or Ibuprofen Patient may stop in [place] location for orthotic pickup Patient is to [...] Kit Solitario DPM documented in this encounter [facility] 09-20-2024 History of Presen t illness [...] Resource Strain: Low Risk (04/16/2024) Received from [facility] Overall Financial Resource Strain (CARDIA) Difficulty of Paying Living Expenses: Not hard at all Food Insecurity: No Food Insecurity (04/16/2024) Received from [facility] Hunger Vital Sign Worried About Running Out of Food in the Last Year: Never true Ran Out of Food in the Last Year: Never true Transportation Needs: Unknown (04/16/2024) Received from [facility] PRAPARE - Transportation Lack of Transportation (Medical): Not on file Lack of Transportation (Non-Medical): No Physical Activity: Not on file Stress: Not on file Social Connections: Not on file Intimate Partner Violence: Not on file Housing Stability: Unknown (04/16/2024) Received from [facility] Housing Stability Vital Sign [...] Kit Solitario DPM documented in this encounter [facility] 12-07-2023 History of Presen t illness [...] notes dyspareunia. Has recently started VET. 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 She is interested in definitive surgical management. Would be a good candidate for tlingit & haida tissue repair - posterior colporrhaphy and iliococcygeal [...] for UDS. Avoid bladder irritants. PVR normal. LOCOMOTIVE SUPERVISOR negative. UA negative. This chart note was [...] similarly generated notes. documented in this encounter [facility] 10-25-2023 History of Presen t illness Narrative Vagifem was changed to Estrace vaginal cream documented in this encounter [facility] 10-20-2023 Miscellaneous Notes Formattin g of this note might be different from the original. Pts script for Vagifem got denied. Is there another medication you would like to try? Pt aware. documented in this encounter [facility] 10-20-2023 Telephone encount er Note Pts script for Vagifem got denied. Is there another medication you would like to try? Pt aware. [facility] 10-18-2023 History of Presen t [...] . She reports recently going to the [employer] and completely soaking her pants through. She [...] Sosa as his office is closer the [place]. Referral has been made documented in this encounter [facility] 02-24-2022 Evaluation note Encounter Date [...] to see Dr. Gabriel, orthopedic physician in [place] in follow-up. She states she will arrange her appointment Feb, Other Ankle fracture material was printed [facility] Other Evaluation note* Diagnosis Plantar fasciitis- Primary Plantar fascial fibromatosis Contracture of right ankle Pain due to onychomycosis of toenails of both feet Onychomycosis Dermatophytosis of nail documented in this encounter [facility] Healthcare[facility] note* Diagnosis Rectocele- Primary Stress incontinence of urine Constipation, unspecified constipation type Dyspareunia in female OAB (overactive bladder) documented [facility] this [facility]* Diagnosis Vaginal prolapse- Primary Unspecified prolapse of vaginal chris Rectocele Stress incontinence of urine Dyspareunia in female 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 documented [facility]* Diagnosis Rectocele- Primary Vaginal prolapse Unspecified prolapse of vaginal chris Stress incontinence of urine Dyspareunia in female documented in [facility]* Diagnosis Dyspareunia in female- Primary Menopause syndrome Symptomatic menopausal or female climacteric states documented in this encounter [facility]* Diagnosis Plantar fasciitis- Primary Plantar fascial fibromatosis Contracture of right ankle Pain due to onychomycosis of toenails of both feet Onychomycosis Dermatophytosis of nail documented in this encounter [facility] Healthcare[facility] note* Diagnosis Rectocele documented in this encounter [facility] Healthcare[facility]* Diagnosis Plantar fasciitis- Primary Plantar fascial fibromatosis Contracture of right ankle Contracture of left ankle documented in this encounter [facility] HealthcareHistory general Narrative - Reported* Type Description Date Medical History Endometriosis Medical History Back pain Medical History Seizures Medical History Migraines Medical History PTSD Medical History Anxiety Disorder Medical History Hepatitis C-per records from [facility] Surgical History Hysterectomy 2007 Surgical History Exploratory laparoscopy-endomet riosi (2) Surgical History Tumor removed left finger Hospitalization History See past surgical hx Hospitalization History Seizures [facility] Other InstructionsNot on filedocumented in this encounter [facility]* Attachments The following attachments cannot be sent through Care Everywhere. * Pelvic Floor Exercises (Fijian) * Vaginal dryness (Fijian) * Vaginal Prolapse (Fijian) [facility] System[facility]ructionsNot on file documented in this encounterPro[facility] SystemInstructionsNot on file documented in this encounterProOhiohealth [facility] HospitalReason for referral (narrative)* Consultation (Routine) - Pending Review Specialty Diagnoses / Procedures Referred By Ralph larkin Referred To Contact Urology Diagnoses Rectocele Vaginal prolapse Stress incontinence of urine Dyspareunia in female Status post hysterectomy with oophorectomy Mariana Beltran DO [address] [place] [address] [place] [address], [facility] [address] [place] [address] Referral ID Status Reason Start Date Expiration Date Visits Requested Visits Authorized [id number] Pending Review Specialty Services Required 10/18/2023 10/17/2024 1 1 * Medication Prior Authorization - Pending Review Specialty Diagnoses / Procedures Referred By Ralph larkin Referred To Contact Diagnoses Rectocele Vaginal prolapse Stress incontinence of urine Dyspareunia in female Status post hysterectomy with oophorectomy Mariana Beltran DO [address] [place] [address] Referral ID Status Reason Start Date Expiration Date V isits Requested Visits Authorized [id number] Pending Review 1 1 [facility] (narrative)* Consultation (Routine) - Pending Review Specialty Diagnoses / Procedures Referred By Ralph larkin Referred To Contact Urogynecology / Gynecology Diagnoses Rectocele Vaginal prolapse Stress incontinence of urine Dyspareunia in female Mariana Beltran DO [address] [place] [address] Kedar Agee MD [address] [address] Referral ID Status Reason Start Date Expiration Date Visits Requested Visits Authorized [id number] Pending Review Specialty Services Required 10/24/2023 10/23/2024 1 1 [facility] Summary Purpose Family History No [...] [address] [place] [address] Referral ID Status Reason Start Date Expiration Date V isits Requested Visits Authorized [id number] Pending Review 12/07/2023 12/06/2024 1 1 Additional Source Comments INFORMATION SOURCE (unrecogn ized section and content) DATE CREATED AUTHOR 08/10/2021 [facility] DATE CREATED AUTHOR AUTHOR'S ORGANIZ ATION 03/11/2022 [facility] DATE CREATED AUTHOR AUTHOR'S ORGANIZ ATION 12/09/2023 [facility] DATE CREATED AUTHOR AUTHOR'S ORGANIZ ATION 12/28/2023 [facility] DATE CREATED AUTHOR AUTHOR'S ORGANIZ ATION 04/18/2024 [facility] DATE CREATED AUTHOR AUTHOR'S ORGANIZ ATION 02/05/2025 [facility] dical Specialists EPIC REASON FOR VISIT (unrecogniz ed section and content) Reason Comments Toenail Problem Thick nials, poss fu ngus Reason Comments Vaginal Prolapse Specialty Diagnoses / Procedures Referred By Contac t Referred To Contact Urogynecology / Gynecology Diagnoses Rectocele Vaginal prolapse Stress incontinence of urine Dyspareunia in female Mariana Beltran DO [address] [place] [address] Kedar Agee MD [address] [place] [address] Referral ID Status Reason Start Date Expiration Date V isits Requested Visits Authorized [id number] Closed Specialty Services Required 10/24/2023 10/23/2024 1 1 Reason Comments Prolapse Noticed a few months ago, feels a bulge Reason Comments Follow-up Rt pf check Reason Comments Consult Rectal prolapse Specialty Diagnoses / Procedures Referred By Contac t Referred To Contact General Surgery Diagnoses Rectal prolapse Procedures SD OFFICE/OUTPATIENT NEW HIGH MDM 60 MINUTES Ana Ibanez, PARKING INSPECTOR [address] [place] [place] [address] Phone: tel: fax: [facility] [address] [address] Phone: tel: fax: Referral ID Status Reason Start Date Expiration Date V isits Requested Visits Authorized [id number] Closed Specialty Services Required 10/24/2024 04/22/2025 1 1 Care Teams (unrecognized sec tion and content) Manager Administrative Services Relationship Specialty Start Date End Date Juno Rogers MD PCP - General Internal Medicine 05/22/18 Manager Administrative Services Relationship Specialty Start Date End Date Juno Rogers MD [address] [place] [address] PCP - General Internal Medicine 09/20/24 Manager Administrative Services Relationship Specialty Start Date End Date Juno Rogers MD [address] [place] [address] PCP - General Internal Medicine 09/20/24 Manager Administrative Services Relationship Specialty Start Date End Date Juno Rogers MD [address] [place] [address] PCP - General Internal Medicine 09/20/24 Manager Administrative Services Relationship Specialty Start Date End Date Juno Rogers MD [address] [place], [place] [id number] PCP - General Internal Medicine 09/20/24 Manager Administrative Services Relationship Specialty Start Date End Date Juno Rogers MD [address] [place] [id number] PCP - General Internal Medicine 09/20/24 FOR [...] BE BASED ON THE PRIMARY CLINICAL RECORDS. [facility]. provides no warranty or guarantee of the accuracy or completeness of information in this document.
== END 2025-04-03 14:58 | disposition home or self-care (01) ==
LOC: PM 14:58
PROVIDERS: PCP Nurse Practitioner Family; Visit Provider Nurse Practitioner
DX: M48.062 Spinal stenosis, lumbar region with neurogenic claudication (principal); M51.369 Other intervertebral disc degeneration, lumbar region without mention of lumbar back pain or lower extremity pain; M47.816 Spondylosis without myelopathy or radiculopathy, lumbar region; M46.1 Sacroiliitis, not elsewhere classified; M79.18 Myalgia, other site; M79.672 Pain in left foot
CPT/HCPCS: G0463

== ENCOUNTER 2025-04-26 16:03 | Outpatient (OUT) | payer OTHER, SELFPAY ==
--- OUTSIDE RECORDS SUMMARY | 2020-03-11 10:30 | XMS_ITS | Continuity of Care Document ---
Author Organization [facility] Address [address] [place] [address] Phone Care Team Providers Care Recycling Crew Supervisor Name Role Phone Vj LEIVA, Sandeep [...] Diagnoses Date Provider Providers Copied on Encounter [facility], [address] [place], [place], [id number] , [place] tel:[phone] Dental Clinic ext (chief complaint) Encounter for screening for dental disordersEncounter for screening for dental disorders 0 Vj Hopkins. [address] [place], [place], [id number], [place]. tel:[phone] Family History Family Member Type Diagnosis Age At Onset Mother Problem Alive and well Father Problem Alive and well Payers Payer name Insurance type Covered constitution party ID Vee palafox(s) D Medicaid [facility] [id number] Social History Type Description Quantity Date Captured [...]
--- NOTE | 2025-04-26 | XR_ITS ---
The [address] [address] Patient Name: SHERYL VERGARA MRN: [id number] date: 1980 Sex: F Assigned Patient Location: [facility] Current Patient Location: [facility] Accession/Order Number: [id number] Exam Date: 04/26/2025 16:22 Report Date: 04/26/2025 17:28 At the request of: ANDRESSA PADILLA NP Procedure: XR foot LT min 3V 3 views left foot plain film COMPARISON:None HISTORY: Left foot pain for one month. ACUTE FINDINGS: None DEGENERATIVE CHANGE: Unremarkable SOFT TISSUE FINDINGS: Unremarkable JOINT EFFUSION: None POSTOP CHANGES: None BONE MINERALIZATION: Adequate XR/XR foot LT min 3V IMPRESSION: No acute findings. Impression dictated by: Raoul Lindsey M.D. 04/26/2025 5:28 PM Dictation Location: [place] [address] Electronically authenticated by: [id number] Y Date: 04/26/2025 17:28
--- OUTSIDE RECORDS SUMMARY | 2025-04-26 16:07 | XMS_ITS | Encounter Summary ---
Author Organization [employer] s tem Address [id number] [address] [place] [address] Care Team Providers Care Mainframe Software Developer Name Role Phone Unavailable Primary Care Provider Unavailabl e Encounter Details Date Type Department Care Team (Late st Contact Info) Description 10/25/2023 Telephone [facility] Ob[facility]necology [address] [facility] [place] [address] Cira Harvey DO [address] [place] [address] Social History Tobacco Use Types [...]
--- OUTSIDE RECORDS SUMMARY | 2025-04-26 16:07 | XMS_ITS | Clinical Summary ---
Author Organization [facility] Address [address], [address] [place] [address] Care Team Providers Care Hydrogenation Still Operator Name Role Phone Juno Rogers MD Primary Care Provider [phone] Allergies Active Allergy Reactions Criticality Noted Date [...] place to sleep or slept in a intermediate (including now)? No 12/07/2022 Housing Stability Vital Sign Answer Olivier e Recorded Unable to Pay for Housing in the Last Year Not o n file 04/16/2024 Number of Times Moved in the Last Year Not on fi le 04/16/2024 At any time in the past 12 m [facility], were you homeless or living in a intermediate (including now)? No 04/16/2024 Food Insecurity Answer [...] Vaccine (1 of 2 - PCV) 2000 Lipids 2021 COVID-19 Vaccine ( - 2023-2 5 season) 2024 Breast cancer screen 01/20/2025 01/20/2023 Flu vaccine (#1) 03/22/2025 Depression Screen 04/16/2025 04/16/2024 HIV screen Completed 05/25/2018 Hepatitis A [...] Most Recently Relevant to Health Maintenance [place] [place] [address] PLAN Advance Directives Healthcare Agents on File Name Relationship Healthcare [facility] Communication Faviola Naranjo Child Primary Decision Maker Care Teams Hydrogenation Still Operator Relationship Specialty Start Date End Date Juno Rogers MD PCP - General Internal Medicine 05/22/18
--- OUTSIDE RECORDS SUMMARY | 2025-04-26 16:07 | XMS_ITS | Clinical Summary ---
Author Organization [employer] tem Address [id number] [address] [place] [address] Care Team Providers Care Biofuels Plant Construction Worker Name Role Phone Unavailable Primary Care Provider [...]
--- OUTSIDE RECORDS SUMMARY | 2025-04-26 16:07 | XMS_ITS | Encounter Summary ---
Author Organization [facility] Address [address], [address] [place] [address] Care Team Providers Care Manager Business Name Role Phone Juno Rogers MD Primary Care Provider [phone] Encounter Details Date Type Department Care Team (Late st Contact Info) Description 01/01/2021 Telephone [employer] Physical Medicine & Rehabilitation [address] [place], [place] [id number] Joe Kelly MD Social History Tobacco Use [...] on filedocumented in this encounter Care Teams Manager Business Relationship Specialty Start Date End Date Juno Rogers MD PCP - General Internal Medicine 05/22/18 documented as of this encounter
--- OUTSIDE RECORDS SUMMARY | 2025-04-26 16:07 | XMS_ITS | Encounter Summary ---
Author Organization [employer] [facility] tem Address [id number] [address] [place] [address] Care Team Providers Care Reading Instructor Name Role Phone Unavailable Primary Care Provider Unavailabl e Encounter Details Date Type Department Care Team (Late st Contact Info) Description 02/07/2023 Orders Only [facility]necology [address] [place] [address] Joselin Wilson Menopause syndrome Social History [...] ORDERABLES Final Res ult Performing Organization Address [facility] de Phone Number SUNQUEST * Follicle stimulating hormone (01/20/2023) 01/20/2023 Rohini Banerjee MD LAB BLOOD ORDERABLES Final Res ult Performing Organization Address [facility] de Phone Number SUNQUEST * Luteinizing hormone (01/20/2023) 01/20/2023 Rohini Banerjee MD LAB BLOOD ORDERABLES Final Res ult Performing Organization Address [facility] de Phone Number SUNQUEST * T4, free (01/20/2023) 01/20/2023 us Rohini Banerjee MD LAB BLOOD ORDERABLES Final Res ult Performing Organization Address [facility] de Phone Number [employer]QUEST * TSH (01/20/2023) 01/20/2023 us Rohini Banerjee MD LAB BLOOD ORDERABLES Final Res ult Performing Organization Address [facility] de Phone Number [employer]QUEST * Lipid profile (01/20/2023) 01/20/2023 us Rohini Banerjee MD LAB BLOOD ORDERABLES Final Res ult Performing Organization Address [facility] Co de Phone Number SUNQUEST * Comprehensive metabolic panel (01/20/2023) 01/20/2023 us Rohini Banerjee MD LAB BLOOD ORDERABLES Final Res ult Performing Organization Address [facility] de Phone Number SUNQUEST * Vitamin D 25 (01/20/2023) 01/20/2023 Rohini Banerjee MD LAB BLOOD ORDERABLES Final Res ult Performing Organization Address [facility] de Phone Number SUNQUEST * Hemoglobin A1c (01/20/2023) 01/20/2023 us Rohini Banerjee MD LAB BLOOD ORDERABLES Final Res ult Performing Organization Address [facility] Co de Phone Number SUNQUEST documented in this encounter Visit Diagnoses Diagnosis Menopause syndrome Symptomatic menopausal or female climacteric states documented in this encounter
--- OUTSIDE RECORDS SUMMARY | 2025-04-26 16:07 | XMS_ITS | Clinical Summary ---
Author Organization [facility] Address [address] [place], [place] [id number] Care Team Providers Care Campaign Marketing Specialist Name Role Phone Steve Avila Primary Care Provider [phone] Medications XANAX 1MG TABLET Take one(1) tablet [...] PM EDT) HCV RNA by PCR 3,400,000 [facility] Comment: IU/mL The linear range of this assay is 600 IU/mL to 700,000 IU/mL. This test was developed and its performance characteristics determined by the Clinical Laboratories of the [facility]. It has not been cleared or approved by the US Food and Drug Administration. The FDA has determined that such clearance or approval is not necessary. Blood specimen (specimen) BLOOD SPECIMEN / Unknown 04/20/2004 2:09 PM EDT Efrain Holland MD LABORATORY Final Result [facility] [address] [place] [address] from Last 3 Months or Most Recently Relevant to Health Maintenance Insurance [employer] Care Teams Campaign Marketing Specialist Relationship Specialty Start Date End Date Steve Avila [address] [place] [id number] PCP - General 03/03/04
--- OUTSIDE RECORDS SUMMARY | 2025-04-26 16:07 | XMS_ITS | Encounter Summary ---
Author Organization [facility] Address [address] [place] [address], [address] [place] [address] Care Team Providers Care Roller Helper Name Role Phone Juno Rogers MD Primary Care Provider [phone] Reason for Visit * Reason Comments Medication Refill Encounter Details Date Type Department Care Team (Late st Contact Info) Description 11/14/2019 [facility] [address] [place], [place] [phone] Juno Rogers MD [address] [place] [phone] Medication Refill Social History Tobacco Use Types [...] unspecified documented in this encounter Care Teams Roller Helper Relationship Specialty Start Date End Date Juno Rogers MD PCP - General Internal Medicine 05/22/18 documented as of this encounter
--- OUTSIDE RECORDS SUMMARY | 2025-04-26 16:07 | XMS_ITS | Encounter Summary ---
Author Organization [facility] Address [address] [place] [address], [address] [place] [address] Care Team Providers Care Allied Health Professional Name Role Phone Juno Rogers MD Primary Care Provider [phone] Reason for Visit * Reason Comments Medication Refill Encounter Details Date Type Department Care Team (Late st Contact Info) Description 01/13/2020 [facility] Primary Care [address] [place], [place] [phone] Juno Rogers MD [address] [place] [phone] Medication Refill Social History Tobacco Use Types [...] unspecified documented in this encounter Care Teams Allied Health Professional Relationship Specialty Start Date End Date Juno Rogers MD PCP - General Internal Medicine 05/22/18 documented as of this encounter
--- OUTSIDE RECORDS SUMMARY | 2025-04-26 16:12 | XMS_ITS | CCD ---
Author Organization [facility] Care Team Providers Care Science Instructor Name Role Phone SUE JUNO Primary Care [...] ASHLYAZARIAN, JUNO Primary Care Unavailable Sue SKY [facility] Primary Care Provider Sue SKY [facility] Primary Care Provider Unavailable Primary Care Provider UnavailKIT Mora Attending Unavailable KIT SOLITARIO Attending Unavailable ERNIE PALMER Attending Unavailable ANA IBANEZ Referring Unavailab KIT Nunez Attending Unavailable Allergies Allergy Classification Reported Allergen(s) Allergy Type Date of Onset Reaction(s) Facility (1 source) Clindamycin Drug Allergy 07-02-2019 [facility] Repository (6 sources) celecoxib; Translations: [CELECOXIB] Drug Allergy 01-11-2023 [facility] Repository (1 source) Clindamycin Drug Allergy 07-02-2019 [facility] Medications Current Medications Medication Drug Class(es) [...] Glass Jr., MD 04/16/24 Final result Normal [facility] Measure post void residualon 12-07-2023 Volume 45ml [facility] POCT urinalysis dipstick onl yon 12-07-2023 Appearance (U) clear [facility] External Poct Urine Blood Negative [facility] External Poct Urine Character clear [facility] External Poct Urine Color dark yellow [facility] External Poct Urine Glucose Negative [facility] External Poct Urine Ketones Negative [facility] External Poct Urine Leukocyte Esterase Negative [facility] External Poct Urine Nitrite Negative [facility] External Poct Urine Ph 5.0 [facility] External Poct Urine Protein 3+ [facility] XR ankle LT min 3V*on 2021 XR ankle LT min 3V* [facility] [address] [place] [address] XRay Report Signed Patient: Jazmin Cassidy MR#: [id number] 35 : 1980 Acct:[id number] Age/Sex: 41 / F ADM Date: 02/24/22 Loc: XDUCLY Room: Type: [facility] Attending Dr: Yazmin SORIA Copies to: YANG [...] Raoul Lindsey M.D.02/24/2022 7:00 PM Dictation Location: [place] [address] Transcribed By: [facility] 02/24/221899 Dictated By: Raoul Lindsey DO 02/24/22 185 Signed By: 02/24/22 190 Normal [facility] XR ankle LT min 3V* [facility] [employer] Other XR ankle LT min 3V* [facility] [employer] Other XR ankle LT min 3V* [address] [facility] [employer] Other XR ankle LT min 3V* [place] [address] [facility] [employer] Other XR ankle LT min 3V* XRay Report [facility] [employer] Other XR ankle LT min 3V* Signed [employer] Other XR ankle LT min 3V* Patient: Jazmin Cassidy MR#: [id number] [employer] Other XR ankle LT min 3V* 34 [employer] Other XR ankle LT min 3V* : 1980 Acct:[id number] [employer] Other XR ankle LT min 3V* Age/Sex: 41 / F ADM Date: 02/24/22 [employer] Other XR ankle LT min 3V* Loc: XDUCLY Room: Type: [facility] [employer] Other XR ankle LT min 3V* Attending Dr: Yazmin SORIA [employer] Other XR ankle LT min 3V* Copies to: YANG Dubon [employer] Other XR ankle LT min 3V* Ordering Provider: YAGN Dubon [employer] Other XR ankle LT min 3V* Date of Service: 02/24/22 [employer] Other XR ankle LT min 3V* XR/XR ankle LT min 3V*: LEFT ANKLE INJURY [employer] Other XR ankle LT min 3V* 3views LEFTankle [employer] Other XR ankle LT min 3V* COMPARISON:None [employer] Other XR ankle LT min 3V* HISTORY: LEFT ankle injury. [employer] Other XR ankle LT min 3V* Mild anterior soft tissue swelling present. Tiny bony density inferior to the lateral malleolus [employer] Other XR ankle LT min 3V* may represent small avulsion fracture. Ankle mortise preserved. [employer] Other XR ankle LT min 3V* XR/XR ankle LT min 3V* [employer] Other XR ankle LT min 3V* IMPRESSION: Small avulsion fracture inferior to the lateral malleolus. [employer] Other XR ankle LT min 3V* Impression dictated by: Raoul Lindsey M.D.02/24/2022 7:00 PM [employer] Other XR ankle LT min 3V* Dictation Location: [place] [address] [employer] Other XR ankle LT min 3V* Transcribed By: PWS 02/24/22 190 [employer] Other XR ankle LT min 3V* Dictated By: Raoul Lindsey DO 02/24/22 1859 [employer] Other XR ankle LT min 3V* Signed By: [employer] Other XR ankle LT min 3V* 02/24/22 190 [employer] Other CBC AUTO DIFFon 08-06-2021 BASO # 0.0 103/ul Normal 0.0-0.1 [facility] Comment on above: Performed By: #### C BC #### [facility] [address] [place] [address] Dr. Javier Hinton Basophils/100 WBC (Bld) 0.3 % Normal 0.2-2.0 [facility] Comment on above: Performed By: #### C BC #### [facility] [address] [place] [address] Dr. Javier Hinton EO # 0.0 103/ul Normal 0.0-0.7 [facility] Comment on above: Performed By: #### C BC #### [facility] [address] [place] [address] Dr. Javier Hinton Eosinophils/100 WBC (Bld) 0.3 % Critically low 0.9-7.0 [facility] Comment on above: Performed By: #### C BC #### [facility] [address] [place] [address] Dr. Javier Hinton Erythrocyte distribution width (RBC) [Ratio] 13.3 % Normal 11.0-15.0 [facility] Comment on above: Performed By: #### C BC #### [facility] [address] [place] [address] Dr. Javier Hinton Hematocrit (Bld) [Volume fraction] 41.7 % Normal 36.0-48.0 [facility] Comment on above: Performed By: #### C BC #### [facility] [address] [place] [address] Dr. Javier Hinton Hemoglobin (Bld) [Mass/Vol] 13.7 g/dL Normal 12.0-16.0 [facility] Comment on above: Performed By: #### C BC #### [facility] [address] [place] [address] Dr. Javier Hinton IG # 0.01 10e3/ul Normal 0.00-0.03 [facility] Comment on above: Performed By: #### C BC #### [facility] [address] [place] [address] Dr. Javier Hinton IG % 0.3 % Normal 0.0-0.5 [facility] Comment on above: Performed By: #### C BC #### [facility] [address] [place] [address] Dr. Javier Hinton LYMPH # 1.2 103/ul Normal 1.2-3.8 [facility] Comment on above: Performed By: #### C BC #### [facility] [address] [place] [address] Dr. Javier Hinton Lymphocytes/100 WBC (Bld) 31.4 % Normal 20.5-60.0 [facility] Comment on above: Performed By: #### C BC #### [facility] [address] [place] [address] Dr. Javier Hinton MANUAL DIFF REQ NO Normal [facility] Comment on above: Performed By: #### C BC #### [facility] [address] [place] [address] Dr. Javier Hinton MCH (RBC) [Entitic mass] 28.0 pg Normal 26.7-34.0 [facility] Comment on above: Performed By: #### C BC #### [facility] [address] [place] [address] Dr. Javier Hinton MCHC (RBC) [Mass/Vol] 32.9 g/dL Normal 29.9-35.2 [facility] Comment on above: Performed By: #### C BC #### [facility] [address] [place] [address] Dr. Javier Hinton MCV (RBC) [Entitic vol] 85.1 fL Normal 81.0-99.0 [facility] Comment on above: Performed By: #### C BC #### [facility] [address] [place] [address] Dr. Javier Hinton MONO # 0.3 103/ul Normal 0.3-0.8 [facility] Comment on above: Performed By: #### C BC #### [facility] [address] [place] [address] Dr. Javier Hinton Monocytes/100 WBC (Bld) 8.7 % Normal 1.7-12.0 [facility] Comment on above: Performed By: #### C BC #### [facility] [address] [place] [address] Dr. Javier Hinton NEUT # 2.3 103/ul Normal 1.4-6.5 [facility] Comment on above: Performed By: #### C BC #### [facility] [address] [place] [address] Dr. Javier Hinton Neutrophils/100 WBC (Bld) 59.0 % Normal 43.0-75.0 [facility] Comment on above: Performed By: #### C BC #### [facility] [address] [place] [address] Dr. Javier Hinton Platelet mean volume (Bld) [Entitic vol] 9.3 fL Critically low 9.5-13.5 [facility] Comment on above: Performed By: #### C BC #### [facility] [address] [place] [address] [address] Javier Hinton PLT 187 103/ul Normal 150-450 [facility] Comment on above: Performed By: #### C BC #### [facility] [address] [place] [id number] Javier Hinton RBC 4.90 106/ul Normal 4.20-5.40 [facility] Comment on above: Performed By: #### C BC #### [facility] [id number] Javier Hinton WBC 3.9 103/ul Critically low 4.0-11.0 [facility] Comment on above: Performed By: #### C BC #### [facility] [address] [place] [address] Dr. Javier Hinton Covid-19 PCR (CVDTBH)on 07-22 SARS-CoV-2 (COVID-19) RNA MITRA+probe Ql (Unsp spec) Detected Critically abnormal NOT DETECTED [facility] Comment on above: Result Comment: This test is not yet approved or cleared by the [place] FDA. When there are no FDA-approved or cleared tests available, and other criteria are met, FDA can make tests available under an emergency access mechanism called an Emergency Use Authorization (EUA). The EUA for this test is supported by the [place] of Health and Human Service's declaration that [...] used). Performed By: #### C VDTBH #### [facility] [address] [place] [address] Dr. Javier Hinton ER URINE PROFILEon Bilirubin Ql (U) Negative Normal NEGATIVE [facility] Comment on above: Performed By: #### E RUR #### [facility] [address] [place] [address] Dr. Javier Hinton Clarity (U) CLEAR Normal CLEAR [facility] Comment on above: Performed By: #### E RUR #### [facility] [address] [place] [address] Dr. Javier Hinton Color (U) YELLOW Normal YELLOW [facility] Comment on above: Performed By: #### E RUR #### [facility] [address] [place] [address] Dr. Javier FRANK A micrscopic examination will be performed if indicated. Normal [facility] Comment on above: Performed By: #### E RUR #### [facility] [address] [place] [address] Dr. Javier Hinton Glucose Ql (U) Negative Normal NEGATIVE [facility] Comment on above: Performed By: #### E RUR #### [facility] [address] [place] [address] Dr. Javier Hinton Hemoglobin Ql (U) Negative Normal NEGATIVE [facility] Comment on above: Performed By: #### E RUR #### [facility] [address] [place] [address] Dr. Javier Hinton Ketones Ql (U) 40 mg/dl Abnormal NEGATIVE [facility] Comment on above: Performed By: #### E RUR #### [facility] [address] [place] [address] Dr. Javier Hinton LEUKOCYTES Negative Normal NEGATIVE [facility] Comment on above: Performed By: #### E RUR #### [facility] [address] [place] [address] Dr. Javier Hinton Nitrite Ql (U) Negative Normal NEGATIVE [facility] Comment on above: Performed By: #### E RUR #### [facility] [address] [place] [address] Dr. Javier Hinton pH (U) 6.0 [pH] Normal 5-9 [facility] Comment on above: Performed By: #### E RUR #### [facility] [address] [place] [address] Dr. Javier Hinton Protein (U) [Mass/Vol] 30 mg/dL Abnormal NEGATIVE/ TRACE [facility] Comment on above: Performed By: #### E RUR #### [facility] [address] [place] [address] Dr. Javier Hinton SPEC GRAVITY 1.025 Normal 1.005-<=1.025 [facility] Comment on above: Performed By: #### E RUR #### [facility] [address] [place] [address] [address] Javier Hinton UR MICRO IND NOT INDICATED Normal [facility] Comment on above: Performed By: #### E RUR #### [facility] [address] [place] [address] Dr. Javier Hinton Urobilinogen Qn (U) 0.2 {Ericka'U}/dL Normal 0.2 - 1.0 [facility] Comment on above: Performed By: #### E RUR #### [facility] [address] [place] [address] Dr. Javier Hinton INFLUENZA A AND B AGon 08-06 INFLUANEGH SEE BELOW Normal [facility] Comment on above: Result Comment: Nega tive for Flu A protein angiten. Infection due to Flu A cannot be ruled out. Flu A angiten in the sample may be below the detection limit of the test. Performed By: #### I NFLUAB ####[facility] [address] [place], [place] [address]DrKem Hinton INFLUBNEGH SEE BELOW Normal [facility] Comment on above: Result Comment: Nega tive for Flu B protein antigen. Infection due to Flu B cannot be ruled out. Flu B antigen in the sample may be below the detection limit of the test. Performed By: #### I NFLUAB ####[facility] [address] [place], [place] [address]DrKem Hinton INFLUENZA A AG Negative Normal NEGATIVE SEE COMMENT [facility] Comment on above: Performed By: #### I NFLUAB ####[facility] [address] [place], [place] [address]Dr. Javier Hinton INFLUENZA B AG Negative Normal NEGATIVE SEE COMMENT [facility] Comment on above: Performed By: #### I NFLUAB ####[facility] [address] [place] [address]Dr. Javier Hinton INTERNAL CONTROLS Within Normal Limits Normal Within Normal Limits [facility] Comment on above: Performed By: #### I NFLUAB ####[facility] [address] [place] [id number]. Javier Hinton LACTATE/LACTIC ACIDon 2020 Lactate [Moles/Vol] 0.9 mmol/L Normal 0.7-2.0 [facility] Comment on above: Performed By: #### L ACT ####[facility] [address] [place] [address]Dr. Javier Hinton PROF 14(COMP METB)on Albumin [Mass/Vol] 3.7 g/dL Normal 3.5-5.0 [facility] Comment on above: Performed By: #### H GAYE, CMP #### [facility] [address] [place] [address] [address] Javier Hinton Albumin/Globulin [Mass ratio] 0.9 {ratio} Normal [facility] Comment on above: Performed By: #### H GAYE, CMP #### [facility] [address] [place] [address] [address] Javier Hinton ALP [Catalytic activity/Vol] 88 U/L Normal 38-126 [facility] Comment on above: Performed By: #### H GAYE, CMP #### [facility] [address] [place] [address] [address] Javier Hinton ALT [Catalytic activity/Vol] 28 U/L Normal 9-52 [facility] Comment on above: Performed By: #### H GAYE, CMP #### [facility] [address] [place] [address] [address] Javier Hinton Anion gap [Moles/Vol] 14.5 mmol/L Normal [facility] Comment on above: Performed By: #### H GAYE, CMP #### [facility] [address] [place] [address] [address] Javier Hinton AST [Catalytic activity/Vol] 26 U/L Normal 14-36 [facility] Comment on above: Performed By: #### H STROPN, CMP #### [facility] [address] [place] [address] [address] Javier Hinton Bilirubin [Mass/Vol] 0.7 mg/dL Normal 0.2-1.3 [facility] Comment on above: Performed By: #### H STROPN, CMP #### [facility] [address] [place] [address] Dr. Javier Hinton Calcium [Mass/Vol] 9.0 mg/dL Normal 8.4-10.2 [facility] Comment on above: Performed By: #### H STROPN, CMP #### [facility] [address] [place] [address] Dr. Javier Hinton Chloride [Moles/Vol] 99 mmol/L Normal 98-107 [facility] Comment on above: Performed By: #### H STROPN, CMP #### [facility] [address] [place] [address] Dr. Javier Hinton CO2 [Moles/Vol] 29.2 mmol/L Normal 22.0-30.0 [facility] Comment on above: Performed By: #### H STROPN, CMP #### [facility] [address] [place] [address] Dr. Javier Hinton Creatinine [Mass/Vol] 0.80 mg/dL Normal 0.52-1.04 [facility] Comment on above: Performed By: #### H STROPN, CMP #### [facility] [address] [place] [address] Dr. Javier Hinton EGFR-AF CAMEROONIAN Normal >=60 [facility] Comment on above: Performed By: #### H STROPN, CMP #### [facility] [address] [place] [address] Dr. Javier Hinton EGFR-NON AF CAMEROONIAN Normal >=60 [facility] Comment on above: Performed By: #### H STROPN, CMP #### [facility] [address] [place] [address] Dr. Javier Hinton Globulin (S) [Mass/Vol] 4.3 g/dL Normal [facility] Comment on above: Performed By: #### H GAYE, CMP #### [facility] [address] [place] [address] [address] Javier Hinton Glucose [Mass/Vol] 91 mg/dL Normal 74-106 [facility] Comment on above: Performed By: #### H GAYE, CMP #### [facility] [address] [place] [address] [address] Javier Hinton Potassium [Moles/Vol] 3.7 mmol/L Normal 3.4-5.0 [facility] Comment on above: Performed By: #### H GAYE, CMP #### [facility] [address] [place] [address] Dr. Javier Hinton Protein [Mass/Vol] 8.0 g/dL Normal 6.1-8.2 [facility] Comment on above: Performed By: #### H GAYE, CMP #### [facility] [address] [place] [address] Dr. Javier Hinton Sodium [Moles/Vol] 139 mmol/L Normal 137-145 [facility] Comment on above: Performed By: #### H GAYE, CMP #### [facility] [address] [place] [address] Dr. Javier Hinton Urea nitrogen [Mass/Vol] 15.0 mg/dL Normal 7.0-17.0 [facility] Comment on above: Performed By: #### H GAYE, CMP #### [facility] [address] [place] [address] Dr. Javier Hinton Urea nitrogen/Creatinin e [Mass ratio] 18.8 mg/mg Normal [facility] Comment on above: Performed By: #### H GAYE, CMP #### [facility] [address] [place] [address] Dr. Javier Hinton TROPONIN, HIGH SENSITIVITYon 08-06-2021 HSTROP 4.8 pg/mL Normal 4.0-35.5 [facility] Comment on above: Result Comment: CUT- OFF POINTS HAVE BEEN ESTABLISHED BASED ON THE FOURTH UNIVERSAL DEFINITIONS OF MYOCARDIAL INFARCTION. THE UPPER REFERENCE LIMIT (URL) OF TROPONIN, DEFINED THE 99TH PERCENTILE OF cTnI DISTRIBUTION IN A REFERENCE POPULATION, HAS BEEN CONFIRMED THE DECISION THRESHOLD FOR AR DIAGNOSIS. Performed By: #### H GAYE, CMP #### [facility] [address] [place], [place] [address] Dr. Javier Hinton XR CHEST 1 Von [...] SHERITA BOOKER Date: 2021-08-06 16:56 Normal [facility] Covid-19 PCR (CVDTBH)on 04-23 SARS-CoV-2 (COVID-19) RNA MITRA+probe Ql (Unsp spec) Detected Critically abnormal NOT DETECTED [facility] Comment on above: Result Comment: This test is not yet approved or cleared by the [place] FDA. When there are no FDA-approved or cleared tests available, and other criteria are met, FDA can make tests available under an emergency access mechanism called an Emergency Use Authorization (EUA). The EUA for this test is supported by the [place] of Health and Human Service's (HHS's) declaration [...] used). Performed By: #### C VDTBH #### [facility] [address] [place], [place] [address] Dr. Javier Hinton AMYLASEon 03-03-2021 Amylase [Catalytic activity/Vol] 55 U/L Normal 31-110 [facility] Comment on above: Performed By: #### C CAROLYN MCKEON LIPA #### [facility] [address] [place], [place] [address] Reji Debbie CBC AUTO DIFFon 03-03-2021 BASO # 0.0 103/ul Normal 0.0-0.1 [facility] Comment on above: Performed By: #### C BC ####[facility] [address] [place], [place] [address]Cphpxm Debbie Basophils/100 WBC (Bld) 0.6 % Normal 0.2-2.0 [facility] Comment on above: Performed By: #### C BC ####[facility] [address] [place], [place] [address]Dugrnr Debbie EO # 0.1 103/ul Normal 0.0-0.7 [facility] Comment on above: Performed By: #### C BC ####[facility] [address] [place], [place] [address]Alzhth Debbie Eosinophils/100 WBC (Bld) 2.1 % Normal 0.9-7.0 [facility] Comment on above: Performed By: #### C BC ####[facility] [address] [place], [place] [address]Mhodts Debbie Erythrocyte distribution width (RBC) [Ratio] 12.7 % Normal 11.0-15.0 [facility] Comment on above: Performed By: #### C BC ####[facility] [address] [place], [place] [address]Bvbhph Debbie Hematocrit (Bld) [Volume fraction] 38.8 % Normal 36.0-48.0 [facility] Comment on above: Performed By: #### C BC ####[facility] [address] [place], [place] [address]Oeyfjo Debbie Hemoglobin (Bld) [Mass/Vol] 12.8 g/dL Normal 12.0-16.0 [facility] Comment on above: Performed By: #### C BC ####[facility] [address] Debbie IG # 0.02 10e3/ul Normal 0.00-0.03 [facility] Comment on above: Performed By: #### C BC ####[facility] [address] Debbie IG % 0.3 % Normal 0.0-0.5 [facility] Comment on above: Performed By: #### C BC ####[facility] [address] [place] [address] Debbie LYMPH # 2.3 103/ul Normal 1.2-3.8 [facility] Comment on above: Performed By: #### C BC ####[facility] [address] [place] [address] Debbie Lymphocytes/100 WBC (Bld) 33.7 % Normal 20.5-60.0 [facility] Comment on above: Performed By: #### C BC ####[facility] [address] [place] [address] Debbie MANUAL DIFF REQ NO Normal [facility] Comment on above: Performed By: #### C BC ####[facility] [address] [place] [address] Debbie MCH (RBC) [Entitic mass] 28.1 pg Normal 26.7-34.0 [facility] Comment on above: Performed By: #### C BC ####[facility] [address] [place] [address] Debbie MCHC (RBC) [Mass/Vol] 33.0 g/dL Normal 29.9-35.2 [facility] Comment on above: Performed By: #### C BC ####[facility] [address] [place] [address] Debbie MCV (RBC) [Entitic vol] 85.3 fL Normal 81.0-99.0 [facility] Comment on above: Performed By: #### C BC ####[facility] [address] [place] [address] Debbie MONO # 0.5 103/ul Normal 0.3-0.8 [facility] Comment on above: Performed By: #### C BC ####[facility] [address] [place] [address]Reji Lewis Monocytes/100 WBC (Bld) 7.9 % Normal 1.7-12.0 [facility] Comment on above: Performed By: #### C BC ####[facility] [address] Kingsleyen NEUT # 3.7 103/ul Normal 1.4-6.5 [facility] Comment on above: Performed By: #### C BC ####[facility] [address] [place], [place] [address]gino Lewis Neutrophils/100 WBC (Bld) 55.4 % Normal 43.0-75.0 [facility] Comment on above: Performed By: #### C BC ####[facility] [address] [place], [place] [address]Reji Lewis Platelet mean volume (Bld) [Entitic vol] 9.6 fL Normal 9.5-13.5 [facility] Comment on above: Performed By: #### C BC ####[facility] [address] [place], [place] [address]Reji Lewis PLT 291 103/ul Normal 150-450 [facility] Comment on above: Performed By: #### C BC ####[facility] [address] [place], [place] [address]Reji Kingsleyen RBC 4.55 106/ul Normal 4.20-5.40 [facility] Comment on above: Performed By: #### C BC ####[facility] [address] [place] [address]Reji Kingsleyen WBC 6.7 103/ul Normal 4.0-11.0 [facility] Comment on above: Performed By: #### C BC ####[facility] [address] [place], [place] [address]Reji Lewis ER URINE PROFILEon 1 Bilirubin Ql (U) Negative Normal NEGATIVE [facility] Comment on above: Performed By: #### E RUR ####[facility] [address] [place], [place] [id number] Debbie Clarity (U) CLEAR Normal CLEAR [facility] Comment on above: Performed By: #### E RUR ####[facility] [address] [place], [place] [address]Muhttz Debbie Color (U) LT. YELLOW Normal YELLOW [facility] Comment on above: Performed By: #### E RUR ####[facility] [address] [place], [place] [address]Gerken Debbie ERUAHD A micrscopic examination will be performed if indicated. Normal [facility] Comment on above: Performed By: #### E RUR ####[facility] [address] [place], [place] [address]Gerken Debbie Glucose Ql (U) Negative Normal NEGATIVE [facility] Comment on above: Performed By: #### E RUR ####[facility] [address] [place], [place] [address]Gerken Debbie Hemoglobin Ql (U) Negative Normal NEGATIVE [facility] Comment on above: Performed By: #### E RUR ####[facility] [address] [place], [place] [address]Gerken Debbie Ketones Ql (U) Negative Normal NEGATIVE [facility] Comment on above: Performed By: #### E RUR ####[facility] [address] [place], [place] [address]Gerken Debbie LEUKOCYTES Negative Normal NEGATIVE [facility] Comment on above: Performed By: #### E RUR ####[facility] [address] [place], [place] [address]Gerken Debbie Nitrite Ql (U) Negative Normal NEGATIVE [facility] Comment on above: Performed By: #### E RUR ####[facility] [address] [place], [place] [address]Gerken Debbie pH (U) 6.0 [pH] Normal 5-9 [facility] Comment on above: Performed By: #### E RUR ####[facility] [address] [place], [place] [address]KxbqgcReji Lewis SPEC GRAVITY 1.010 Normal 1.005-<=1.025 [facility] Comment on above: Performed By: #### E RUR ####[facility] [address] [place], [place] [address]PtttspReji Lewis UA PROTEIN Negative Normal NEGATIVE/ TRACE [facility] Comment on above: Performed By: #### E RUR ####[facility] [address] [place] [id number] Kingsleyen UR MICRO IND NOT INDICATED Normal [facility] Comment on above: Performed By: #### E RUR ####[facility] [address] [id number] Lewis Urobilinogen Qn (U) 0.2 {Ericka'U}/dL Normal 0.2 - 1.0 [facility] Comment on above: Performed By: #### E RUR ####[facility] [address] [place] [id number] Lewis LIPASEon 03-03-2021 Lipase [Catalytic activity/Vol] 67.0 U/L Normal 23.0-300.0 [facility] Comment on above: Performed By: #### C CAROLYN MCKEON, LIPA #### [facility] [address] [id number] Reji Lewis PROF 14(COMP METB)on 021 Albumin [Mass/Vol] 4.2 g/dL Normal 3.5-5.0 [facility] Comment on above: Performed By: #### C MIKE CAROLYN, LIPA #### [facility] [address] [id number] Reji Debbie Albumin/Globulin [Mass ratio] 1.2 {ratio} Normal [facility] Comment on above: Performed By: #### C MIKE CAROLYN, LIPA #### [facility] [address] [id number] Reji Debbie ALP [Catalytic activity/Vol] 94 U/L Normal 38-126 [facility] Comment on above: Performed By: #### C MP, CAROLYN, LIPA #### [facility] [address] [address] Reji Debbie ALT [Catalytic activity/Vol] 27 U/L Normal 9-52 [facility] Comment on above: Performed By: #### C MP, CAROLYN, LIPA #### [facility] [address] [address] Reji Debbie Anion gap [Moles/Vol] 10.2 mmol/L Normal [facility] Comment on above: Performed By: #### C MP, CAROLYN, LIPA #### [facility] [address] [place] [address] Reji Debbie AST [Catalytic activity/Vol] 13 U/L Critically low 14-36 [facility] Comment on above: Performed By: #### C MP, CAROLYN, LIPA #### [facility] [address] [place] [address] Reji Debbie Bilirubin [Mass/Vol] 0.5 mg/dL Normal 0.2-1.3 [facility] Comment on above: Performed By: #### C MP, CAROLYN, LIPA #### [facility] [address] [place] [address] Reji Debbie Calcium [Mass/Vol] 9.3 mg/dL Normal 8.4-10.2 [facility] Comment on above: Performed By: #### C MP, CAROLYN, LIPA #### [facility] [address] [place] [address] Reji Debbie Chloride [Moles/Vol] 106 mmol/L Normal 98-107 [facility] Comment on above: Performed By: #### C MP, CAROLYN, LIPA #### [facility] [address] [place] [address] Reji Debbie CO2 [Moles/Vol] 25.7 mmol/L Normal 22.0-30.0 [facility] Comment on above: Performed By: #### C MP, CAROLYN, LIPA #### [facility] [address] [place] [address] Reji Debbie Creatinine [Mass/Vol] 0.78 mg/dL Normal 0.52-1.04 [facility] Comment on above: Performed By: #### C CAROLYN MCKEON, LIPA #### [facility] [address] [place], [place] [address] Reji Debbie EGFR-AF CAMEROONIAN >60 Normal >=60 [facility] Comment on above: Performed By: #### C MIKE CAROLYN, LIPA #### [facility] [address] [address] Reji Debbie EGFR-NON AF CAMEROONIAN >60 Normal >=60 [facility] Comment on above: Performed By: #### C MIKE CAROLYN, LIPA #### [facility] [address] [place] [address] Reji Debbie Globulin (S) [Mass/Vol] 3.4 g/dL Normal [facility] Comment on above: Performed By: #### C MIKE CAROLYN, LIPA #### [facility] [address] [place] [address] Reji Debbie Glucose [Mass/Vol] 94 mg/dL Normal 74-106 [facility] Comment on above: Performed By: #### C MIKE CAROLYN, LIPA #### [facility] [address] [place] [address] Reji Debbie Potassium [Moles/Vol] 3.9 mmol/L Normal 3.4-5.0 [facility] Comment on above: Performed By: #### C MIKE CAROLYN, LIPA #### [facility] [address] [place] [address] Reji Debbie Protein [Mass/Vol] 7.6 g/dL Normal 6.1-8.2 [facility] Comment on above: Performed By: #### C CAROLYN MCKEON, LIPA #### [facility] [address] [place] [address] Reji Debbie Sodium [Moles/Vol] 138 mmol/L Normal 137-145 [facility] Comment on above: Performed By: #### C MIKE CAROLYN, LIPA #### [facility] [address] [place] [address] Reji Debbie Urea nitrogen [Mass/Vol] 14.0 mg/dL Normal 7.0-17.0 [facility] Comment on above: Performed By: #### C CAROLYN MCKEON LIPA #### [facility] [address] [place], [place] [address] Reji Lewis Urea nitrogen/Creatinin e [Mass ratio] 17.9 mg/mg Normal [facility] Comment on above: Performed By: #### C CAROLYN MCKEON LIPA #### [facility] [address] [place], [place] [address] Reji Lewis Vital Signs Date Time Vital Sign Value Performing Clinician Facility 12-07-2024 10:09-0400 Body height 172.7 cm Ernie JeffersonRailswareemili DO Work Phone: [facility] 12-07-2024 10:09-0400 Body mass index (BMI) [Ratio] 27.98 kg/m2 Er[facility] [employer] Work Phone: [facility] 12-07-2024 10:09-0400 Body weight 83.46 kg Ernie Jeffersonrosanneemili DO Work Phone: [facility] 11-01-2024 11:16-0400 Body height 172.7 cm Kit Solitario DPM Work Phone: [facility] 11-01-2024 11:16-0400 Body mass index (BMI) [Ratio] 27.83 kg/m2 Kit Solitario DPM Work Phone: [facility] 11-01-2024 11:16-0400 Body weight 83.01 kg Kit Solitario DPM Work Phone: [facility] 11-01-2024 11:16-0400 Respiratory rate 18 /min Kit Solitario DPM Work Phone: [facility] 09-20-2024 10:00-0500 Body height 172.7 cm Kit Solitario DPM Work Phone: [facility] 09-20-2024 10:00-0500 Body mass index (BMI) [Ratio] 27.83 kg/m2 Kit Solitario DPM Work Phone: [facility] 09-20-2024 10:00-0500 Body weight 83.01 kg Kit Solitario DPM Work Phone: [facility] 09-20-2024 10:00-0500 Respiratory rate 18 /min Kit Solitario DPM Work Phone: [facility] 12-07-2023 14:26-0400 Body height 172.7 cm Kedar Agee MD Work Phone: [facility] 12-07-2023 14:26-0400 Body mass index (BMI) [Ratio] 31.47 kg/m2 Kedar Agee MD Work Phone: [facility] 12-07-2023 14:26-0400 Body temperature 97.7 [degF] Kedar Agee MD Work Phone: [facility] 12-07-2023 14:26-0400 Body weight 93.89 kg Kedar Agee MD Work Phone: [facility] 12-07-2023 14:26-0400 Diastolic blood pressure 86 mm[Hg] Kedar Agee MD Work Phone: [facility] 12-07-2023 14:26-0400 Heart rate 72 /min Kedar Agee MD Work Phone: [facility] Comment on above: 98o2 12-07-2023 14:26-0400 Respiratory rate 14 /min Kedar Agee MD Work Phone: [facility] 12-07-2023 14:26-0400 Systolic blood pressure 126 mm[Hg] Kedar Agee MD Work Phone: [facility] 10-18-2023 09:54-0500 Body height 172.7 cm Mariana Beltran DO Work Phone: [facility] 10-18-2023 09:54-0500 Body mass index (BMI) [Ratio] 31.32 kg/m2 [employer] DO Work Phone: [facility] 10-18-2023 09:54-0500 Body weight 93.44 kg Mariana Beltran DO Work Phone: [facility] 10-18-2023 09:54-0500 Diastolic blood pressure 82 mm[Hg] Mariana Yieldbot DO Work Phone: [facility] 10-18-2023 09:54-0500 Systolic blood pressure 120 mm[Hg] Mariana Yieldbot DO Work Phone: [facility] 02-24-2022 18:55-0400 Body height 171.45 cm Yazmin Cash Other [employer] Other 02-24-2022 18:55-0400 Body mass index (BMI) [Ratio] 29.62 kg/m2 Yazmin Cash Other [employer] Other 02-24-2022 18:55-0400 Body temperature 98.2 [degF] Yazmin Shreya Other [employer] Other 02-24-2022 18:55-0400 Body weight 87.09 kg Yazmin Shreya Other [employer] Other 02-24-2022 18:55-0400 Diastolic blood pressure 87 mm[Hg] Yazmin Shreya Other [employer] Other 02-24-2022 18:55-0400 Respiratory rate 18 /min Yazmin Cash Other [employer] Other 02-24-2022 18:55-0400 SaO2% (BldA) [Mass fraction] 100 % Yazmin Cash Other [employer] Other 02-24-2022 18:55-0400 Systolic blood pressure 129 mm[Hg] Yazmin Cash Other [employer] Other Encounters Encounter Date Encounter Type Care [...] 45 minutes Ernie Palmer DO Work Phone: [facility] Comment on above: Rectocele [...] Bamboo flowsheet Kit Solitario DPM Work Phone: [facility] Start: 09-20-2024 End: 09-20-2024 Bamboo flowsheet Kit Solitario DPM Work Phone: [facility] Start: 09-20-2024 End: 09-20-2024 ambulatory KIT SOLITARIO Not Available Start: 09-20-2024 End: 09-20-2024 Office outpatient new 45 minutes Kit Solitario DPM Work Phone: [facility] Comment on above: Plantar fasciitis (P rimary Dx); Contracture of right ankle; Pain due to onychomycosis of toenails of both feet; Onychomycosis Start: 04-16-2024 ambulatory JUNO ORGERS [facility] Start: 04-16-2024 End: 04-18-2024 Subsequent hospital visit by physician Juno Rogers MD Work Phone: [facility] Start: 12-26-2023 End: 12-27-2023 ambulatory Sergo JAFFE Facility:[facility] Start: 12-07-2023 End: 12-07-2023 ambulatory KEDAR AGEE [facility] Start: 12-07-2023 End: 12-07-2023 Office outpatient new 45 minutes Kedar Agee MD [facility] [...] female Start: 10-20-2023 Telephone encounter Faiza Sotelo [facility] Start: 10-18-2023 End: 10-18-2023 ambulatory MARIANA BELTRAN [facility] Start: 10-18-2023 End: 10-18-2023 Office outpatient visit 15 minutes Mariana Beltran DO Work Phone: [facility] Comment on above: Vaginal prolapse (Pr imary Dx); Rectocele; Stress incontinence of urine; Dyspareunia in female; Status post hysterectomy with oophorectomy Start: 08-31-2023 End: 09-01-2023 ambulatory Annel Teixeira Facility:[facility] Start: 06-01-2023 ambulatory Sergo JAFFE Facility :[facility] Start: 02-24-2022 End: 02-24-2022 ambulatory Yazmin Cash Other [employer] Other Start: 02-24-2022 Office outpatient ne w 20 [address] Cash [facility] Start: 08-06-2021 End: 08-06-2021 ambulatory [facility] Facility: Start: 05-15-2021 End: 05-15-2021 ambulatory [facility] Facility:H1 Start: 03-03-2021 End: 03-03-2021 ambulatory [facility] Facility: Procedures Date Procedure Procedure Detail Performing Clinician Start: 12-07-2023 MEASURE POST VOID RESIDUAL Kedar Agee MD Work Phone: Start: 12-07-2023 Urnls dip stick/tabl et rgnt non-auto w/o micrscp Kedar Agee MD Work Phone: H/O: surgery Status post hyst erectomy with oophorectomy Mariana Beltran DO Work Phone: Plan of Treatment Date Care Activity Detail Author Start: 04-16-2025 Depression Screen Depression Screen [facility] Start: 01-20-2025 Screening for malignant neoplasm of breast Breast cancer screen [facility] Start: 12-08-2024 Tobacco Screening Tobacco Screening [facility] Start: 12-06-2024 Adult BMI Screening Adult BMI Screening [facility] Start: 11-01-2024 End: 12-02-2024 Alanine aminotransferase [...] [facility] [address] [place] [id number] Kit Solitario DPM [address] [address] Plantar fasciitis (Primary Dx); Contracture of right ankle; Pain due to onychomycosis of toenails of both feet [facility] Comment on above: Plantar fasciitis (Primary Dx); Contracture of right ankle; Pain due to onychomycosis of toenails of both feet Start: 10-25-2024 End: 10-25-2024 Patient encounter procedure 10/25/2024 10:20 AM EST Office Visit [facility] [address] [place] [address] Kit Solitario DPM [address] [address] [facility] Start: 10-18-2024 Adult BMI Screening Adult BMI Screening [facility] Start: 10-18-2024 Tobacco Screening Tobacco Screening [facility] Start: 09-20-2024 End: 10-19-2024 Alanine aminotransferase [Enzymatic activity/volume] in Serum or Plasma ALANINE AMINOTRANSFERASE Lab Routine Onychomycosis Expected: 09/20/2024 (Approximate), Expires: 10/19/2024 [facility] Comment on above: Expected: 09/20/2024 (Approximate), Expi res: 10/19/2024 Start: 09-20-2024 End: 10-19-2024 Aspartate aminotransferase [Enzymatic activity/volume] in Serum or Plasma ASPARTATE AMINO TRANSFERASE Lab Routine Onychomycosis Expected: 09/20/2024 (Approximate), Expires: 10/19/2024 [facility] Work Phone: Comment on above: Expected: 09/20/2024 (Approximate), Expi res: 10/19/2024 Start: 05-31-2024 End: 05-31-2024 Patient encounter procedure 05/31/2024 11:00 AM EDT [facility] [address] [place] [address] Jay Ryan DO [address] [place] [address] M54.41, M54.42, G89.29 (ICD-10-CM) - Chronic midline low back pain with bilateral sciatica [facility] Comment on above: M54.41, M54.42, G89.29 (ICD-10-CM) - Chr onic midline low back pain with bilateral sciatica Start: 04-22-2024 Influenza vaccination Influenza Vaccine [facility] Start: 03-22-2024 Influenza vaccination Flu vaccine (#1) [facility] Start: 02-01-2024 End: 02-01-2024 Patient encounter procedure 02/01/2024 1:30 PM EDT Procedure visit [facility] [address] [place] [address] Kedar Agee MD [address] [facility] [address] [place] [address] [facility] Start: 12-07-2023 End: 12-07-2023 Patient encounter procedure 12/07/2023 2:30 PM EDT Office Visit [facility] [address] [place] [address] Kedar Agee MD [address] [facility] [address] [place] [address] [facility] Start: 04-22-2023 COVID-19 Vaccine ( season) COVID-19 Vaccine () [facility] Start: 04-22-2023 Influenza vaccination Influenza Vaccine [facility] Start: 2021 Lipid panel Lipids [facility] Start: 2016 Diabetes screen Diabetes screen [facility] Start: 2000 DTaP,Tdap and Td Vaccines (1 - Tdap) DTaP,Tdap and Td Vaccines (1 - Tdap) [facility] Start: 2000 DTaP/Tdap/Td vaccine (1 - Tdap) DTaP/Tdap/Td vaccine (1 - Tdap) [facility] Start: 2000 Hepatitis B vaccine (1 of 3 - 19+ 3-dose series) Hepatitis B vaccine (1 of 3 - 19+ 3-dose series) [facility] Start: 11-07-1999 Adult BMI Follow Up Plan Adult BMI Follow Up Plan [facility] Start: 1994 Varicella vaccine (1 of 2 - 13+ 2-dose series) Varicella vaccine (1 of 2 - 13+ 2-dose series) [facility] Start: 1993 Depression Screening Depression Screening [facility] Start: 11-07-1987 Pneumococcal 0-64 years Vaccine (1 of 2 - PCV) Pneumococcal 0-64 years Vaccine (1 of 2 - PCV) [facility] Immunizations Immunization Date Immunization Notes Care Provider Rosanne maurer 11-04-2020 hepatitis A vaccine, adult dosage Juno Rogers MD Work Phone: [facility] [employer] [facility] 05-06-2020 hepatitis A vaccine, adult dosage Juno Rogers MD Work Phone[facility] Payers Date Payer Category Payer Medicaid (Managed Care) [employer] [id number] 2021 Medicaid [employer] [id number] 2021-Present [phone] [address] [place] [id number] 1981 Unknown [id number] [id number]. 593 1981 Unknown [id number] 2.16.840.1.594385.3.579.2. 593 1981 Unknown [id number] 2.16.840.1.296155.3.579.2. 593 1981 Unknown [id number] 2.16.840.1.989429.3.579.2. 1286 1981 Unknown [id number] 2.16.840.1.026603.3.579.2. 1286 1981 Unknown [id number] 2.16.840.1.846251.3.579.2. 727 1981 Unknown [id number] 2.16.840.1.824318.3.579.2. 727 1981 Unknown [id number] 2.16.840.1.562243.3.579.2. 727 1981 Unknown [id number] 2.16.840.1.590353.3.579.2. 174 1981 Unknown [id number] 2.16.840.1.531580.3.579.2. 174 1981 Unknown [id number] 2.16.840.1.656177.3.579.2. 1259 1981 Unknown [id number] 2.16.840.1.395862.3.579.2. 9 1981 Unknown [id number] 2.16.840.1.079681.3.579.2. 1259 1981 Unknown [id number] 2.16.840.1.028319.3.579.2. 1259 1959 Unknown [id number] Social History Date Type Detail Facility Start: 04-16-2024 End: 12-07-2024 Sex Assigned At [employer] Other Start: 01-11-2023 End: 04-16-2024 Tobacco smoking status NMIS Ex-smoker [facility] Start: 10-20-2001 End: 10-21-2019 History of tobacco use Current smoker [facility] [employer] [facility] Start: 10-20-2001 End: 10-21-2019 History of tobacco use Cigarette Smoker [facility] Start: 04-16-2024 End: 12-07-2024 Cigarettes smoked current (pack per day) - Reported 0.5 [facility] [employer] [facility] Start: 04-16-2024 End: 12-07-2024 Tobacco use and exposure Smokeless tobacco non-user [facility] Start: 04-16-2024 Alcoholic beverage intake Current non-drinker of alcohol (finding) [facility] [employer] How hard is it for y ou to pay for the very basics like food, housing, medical care, and heating Not hard at all [facility] (I/We) worried mounika er (my/our) food would run out before (I/we) got money to buy more. Never true [employer] At any time in the p ast 12 months, were you homeless or living in [facility] [including now]? No [employer] Start: 07-15-2020 Education 14 [employer] Start: 1980 Sex assigned at Female [employer] Start: 03-02-2021 Gender identity Identifies as female gender (finding) [employer] Start: 03-02-2021 Sexual orientation Heterosexual (finding) [employer] Start: 09-20-2024 Tobacco smoking status NMIS Tobacco smoking consumption unknown [facility] Start: 1980 Sex assigned at Not on file [facility] [employer] Start: 12-09-2023 End: 12-07-2024 Alcoholic beverage intake Current drinker of alcohol (finding) [facility] Start: 01-11-[address] [facility] Start: 12-07-2024 Tobacco smoking status NHIS Never smoked tobacco [facility] Clinical Notes 02-24-2022 to 02-01-2025 Kit Solitario DPM - 02/01/2025 2:50 PM YEYOTPrihsabh Palmer DO - 12/07/2024 10:00 AM Michelle [...] of left ankle documented in this encounter [facility] 12-07-2024 History of Presen t illness Narrative [...] Unknown Physical Exam Exam conducted with a counter tender present. Constitutional: Appearance: Normal appearance. HENT: Head: [...] was confirmed by evaluation by Gynecology in [place] previously. I do not fix rectocele. I did educate patient on the difference between rectal prolapse and rectocele which she appreciated. She will call that kitchenhand back and see them about possible repair. I will see her again on an as-needed basis otherwise she is discharged from my care. documented in this encounter [facility] 11-01-2024 History of Presen t illness Narrative [...] Resource Strain: Low Risk (04/16/2024) Received from [facility] Overall Financial Resource Strain (CARDIA) Difficulty of Paying Living Expenses: Not hard at all Food Insecurity: No Food Insecurity (04/16/2024) Received from [facility] Hunger Vital Sign Worried About Running Out of Food in the Last Year: Never true Ran Out of Food in the Last Year: Never true Transportation Needs: Unknown (04/16/2024) Received from [facility] PRAPARE - Transportation Lack of Transportation (Medical): Not on file Lack of Transportation (Non-Medical): No Physical Activity: Not on file Stress: Not on file Social Connections: Not on file Intimate Partner Violence: Not on file Housing Stability: Unknown (04/16/2024) [facility] Housing Stability Vital Sign Unable to [...] tylenol or Ibuprofen Patient may stop in [place] location for orthotic pickup Patient is to [...] Kit Solitario DPM documented in this encounter [facility] 09-20-2024 History of Presen t illness Narrative [...] Resource Strain: Low Risk (04/16/2024) Received from [facility] Overall Financial Resource Strain (CARDIA) Difficulty of Paying Living Expenses: Not hard at all Food Insecurity: No Food Insecurity (04/16/2024) Received from [facility] Hunger Vital Sign Worried About Running Out of Food in the Last Year: Never true Ran Out of Food in the Last Year: Never true Transportation Needs: Unknown (04/16/2024) Received from [facility] PRAPARE - Transportation Lack of Transportation (Medical): Not on file Lack of Transportation (Non-Medical): No Physical Activity: Not on file Stress: Not on file Social Connections: Not on file Intimate Partner Violence: Not on file Housing Stability: Unknown (04/16/2024) Received from [facility] Housing Stability Vital Sign [...] Kit Solitario DPM documented in this encounter [facility] 12-07-2023 History of Presen t illness [...] notes dyspareunia. Has recently started VET. Previous psych nurse/abdominal surgeries/procedures: TVH/BSO Obstetrical history: Number of vaginal deliveries:2 Past Medical History: Diagnosis Date Anxiety Endometriosis Hepatitis C Substance abuse ([facility]) sober for 6 years-drug of choice, [...] Pelvic floor spasm and myalgia: None Modified [place] Scale 0-5: 2, weak muscle contraction Leakage [...] on pelvic organ prolapse and pessaries from [facility]. She is interested in definitive surgical management. Would be a good candidate for [place] tissue repair - posterior colporrhaphy and [...] for UDS. Avoid bladder irritants. PVR normal. HISTORICAL GUIDE negative. UA negative. This chart note was [...] similarly generated notes. documented in this encounter [facility] 10-25-2023 History of Presen t illness Narrative Vagifem was changed to Estrace vaginal cream documented in this encounter [facility] 10-20-2023 Miscellaneous Notes Formattin g of this note might be different from the original. Pts script for Vagifem got denied. Is there another medication you would like to try? Pt aware. documented in this encounter [facility] 10-20-2023 Telephone encount er Note Pts script for Vagifem got denied. Is there another medication you would like to try? Pt aware. [facility] 10-18-2023 History of Presen t illness [...] . She reports recently going to the [employer] and completely soaking her pants through. She [...] has been made documented in this encounter [facility] 02-24-2022 Evaluation note Encounter Date Diagnosis [...] to see Dr. Gabriel, orthopedic physician in [place] in follow-up. She states she will arrange her appointment Feb, Other Ankle fracture material was printed [facility] Other Evaluation note* Diagnosis Plantar fasciitis- Primary Plantar fascial fibromatosis Contracture of right ankle Pain due to onychomycosis of toenails of both feet Onychomycosis Dermatophytosis of nail documented in this encounter [facility]* Diagnosis Rectocele- Primary Stress incontinence of urine Constipation, unspecified constipation type Dyspareunia in female OAB (overactive bladder) [facility]* Diagnosis Vaginal prolapse- Primary Unspecified prolapse of vaginal chris Rectocele Stress incontinence of urine Dyspareunia in female 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 [facility]* Diagnosis Rectocele- Primary Vaginal prolapse Unspecified prolapse of vaginal chris Stress incontinence of urine Dyspareunia in female [facility]* Diagnosis Dyspareunia in female- Primary Menopause syndrome Symptomatic menopausal or female climacteric states documented in this encounter [facility]* Diagnosis Plantar fasciitis- Primary Plantar fascial fibromatosis Contracture of right ankle Pain due to onychomycosis of toenails of both feet Onychomycosis Dermatophytosis of nail documented in this encounter [facility] HealthcareEvaluation note* Diagnosis Rectocele documented in this encounter [facility] HealthcareEvaluation note* Diagnosis Plantar fasciitis- Primary Plantar fascial fibromatosis Contracture of right ankle Contracture of left ankle documented in this encounter [facility] HealthcareHistory general Narrative - Reported* Type Description Date Medical History Endometriosis Medical History Back pain Medical History Seizures Medical History Migraines Medical History PTSD Medical History Anxiety Disorder Medical History Hepatitis C-per records from [facility] Surgical History Hysterectomy 2007 Surgical History Exploratory laparoscopy-endomet riosi (2) Surgical History Tumor removed left finger Hospitalization History See past surgical hx Hospitalization History Seizures [facility] Other InstructionsNot on filedocumented in this encounter [facility] System[facility]* Attachments The following attachments cannot be sent through Care Everywhere. * Pelvic Floor Exercises (Irish) * Vaginal dryness (Irish) * Vaginal Prolapse (Irish) [facility] SystemInstructionsNot on file documented in this [facility] SystemInstructionsNot on file documented in this encounterProSelect [facility] SouthReason for referral (narrative)* Consultation (Routine) - Pending Review Specialty Diagnoses / Procedures Referred By Ralph larkin Referred To Contact Urology Diagnoses Rectocele Vaginal prolapse Stress incontinence of urine Dyspareunia in female Status post hysterectomy with oophorectomy Mariana Beltran DO [address] [place] [address] [place] [address], [facility] [address] [place] [address] Referral ID Status Reason Start Date Expiration Date Visits Requested Visits Authorized [id number] Pending Review Specialty Services Required 10/18/2023 10/17/2024 1 1 * Medication Prior Authorization - Pending Review Specialty Diagnoses / Procedures Referred By Ralph larkin Referred To Contact Diagnoses Rectocele Vaginal prolapse Stress incontinence of urine Dyspareunia in female Status post hysterectomy with oophorectomy Mariana Beltran DO [address] [place] [address] Referral ID Status Reason Start Date Expiration Date V isits Requested Visits Authorized [id number] Pending Review [address] [facility] (narrative)* Consultation (Routine) - Pending Review Specialty Diagnoses / Procedures Referred By Ralph larkin Referred To Contact Urogynecology / Gynecology Diagnoses Rectocele Vaginal prolapse Stress incontinence of urine Dyspareunia in female Mariana Beltran DO [address] [place] [address] Kedar Agee MD [address] [address] Referral ID Status Reason Start Date Expiration Date Visits Requested Visits Authorized [id number] Pending Review Specialty Services Required 10/24/2023 10/23/[address] [facility] Summary Purpose Family History No [...] [address] [place] [address] Referral ID Status Reason Start Date Expiration Date V isits Requested Visits Authorized [id number] Pending Review 12/07/2023 12/06/2024 1 1 Additional Source Comments INFORMATION SOURCE (unrecogn ized section and content) DATE CREATED AUTHOR 08/10/2021 [facility] DATE CREATED AUTHOR AUTHOR'S ORGANIZ ATION 03/11/2022 [facility] DATE CREATED AUTHOR AUTHOR'S ORGANIZ ATION 12/09/2023 [facility] DATE CREATED AUTHOR AUTHOR'S ORGANIZ ATION 12/28/2023 [facility] DATE CREATED AUTHOR AUTHOR'S ORGANIZ ATION 04/18/2024 [facility] DATE CREATED AUTHOR AUTHOR'S ORGANIZ ATION 02/05/2025 [facility] EPIC REASON FOR VISIT (unrecogniz ed section and content) Reason Comments Toenail Problem Thick nials, poss fu ngus Reason Comments Vaginal Prolapse Specialty Diagnoses / Procedures Referred By Contac t Referred To Contact Urogynecology / Gynecology Diagnoses Rectocele Vaginal prolapse Stress incontinence of urine Dyspareunia in female Mariana Beltran DO [address] [place] [address] Kedar Agee MD [address] [place] [address] Referral ID Status Reason Start Date Expiration Date V isits Requested Visits Authorized [id number] Closed Specialty Services Required 10/24/2023 10/23/2024 1 1 Reason Comments Prolapse Noticed a few months ago, feels a bulge Reason Comments Follow-up Rt pf check Reason Comments Consult Rectal prolapse Specialty Diagnoses / Procedures Referred By Contac t Referred To Contact General Surgery Diagnoses Rectal prolapse Procedures ID OFFICE/OUTPATIENT NEW HIGH MDM 60 MINUTES Ana Ibanez, SUBGRADE ROLLER OPERATOR [address] [facility] [place] [address] Phone: tel: fax: [facility] [address] [address] Phone: tel: fax: Referral ID Status Reason Start Date Expiration Date V isits Requested Visits Authorized [id number] Closed Specialty Services Required 10/24/2024 04/22/2025 1 1 Care Teams (unrecognized sec tion and content) Science Instructor Relationship Specialty Start Date End Date Juno Rogers MD PCP - General Internal Medicine 05/22/18 Science Instructor Relationship Specialty Start Date End Date Juno Rogers MD [address] [place] [id number] PCP - General Internal Medicine 09/20/24 Science Instructor Relationship Specialty Start Date End Date Juno Rogers MD [address] [place] [id number] PCP - General Internal Medicine 09/20/24 Science Instructor Relationship Specialty Start Date End Date Juno Rogers MD [address] [place] [id number] PCP - General Internal Medicine 09/20/24 Science Instructor Relationship Specialty Start Date End Date Juno Rogers MD [address] [place], [place] [id number] PCP - General Internal Medicine 09/20/24 Science Instructor Relationship Specialty Start Date End Date Juno Rogers MD [address] [place] [id number] PCP - General Internal Medicine 09/20/24 FOR [...] BE BASED ON THE PRIMARY CLINICAL RECORDS. [employer] [facility]. provides no warranty or guarantee of the accuracy or completeness of information in this document.
== END 2025-04-26 16:04 | disposition home or self-care (01) ==
LOC: RAD 16:05
PROVIDERS: PCP Nurse Practitioner Family; Visit Provider Nurse Practitioner
DX: M79.672 Pain in left foot (principal)
CPT/HCPCS: 73630

== ENCOUNTER 2025-05-16 11:06 | Outpatient (OUT) | payer OTHER, SELFPAY ==
--- OUTSIDE RECORDS SUMMARY | 2020-03-11 10:30 | XMS_ITS | Continuity of Care Document ---
Author Organization [facility] Address [address] [place] [address] Phone Care Team Providers Care White Sugar Supervisor Name Role Phone Vj LEIVA, Sandeep Unavailable Unavail able Allergies, Adverse Reactions, Alerts Substance Reaction Status Criticality No Known Allergies Active No Inform ation Medications Medication Instructions Dosage Effective Dates (start - stop) Status Comments naproxen 500 mg tablet,delayed release take 1 tablet by oral route 2 times every day with food 500 MG - Active hydralazine 25 mg tablet take 1 tablet by oral route 2 times every day with food 25 MG - Active Procedures Procedure Date PPE Panoramic Film Extract; Erupted Th/exposted Rt 020 Extract; Erupted Th/exposted Rt 020 Extract; Erupted Th/exposted Rt 020 Extract; Erupted Th/exposted Rt 020 Extract; Erupted Th/exposted Rt 020 Extract; Erupted Th/exposted Rt 020 Extract; Erupted Th/exposted Rt 020 Advance Directives Directive Yes / No Effective Date File Name No Information Encounters Encounter Description Practice Location Reason(s) For Visit Diagnoses Date Provider Providers Copied on Encounter [facility], [address], [place], [id number] , [place] tel:[phone] Dental Clinic ext (chief complaint) Encounter for screening for dental disordersEncounter for screening for dental disorders 0 Vj Hopkins. [address], [place], [id number], [place]. tel:[phone] Family History Family Member Type Diagnosis Age At Onset Mother Problem Alive and well Father Problem Alive and well Payers Payer name Insurance type Covered constitution party ID Vee palafox(s) D Medicaid [place] [id number] Social History Type Description Quantity Date Captured Comments Alcohol Use Details Unknown Caffeine Use Details Unknown Tobacco Use Status Smoking Status Unknown if ever smoked Smoking Tobacco Use Details Cigarette: Years Used 15 Cigarette: No Details Available Sex Female Sexual Orientation Straight or heterosexual Gender Identity Female Vital Signs Date / Time: Height Weight BMI Pulse Rate Blood Pressure Temperature Respiratory Rate Body Surface Area Head Circumference Head Circ. Percentile Wt./Aurelio. Percentile BMI percentile Pulse Ox Inhaled Ox 2:36 PM 75 /min 116/81 mm[Hg] Chief Complaint And Reason For Visit From encounter dated '03/11/2020 14:30'. ext (chief complaint). Description: ext Reason For Referral Reason For Referral No Information Plan Of Treatment Date Type Action Status Goal Tobacco cessation counseling completed History Of Present Illness Encounter Date Complaint History Of Prese nt Illness ext ext Functional Status Date Functional Assessmen t No Information Instructions Date Instruction Additional Infor mation No Information Assessments Type Assessment Date assessment Encounter for screening for dent al disorders Patient Care Teams Name Effective Dates (start - stop) Status Members No Information
--- OUTSIDE RECORDS SUMMARY | 2025-05-16 10:30 | XMS_ITS | Encounter Summary ---
Author Organization [facility] Address [address] [place] [address] Care Team Providers Care Assembly Member Name Role Phone Juno Rogers MD Primary Care Provider [phone] Reason for Visit * Reason Comments Foot Pain * Consultation (Routine) - Closed Specialty Diagnoses / Procedures Referred By Contac t Referred To Contact Podiatry Diagnoses LT FT PAIN Procedures VT OFFICE/OUTPATIENT ESTABLISHED LOW MDM 20 MIN Karolyn Baeza, PAUL [address] [place] [address] Phone: tel: fax: Kit Solitario DPM [address] [address] Phone: tel: fax: Referral ID Status Reason Start Date Expiration Date Visits Re quested Visits Authorized [id number] Closed 04/30/2025 07/29/2025 1 1 Encounter Details Date Type Department Care Team (Latest Contact Info) Description 05/16/2025 10:30 AM EDT Office Visit [facility] [address] [phone] Kit Solitario DPM [address] [address] Pain due to onychomycosis of toenails of both feet (Primary Dx); Plantar fasciitis; Contracture of right ankle; Contracture of left ankle; Capsulitis of metatarsophalangeal (MTP) joint of left foot; Onychomycosis Social History Tobacco Use Types Packs/Day Years Used Date Smoking Tobacco: Never Smokeless Tobacco: Never Tobacco Cessation:Counseling Given: Yes Alcohol Use Standard Drinks/Week Comments Yes 3 (1 standard drink = 0.6 oz pur e alcohol) Comments Unknown Sex and Gender Information Value Date Recorded Sex Assigned at Not on file Legal Sex Female 7:00 PM EDT Gender Identity Not on file Sexual Orientation Not on file documented as of this encounter Last Filed Vital Signs Vital Sign Reading Time Taken Comments Blood Pressure - - Pulse - - Temperature - - Respiratory Rate 18 05/16/2025 10:10 AM EDT Oxygen Saturation - - Inhaled Oxygen Concentration - - Weight 83.5 kg (184 lb) 05/16/2025 10:10 AM EDT Height 172.7 cm (5' 8 ) 05/16/2025 10:10 AM EDT Body Mass Index 27.98 05/16/2025 10:10 AM EDT documented in this encounter Progress Notes * Kit Solitario, JOSE ANTONIO - 05/16/2025 10:30 AM EDT Patient: Jazmin Cassidy : 1980 PCP: Juno Rogers MD SUBJECTIVE This is a 44 y.o. female that presents today for a follow up of Lamisil medication for the from 10/2024 and states she has finished all medication of lamisil with with slight improvementto bilateral great digit nails Pt presents today for follow up of right HSS. Pt has had previous treatment of orthotics and medrolpack and stretching with positive relief. Pt states current pain on a 1-10 scale is a 2 Pt presents to day for follow up tx. Allergies: No Known Allergies Past Medical History: No past medical history on file. Medications: Current Outpatient Medications: meloxicam (Mobic) 7.5 MG tablet, Take 7.5 mg by mouth 2 (two) times a day as needed, Disp: , Rfl: Social History: Social History Socioeconomic History Marital status: Unmarried Spouse name: Not on file Number of children: Not on file Years of education: Not on file Highest education level: Not on file Occupational History Not on file Tobacco Use Smoking status: Never Smokeless tobacco: Never Substance and Sexual Activity Alcohol use: Yes Alcohol/week: 3.0 standard drinks of alcohol Types: 3 Glasses of wine per week Drug use: Never Sexual activity: Defer Other Topics Concern Not on file Social History Narrative Not on file Social Drivers of Health Financial Resource Strain: Low Risk (04/16/2024) Received from [facility] Overall Financial Resource Strain (CARDIA) Difficulty of Paying Living Expenses: Not hard at all Food Insecurity: No Food Insecurity (04/16/2024) Received from [facility] Hunger Vital Sign Worried About Running Out of Food in the Last Year: Never true Ran Out of Food in the Last Year: Never true Transportation Needs: Unknown (04/16/2024) Received from [facility] PRAPARE - Transportation Lack of Transportation (Medical): Not on file Lack of Transportation (Non-Medical): No Physical Activity: Not on file Stress: Not on file Social Connections: Not on file Intimate Partner Violence: Not on file Housing Stability: Unknown (04/16/2024) Received from [facility] Housing Stability Vital Sign Unable to [...] past but has been resolved with medication Musculoskeletal: denies arthritis, denies loss of strength, pain to hip, knees, back Cardiovascular: denies CP, palpitations, irregular rhythms OBJECTIVE LE EXAM: DERM: Positive hair growth to b/l feet with good skin turgor noted. Negative openings in skin. Elongated thick yellow crumbly nails to bilateral great digits and bilateral 2nd digits WITH slight lunular clearing. VASC: Palpable pedal pulsed b/l with warm to cool tibia to toes b/l NEURO: Gross sensation intact digits 1-10 and b/l feet ORTHO: +5/5 DF/PF/IN/EV right, +5/5 DF/PF/IN/EV left. 20 degrees inversion and 10 degrees eversion STJ b/l. Ankle ROM less than 10 degrees b/l. diminished pain on palpation to right hallux and right 2nd toenail and left hallux and left 2nd toenail diminished palpation to right medial calcaneal tubercle Positive pain on palpation left 2nd MPJ capsule with negative Yenni test AST/ALT: November 02, 2019 25 AST 17 ALT 30 DIAGNOSTIC ULTRASOUND REPORT: Verbal order for ultrasound today The 2nd MPJ capsule of the left foot was examined with a 12 MHz linear probe in the transverse and sagital planes on the capsular regions of the MPJ. Images obtained. FINDINGS: Ultrasound exam demonstrates capsulitis/inflammation and a hypoechoic signal at plantar capsule on a series of sagittal and transverse images. The plantar plate examined as well with plantar joint capsule intact. IMPRESSION: Ultrasound findings indicated capsulitis of the left 2nd MPJ. ASSESSMENT 1. Pain due to onychomycosis of toenails of both feet 2. Plantar fasciitis 3. Contracture of right ankle 4. Contracture of left ankle PLAN Patient to continue with oral anti - inflammatories as needed for pain and recommended OTC medications such as tylenol or Ibuprofen Patient education today with discussing diagnosis and treatment options for patient including risksand benefits of lamisil medication including liver interactions, side effects, and possible non resolution of nail fungus. Rx for lamisil x 30 d Rx for lfts today Pt to contact podiatry if any problems RTC one month Patient is to continue with stretching excercizes daily with patient to continue with night stretching splint or manual stretching. Review of prior labs for Lamisil Reviewed ultrasound today with patient Pt was given steroid injection to the medial and lateral capsular ligaments of the left 2nd MPJ under US guidance with visualization of injected fluid into area of concern per imaging. Injection consisted of a 2:1 mixture of xylocaine 2%plain and kenalog 10 for a total of 3ccs. Informed pt of risks and benefits of procedure including infection,damage or rupture to soft tissuestructures and steroid flare. Pt understood and consented. This is the patients 1st injection Patient to bring orthotics and may add metatarsal pads but she will purchase [id number] metatarsal pads at this time and also has note needed for doctor's appointment as well as FMLA to be off 4 times per month Kit Solitario DPM documented in this encounter Plan of Treatment Upcoming Encounters Date Type Department Care Team (Late st Contact Info) Description 05/30/2025 9:40 AM EDT Office Visit [facility] [address] [facility] [address] [place] [id number] Kit Solitario, DPM [address] [address] 06/20/2025 9:40 AM EDT Office Visit [facility] [address] [facility] [address] [place] [phone] Kit Solitario, DPKeith [address] [address] Scheduled Orders Name Type Priority Associated Diagnoses Orde r Schedule ASPARTATE AMINO TRANSFERASE Lab Routine Onychomycosis Expected: 05/16/2025 (Approximate), Expires: 06/15/2025 ALANINE AMINOTRANSFERASE Lab Routine Onychomycosis Expected: 05/16/2025 (Approximate), Expires: 06/15/2025 documented as of this encounter Visit Diagnoses Diagnosis Pain due to onychomycosis of toenails of both feet- Primary Plantar fasciitis Plantar fascial fibromatosis Contracture of right ankle Contracture of left ankle Capsulitis of metatarsophalangeal (MTP) joint of left foot Onychomycosis Dermatophytosis of nail documented in this encounter Care Teams Assembly Member Relationship Specialty Start Date End Date Juno Rogers MD [address] [place], [place] [phone] PCP - General Internal Medicine 09/20/24 documented as of this encounter
--- OUTSIDE RECORDS SUMMARY | 2025-05-16 11:11 | XMS_ITS | Encounter Summary ---
Author Organization [facility] Address [address] [place] [address] Care Team Providers Care Parking Patroller Name Role Phone Juno Rogers MD Primary Care Provider Encounter Details Date Type Department Care Team ([facility] Contact Info) Description 04/29/2025 Abstract [facility] [address] [facility] [address] [place] [address] Kit Solitario DPM [address] [address] Social History Tobacco Use Types Packs/Day Years [...] as of this encounter Plan of Treatment Upcoming Encounters Date Type Department Care Team (Late Contact Info) Description 05/30/2025 9:40 AM EDT Office Visit [facility] [address] [place] [address] Kit Solitario DPM [address] [address] 06/20/2025 9:40 AM EDT Office Visit [facility] [address] [place] [address] Kit Solitario, JOSE ANTONIO [address] [address] documented as of this encounter Visit Diagnoses Not on filedocumented in this encounter Care Teams Parking Patroller Relationship Specialty Start Date End Date Juno Rogers MD [address] [place] [address] PCP - General Internal Medicine 09/20/24 documented as of this encounter
--- OUTSIDE RECORDS SUMMARY | 2025-05-16 11:11 | XMS_ITS | Encounter Summary ---
Author Organization [facility] Address [address] [place] [address], [address] [place] [address] Care Team Providers Care Special Education Bus Driver Name Role Phone Juno Rogers MD Primary Care Provider [phone] Reason for Visit * Reason Comments Medication Refill Encounter Details Date Type Department Care Team (Late st Contact Info) Description 11/14/2019 [facility] Primary Care [address] [place], [place] [phone] Juno Rogers MD [address] [phone] Medication Refill Social History Tobacco Use Types [...] unspecified documented in this encounter Care Teams Special Education Bus Driver Relationship Specialty Start Date End Date Juno Rogers MD PCP - General Internal Medicine 05/22/18 documented as of this encounter
--- OUTSIDE RECORDS SUMMARY | 2025-05-16 11:11 | XMS_ITS | Encounter Summary ---
Author Organization [facility] Address [id number] [address] [place] [address] Care Team Providers Care Sports Development Officer Name Role Phone Unavailable Primary Care Provider Unavailabl e Encounter Details Date Type Department Care Team (Late st Contact Info) Description 10/25/2023 Telephone [facility] [address] [facility] [place] [address] Cira Harvey DO [address] [place] [address] Social History Tobacco Use Types [...]
--- OUTSIDE RECORDS SUMMARY | 2025-05-16 11:11 | XMS_ITS | Clinical Summary ---
Author Organization [facility] Address [address] [place], [place] [id number] Care Team Providers Care Clinical Education Specialist Name Role Phone Steve Avila Primary Care Provider [phone] Medications XANAX 1MG TABLET Take one(1) tablet [...] PM EDT) HCV RNA by PCR 3,400,000 [facility] Comment: IU/mL The linear range of this assay is 600 IU/mL to 700,000 IU/mL. This test was developed and its performance characteristics determined by the Clinical Laboratories of the [facility]. It has not been cleared or approved by the US Food and Drug Administration. The FDA has determined that such clearance or approval is not necessary. Blood specimen (specimen) BLOOD SPECIMEN / Unknown 04/20/2004 2:09 PM EDT Efrain Holland MD LABORATORY Final Result [facility] [address] [place] [address] from Last 3 Months or Most Recently Relevant to Health Maintenance Insurance [employer] Care Teams Clinical Education Specialist Relationship Specialty Start Date End Date Steve Avila [address] [place] [phone] PCP - General 03/03/04
--- OUTSIDE RECORDS SUMMARY | 2025-05-16 11:11 | XMS_ITS | Patient Health Record ---
Author Organization [facility] Address [address] [place] [address] Care Team Providers Care Clinical Information Systems Director Name Role Phone Edmundo Hammonds Primary Care Provider [phone] Reason For Referral No Information Medications Medication [...] End Date [employer] [address] [place] [address] [id number] SHERYL VERGARA Self - patient is the insured 2 zMEDICAID [facility] after [facility] [address] [place] [address] [id number] SHERYL VERGARA Self - patient is the insured 2 zDENTAL [employer] [address] [address] [place] [address] [id number] SHERYL VERGARA Self - patient is the insured 2 zDental MEDICAID C after [facility] [address] [place] [address] [id number] VERGARAINGRIDCY Self - patient is the insured 2 Medical (General) History Medical History History ICD Code back pain neck pain 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
--- OUTSIDE RECORDS SUMMARY | 2025-05-16 11:11 | XMS_ITS | Encounter Summary ---
Author Organization [facility] Address [address] [place] [address] Care Team Providers Care Calculating Machine Mechanic Name Role Phone Juno Rogers MD Primary Care Provider [phone] Reason for Visit * Reason Comments Med Refill Encounter Details Date Type Department Care Team (Late Contact Info) Description 01/26/2025 Refill [facility] [address] [place] [address] [place] [address] Kit Solitario DPM [address] [address] Onychomycosis Social History Tobacco Use Types Packs/Day [...] [facility] [address] [place] [address] [place] [address] Kit Solitario DPM [address] [address] 06/20/2025 9:40 AM EDT Office Visit [facility] [address] [place] [address] [place] [address] iKt Solitario DPM 3006 [facility] 5 [place] [address] documented as of this encounter Visit Diagnoses Diagnosis Onychomycosis Dermatophytosis of nail documented in this encounter Care Teams Calculating Machine Mechanic Relationship Specialty Start Date End Date Juno Rogers MD [address] [place] [address] PCP - General Internal Medicine 09/20/24 documented as of this encounter
--- OUTSIDE RECORDS SUMMARY | 2025-05-16 11:11 | XMS_ITS | Clinical Summary ---
Author Organization [facility] Address [id number] [address] [place] [address] Care Team Providers Care Accounting Administrative Assistant Name Role Phone Unavailable Primary Care Provider [...]
--- OUTSIDE RECORDS SUMMARY | 2025-05-16 11:11 | XMS_ITS | Clinical Summary ---
Author Organization [facility] Address [address] [place] [address] Care Team Providers Care Corn Chip Maker Name Role Phone uJno Rogers MD Primary Care Provider [phone] Allergies No known active allergies Medications meloxicam (Mobic) 7.5 MG tablet Take 7.5 mg by mouth 2 (two) times a day as needed Active methylPREDNISolone (Medrol Dospak) 4 MG tabletsIndications:Cap sulitis of metatarsophalangeal (MTP) joint of left foot Follow schedule on MEDROL PACK package instructions to be used as directed 21 tablet 025 Active terbinafine (LamISIL) 250 MG tabletIndications:Onyc homycosis of Toenails Take 1 tablet (250 mg) by mouth Daily 30 tablet 025 2024 Active Active Problems Problem Noted Date Diagnosed Date Rectocele 12/07/2024 Encounters Date Type Department Care Team Description 05/16/2025 10:30 AM EDT Office Visit [facility] [address] [facility] [address] [place] [address] Kit Solitario DPM Pain due to onychomycosis of toenails of both feet (Primary Dx); Plantar fasciitis; Contracture of right ankle; Contracture of left ankle; Capsulitis of metatarsophalangeal (MTP) joint of left foot; Onychomycosis 05/16/2025 Bamboo flowsheet [facility] [address] [facility] [address] [place] [address] Kit Solitario DPM 05/16/2025 Travel 04/29/2025 Abstract [facility] [address] [place] [address] [place] [id number] Kit Solitario DPM from Last 3 Months Family History Medical [...] Mass Index 27.98 05/16/2025 10:10 AM EDT Plan of Treatment Upcoming Encounters Date Type Department Care Team (Late st Contact Info) Description 05/30/2025 9:40 AM EDT Office Visit [facility] [address] [place] [address] Kit Solitario DPM [address] [address] 06/20/2025 9:40 AM EDT Office Visit [facility] [address] [place] [address] Kit Solitario DPM [address] [address] Insurance [employer] Care Teams Corn Chip Maker Relationship Specialty Start Date End Date Juno Rogers MD [address] [place], [place] [id number] PCP - General Internal Medicine 09/20/24
--- OUTSIDE RECORDS SUMMARY | 2025-05-16 11:11 | XMS_ITS | Encounter Summary ---
Author Organization [facility] Address [address] [place] [address] Care Team Providers Care Air Transportation Provider Name Role Phone Juno Rogers MD Primary Care Provider Encounter Details Date Type Department Care Team (Latest Contact Info) Description 05/16/2025 Travel Social History Tobacco Use Types Packs/Day Years [...] Visit [facility] [address] [facility] 120 [place] [address] Kit Solitario DPM [address] [address] 06/20/2025 9:40 AM EDT Office Visit [facility] [address] [facility] [address] [place] [address] Kit Solitario DPM [address] [address] documented as of this encounter Visit Diagnoses Not on filedocumented in this encounter Care Teams Air Transportation Provider Relationship Specialty Start Date End Date Juno Rogers MD [address] [place] [address] PCP - General Internal Medicine 09/20/24 documented as of this encounter
--- OUTSIDE RECORDS SUMMARY | 2025-05-16 11:11 | XMS_ITS | Clinical Summary ---
Author Organization [facility] Address [address], [address] [place] [address] Care Team Providers Care Power Cleaner Operator Name Role Phone Juno Rogers MD Primary Care Provider [phone] Allergies Active Allergy Reactions Criticality Noted Date [...] place to sleep or slept in a long-term (including now)? No 12/07/2022 Housing Stability Vital Sign Answer Olivier e Recorded Unable to Pay for Housing in the Last Year Not o n file 04/16/2024 Number of Times Moved in the Last Year Not on fi le 04/16/2024 At any time in the past 12 m [facility], were you homeless or living in a long-term (including now)? No 04/16/2024 Food Insecurity Answer [...] of 2 - PCV) 2000 Lipids 2021 Breast cancer screen 01/20/2025 01/20/2023 Flu vaccine (#1) 03/22/2025 Depression Screen 04/16/2025 04/16/2024 COVID-19 Vaccine (2023-2 5 season) 2025 HIV screen Completed 05/25/2018 Hepatitis A vaccine [...] Most Recently Relevant to Health Maintenance [place] [place] [address] PLAN Advance Directives Healthcare Agents on File Name Relationship [facility] Communication Faviola Naranjo Child Primary Decision Maker Care Teams Power Cleaner Operator Relationship Specialty Start Date End Date Juno Rogers MD PCP - General Internal Medicine 05/22/18
--- OUTSIDE RECORDS SUMMARY | 2025-05-16 11:11 | XMS_ITS | Encounter Summary ---
Author Organization [facility] Address [address], [address] [place] [address] Care Team Providers Care Roll Mechanic Name Role Phone Juno Rogers MD Primary Care Provider [phone] Encounter Details Date Type Department Care Team (Late st Contact Info) Description 01/01/2021 Telephone [facility] [address] [place], [place] [phone] Joe Kelly MD Social History Tobacco Use [...] on filedocumented in this encounter Care Teams Roll Mechanic Relationship Specialty Start Date End Date Juno Rogers MD PCP - General Internal Medicine 05/22/18 documented as of this encounter
--- OUTSIDE RECORDS SUMMARY | 2025-05-16 11:11 | XMS_ITS | Encounter Summary ---
Author Organization [facility] [place] [facility] Address [id number] [address] [place] [address] Care Team Providers Care Commission Sales Associate Name Role Phone Unavailable Primary Care Provider Unavailabl e Encounter Details Date Type Department Care Team (Late st Contact Info) Description 02/07/2023 Orders Only [facility] [address] [place] [address] Joselin Wilson Menopause syndrome Social History [...] ORDERABLES Final Res ult Performing Organization Address [facility] de Phone Number SUNQUEST * Follicle stimulating hormone (01/20/2023) 01/20/2023 Rohini Banerjee MD LAB BLOOD ORDERABLES Final Res ult Performing Organization Address [facility] de Phone Number SUNQUEST * Luteinizing hormone (01/20/2023) 01/20/2023 Rohini Banerjee MD LAB BLOOD ORDERABLES Final Res ult Performing Organization Address [facility] de Phone Number SUNQUEST * T4, free (01/20/2023) 01/20/2023 us Rohini Banerjee MD LAB BLOOD ORDERABLES Final Res ult Performing Organization Address [facility] de Phone Number SUNQUEST * TSH (01/20/2023) 01/20/2023 us Rohini Banerjee MD LAB BLOOD ORDERABLES Final Res ult Performing Organization Address [facility] de Phone Number SUNQUEST * Lipid profile (01/20/2023) 01/20/2023 us Rohini Banerjee MD LAB BLOOD ORDERABLES Final Res ult Performing Organization Address [facility] Co de Phone Number SUNQUEST * Comprehensive metabolic panel (01/20/2023) 01/20/2023 us Rohini Banerjee MD LAB BLOOD ORDERABLES Final Res ult Performing Organization Address [facility] de Phone Number SUNQUEST * Vitamin D 25 (01/20/2023) 01/20/2023 Rohini Banerjee MD LAB BLOOD ORDERABLES Final Res ult Performing Organization Address [facility] de Phone Number SUNQUEST * Hemoglobin A1c (01/20/2023) 01/20/2023 us Rohini Banerjee MD LAB BLOOD ORDERABLES Final Res ult Performing Organization Address [facility] Co de Phone Number SUNQUEST documented in this encounter Visit Diagnoses Diagnosis Menopause syndrome Symptomatic menopausal or female climacteric states documented in this encounter
--- OUTSIDE RECORDS SUMMARY | 2025-05-16 11:11 | XMS_ITS | Encounter Summary ---
Author Organization [facility] Address [address] [place] [address], [address] [place] [address] Care Team Providers Care Mail Officer Name Role Phone Juno Rogers MD Primary Care Provider [phone] Reason for Visit * Reason Comments Medication Refill Encounter Details Date Type Department Care Team (Late st Contact Info) Description 01/13/2020 [facility] Primary Care [address] [place], [place] [phone] Juno Rogers MD [address] [phone] Medication Refill Social History Tobacco Use Types [...] unspecified documented in this encounter Care Teams Mail Officer Relationship Specialty Start Date End Date Juno Rogers MD PCP - General Internal Medicine 05/22/18 documented as of this encounter
--- OUTSIDE RECORDS SUMMARY | 2025-05-16 11:11 | XMS_ITS | Encounter Summary ---
Author Organization [facility] Address [address] [place] [address] Care Team Providers Care Nurse Emergency Room Name Role Phone Juno Rogers MD Primary Care Provider [phone] Encounter Details Date Type Department Care Team ([facility] Contact Info) Description 05/16/2025 Bamboo flowsheet [facility] [address] [facility] [address] [place] [address] Kit Solitario DPM [address] [address] Social History Tobacco Use Types Packs/Day Years [...] Upcoming Encounters Date Type Department Care Team ([facility] Contact Info) Description 05/30/2025 9:40 AM EDT Office Visit [facility] [address] [place] [address] [place] [address] Kit Solitario DPM [address] [address] 06/20/2025 9:40 AM EDT Office Visit [facility] [address] [place] [address] [place] [address] Kit Solitario, DPKeith [address] [facility] [address] [place] [address] documented as of this encounter Visit Diagnoses Not on filedocumented in this encounter Care Teams Nurse Emergency Room Relationship Specialty Start Date End Date Juno Rogers MD [address] [place] [address] PCP - General Internal Medicine 09/20/24 documented as of this encounter
--- OUTSIDE RECORDS SUMMARY | 2025-05-16 11:15 | XMS_ITS | CCD ---
Author Organization [facility] Care Team Providers Care Senior Structural Engineer Name Role Phone JUNO ROGERS Primary Care [...] JAFFE Attending Unavailable Annel Teixeira Attending Unavailable SINDYARIAN, JUNO Primary Care Unavailable SINDYARIANJUNO Referring Unavailable SINDYARIANJUNO Referring Unavailable SINDYARIAN, JUNO Primary Care Unavailable Juno Rogers MD Primary Care Provider Juno Rogers MD Primary Care Provider Unavailable Primary Care Provider UnavailKIT Mora Attending Unavailable KIT SOLITARIO Attending Unavailable ERNIE PALMER Attending Unavailable ANA IBANEZ Referring Unavailab KIT Nunez Attending Unavailable Sue SKY Juno Primary Care Provider Allergies Allergy Classification Reported Allergen(s) Allergy Type Date of Onset Reaction(s) Facility (1 source) Clindamycin Drug Allergy 07-02-2019 [facility] Repository (6 sources) celecoxib; Translations: [CELECOXIB] [...] bedtime. Active meloxicam 7.5 mg oral tablet (7 sources) Nonsteroidal Anti-inflammatory Drug take 1 tablet by mouth twice daily as needed meloxicam (Mobic) 7.5 MG tablet Take 7.5 mg by mouth 2 (two) times a day as needed Active methylPREDNISolone (2 sources) Corticosteroid Start: 05-16-2025 methylPREDNISolone (Medrol Dospak) 4 MG tablets Indications: Capsulitis of metatarsophalangeal (MTP) joint of left foot Follow schedule on MEDROL PACK package instructions to be used as directed 21 tablet 05/16/2025 Active naproxen 500 mg oral tablet (6 sources) Nonsteroidal Anti-inflammatory Drug Start: 11-15-2022 take 1 tablet by mouth twice daily at mealtime naproxen (NAPROSYN) 500 MG tablet Indications: Acute low back pain with bilateral sciatica, unspecified back pain laterality Take 1 tablet by mouth 2 times daily (with meals) 20 tablet 3 10/19/2023 Active terbinafine 250 mg oral tablet (6 sources) Allylamine Antifungal Start: 05-16-2025 End: 06-15-2025 take 1 tablet by mouth once daily terbinafine (LamISIL) 250 MG tablet Indications: Onychomycosis of Toenails Take 1 tablet (250 mg) by mouth Daily 30 tablet 05/16/2025 06/15/2025 Active Start: 11-01-2024 End: 12-01-2024 take 1 tablet [...] Active Problems Problem Classification Problem Date Documented Date Episodic/Chronic Anxiety disorders (2 sources) Anxiety disorder, unspecified; Translations: [Anxiety] Onset: 8 05-22-2018 Chronic Conditions associated with dizziness or vertigo (1 source) Dizziness and giddiness; Translations: [DIZZINESS AND GIDDINESS] Onset: 1 Episodic Genitourinary symptoms and ill-defined conditions (4 sources) Stress incontinence (female) (male); Translations: [Genuine stress incontinence] Onset: 4 12-09-2023 Chronic Hepatitis (1 source) Chronic hepatitis C; Translations: [Chronic viral hepatitis C] Onset: 8 05-22-2018 Chronic Hepatitis (1 source) Viral hepatitis C; Translations: [Hepatitis C] Episodic Malaise and fatigue (1 source) Weakness; Translations: [WEAKNESS] Onset: 1 Episodic Menopausal disorders (1 source) Menopausal syndrome; Translations: [Menopausal and female climacteric states] 10-25-2023 Chronic Mycoses (12 sources) Pain in toe; Translations: [Tinea unguium] 09-20-2024 Episodic Other acquired deformities (8 sources) Contracture of joint of right ankle; Translations: [Contracture, right ankle] 09-20-2024 Chronic Other acquired deformities (4 sources) Contracture of joint of left ankle; Translations: [Contracture, left ankle] 02-04-2025 Chronic Other connective tissue disease (8 sources) Plantar fasciitis; Translations: [Plantar fascial fibromatosis] 09-20-2024 Episodic Other connective tissue disease (2 sources) Capsulitis of metatarsophalangeal joint of left foot; Translations: [Other enthesopathy of left foot and ankle] 05-16-2025 Episodic Other diseases of bladder and urethra (1 source) Overactive bladder; Translations: [Overactive bladder] 12-09-2023 Chronic Other female genital disorders (1 source) Unspecified dyspareunia; Translations: [Unspecified dyspareunia] Onset: 4 Chronic Other female genital disorders (4 sources) Pain in female genitalia on intercourse; Translations: [Unspecified dyspareunia] 12-09-2023 Chronic Other nervous system disorders (3 sources) Other chronic pain; Translations: [Other chronic pain] Onset: 4 Chronic Prolapse of female genital organs (15 sources) Rectocele; Translations: [Cystocele, unspecified] Onset: 4 12-09-2023 Chronic Residual codes; unclassified (2 sources) Acquired absence of both cervix and uterus; Translations: [ACQUIRED ABSENCE BOTH CERVIX AND UTERUS] Onset: 1 Episodic Residual codes; unclassified (1 source) Acquired absence of ovaries, unilateral; Translations: [Acquired absence of ovaries, unilateral] Onset: 4 Episodic Spondylosis; intervertebral disc disorders; other back problems (1 source) Inflammation of sacroiliac joint; Translations: [Sacroiliitis] Chronic Spondylosis; intervertebral disc disorders; other back problems (6 sources) Lumbago with sciatica, right side; Translations: [Lumbago with sciatica, left side] Onset: 4 Episodic Substance-related disorders (1 source) Nicotine dependence, cigarettes, uncomplicated; Translations: [NICOTINE DEPEND CIGARETTES UNCOMP] Onset: 1 Chronic Unclassified (3 sources) COUGH, UNSPECIFIED; Translations: [COUGH, UNSPECIFIED] Onset: 1 Unclassified (2 sources) CONTACT W/AND (SUSP) EXPOS COVID-19; Translations: [CONTACT W/AND (SUSP) EXPOS COVID-19] Onset: 1 Unclassified (1 source) Vaginal Prolapse Onset: 4 Unclassified (1 source) Prolapse Onset: 4 Viral infection (1 source) COVID-19; Translations: [COVID-19] Onset: 1 Past or Other Problems Problem Classification Problem [...] Glass Jr., MD 04/16/24 Final result Normal [facility] Measure post void residualon 12-07-2023 Volume 45ml [facility] POCT urinalysis dipstick onl yon 12-07-2023 Appearance (U) clear [facility] External Poct Urine Blood Negative [facility] External Poct Urine Character clear [facility] External Poct Urine Color dark yellow [facility] External Poct Urine Glucose Negative [facility] External Poct Urine Ketones Negative [facility] External Poct Urine Leukocyte Esterase Negative [facility] External Poct Urine Nitrite Negative [facility] External Poct Urine Ph 5.[address] [facility] External Poct Urine Protein 3+ [facility] Spot Influence System XR ankle LT min 3V*on 2021 XR ankle LT min 3V* [facility] [place] [address] [place] [address] XRay Report Signed Patient: Jazmin Cassidy MR#: [id number] 35 : 1980 Acct:[id number] Age/Sex: 41 / F ADM Date: 02/24/22 Loc: XDUCLY [facility]: [facility] Attending Dr: Yazmin SORIA Copies to: YANG [...] Raoul Lindsey M.D.02/24/2022 7:00 PM Dictation Location: [facility] Transcribed By: [facility] 02/24/221899 Dictated By: Raoul Lindsey DO 02/24/221858 Signed By: 02/24/221899 Normal [facility] XR ankle LT min 3V* [facility] Locate Special Diet Other XR ankle LT min 3V* [facility] Loc[facility] Other XR ankle LT min 3V* [address] [facility] Locate Special Diet Other XR ankle LT min 3V* [place] [address] [facility] Other XR ankle LT min 3V* XRay Report [facility] Other XR ankle LT min 3V* Signed [facility] Other XR ankle LT min 3V* Patient: Jazmin Cassidy MR#: [id number] [facility] Other XR ankle LT min 3V* 35 [facility] Other XR ankle LT min 3V* : 1980 Acct:[id number] [facility] Other XR ankle LT min 3V* Age/Sex: 41 / F ADM Date: 02/24/22 [facility] Other XR ankle LT min 3V* Loc: XDUCLY Room: Type: REG CLI [facility] Other XR ankle LT min 3V* Attending Dr: Yazmin SOIRA [facility] Other XR ankle LT min 3V* Copies to: YANG Dubon [facility] Other XR ankle LT min 3V* Ordering Provider: YANG Dubon [facility] Other XR ankle LT min 3V* Date of Service: 02/24/22 [facility] Other XR ankle LT min 3V* XR/XR ankle LT min 3V*: LEFT ANKLE INJURY [facility] Other XR ankle LT min 3V* 3views LEFTankle [facility] Other XR ankle LT min 3V* COMPARISON:None [facility] Other XR ankle LT min 3V* HISTORY: LEFT ankle injury. [facility] Other XR ankle LT min 3V* Mild anterior soft tissue swelling present. Tiny bony density inferior to the lateral malleolus [facility] Other XR ankle LT min 3V* may represent small avulsion fracture. Ankle mortise preserved. [facility] Other XR ankle LT min 3V* XR/XR ankle LT min 3V* [facility]do Other XR ankle LT min 3V* IMPRESSION: Small avulsion fracture inferior to the lateral malleolus. [facility] Other XR ankle LT min 3V* Impression dictated by: Raoul Lindsey M.D.02/24/2022 7:00 PM [facility] Other XR ankle LT min 3V* Dictation Location: [place] [address] N[facility]do Other XR ankle LT min 3V* Transcribed By: SUSAN 02/24/221899 [facility]do Other XR ankle LT min 3V* Dictated By: Raoul Lindsey DO 02/24/22 185 [facility] Other XR ankle LT min 3V* Signed By: Naldo Other XR ankle LT min 3V* 02/24/22 190 N[facility]do Other CBC AUTO DIFFon 08-06-2021 BASO # 0.0 103/ul Normal 0.0-0.1 [facility] Comment on above: Performed By: #### C BC #### [facility] [address] [place] [address] Dr. Javier Hinton Basophils/100 WBC (Bld) 0.3 % Normal 0.2-2.0 [facility] Comment on above: Performed By: #### C BC #### [facility] [address] [place] [address] Dr. Javier Hinton EO # 0.0 103/ul Normal 0.0-0.7 [facility] Comment on above: Performed By: #### C BC #### [facility] [address] [place] [address] Dr. Javier Hinton Eosinophils/100 WBC (Bld) 0.3 % Critically low 0.9-7.0 [facility] Comment on above: Performed By: #### C BC #### [facility] [address] [place] [address] Dr. Javier Hinton Erythrocyte distribution width (RBC) [Ratio] 13.3 % Normal 11.0-15.0 [facility] Comment on above: Performed By: #### C BC #### [facility] [address] [place] [address] Dr. Javier Hinton Hematocrit (Bld) [Volume fraction] 41.7 % Normal 36.0-48.0 [facility] Comment on above: Performed By: #### C BC #### [facility] [address] [place] [address] Dr. Javier Hinton Hemoglobin (Bld) [Mass/Vol] 13.7 g/dL Normal 12.0-16.0 [facility] Comment on above: Performed By: #### C BC #### [facility] [address] [place] [address] Dr. Javier Hinton IG # 0.01 10e3/ul Normal 0.00-0.03 [facility] Comment on above: Performed By: #### C BC #### [facility] [address] [place] [address] Dr. Javier Hinton IG % 0.3 % Normal 0.0-0.5 [facility] Comment on above: Performed By: #### C BC #### [facility] [address] [place] [address] Dr. Javier Hinton LYMPH # 1.2 103/ul Normal 1.2-3.8 [facility] Comment on above: Performed By: #### C BC #### [facility] [address] [place] [address] Dr. Javier Hinton Lymphocytes/100 WBC (Bld) 31.4 % Normal 20.5-60.0 [facility] Comment on above: Performed By: #### C BC #### [facility] [address] [place] [address] Dr. Javier Hinton MANUAL DIFF REQ NO Normal [facility] Comment on above: Performed By: #### C BC #### [facility] [address] [place] [address] Dr. Javier Hinton MCH (RBC) [Entitic mass] 28.0 pg Normal 26.7-34.0 [facility] Comment on above: Performed By: #### C BC #### [facility] [address] [place] [address] Dr. Javier Hinton MCHC (RBC) [Mass/Vol] 32.9 g/dL Normal 29.9-35.2 [facility] Comment on above: Performed By: #### C BC #### [facility] [address] [place] [address] Dr. Javier Hinton MCV (RBC) [Entitic vol] 85.1 fL Normal 81.0-99.0 [facility] Comment on above: Performed By: #### C BC #### [facility] [address] [place] [address] Dr. Javier Hinton MONO # 0.3 103/ul Normal 0.3-0.8 [facility] Comment on above: Performed By: #### C BC #### [facility] [address] [place] [address] Dr. Javier Hinton Monocytes/100 WBC (Bld) 8.7 % Normal 1.7-12.0 [facility] Comment on above: Performed By: #### C BC #### [facility] [address] [place] [address] Dr. Javier Hinton NEUT # 2.3 103/ul Normal 1.4-6.5 [facility] Comment on above: Performed By: #### C BC #### [facility] [address] [place] [address] Dr. Javier Hinton Neutrophils/100 WBC (Bld) 59.0 % Normal 43.0-75.0 [facility] Comment on above: Performed By: #### C BC #### [facility] [address] [place] [address] Dr. Javier Hinton Platelet mean volume (Bld) [Entitic vol] 9.3 fL Critically low 9.5-13.5 [facility] Comment on above: Performed By: #### C BC #### [facility] [address] [place] [address] Dr. Javier Hinton PLT 187 103/ul Normal 150-450 [facility] Comment on above: Performed By: #### C BC #### [facility] [address] [place] [address] Dr. Javier Hinton RBC 4.90 106/ul Normal 4.20-5.40 [facility] Comment on above: Performed By: #### C BC #### [facility] [address] [place] [address] Dr. Javier Hinton WBC 3.9 103/ul Critically low 4.0-11.0 [facility] Comment on above: Performed By: #### C BC #### [facility] [address] [place] [address] Dr. Javier Hinton Covid-19 PCR ([facility])on 07-22 SARS-CoV-2 (COVID-19) RNA MITRA+probe Ql (Unsp spec) Detected Critically abnormal NOT DETECTED [facility] Comment on above: Result Comment: This test is not yet approved or cleared by the [place] FDA. When there are no FDA-approved or cleared tests available, and other criteria are met, FDA can make tests available under an emergency access mechanism called an Emergency Use Authorization (EUA). The EUA for this test is supported by the [employer] T[employer] of Health and Human Service's declaration that [...] used). Performed By: #### C VDTB #### [facility] [address] [place] [address] Dr. Javier Hinton ER URINE PROFILEon 1 Bilirubin Ql (U) Negative Normal NEGATIVE [facility] Comment on above: Performed By: #### E RUR #### [facility] [address] [place] [address] Dr. Javier Hinton Clarity (U) CLEAR Normal CLEAR [facility] Comment on above: Performed By: #### E RUR #### [facility] [address] [place] [address] Dr. Javier Hinton Color (U) YELLOW Normal YELLOW [facility] Comment on above: Performed By: #### E RUR #### [facility] [address] [place] [address] Dr. Javier FRANK A micrscopic examination will be performed if indicated. Normal [facility] Comment on above: Performed By: #### E RUR #### [facility] [address] [place] [address] Dr. Javier Hinton Glucose Ql (U) Negative Normal NEGATIVE [facility] Comment on above: Performed By: #### E RUR #### [facility] [address] [place] [address] Dr. Javier Hinton Hemoglobin Ql (U) Negative Normal NEGATIVE [facility] Comment on above: Performed By: #### E RUR #### [facility] [address] [place] [address] Dr. Javier Hinton Ketones Ql (U) 40 mg/dl Abnormal NEGATIVE [facility] Comment on above: Performed By: #### E RUR #### [facility] [address] [place] [address] Dr. Javier Hinton LEUKOCYTES Negative Normal NEGATIVE [facility] Comment on above: Performed By: #### E RUR #### [facility] [address] [place] [address] Dr. Javier Hinton Nitrite Ql (U) Negative Normal NEGATIVE [facility] Comment on above: Performed By: #### E RUR #### [facility] [address] [place] [address] Dr. Javier Hinton pH (U) 6.0 [pH] Normal 5-9 [facility] Comment on above: Performed By: #### E RUR #### [facility] [address] [place] [address] Dr. Javier Hinton Protein (U) [Mass/Vol] 30 mg/dL Abnormal NEGATIVE/ TRACE [facility] Comment on above: Performed By: #### E RUR #### [facility] [address] [place] [address] Dr. Javier Hinton SPEC GRAVITY 1.025 Normal 1.005-<=1.025 [facility] Comment on above: Performed By: #### E RUR #### [facility] [address] [place] [address] Dr. Javier Hinton UR MICRO IND NOT INDICATED Normal [facility] Comment on above: Performed By: #### E RUR #### [facility] [address] [place] [address] Dr. Javier Hinton Urobilinogen Qn (U) 0.2 {Ericka'U}/dL Normal 0.2 - 1.0 [facility] Comment on above: Performed By: #### E RUR #### [facility] [address] [place] [address] Dr. Javier Hinton INFLUENZA A AND B AGon 08-06 INFLUANEGH SEE BELOW Normal [facility] Comment on above: Result Comment: Nega tive for Flu A protein angiten. Infection due to Flu A cannot be ruled out. Flu A angiten in the sample may be below the detection limit of the test. Performed By: #### I NFLUAB ####[facility] [address] [place], [place] [address]Dr. Javier Hinton INFLUBNEGH SEE BELOW Normal [facility] Comment on above: Result Comment: Nega tive for Flu B protein antigen. Infection due to Flu B cannot be ruled out. Flu B antigen in the sample may be below the detection limit of the test. Performed By: #### I NFLUAB ####[facility] [address] [place], [place] [address]Dr. Javier Hinton INFLUENZA A AG Negative Normal NEGATIVE SEE COMMENT [facility] Comment on above: Performed By: #### I NFLUAB ####[facility] [address] [place], [place] [address]Dr. Javier Hinton INFLUENZA B AG Negative Normal NEGATIVE SEE COMMENT [facility] Comment on above: Performed By: #### I NFLUAB ####[facility] [address] [place], [place] [address]DrKem Hinton INTERNAL CONTROLS Within Normal Limits Normal Within Normal Limits [facility] Comment on above: Performed By: #### I NFLUAB ####[facility] [address] [place], [place] [address]DrKem Hinton LACTATE/LACTIC ACIDon 2020 Lactate [Moles/Vol] 0.9 mmol/L Normal 0.7-2.0 [facility] Comment on above: Performed By: #### L ACT ####[facility] [address] [place], [place] [address]DrKem Hinton PROF 14(COMP METB)on 021 Albumin [Mass/Vol] 3.7 g/dL Normal 3.5-5.0 [facility] Comment on above: Performed By: #### H GAYE, CMP #### [facility] [address] [address] [address] Javier Hinton Albumin/Globulin [Mass ratio] 0.9 {ratio} Normal [facility] Comment on above: Performed By: #### H GAYE, CMP #### [facility] [address] [place] [address] [address] Javier Hinton ALP [Catalytic activity/Vol] 88 U/L Normal 38-126 [facility] Comment on above: Performed By: #### H STROPN, CMP #### [facility] [address] [address] [address] Javier Hinton ALT [Catalytic activity/Vol] 28 U/L Normal 9-52 [facility] Comment on above: Performed By: #### H STROPN, CMP #### [facility] [address] [place] [address] [address] Javier Hinton Anion gap [Moles/Vol] 14.5 mmol/L Normal [facility] Comment on above: Performed By: #### H STROPN, CMP #### [facility] [address] [address] [address] Javier Hinton AST [Catalytic activity/Vol] 26 U/L Normal 14-36 [facility] Comment on above: Performed By: #### H STROPN, CMP #### [facility] [address] [address] [address] Javier Hinton Bilirubin [Mass/Vol] 0.7 mg/dL Normal 0.2-1.3 [facility] Comment on above: Performed By: #### H STROPN, CMP #### [facility] [address] [address] [address] Javier Hinton Calcium [Mass/Vol] 9.0 mg/dL Normal 8.4-10.2 [facility] Comment on above: Performed By: #### H STROPN, CMP #### [facility] [address] [place] [address] [address] Javier Hinton Chloride [Moles/Vol] 99 mmol/L Normal 98-107 [facility] Comment on above: Performed By: #### H STROPN, CMP #### [facility] [address] [place] [address] [address] Javier Hinton CO2 [Moles/Vol] 29.2 mmol/L Normal 22.0-30.0 [facility] Comment on above: Performed By: #### H STROPN, CMP #### [facility] [address] [place] [address] [address] Javier Hinton Creatinine [Mass/Vol] 0.80 mg/dL Normal 0.52-1.04 [facility] Comment on above: Performed By: #### H STROPN, CMP #### [facility] [address] [place] [address] [address] Javier Hinton EGFR-AF SUDANESE Normal >=60 [facility] Comment on above: Performed By: #### H STROPN, CMP #### [facility] [address] [address] [address] Javier Hinton EGFR-NON AF SUDANESE Normal >=60 [facility] Comment on above: Performed By: #### H STROPN, CMP #### [facility] [address] [place] [address] [address] Javier Hinton Globulin (S) [Mass/Vol] 4.3 g/dL Normal [facility] Comment on above: Performed By: #### H STROPN, CMP #### [facility] [address] [address] [address] Javier Hinton Glucose [Mass/Vol] 91 mg/dL Normal 74-106 [facility] Comment on above: Performed By: #### H STROPN, CMP #### [facility] [address] [address] [address] Javier Hinton Potassium [Moles/Vol] 3.7 mmol/L Normal 3.4-5.0 [facility] Comment on above: Performed By: #### H STROPN, CMP #### [facility] [address] [address] [address] Javier Hinton Protein [Mass/Vol] 8.0 g/dL Normal 6.1-8.2 [facility] Comment on above: Performed By: #### H STROPN, CMP #### [facility] [address] [address] [address] Javier Hinton Sodium [Moles/Vol] 139 mmol/L Normal 137-145 [facility] Comment on above: Performed By: #### H STROPN, CMP #### [facility] [address] [place], [place] [address] Dr. Javier Hinton Urea nitrogen [Mass/Vol] 15.0 mg/dL Normal 7.0-17.0 [facility] Comment on above: Performed By: #### H GAYE, CMP #### [facility] [address] [place], [place] [address] Dr. Javier Hinton Urea nitrogen/Creatinin e [Mass ratio] 18.8 mg/mg Normal [facility] Comment on above: Performed By: #### H GAYE, CMP #### [facility] [address] [address] [address] Javier Hinton TROPONIN, HIGH SENSITIVITYon 08-06-2021 HSTROP 4.8 pg/mL Normal 4.0-35.5 [facility] Comment on above: Result Comment: CUT- OFF POINTS HAVE BEEN ESTABLISHED BASED ON THE FOURTH UNIVERSAL DEFINITIONS OF MYOCARDIAL INFARCTION. THE UPPER REFERENCE LIMIT (URL) OF TROPONIN, DEFINED THE 99TH PERCENTILE OF cTnI DISTRIBUTION IN A REFERENCE POPULATION, HAS BEEN CONFIRMED THE DECISION THRESHOLD FOR NC DIAGNOSIS. Performed By: #### H GAYE, CMP #### [facility] [address] [address] [address] Javier Hinton XR CHEST 1 Von [...] SHERITA BOOKER Date: 2021-08-06 16:56 Normal [facility] Covid-19 PCR (CVDTBH)on 04-23 SARS-CoV-2 (COVID-19) RNA MITRA+probe Ql (Unsp spec) Detected Critically abnormal NOT DETECTED [facility] Comment on above: Result Comment: This test is not yet approved or cleared by the [place] FDA. When there are no FDA-approved or cleared tests available, and other criteria are met, FDA can make tests available under an emergency access mechanism called an Emergency Use Authorization (EUA). The EUA for this test is supported by the [place] of Health and Human Service's (HHS's) declaration [...] used). Performed By: #### C VDTB #### [facility] [address] [place] [address] [address] Javier Hinton AMYLASEon 03-03-2021 Amylase [Catalytic activity/Vol] 55 U/L Normal 31-110 [facility] Comment on above: Performed By: #### C MP, CAROLYN, LIPA #### [facility] [address] [place] [address] Reji Debbie CBC AUTO DIFFon 03-03-2021 BASO # 0.0 103/ul Normal 0.0-0.1 [facility] Comment on above: Performed By: #### C BC ####[facility] [address] [place], [place] [address]Nzhnau Debbie Basophils/100 WBC (Bld) 0.6 % Normal 0.2-2.0 [facility] Comment on above: Performed By: #### C BC ####[facility] [address] [place], [place] [address]Nfxtgs Debbie EO # 0.1 103/ul Normal 0.0-0.7 [facility] Comment on above: Performed By: #### C BC ####[facility] Mfg[address]uel[address] [place], [place] [address]Xydlyk Debbie Eosinophils/100 WBC (Bld) 2.1 % Normal 0.9-7.0 [facility] Comment on above: Performed By: #### C BC ####[facility] [address] [id number] Debbie Erythrocyte distribution width (RBC) [Ratio] 12.7 % Normal 11.0-15.0 [facility] Comment on above: Performed By: #### C BC ####[facility] [address] [id number] Debbie Hematocrit (Bld) [Volume fraction] 38.8 % Normal 36.0-48.0 [facility] Comment on above: Performed By: #### C BC ####[facility] [address] [place] [address] Debbie Hemoglobin (Bld) [Mass/Vol] 12.8 g/dL Normal 12.0-16.0 [facility] Comment on above: Performed By: #### C BC ####[facility] [address] [place] [address] Debbie IG # 0.02 10e3/ul Normal 0.00-0.03 [facility] Comment on above: Performed By: #### C BC ####[facility] [address] [place] [address] Debbie IG % 0.3 % Normal 0.0-0.5 [facility] Comment on above: Performed By: #### C BC ####[facility] [address] [place] [address] Debbie LYMPH # 2.3 103/ul Normal 1.2-3.8 [facility] Comment on above: Performed By: #### C BC ####[facility] [address] [place] [address] Debbie Lymphocytes/100 WBC (Bld) 33.7 % Normal 20.5-60.0 [facility] Comment on above: Performed By: #### C BC ####[facility] [address] [place] [address] Debbie MANUAL DIFF REQ NO Normal [facility] Comment on above: Performed By: #### C BC ####[facility] [address] [place], [place] [address]gino Lewis MCH (RBC) [Entitic mass] 28.1 pg Normal 26.7-34.0 [facility] Comment on above: Performed By: #### C BC ####[facility] [address]00 [address] Lewis MCHC (RBC) [Mass/Vol] 33.0 g/dL Normal 29.9-35.2 [facility] Comment on above: Performed By: #### C BC ####[facility] Tmfe[address]346 [address] Lewis MCV (RBC) [Entitic vol] 85.3 fL Normal 81.0-99.0 [facility] Comment on above: Performed By: #### C BC ####[facility] [address] [place] [address] Debbie MONO # 0.5 103/ul Normal 0.3-0.8 [facility] Comment on above: Performed By: #### C BC ####[facility] [address] [place], [place] [address]gino Lewis Monocytes/100 WBC (Bld) 7.9 % Normal 1.7-12.0 [facility] Comment on above: Performed By: #### C BC ####[facility] [address] [place] [address] Debbie NEUT # 3.7 103/ul Normal 1.4-6.5 [facility] Comment on above: Performed By: #### C BC ####[facility] [address] [place], [place] [address]gino Lewis Neutrophils/100 WBC (Bld) 55.4 % Normal 43.0-75.0 [facility] Comment on above: Performed By: #### C BC ####[facility] [address] [place], [place] [id number] Lewis Platelet mean volume (Bld) [Entitic vol] 9.6 fL Normal 9.5-13.5 [facility] Comment on above: Performed By: #### C BC ####[facility] [address] [place] [address] Debbie PLT 291 103/ul Normal 150-450 [facility] Comment on above: Performed By: #### C BC ####[facility] [address] [place] [address] Debbie RBC 4.55 106/ul Normal 4.20-5.40 [facility] Comment on above: Performed By: #### C BC ####[facility] [address] [place] [address] Debbie WBC 6.7 103/ul Normal 4.0-11.0 [facility] Comment on above: Performed By: #### C BC ####[facility] [address] [place] [address] Debbie ER URINE PROFILEon 1 Bilirubin Ql (U) Negative Normal NEGATIVE [facility] Comment on above: Performed By: #### E RUR ####[facility] [address] [place] [address] Debbie Clarity (U) CLEAR Normal CLEAR [facility] Comment on above: Performed By: #### E RUR ####[facility] [address] [place] [address] Debbie Color (U) LT. YELLOW Normal YELLOW [facility] Comment on above: Performed By: #### E RUR ####[facility] [address] [place] [address] Debbie ERUAHD A micrscopic examination will be performed if indicated. Normal [facility] Comment on above: Performed By: #### E RUR ####[facility] [address] [place], [place] [id number] Debbie Glucose Ql (U) Negative Normal NEGATIVE [facility] Comment on above: Performed By: #### E RUR ####[facility] [address] [place], [place] [address]Gerken Debbie Hemoglobin Ql (U) Negative Normal NEGATIVE [facility] Comment on above: Performed By: #### E RUR ####[facility] D[address]wh[address] Debbie Ketones Ql (U) Negative Normal NEGATIVE [facility] Comment on above: Performed By: #### E RUR ####[facility] [address] [place], [place] [address]Gerken Debbie LEUKOCYTES Negative Normal NEGATIVE [facility] Comment on above: Performed By: #### E RUR ####[facility] [address] [place], [place] [id number] Debbie Nitrite Ql (U) Negative Normal NEGATIVE [facility] Comment on above: Performed By: #### E RUR ####[facility] [address] [place] [address] Debbie pH (U) 6.0 [pH] Normal 5-9 [facility] Comment on above: Performed By: #### E RUR ####[facility] [address] [place] [address] Debbie SPEC GRAVITY 1.010 Normal 1.005-<=1.025 [facility] Comment on above: Performed By: #### E RUR ####[facility] [address] [place] [address] Debbie UA PROTEIN Negative Normal NEGATIVE/ TRACE [facility] Comment on above: Performed By: #### E RUR ####[facility] [address] [place] [address] Debbie UR MICRO IND NOT INDICATED Normal [facility] Comment on above: Performed By: #### E RUR ####[facility] [address] [place] [address] Debbie Urobilinogen Qn (U) 0.2 {Ericka'U}/dL Normal 0.2 - 1.0 [facility] Comment on above: Performed By: #### E RUR ####[facility] [address] [place] [address] Debbie LIPASEon 03-03-2021 Lipase [Catalytic activity/Vol] 67.0 U/L Normal 23.0-300.0 [facility] Comment on above: Performed By: #### C MP, CAROLYN, LIPA #### [facility] [address] [address] Reji Debbie PROF 14(COMP METB)on 021 Albumin [Mass/Vol] 4.2 g/dL Normal 3.5-5.0 [facility] Comment on above: Performed By: #### C MP, CAROLYN, LIPA #### [facility] [address] [place] [address] Reji Debbie Albumin/Globulin [Mass ratio] 1.2 {ratio} Normal [facility] Comment on above: Performed By: #### C MP, CAROLYN, LIPA #### [facility] [address] [place] [address] Reji Debbie ALP [Catalytic activity/Vol] 94 U/L Normal 38-126 [facility] Comment on above: Performed By: #### C MIKE, CAROLYN, LIPA #### [facility] [address] [place] [address] Reji Debbie ALT [Catalytic activity/Vol] 27 U/L Normal 9-52 [facility] Comment on above: Performed By: #### C MIKE, CAROLYN, LIPA #### [facility] [address] [place] [address] Reji Debbie Anion gap [Moles/Vol] 10.2 mmol/L Normal [facility] Comment on above: Performed By: #### C MIKE, CAROLYN, LIPA #### [facility] [address] [place] [address] Reji Debbie AST [Catalytic activity/Vol] 13 U/L Critically low 14-36 [facility] Comment on above: Performed By: #### C MP, CAROLYN, LIPA #### [facility] [address] [place] [address] Reji Debbie Bilirubin [Mass/Vol] 0.5 mg/dL Normal 0.2-1.3 [facility] Comment on above: Performed By: #### C MP, CAROLYN, LIPA #### [facility] [address] [place] [address] Reji Debbie Calcium [Mass/Vol] 9.3 mg/dL Normal 8.4-10.2 [facility] Comment on above: Performed By: #### C CAROLYN MCKEON LIPA #### [facility] [address] [place] [address] Reji Debbie Chloride [Moles/Vol] 106 mmol/L Normal 98-107 [facility] Comment on above: Performed By: #### C CAROLYN MCKEON LIPA #### [facility] [address] [place] [address] Reji Debbie CO2 [Moles/Vol] 25.7 mmol/L Normal 22.0-30.0 [facility] Comment on above: Performed By: #### C CAROLYN MCKEON LIPA #### [facility] [address] [place] [address] Reji Debbie Creatinine [Mass/Vol] 0.78 mg/dL Normal 0.52-1.04 [facility] Comment on above: Performed By: #### C CAROLYN MCKEON LIPA #### [facility] [address] [place] [address] Reji Debbie EGFR-AF SUDANESE >60 Normal >=60 [facility] Comment on above: Performed By: #### C CAROLYN MCKEON LIPA #### [facility] [address] [place] [address] Reji Debbie EGFR-NON AF SUDANESE >60 Normal >=60 [facility] Comment on above: Performed By: #### C CAROLYN MCKEON LIPA #### [facility] [address] [place] [address] Reji Debbie Globulin (S) [Mass/Vol] 3.4 g/dL Normal [facility] Comment on above: Performed By: #### C CAROLYN MCKEON LIPA #### [facility] [address] [place] [address] Reji Debbie Glucose [Mass/Vol] 94 mg/dL Normal 74-106 [facility] Comment on above: Performed By: #### C CAROLYN MCKEON LIPA #### [facility] [address] [place] [address] Reji Debbie Potassium [Moles/Vol] 3.9 mmol/L Normal 3.4-5.0 [facility] Comment on above: Performed By: #### C CAROLYN MCKEON LIPA #### [facility] [address] [place] [address] Reji Debbie Protein [Mass/Vol] 7.6 g/dL Normal 6.1-8.2 [facility] Comment on above: Performed By: #### C CAROLYN MCKEON LIPA #### [facility] [address] [place] [address] Reji Debbie Sodium [Moles/Vol] 138 mmol/L Normal 137-145 [facility] Comment on above: Performed By: #### C CAROLYN MCKEON LIPA #### [facility] [address] [place] [address] Reji Debbie Urea nitrogen [Mass/Vol] 14.0 mg/dL Normal 7.0-17.0 [facility] Comment on above: Performed By: #### C CAROLYN MCKEON LIPA #### [facility] [address] [place] [address] Reji Debbie Urea nitrogen/Creatinin e [Mass ratio] 17.9 mg/mg Normal [facility] Comment on above: Performed By: #### C CAROLYN MCKEON LIPA #### [facility] [address] [place] [address] Reji Debbie Vital Signs Date Time Vital Sign Value Performing Clinician Facility 05-16-2025 10: Body height 172.7 cm Kit Solitario DPM Work Phone: [facility] 05-16-2025 10: Body mass index (BMI) [Ratio] 27.98 kg/m2 Kit Solitario DPM Work Phone: [facility] 05-16-2025 10: Body weight 83.46 kg Kit Solitario DPM Work Phone: [facility] 05-16-2025 10: Respiratory rate 18 /min Kit Solitario DPM Work Phone: [facility] 12-07-2024 10:09-0400 Body height 172.7 cm Ernie Jeffersonfay DO Work Phone: [facility] 12-07-2024 10:09-0400 Body mass index (BMI) [Ratio] 27.98 kg/m2 Ernie Laffay DO Work Phone: [facility] 12-07-2024 10:09-0400 Body weight 83.46 kg Ernie Jeffersonfay DO Work Phone: [facility] 11-01-2024 11:16-0400 Body height 172.7 cm Kit Brown DPM Work Phone: [facility] 11-01-2024 11:16-0400 Body mass index (BMI) [Ratio] 27.83 kg/m2 Kit Brown DPM Work Phone: [facility] 11-01-2024 11:16-0400 Body weight 83.01 kg Kit Brown DPM Work Phone: [facility] 11-01-2024 11:16-0400 Respiratory rate 18 /min Kit Brown DPM Work Phone: [facility] 09-20-2024 10:00-0500 Body height 172.7 cm Kit Brown DPM Work Phone: [facility] 09-20-2024 10:00-0500 Body mass index (BMI) [Ratio] 27.83 kg/m2 Kit Brown DPM Work Phone: [facility] 09-20-2024 10:00-0500 Body weight 83.01 kg Kit Brown DPM Work Phone: [facility] 09-20-2024 10:00-0500 Respiratory rate 18 /min Kit Brown DPM Work Phone: [facility] 12-07-2023 14:26-0400 Body height 172.7 cm Kedar Agee MD Work Phone: [facility] 12-07-2023 14:26-0400 Body mass index (BMI) [Ratio] 31.47 kg/m2 [facility] 12-07-2023 14:26-0400 Body temperature 97.7 [degF] [facility] 12-07-2023 14:26-0400 Body weight 93.89 kg Kedar Agee MD [facility] 12-07-2023 14:26-0400 Diastolic blood pressure 86 mm[Hg] Kedar [facility]e MD [facility] 12-07-2023 14:26-0400 Heart rate 72 /min Kedar Agee MD [facility] Comment on above: 98o2 12-07-2023 14:26-0400 Respiratory rate 14 /min Kedar Agee MD [facility] 12-07-2023 14:26-0400 Systolic blood pressure 126 mm[Hg] Kedar Agee MD [facility] 10-18-2023 09:54-0500 Body height 172.7 cm Mariana Beltran DO [facility] 10-18-2023 09:54-0500 Body mass index (BMI) [Ratio] 31.32 kg/m2 Mariana Beltran DO [facility] 10-18-2023 09:54-0500 Body weight 93.44 kg Mar[facility]tran DO [facility] 10-18-2023 09:54-0500 Diastolic blood pressure 82 mm[Hg] Mar[facility]tran DO [facility] 10-18-2023 09:54-0500 Systolic blood pressure 120 mm[Hg] Mariana Beltran DO [facility] 02-24-2022 18:55-0400 Body height 171.45 cm Yazmin Cash Other [facility] Other 02-24-2022 18:55-0400 Body mass index (BMI) [Ratio] 29.62 kg/m2 Yazmin Cash Other [facility] Other 02-24-2022 18:55-0400 Body temperature 98.2 [degF] Yazmin Cash Other [facility] Other 02-24-2022 18:55-0400 Body weight 87.09 kg Yazmin Cash Other [facility] Other 02-24-2022 18:55-0400 Diastolic blood pressure 87 mm[Hg] Yazmin Cash Other [facility] Other 02-24-2022 18:55-0400 Respiratory rate 18 /min Yazmin Cash Other [facility] Other 02-24-2022 18:55-0400 SaO2% (BldA) [Mass fraction] 100 % Yazmin Cash Other [facility] Other 02-24-2022 18:55-0400 Systolic blood pressure 129 mm[Hg] Yazmin Cash Other [facility] Other Encounters Encounter Date Encounter Type Care Provider Facility Start: 05-16-2025 End: 05-16-2025 Sarahi Solitario DPM Work Phone: [facility] Start: 05-16-2025 End: 05-16-2025 Sarahi Solitario DPM Work Phone: [facility] Start: 05-16-2025 End: 05-16-2025 Office outpatient visit 25 minutes Kit Solitario DPM Work Phone: [facility] Comment on above: Pain due to onychomy cosis of toenails of both feet (Primary Dx); Plantar fasciitis; Contracture of right ankle; Contracture of left ankle; Capsulitis of metatarsophalangeal (MTP) joint of left foot; Onychomycosis Start: 02-04-2025 End: 02-04-2025 Bamboo flowsheet Kit Solitario DPM Work Phone: [facility] Start: 02-04-2025 End: 02-04-2025 Bamboo flowsheet Kit Solitario DPM Work Phone: [facility] Start: 02-04-2025 End: 02-04-2025 ambulatory KIT SOLITARIO Not Available Start: 02-01-2025 End: 02-04-2025 Patient encounter procedure Kit Solitario DPM Work Phone: [facility] Comment on above: Plantar fasciitis (P rimary Dx); Contracture of right ankle; Contracture of left ankle Start: 12-07-2024 End: 12-07-2024 ambulatory ERNIE PALMER Not Available Start: 12-07-2024 End: 12-07-2024 Office outpatient new 45 minutes Ernie Palmer DO Work Phone: [facility] Comment on above: Rectocele Start: 11-01-2024 End: 11-01-2024 Bamboo flowsheet Kit Solitario DPM Work Phone: [facility] Start: 11-01-2024 End: 11-01-2024 Bamboo flowsheet Kit Solitario DPM Work Phone: [facility] Start: 11-01-2024 End: 11-01-2024 Office outpatient visit 25 minutes Kit Solitario DPM Work Phone: [facility] Comment on above: Plantar fasciitis (P rimary Dx); Contracture of right ankle; Pain due to onychomycosis of toenails of both feet; Onychomycosis Start: 11-01-2024 End: 11-01-2024 ambulatory KIT SOLITARIO Not Available Start: 09-20-2024 End: 09-20-2024 Bamboo flowsheet Kit Solitario DPM Work Phone: [facility] Start: 09-20-2024 End: 09-20-2024 Bamboo flowsheet Kit Solitario DPM Work Phone: [facility] Start: 09-20-2024 End: 09-20-2024 ambulatory KIT SOLITARIO Not Available Start: 09-20-2024 End: 09-20-2024 Office outpatient new 45 minutes Kit Solitario DPM Work Phone: [facility] Comment on above: Plantar fasciitis (P rimary Dx); Contracture of right ankle; Pain due to onychomycosis of toenails of both feet; Onychomycosis Start: 04-16-2024 ambulatory [facility] Start: 04-16-2024 End: 04-18-2024 Subsequent hospital visit by physician Juno Rogers MD Work Phone: [facility] Start: 12-26-2023 End: 12-27-2023 ambulatory Sergo JAFFE Facility:[facility] Start: 12-07-2023 End: 12-07-2023 ambulatory KEDAR AGEE [facility] Start: 12-07-2023 End: 12-07-2023 Office outpatient new 45 minutes Kedar Agee MD Work Phone: [facility] Comment on above: Rectocele (Primary D x); Stress incontinence of urine; Constipation, unspecified constipation type; Dyspareunia in female; OAB (overactive bladder) Start: 10-25-2023 Orders Only Mariana Beltran DO Work Phone: [facility] Comment on above: Dyspareunia in femal e (Primary Dx); Menopause syndrome Start: 10-24-2023 Orders Only Debra davis RN [facility] Comment on above: Rectocele (Primary D x); Vaginal prolapse; Stress incontinence of urine; Dyspareunia in female Start: 10-20-2023 Telephone encounter Faiza Sotelo [facility] [place] Start: 10-18-2023 End: 10-18-2023 ambulatory MARIANA BELTRAN [facility] Start: 10-18-2023 End: 10-18-2023 Office outpatient visit 15 minutes Mariana Beltran DO Work Phone: [facility] Comment on above: Vaginal prolapse (Pr imary Dx); Rectocele; Stress incontinence of urine; Dyspareunia in female; Status post hysterectomy with oophorectomy Start: 08-31-2023 End: 09-01-2023 ambulatory Annel Teixeira Facility: [facility] Start: 06-01-2023 ambulatory Sergo JAFFE Facility :[facility] Start: 02-24-2022 End: 02-24-2022 ambulatory Yazmin Cash Other [facility] Other Start: 02-24-2022 Office outpatient ne w 20 minutes Yazmin Cash [facility] Start: 08-06-2021 End: 08-06-2021 ambulatory [facility] Facility: Start: 05-15-2021 End: 05-15-2021 ambulatory [facility] Facility:[facility] Start: 03-03-2021 End: 03-03-2021 ambulatory [facility] Facility: Procedures Date Procedure Procedure Detail Performing Clinician Start: 12-07-2023 MEASURE POST VOID RESIDUAL Kedar Agee MD Work Phone: Start: 12-07-2023 Urnls dip stick/tabl et rgnt non-auto w/o micrscp Kedar Agee MD Work Phone: H/O: surgery Status post hyst erectomy with oophorectomy Mariana Beltran DO Work Phone: Plan of Treatment Date Care Activity Detail Author Start: 05-16-2025 End: 06-15-2025 Alanine aminotransferase [Enzymatic activity/volume] in Serum or Plasma ALANINE AMINOTRANSFERASE Lab Routine Onychomycosis Expected: 05/16/2025 (Approximate), Expires: 06/15/2025 [facility] Comment on above: Expected: 05/16/2025 (Approximate), Expi res: 06/15/2025 Start: 05-16-2025 End: 06-15-2025 Aspartate aminotransferase [Enzymatic activity/volume] in Serum or Plasma ASPARTATE AMINO TRANSFERASE Lab Routine Onychomycosis Expected: 05/16/2025 (Approximate), Expires: 06/15/2025 [facility] Work Phone: Comment on above: Expected: 05/16/2025 (Approximate), Expi res: 06/15/2025 Start: 05-16-2025 End: 05-16-2025 Patient encounter procedure 05/16/2025 10:30 AM EDT Office Visit [facility] [address] [place] [id number] Kit Solitario DPM [address] [address] Pain due to onychomycosis of toenails of both feet (Primary Dx); Plantar fasciitis; Contracture of right ankle; Contracture of left ankle [facility] [facility] Comment on above: Pain due to onychomycosis of toenails of both feet (Primary Dx); Plantar fasciitis; Contracture of right ankle; Contracture of left ankle Start: 04-16-2025 Depression Screen Depression Screen [facility] Start: 01-20-2025 Screening for malignant neoplasm of breast Breast cancer screen [facility] Start: 12-08-2024 Tobacco Screening Tobacco Screening [facility] Start: 12-06-2024 Adult BMI Screening Adult BMI Screening [facility] Start: 11-01-2024 End: 12-02-2024 Alanine aminotransferase [Enzymatic activity/volume] in Serum or Plasma ALANINE AMINOTRANSFERASE Lab Routine Onychomycosis Expected: 11/01/2024 (Approximate), Expires: 12/02/2024 [facility] Comment on above: Expected: 11/01/2024 (Approximate), Expi res: 12/02/2024 Start: 11-01-2024 End: 12-02-2024 Aspartate aminotransferase [Enzymatic activity/volume] in Serum or Plasma ASPARTATE AMINO TRANSFERASE Lab Routine Onychomycosis Expected: 11/01/2024 (Approximate), Expires: 12/02/2024 [facility] Work Phone: Comment on above: Expected: 11/01/2024 (Approximate), Expi res: 12/02/2024 Start: 11-01-2024 End: 11-01-2024 Patient encounter procedure 11/01/2024 11:10 AM EDT Office Visit [facility] [address] [facility] [address] [place] [address] Kit Solitario DPM [address] [address] Plantar fasciitis (Primary Dx); Contracture of right ankle; Pain due to onychomycosis of toenails of both feet [facility] Comment on above: Plantar fasciitis (Primary Dx); Contracture of right ankle; Pain due to onychomycosis of toenails of both feet Start: 10-25-2024 End: 10-25-2024 Patient encounter procedure 10/25/2024 10:20 AM EST [facility] Visit [facility] [address] [facility] [address] [place] [address] Kit Solitario DPM [address] [address] [facility] Start: 10-18-2024 Adult BMI Screening Adult BMI Screening [facility] Start: 10-18-2024 Tobacco Screening Tobacco Screening [facility] Start: 09-20-2024 End: 10-19-2024 Alanine aminotransferase [...] procedure 05/31/2024 11:00 AM EDT Office Visit [facility] [address] [place] [address] [place] [address] [place] [address] M54.41, M54.42, G89.29 (ICD-10-CM) - Chronic midline low back pain with bilateral sciatica [facility] Comment on above: M54.41, M54.42, G89.29 (ICD-10-CM) - Chr onic midline low back pain with bilateral sciatica Start: 04-22-2024 Influenza vaccination Influenza Vaccine [facility] Start: 03-22-2024 Influenza vaccination Flu vaccine (#1) [facility] Start: 02-01-2024 End: 02-01-2024 Patient encounter procedure 02/01/2024 1:30 PM EDT Procedure visit [facility] [address] [place] [address] Kedar Agee MD [address] [place] [address] [facility] Start: 12-07-2023 End: 12-07-2023 Patient encounter procedure 12/07/2023 2:30 PM EDT Office Visit [facility] [address] [place] [address] Kedar Agee MD [address] [place] [address] [facility] Start: 04-22-2023 COVID-19 Vaccine ( season) COVID-19 Vaccine ( season) [facility] Start: 04-22-2023 Influenza vaccination Influenza Vaccine [facility] Start: 2021 Lipid panel Lipids [facility] Start: 2016 Diabetes screen Diabetes screen [facility] Start: 2000 DTaP,Tdap and Td Vaccines (1 - Tdap) DTaP,Tdap and Td Vaccines (1 - Tdap) [facility] Start: 2000 DTaP/Tdap/Td vaccine (1 - Tdap) DTaP/Tdap/Td vaccine (1 - Tdap) [facility] Start: 2000 Hepatitis B vaccine (1 of 3 - 19+ 3-dose series) Hepatitis B vaccine (1 of 3 - 19+ 3-dose series) [facility] Start: 11-07-1999 Adult BMI Follow Up Plan Adult BMI Follow Up Plan [facility] Start: 1994 Varicella vaccine (1 of 2 - 13+ 2-dose series) Varicella vaccine (1 of 2 - 13+ 2-dose series) [facility] Start: 1993 Depression Screening Depression Screening [facility] Start: 11-07-1987 Pneumococcal 0-64 years Vaccine (1 of 2 - PCV) Pneumococcal 0-64 years Vaccine (1 of 2 - PCV) [facility] Immunizations Immunization Date Immunization Notes Care Provider Fa cility 11-04-2020 hepatitis A vaccine, adult dosage Juno Rogers MD Work Phone: [facility] 05-06-2020 hepatitis A vaccine, adult dosage Juno Rogers MD Work Phone: [facility] Payers Date Payer Category Payer Medicaid (Managed Care) [facility] MEDICAID [id number] 2021 Medicaid [place] [employer] [employer] [id number] 2021-Present [phone] [address] [place] [address] [id number] 1981 Unknown [id number] [id number]. 593 1981 Unknown [id number] 2.16.840.1.962822.3.579.2. 593 1981 Unknown [id number] 2.16840.1.566417.3.579.2. 593 1981 Unknown [id number] 2.16.840.1.755133.3.579.2. 1286 1981 Unknown [id number] 2.16.840.1.397516.3.579.2. 1286 1981 Unknown [id number] 2.16.840.1.697328.3.579.2. 727 1981 Unknown [id number] 2.16.840.1.784315.3.579.2. 727 1981 Unknown [id number] 2.16.840.1.740948.3.579.2. 727 1981 Unknown [id number] 2.16.840.1.988824.3.579.2. 174 1981 Unknown [id number] 2.16.840.1.492216.3.579.2. 174 1981 Unknown [id number] 2.16.840.1.722276.3.579.2. 1259 1981 Unknown [id number] 2.16.840.1.060622.3.579.2. 1259 1981 Unknown [id number] 2.16.840.1.671787.3.579.2. 9 1981 Unknown [id number] 2.16.840.1.271815.3.579.2. 1259 1959 Unknown [id number] Social History Date Type Detail Facility Start: 04-16-2024 End: 12-07-2024 Sex Assigned At [place] [employer] [facility] Start: 01-11-2023 End: 04-16-2024 Tobacco smoking status [facility] Ex-smoker [facility] Start: 10-20-2001 End: 10-21-2019 History of tobacco use Current smoker [facility] Start: 10-20-2001 End: 10-21-2019 History of tobacco use Cigarette Smoker [facility] Start: 04-16-2024 End: 12-07-2024 Cigarettes smoked current (pack per day) - [facility].5 [facility] Start: 04-16-2024 End: 12-07-2024 Tobacco use and exposure Smokeless tobacco non-user [facility] Start: 04-16-2024 Alcoholic beverage intake Current non-drinker of alcohol (finding) [employer] How hard is it for y ou to pay for the very basics like food, housing, medical care, and heating Not hard at all [facility] [facility] (I/We) worried wheth er (my/our) food would run out before (I/we) got money to buy more. Never true [employer] At any time in the p ast 12 months, were you homeless or living in [facility] [including now]? No [employer] Start: 07-15-2020 Education 14 [employer] Start: 1980 Sex assigned at Female [facility] Start: 03-02-2021 Gender identity Identifies as female gender (finding) [facility] Start: 03-02-2021 Sexual orientation Heterosexual (finding) [facility] Start: 09-20-2024 Tobacco smoking status NHIS Tobacco smoking consumption unknown [facility] Start: 1980 Sex assigned at Not on file [employer] [employer] [facility] Start: 12-09-2023 End: 05-16-2025 Alcoholic beverage intake Current drinker of alcohol (finding) [facility] Start: 01-11-2023 Alcohol Comment rare [facility] Start: 12-07-2024 Tobacco smoking status NHIS Never smoked tobacco [facility] Clinical Notes 02-24-2022 to 05-16-2025 Kit Solitario, JOSE ANTONIO - 05/16/2025 10:30 AM Michelle Solitario DPM - 02/01/2025 2:50 PM Magui Palmer DO - 12/07/2024 10:00 AM Michelle Solitario DPM - 11/01/2024 11:10 AM EDT Note Date & Type Note Facility 05-16-2025 History of Presen t illness Narrative Patient: [...] has had previous treatment of orthotics and medrol pack and stretching with positive relief. Pt states [...] Resource Strain: Low Risk (04/16/2024) Received from [facility] Overall Financial Resource Strain (CARDIA) Difficulty of Paying Living Expenses: Not hard at all Food Insecurity: No Food Insecurity (04/16/2024) Received from [facility] Hunger Vital Sign Worried About Running Out of Food in the Last Year: Never true Ran Out of Food in the Last Year: Never true Transportation Needs: Unknown (04/16/2024) Received from [facility] PRAPARE - Transportation Lack of Transportation (Medical): Not on file Lack of Transportation (Non-Medical): No Physical Activity: Not on file Stress: Not on file Social Connections: Not on file Intimate Partner Violence: Not on file Housing Stability: Unknown (04/16/2024) Received from [facility] Housing Stability Vital Sign Unable to [...] procedure including infection,damage or rupture to soft tissue structures and steroid flare. Pt understood and consented. This is the patients 1st injection Patient to bring orthotics and may add metatarsal pads but she will purchase [id number] metatarsal pads at this time and also has note needed for doctor's appointment as well as FMLA to be off 4 times per month Kit Solitario DPM documented in this encounter [facility] 02-01-2025 History of Presen t illness Narrative Pt was f dispensedcustom made orthotics today. Patient informedof proper break in of devices. Patient education on break in of device. ABN signed and in chart if warranted. 1. Plantar fasciitis 2. Contracture of right ankle 3. Contracture of left ankle documented in this encounter [facility] 12-07-2024 History of Presen t illness Narrative [...] Unknown Physical Exam Exam conducted with a autistic teacher present. Constitutional: Appearance: Normal appearance. HENT: Head: [...] was confirmed by evaluation by Gynecology in [place] previously. I do not fix rectocele. I did educate patient on the difference between rectal prolapse and rectocele which she appreciated. She will call that sander machine back and see them about possible repair. I will see her again on an as-needed basis otherwise she is discharged from my care. documented in this encounter [facility] 11-01-2024 History of Presen t illness Narrative [...] Resource Strain: Low Risk (04/16/2024) Received from [facility] Overall Financial Resource Strain (CARDIA) Difficulty of Paying Living Expenses: Not hard at all Food Insecurity: No Food Insecurity (04/16/2024) Received from [facility] Hunger Vital Sign Worried About Running Out of Food in the Last Year: Never true Ran Out of Food in the Last Year: Never true Transportation Needs: Unknown (04/16/2024) Received from [facility] PRAPARE - Transportation Lack of Transportation (Medical): Not on file Lack of Transportation (Non-Medical): No Physical Activity: Not on file Stress: Not on file Social Connections: Not on file Intimate Partner Violence: Not on file Housing Stability: Unknown (04/16/2024) Received from [facility] Housing Stability Vital Sign Unable to [...] tylenol or Ibuprofen Patient may stop in [place] location for orthotic pickup Patient is to [...] Resource Strain: Low Risk (04/16/2024) Received from [facility] Overall Financial Resource Strain (CARDIA) Difficulty of Paying Living Expenses: Not hard at all Food Insecurity: No Food Insecurity (04/16/2024) Received from [facility] Hunger Vital Sign Worried About Running Out of Food in the Last Year: Never true Ran Out of Food in the Last Year: Never true Transportation Needs: Unknown (04/16/2024) Received from [facility] PRAPARE - Transportation Lack of Transportation (Medical): Not on file Lack of Transportation (Non-Medical): No Physical Activity: Not on file Stress: Not on file Social Connections: Not on file Intimate Partner Violence: Not on file Housing Stability: Unknown (04/16/2024) Received from [facility] Housing Stability Vital Sign Unable to [...] notes dyspareunia. Has recently started VET. 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 Uterus: Absent. Adnexa: Absent. Rectum: TIALO deferred. Pelvic floor spasm and myalgia: None Modified [place] Scale 0-5: 2, weak muscle contraction Leakage [...] management. Would be a good candidate for kalispel tissue repair - posterior colporrhaphy and iliococcygeal [...] for UDS. Avoid bladder irritants. PVR normal. CARD LACER negative. UA negative. This chart note was [...] similarly generated notes. documented in this encounter [facility] 10-25-2023 History of Presen t illness Narrative Vagifem was changed to Estrace vaginal cream documented in this encounter [facility] 10-20-2023 Miscellaneous Notes Formattin g of this note might be different from the original. Pts script for Vagifem got denied. Is there another medication you would like to try? Pt aware. documented in this encounter [facility] 10-20-2023 Telephone encount er Note Pts script for Vagifem got denied. Is there another medication you would like to try? Pt aware. [facility] 10-18-2023 History of Presen t illness [...] . She reports recently going to the [place] and completely soaking her pants through. She [...] has been made documented in this encounter [facility] 02-24-2022 Evaluation note Encounter Date Diagnosis [...] to see Dr. Gabriel, orthopedic physician in [place] in follow-up. She states she will arrange her appointment Feb, Other Ankle fracture material was printed Naldo Other Evaluation note* Diagnosis Plantar fasciitis- Primary Plantar fascial fibromatosis Contracture of right ankle Pain due to onychomycosis of toenails of both feet Onychomycosis Dermatophytosis of nail documented in this encounter [facility]* Diagnosis Rectocele- Primary Stress incontinence of urine Constipation, unspecified constipation type Dyspareunia in female OAB (overactive bladder) 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 [facility] Diagnosis Rectocele- Primary Vaginal prolapse Unspecified prolapse of vaginal chris Stress incontinence of urine Dyspareunia in female documented in [facility]* Diagnosis Dyspareunia in female- Primary Menopause syndrome Symptomatic menopausal or female climacteric states documented [facility]* Diagnosis Plantar fasciitis- Primary Plantar fascial fibromatosis Contracture of right ankle Pain due to onychomycosis of toenails of both feet Onychomycosis Dermatophytosis of nail documented in this encounter [facility]* Diagnosis Rectocele documented in this encounter [facility]* Diagnosis Plantar fasciitis- Primary Plantar fascial fibromatosis Contracture of right ankle Contracture of left ankle documented in this encounter [facility]* Diagnosis Pain due to onychomycosis of toenails of both feet- Primary Plantar fasciitis Plantar fascial fibromatosis Contracture of right ankle Contracture of left ankle Capsulitis of metatarsophalangeal (MTP) joint of left foot Onychomycosis Dermatophytosis of nail documented in this encounter [facility] Healthcare[facility] general Narrative - Reported* Type Description Date Medical History Endometriosis Medical History Back pain Medical History Seizures Medical History Migraines Medical History PTSD Medical History Anxiety Disorder Medical History Hepatitis C-per records from [facility] Surgical History Hysterectomy 2008 Surgical History Exploratory laparoscopy-endomet riosi (2) Surgical History Tumor removed left finger Hospitalization History See past surgical hx Hospitalization History Seizures N[facility] Other InstructionsNot on filedocumented in this encounter [facility]* Attachments The following attachments cannot be sent through Care Everywhere. * Pelvic Floor Exercises (Eritrean) * Vaginal dryness (Eritrean) * Vaginal Prolapse (Eritrean) documented in this encounterPro[facility]ks [facility] SystemInstructionsNot on file [facility] SystemInstructionsNot on file documented in this encounterProProtestant Hospital SystemReason for referral (narrative)* Consultation (Routine) - Pending Review Specialty Diagnoses / Procedures Referred By Ralph larkin Referred To Contact Urology Diagnoses Rectocele Vaginal prolapse Stress incontinence of urine Dyspareunia in female Status post hysterectomy with oophorectomy Mariana Beltran DO [address] [place] [address] [place] [address] [facility], [address] [address] Referral ID Status Reason Start Date Expiration Date Visits Requested Visits Authorized [id number] Pending Review Specialty Services Required 10/18/2023 10/17/2024 1 1 * Medication Prior Authorization - Pending Review Specialty Diagnoses / Procedures Referred By Contac t Referred To Contact Diagnoses Rectocele Vaginal prolapse Stress incontinence of urine Dyspareunia in female Status post hysterectomy with oophorectomy Wes Mariana Rick DO [address] [place] [address] Referral ID Status Reason Start Date Expiration Date V isits Requested Visits Authorized [id number] Pending Review [facility] QuestReason for referral (narrative)* Consultation (Routine) - Pending Review Specialty Diagnoses / Procedures Referred By Contac t Referred To Contact Urogynecology / Gynecology Diagnoses Rectocele Vaginal prolapse Stress incontinence of urine Dyspareunia in female Mariana Beltran DO [address] [place] [address] Kedar Agee MD [address] [place] [address] Referral ID Status Reason Start Date Expiration Date Visits Requested Visits Authorized [id number] Pending Review Specialty Services Required 10/24/2023 10/23/2024 1 1 [facility] Summary Purpose Family History No Family History Records FoundNo Family History Records FoundNo Family History Records FoundNo Family History Records FoundNo Family History Records FoundNo Family History Records Found Advance Directives Healthcare Agents on File Name Relationship Healthcare Agent [facility] Faviola Coolley Child Primary Decision Maker Reason for Referral Specialty Diagnoses / Procedures Referred By Contac t Referred To Contact Diagnoses Rectocele Vaginal prolapse Stress incontinence of urine Dyspareunia in female Procedures Measure post void residual Kedar Agee MD [address] [place] [address] Referral ID Status Reason Start Date Expiration Date V isits Requested Visits Authorized [id number] Pending Review 12/07/2023 12/06/2024 1 1 Additional Source Comments INFORMATION SOURCE (unrecogn ized section and content) DATE CREATED AUTHOR 08/10/2021 [facility] DATE CREATED AUTHOR AUTHOR'S ORGANIZ ATION 03/11/2022 [facility] DATE CREATED AUTHOR AUTHOR'S ORGANIZ ATION 12/09/2023 [facility] DATE CREATED AUTHOR AUTHOR'S ORGANIZ ATION 12/28/2023 [facility] DATE CREATED AUTHOR AUTHOR'S ORGANIZ ATION 04/18/2024 [facility] DATE CREATED AUTHOR AUTHOR'S ORGANIZ ATION 02/05/2025 [facility] Special[facility] EPIC REASON FOR VISIT (unrecogniz ed section and content) Reason Comments Toenail Problem Thick nials, poss fu ngus Reason Comments Vaginal Prolapse Specialty Diagnoses / Procedures Referred By Contac t Referred To Contact Urogynecology / Gynecology Diagnoses Rectocele Vaginal prolapse Stress incontinence of urine Dyspareunia in female Mariana Beltran DO [address] [place] [address] Kedar Agee MD [address] [facility] [address] [place] [address] Referral ID Status Reason Start Date Expiration Date V isits Requested Visits Authorized [id number] Closed Specialty Services Required 10/24/2023 10/23/2024 1 1 Reason Comments Prolapse Noticed a few months ago, feels a bulge Reason Comments Follow-up Rt pf check Reason Comments Consult Rectal prolapse Specialty Diagnoses / Procedures Referred By Contac t Referred To Contact General Surgery Diagnoses Rectal prolapse Procedures AR OFFICE/OUTPATIENT [facility] 60 MINUTES Ana Ibanez, PAUL [address] [facility] [place] [address] [place] [address] Phone: tel: fax: [facility] [address] [facility] [address] [place] [address] Phone: tel: fax: Referral ID Status Reason Start Date Expiration Date V isits Requested Visits Authorized [id number] Closed Specialty Services Required 10/24/2024 04/22/2025 1 1 Reason Comments Foot Pain Specialty Diagnoses / Procedures Referred By Contac t Referred To Contact Podiatry Diagnoses LT FT PAIN Procedures AR OFFICE/OUTPATIENT ESTABLISHED LOW MDM 20 MIN Karolyn Baeza, PAUL [address] [place] [address] Phone: tel: fax: Kit Solitario, DPKeith [address] [address] Phone: tel: fax: Referral ID Status Reason Start Date Expiration Date Visits Re quested Visits Authorized [id number] Closed 04/30/2025 07/29/2025 1 1 Care Teams (unrecognized sec tion and content) Senior Structural Engineer Relationship Specialty Start Date End Date Juno Rogers MD PCP - General Internal Medicine 05/22/18 Senior Structural Engineer Relationship Specialty Start Date End Date Juno Rogers MD [address] [place], [place] [id number] PCP - General Internal Medicine 09/20/24 Senior Structural Engineer Relationship Specialty Start Date End Date Juno Rogers MD [address] [place], [place] [id number] PCP - General Internal Medicine 09/20/24 Senior Structural Engineer Relationship Specialty Start Date End Date Juno Rogers MD [address] [place] [id number] PCP - General Internal Medicine 09/20/24 Senior Structural Engineer Relationship Specialty Start Date End Date Juno Rogers MD [address] [place] [id number] PCP - General Internal Medicine 09/20/24 Senior Structural Engineer Relationship Specialty Start Date End Date Juno Rogers MD [address] [place], [place] [id number] PCP - General Internal Medicine 09/20/24 Senior Structural Engineer Relationship Specialty Start Date End Date Juno Rogers MD [address] [place] [id number] PCP - General Internal Medicine 09/20/24 Senior Structural Engineer Relationship Specialty Start Date End Date Juno Rogers MD [address] [place] [id number] PCP - General Internal Medicine 09/20/24 FOR [...] BE BASED ON THE PRIMARY CLINICAL RECORDS. [facility] MD [facility]. provides no warranty or guarantee of the accuracy or completeness of information in this document.
[2025-05-16 11:35] LABS: Alanine Aminotransferase 15 U/L (14-59); Aspartate Amino Transferase 11 U/L (15-37)
== END 2025-05-16 11:07 | disposition home or self-care (01) ==
LOC: LAB 11:08
PROVIDERS: PCP Nurse Practitioner Family
DX: B35.1 Tinea unguium (principal)
CPT/HCPCS: 36415; 84450; 84460

== ENCOUNTER 2025-06-13 12:23 | Outpatient (OUT) | payer OTHER, SELFPAY ==
--- OUTSIDE RECORDS SUMMARY | 2025-05-30 09:40 | XMS_ITS | Encounter Summary ---
Author Organization [facility] Address [address] [place] [address] Care Team Providers Care Quick Print Operator Name Role Phone Juno Rogers MD Primary Care Provider Reason for Visit * ReasonCommentsFollow-upLt 2nd cap Encounter Details DateTypeDepartmentCare Team (Latest Contact Info)Ppkzaplxhiy53/09/2025 9:40 AM EDTOffice Visit [facility] 112 [facility] [address] [place] [address] Kit Solitario, DPM 3006 [facility] [address] [place] [address] Capsulitis of metatarsophalangeal (MTP) joint of left foot (Primary Dx); Contracture of left ankle; Pain due to onychomycosis of toenails of both feet; Plantar fasciitis; Contracture of right ankle Social History Tobacco UseTypesPacks/DayYears UsedDateSmoking Tobacco: NeverSmokeless Tobacco: Never Tobacco Cessation:Counseling Given: Yes Alcohol UseStandard Drinks/WeekCommentsYes3 (1 standard drink = 0.6 oz pure alcohol)CommentsUnknownSex and Gender InformationValueDate RecordedSex Assigned at BirthNot on fileLegal IjfAbrelq58/15/2023 7:00 PM EDTGender Identity Not on fileSexual OrientationNot on filedocumented as of this encounter Last Filed Vital Signs Vital SignReadingTime TakenCommentsBlood Pressure--Pulse--Temperature-- Respiratory Fdaf8844 9:49 AM EDTOxygen Saturation--Inhaled Oxygen Concentration--Hztuyq73.5 kg (184 lb)05/30/2025 9:49 AM TUQXtuwpn022.7 cm (5' 8 )05/30/2025 9:49 AM EDTBody Mass Index27.9805/30/2025 9:49 AM EDTdocumented in this encounter Progress Notes * Kit Solitario, DPM - 05/30/2025 9:40 AM EDT Patient: Jazmin Cassidy : 1980 PCP: Juno Rogers MD SUBJECTIVE This is a 44 y.o. female that presents today for a follow up of Lamisil medication for the from 10/2024 and states she has finished all medication of lamisil with with slight improvement to bilateral great digit nails She has taken 2 weeks of medication for 2nd round of treatments. Pt presents today for follow up of right HSS. Pt has had previous treatment of orthotics and nsaisswith stretching with improvement. Pt states current pain on a 1-10 scale is a 0-1 Pt presents to day for follow up tx. Patient presents today for follow up of capsulitis and synovitis to the left 2nd MPJ Currently they rate their pain on a 1-10 scale a 0-1 States prior treatments of steroid injection and nsaids with positive improvement States pain is aggrevated with WB. Pt did not bring in orthotics for addition of possible metatarsal pads. Allergies: No Known Allergies Past Medical History: No past medical history on file. Medications: Current Outpatient Medications: meloxicam (Mobic) 7.5 MG tablet, Take 7.5 mg by mouth 2 (two) times a day as needed, Disp: , Rfl: methylPREDNISolone (Medrol Dospak) 4 MG tablets, Follow schedule on MEDROL PACK package instructions to be used as directed, Disp: 21 tablet, Rfl: 0 terbinafine (LamISIL) 250 MG tablet, Take 1 tablet (250 mg) by mouth Daily, Disp: 30 tablet, Rfl: 0 Social History: Social History Socioeconomic History Marital [...] Resource Strain: Low Risk (04/16/2024) Received from [facility] Overall Financial Resource Strain (CARDIA) Difficulty of Paying Living Expenses: Not hard at all Food Insecurity: No Food Insecurity (04/16/2024) Received from [facility] Hunger Vital Sign Worried About Running Out of Food in the Last Year: Never true Ran Out of Food in the Last Year: Never true Transportation Needs: Unknown (04/16/2024) Received from [facility] PRAPARE - Transportation Lack of Transportation (Medical): Not on file Lack of Transportation (Non-Medical): No Physical Activity: Not on file Stress: Not on file Social Connections: Not on file Intimate Partner Violence: Not on file Housing Stability: Unknown (04/16/2024) Received from [facility] Housing Stability Vital Sign Unable to [...] and left hallux and left 2nd toenail negative palpation to right medial calcaneal tubercle minimal pain on palpation left 2nd MPJ capsule with negative Yenni test AST/ALT: ASSESSMENT 1. Capsulitis of metatarsophalangeal (MTP) joint of left foot 2. Contracture of left ankle 3. Pain due to onychomycosis of toenails of both feet 4. Plantar fasciitis 5. Contracture of right ankle PLAN Patient to continue with oral anti - inflammatories as needed for pain and recommended OTC medications such as tylenol or Ibuprofen Continue with lamisil medication with follow up in 2 weeks to review labs and possible 2nd refill of medication. Patient is to continue with stretching excercizes daily with patient to continue with night stretching splint or manual stretching. Reviewed ultrasound today with patient Patient may bring in orthotics for addition of metatarsal pads in near future FMLA to be off 4 times per month written in past Kit Solitario DPM documented in this encounter Plan of Treatment DateTypeDepartmentCare Team (Latest Contact Info)Yywieprbabh81/06/2025 10:00 AM ESTOffice Visit [facility] 112 [facility] [address] [place] [address] Kit Solitario DPM 3006 [facility] 5 [place] [address] documented as of this encounter Visit Diagnoses Diagnosis Capsulitis of metatarsophalangeal (MTP) joint of left foot- Primary Contracture of left ankle Pain due to onychomycosis of toenails of both feet Plantar fasciitis Plantar fascial fibromatosis Contracture of right ankle documented in this encounter Care Teams Team MemberRelationshipSpecialtyStart DateEnd Date Juno Rogers MD [address] [place] [address] PCP - GeneralInternal Medicine09/20/24documented as of this encounter
--- OUTSIDE RECORDS SUMMARY | 2025-06-13 11:50 | XMS_ITS | Encounter Summary ---
Author Organization [facility] Address [address] [place] [address] Care Team Providers Care Commutator Presser Name Role Phone Juno Rogers MD Primary Care Provider [phone] Reason for Visit * ReasonCommentsFollow-upLamisil/2nd cap Encounter Details DateTypeDepartmentCare Team (Latest Contact Info)Ickfqgxcldr48/23/2025 11:50 AM EDTOffice Visit [facility] 112 [facility] [address] [place] [address] Kit Solitario, DPKeith 3006 [facility] 5 [place] [address] Capsulitis of metatarsophalangeal (MTP) joint of left foot (Primary Dx); Plantar fasciitis; Contracture of left ankle; Contracture of right ankle; Pain due to onychomycosis of toenails of both feet; Onychomycosis Social History Tobacco UseTypesPacks/DayYears UsedDateSmoking Tobacco: NeverSmokeless Tobacco: Never Tobacco Cessation:Counseling Given: Yes Alcohol UseStandard Drinks/WeekCommentsYes3 (1 standard drink = 0.6 oz pure alcohol)CommentsUnknownSex and Gender InformationValueDate RecordedSex Assigned at BirthNot on fileLegal OvkUuggny05/15/2023 7:00 PM EDTGender Identity Not on fileSexual OrientationNot on filedocumented as of this encounter Last Filed Vital Signs Vital SignReadingTime TakenCommentsBlood Pressure--Pulse--Temperature-- Respiratory Cjyp8539 11:54 AM EDTOxygen Saturation--Inhaled Oxygen Concentration--Nuyqvk40.5 kg (184 lb)06/13/2025 11:54 AM PFTViokwi893.7 cm (5' 8 )06/13/2025 11:54 AM EDTBody Mass Index27.9810 11:54 AM EDTdocumented in this encounter Progress Notes * Kit Solitario, JOSE ANTONIO - 06/13/2025 11:50 AM EDT Patient: Jazmin Cassidy : 1980 PCP: Juno Rogers MD SUBJECTIVE This is a 44 y.o. female that presents today for a follow up of Lamisil medication for the from 04/2025 and presents today for follow up Pt has finished 30d of medication with negative improvement. States negative issues with medication. Pt presents today for follow up of right HSS. Pt has had previous treatment of orthotics and nsaidswith stretching with improvement. Pt states current pain on a 1-10 scale is a 4 Pt presents to day for follow up tx. Patient presents today for follow up of capsulitis and synovitis to the left 2nd MPJ Currently they rate their pain on a 1-10 scale a 6 States prior treatments of steroid injection and nsaids with positive improvement States pain is aggrevated with WB. Pt was to bring in orthotics for addition of possible [...] Resource Strain: Low Risk (04/16/2024) Received from [facility] Overall Financial Resource Strain (CARDIA) Difficulty of Paying Living Expenses: Not hard at all Food Insecurity: No Food Insecurity (04/16/2024) Received from [facility] Hunger Vital Sign Within the past 12 months, you worried that your food would run out before you got the money to buymore.: Never true Within the past 12 months, the food you bought just didn't last and you didn't have money to get more.: Never true Transportation Needs: Unknown (04/16/2024) Received from [facility] PRAPARE - Transportation Lack of Transportation (Medical): Not on file Lack of Transportation (Non-Medical): No Physical Activity: Not on file Stress: Not on file Social Connections: Not on file Intimate Partner Violence: Not on file Housing Stability: Unknown (04/16/2024) Received from [facility] Housing Stability Vital Sign Unable to Pay for Housing in the Last Year: Not on file Number of Times Moved in the Last Year: Not on file At any time in the past 12 months, were you homeless or living in a halfway (including now)?: No ROS: General: denies fever, chills, fatigue, [...] great digits and bilateral 2nd digits WITH minimal lunular clearing. VASC: Palpable pedal pulsed b/l [...] diminished palpation to right medial calcaneal tubercle Diminished pain on palpation left medial calcaneal tubercle positive pain on palpation left 2nd MPJ capsule with negative Yenni test AST/ALT: Labs ordered [facility] ASSESSMENT 1. Capsulitis of metatarsophalangeal (MTP) joint of left foot 2. Plantar fasciitis 3. Contracture of left ankle 4. Contracture of right ankle 5. Pain due to onychomycosis of toenails of both feet PLAN Patient to continue with oral anti - inflammatories as needed for pain and recommended OTC medications such as tylenol or Ibuprofen Patient will continue looking for orthotics for modification Pt was given steroid injection to the [...] understood and consented. This is the patients 2nd injection Patient is to continue with stretching excercizes [...] contact podiatry if any problems RTC 2 weeks for follow up of injection Prescription today for Medrol pack FMLA to be off 4 times per month written in past Kit Solitario DPM documented in this encounter Plan of Treatment DateTypeDepartmentCare Team (Latest Contact Info)Llsvceyqljm99/06/2025 10:00 AM ESTOffice Visit [facility] 112 [facility] [address] [place] [address] Kit Solitario, DPKeith [address] [address] NameTypePriorityAssociated DiagnosesOrder ScheduleASPARTATE AMINO TRANSFERASELab Routine Onychomycosis Ordered: 06/13/2025LANINE AMINOTRANSFERASELabRoutine Onychomycosis Ordered: 06/13/2025documented as of this encounter Visit Diagnoses Diagnosis Capsulitis of metatarsophalangeal (MTP) joint of left foot- Primary Plantar fasciitis Plantar fascial fibromatosis Contracture of left ankle Contracture of right ankle Pain due to onychomycosis of toenails of both feet Onychomycosis Dermatophytosis of nail documented in this encounter Care Teams Team MemberRelationshipSpecialtyStart DateEnd Date Juno Rogers MD [address] [place], [place] [id number] PCP - GeneralInternal Medicine09/20/24documented as of this encounter
--- OUTSIDE RECORDS SUMMARY | 2025-06-13 12:30 | XMS_ITS | Clinical Summary ---
Author Organization [facility] Address [address] [facility], [address] [place] [address] Care Team Providers Care Animal Control Supervisor Name Role Phone Juno Rogers MD Primary Care Provider [phone] Allergies Active AllergyReactionsCriticalityNoted OnasLaapiubzUhrvfumecjg92/11/2019 Medications MedicationSigDispense QuantityRefillsLast FilledStart DateEnd DateStatus vitamin D3 (CHOLECALCIFEROL) 25 MCG (1000 UT) TABS tablet TAKE 2 TABLETS BY MOUTH DAILY 30 tablet 01/12/2022ctive Additional Information Patient not taking.Reported on 12/07/2022 [facility] VITAMIN C 1000 MG tablet TAKE 1 TABLET BY MOUTH EVERY DAY 30 tablet ctive Additional Information Patient not taking.Reported on 12/07/2022 cyclobenzaprine (FLEXERIL) 5 MG tablet TAKE 1 TABLET BY MOUTH THREE TIMES A DAY NEEDED FOR MUSCLE SPASMS 90 tablet ctive [facility] ZINC GLUCONATE 50 MG tablet TAKE 1 TABLET BY MOUTH EVERY DAY 30 tablet 2Active Additional Information Patient not taking.Reported on 12/07/2022 guaiFENesin ([facility] MUCUS EXTENDED RELEASE) 600 MG extended release tablet Indications:Subacute bronchitisTAKE 1 TABLET BY MOUTH 2 TIMES DAILY FOR 15 DAYS 40 tablet 3Active naproxen (NAPROSYN) 500 MG tablet Indications:Acute low back pain with bilateral sciatica, unspecified back pain lateralityTAKE 1 TABLET BY MOUTH TWICE A DAY WITH FOOD 20 tablet 3045Active Active Problems ProblemNoted DateDiagnosed DateBreast cancer screening by xaejtcxmy11/ Acquired absence of both cervix and dvbbmv0007/04/2019Other acute sinusitis 07/04/2019Chronic hepatitis C without hepatic coma05/22/20186137Kcrebag99/01/2018 Resolved Problems ProblemNoted DateDiagnosed DateResolved WwkjDuqbh13 Immunizations ImmunizationAdministration DatesNext DueHep Curtis, CKRIGary, KATHRYNTA, (age 19y+), IM, 1mL11/04/2020,05/06/2020 Family History RelationNameStatusCommentsFatherAliveMotherAlive Social History Tobacco UseTypesPacks/DayYears UsedDateSmoking Tobacco: FormerCigarettes0.518 10/2001 - 10/2019Smokeless Tobacco: Never Tobacco Cessation:Counseling Given: Not Answered Alcohol UseStandard Drinks/WeekCommentsNo0 (1 standard drink = 0.6 oz pure alcohol)Overall Financial Resource Strain (CARDIA)AnswerDate RecordedHow hard is it for you to pay for the very basics like food, housing, medical care, and heating?Not hard at all04/16/2024HQ-2AnswerDate RecordedPHQ-9 Total Score0 04/16/2024Hunger Vital SignAnswerDate RecordedWithin the past 12 months, you worried that your food would run out before you got the money to buymore.Never true04/16/2024Within the past 12 months, the food you bought just didn't last and you didn't have money to get more.Never true04/16/2024RAPARE - TransportationAnswerDate RecordedLack of Transportation (Medical)Not on file 04/16/2024In the past 12 months, has lack of transportation kept you from meetings, work, or from getting things needed for daily living?No04/16/2024 Housing Stability Vital SignAnswerDate RecordedUnable to Pay for Housing in the Last YearNot on file12/07/2022Number of Places Lived in the Last YearNot on file 12/07/2022In the last 12 months, was there a time when you did not have a steady place to sleep or slept in ashelter (including now)?No12/07/2022Housing Stability Vital SignAnswerDate RecordedUnable to Pay for Housing in the Last YearNot on file04/16/2024Number of Times Moved in the Last YearNot on file 04/16/2024t any time in the past 12 months, were you homeless or living in a assisted (including now)?No04/16/2024Food InsecurityAnswerDate RecordedWithin the past 12 months, you worried that your food would run out before you got the money to buymore.Within the past 12 months, the food you bought just didn't last and you didn't have money to get more.EducationAnswerDate RecordedWhat is the highest level of school you have completed or the highest degree you have received?GED or denchbmsng16/24/2020CommentsNoSex and Gender InformationValueDate RecordedSex Assigned at GyuhgFclmiq07/12/2021 5:08 PM EDTLegal EauTmpucj24/12/2013 9:17 PM ESTGender RrfqppmmTdcvoh55/12/2021 5:08 PM EDTSexual EskempahflpGixuntqd24/12/2021 5:08 PM EDT Last Filed Vital Signs Vital SignReadingTime TakenCommentsBlood Mkwtwlcx617/8204/16/2024 1:48 PM EDT Kogsp258004/16/2024 1:48 PM OGFMonllmohdyq63.4 ??C (97.5 ??F)01/30/2021 11:29 AM EDTRespiratory Ytbc011504/16/2024 1:48 PM EDTOxygen Hetolsojfg35%04/16/2024 1:48 PM EDTInhaled Oxygen Concentration--Wvskpr65.6 kg (191 lb)04/16/2024 1:48 PM EDT Mgqpzr512.7 cm (5' 8 )04/16/2024 1:48 PM EDTBody Mass Index29.04004/16/2024 1:48 PM EDT Plan of Treatment Health MaintenanceDue DateLast DoneCommentsVaricella vaccine (1 of 2 - 13+ 2- dose series)1994DTaP/Tdap/Td vaccine (1 - Tdap)2000Hepatitis B vaccine (1 of 3 - 19+ 3-dose series)2000Pneumococcal 0-49 years Vaccine (1 of 2 - PCV)11/06/20001691Qgipsm50/18/2022reast cancer xzkvki28/08/2022Flu vaccine (#1)03/22/2025Depression Eudqci79/26//OVID-19 Vaccine ( - season)2025HIV dnspyzScsyqaicd85/04/2018Hepatitis A vaccine Qpdkmxuru54/16/2021, 05/06/2020HPV vaccine (No Doses Required)CompletedHib vaccineAged OutNo longer eligible based on patient's age to complete this topic Meningococcal (ACWY) vaccineAged OutNo longer eligible based on patient's age to complete this topicMeningococcal B vaccineAged OutNo longer eligible based on patient's age to complete this topicPolio vaccineAged OutNo longer eligible based on patient's age to complete this topic Procedures Procedure NamePriorityDate/TimeAssociated DiagnosisCommentsHIV SCREENRoutine 05/25/2018 Encounter for screening for HIV from Last 3 Months or Most Recently Relevant to Health Maintenance Results * HIV Screen (05/25/2018)ComponentValueRef RangeTest MethodAnalysis Time Performed AtPathologist SignatureHIV Ag/Abnon reactiveSpecimen (Source) Anatomical Location / LateralityCollection Method / VolumeCollection Time Received TimeBLOOD SPECIMEN / Nwpyoir6305/25/2018 Narrative Authorizing ProviderResult TypeResult StatusGoluz elena Rogers MDIMMUNOLOGY ORDERABLESEdited Result - Final from Last 3 Months or Most Recently Relevant to Health Maintenance Insurance Advance Directives NameRelationshipHealthcare Agent RelationshipCommunicationKenady Dereck Primary Decision Maker* * Care Teams Team MemberRelationshipSpecialtyStart DateEnd Date Juno Rogers MD PCP - GeneralInternal Rrfcojyk72/1/18
--- OUTSIDE RECORDS SUMMARY | 2025-06-13 12:30 | XMS_ITS | Encounter Summary ---
Author Organization [facility] Address [address] [place] [address] Care Team Providers Care Pediatric Dermatologist Name Role Phone Juno Rogers MD Primary Care Provider [phone] Encounter Details DateTypeDepartmentCare Team (Latest Contact Info)Wqhmzyhtkay19/23/2025amboo flowsheet [facility] [address] [place] [address] [place] [address] Kit Solitario DPM [address] [address] Social History Tobacco UseTypesPacks/DayYears UsedDateSmoking Tobacco: NeverSmokeless Tobacco: NeverAlcohol UseStandard Drinks/WeekCommentsYes3 (1 standard drink = 0.6 oz pure alcohol)CommentsUnknownSex and Gender InformationValueDate RecordedSex Assigned at BirthNot on fileLegal AymNewdqx17/15/2023 7:00 PM EDTGender Identity Not on fileSexual OrientationNot on filedocumented as of this encounter Plan of Treatment DateTypeDepartmentCare Team (Latest Contact Info)Zwjixrzvmou40/06/2025 10:00 AM ESTOffice Visit [facility] [address] [place] [address] [place] [address] Kit Solitario DPM [address] [address] documented as of this encounter Visit Diagnoses Not on filedocumented in this encounter Care Teams Team MemberRelationshipSpecialtyStart DateEnd Date Juno Rogers MD [address] [place] [address] PCP - GeneralInternal Medicine09/20/24documented as of this encounter
--- OUTSIDE RECORDS SUMMARY | 2025-06-13 12:30 | XMS_ITS | Encounter Summary ---
Author Organization [facility] Address [address] [place] [address] Care Team Providers Care Swamper Name Role Phone Juno Rogers MD Primary Care Provider [phone] Encounter Details DateTypeDepartmentCare Team (Latest Contact Info)Cvlzabmbtnf61/09/2025Travel Social History Tobacco UseTypesPacks/DayYears UsedDateSmoking Tobacco: NeverSmokeless Tobacco: NeverAlcohol UseStandard Drinks/WeekCommentsYes3 (1 standard drink = 0.6 oz pure alcohol)CommentsUnknownSex and Gender InformationValueDate RecordedSex Assigned at BirthNot on fileLegal NlpVsuuqu95/15/2023 7:00 PM EDTGender Identity Not on fileSexual OrientationNot on filedocumented as of this encounter Plan of Treatment DateTypeDepartmentCare Team (Latest Contact Info)Clmpzclbttl80/06/2025 10:00 AM ESTOffice Visit [facility] 112 [facility] [address] [place] [address] Kit Solitario DPM 3006 [facility] [address] [place], [place] [id number] documented as of this encounter Visit Diagnoses Not on filedocumented in this encounter Care Teams Team MemberRelationshipSpecialtyStart DateEnd Date Juno Rogers MD [address] [place] [id number] PCP - GeneralInternal Medicine09/20/24documented as of this encounter
--- OUTSIDE RECORDS SUMMARY | 2025-06-13 12:30 | XMS_ITS | Clinical Summary ---
Author Organization [facility] Address [address] [place] [address] Care Team Providers Care Regional Liaison Name Role Phone Juno Rogers MD Primary Care Provider [phone] Allergies No known active allergies Medications MedicationSigDispense QuantityRefillsLast FilledStart DateEnd DateStatus meloxicam (Mobic) 7.5 MG tablet Take 7.5 mg by mouth 2 (two) times a day as neededActive terbinafine (LamISIL) 250 MG tablet Indications:Onychomycosis of ToenailsTake 1 tablet (250 mg) by mouth Daily 30 tablet 5Active methylPREDNISolone (Medrol Dospak) 4 MG tablets Indications:Plantar fasciitisFollow schedule on MEDROL PACK package instructions to be used as directed 21 tablet 5Active methylPREDNISolone (Medrol Dospak) 4 MG tablets Indications:Capsulitis of metatarsophalangeal (MTP) joint of left footFollow schedule on MEDROL PACK package instructions to be used as directed 21 tablet Discontinued(Therapy completed) terbinafine (LamISIL) 250 MG tablet Indications:Onychomycosis of ToenailsTake 1 tablet (250 mg) by mouth Daily 30 tablet Discontinued(Therapy completed) Active Problems ProblemNoted DateDiagnosed OrayLskvsfaar19/18/2025 Encounters DateTypeDepartmentCare MtmwEicqzsjgbqe63/23/2025 11:50 AM EDTOffice Visit [facility] [address] [place] [address] [place] [address] Kit Solitario DPM Capsulitis of metatarsophalangeal (MTP) joint of left foot (Primary Dx); Plantar fasciitis; Contracture of left ankle; Contracture of right ankle; Pain due to onychomycosis of toenails of both feet; Ynzwilwdvqrbk76/23/2025amboo flowsheet [facility] [address] [facility] [address] [place] [address] Kit Solitario DPM 06/13/20257476Rkucmw53/09/2025 9:40 AM EDTOffice Visit [facility] [address] [facility] [address] [place] [address] Kit Solitario DPM Capsulitis of metatarsophalangeal (MTP) joint of left foot (Primary Dx); Contracture of left ankle; Pain due to onychomycosis of toenails of both feet; Plantar fasciitis; Contracture of right ankle05/30/2025amboo flowsheet [facility] [address] [facility] [address] [place] [address] Kit Solitario DPM 05/30/20255028Trqnuo95/06/2025bstract [facility] [address] [facility] [address] [place] [address] Kit Solitario DPM 05/16/2025 10:30 AM EDTOffice Visit [facility] [address] [facility] [address] [place] [address] Kit Solitario DPM Pain due to onychomycosis of toenails of both feet (Primary Dx); Plantar fasciitis; Contracture of right ankle; Contracture of left ankle; Capsulitis of metatarsophalangeal (MTP) joint of left foot; Zneyiwwryystm43/25/2025bstract [facility] [address] [facility] [address] [place] [address] Kit Solitario DPM 05/16/2025amboo flowsheet [facility] [address] [facility] [address] [place] [address] Kit Solitario DPM 05/16/20256032Fymark89/08/2025bstract [facility] [address] [facility] [address] [place] [address] Kit Solitario DPM from Last 3 Months Family History Medical HistoryRelationNameCommentsHypertensionMotherfoot problemsMotherRelation NameStatusCommentsFatherAliveMotherAlive Social History Tobacco UseTypesPacks/DayYears UsedDateSmoking Tobacco: NeverSmokeless Tobacco: Never Tobacco Cessation:Counseling Given: Yes Alcohol UseStandard Drinks/WeekCommentsYes3 (1 standard drink = 0.6 oz pure alcohol)CommentsUnknownSex and Gender InformationValueDate RecordedSex Assigned at BirthNot on fileLegal PbiUjswxu32/15/2023 7:00 PM EDTGender Identity Not on fileSexual OrientationNot on file Last Filed Vital Signs Vital SignReadingTime TakenCommentsBlood Mepjqnmq160/7408/05/2020 12:00 PM EST Pulse--Temperature--Respiratory Bltp4287 11:54 AM EDTOxygen Saturation-- Inhaled Oxygen Concentration--Ghgxwu27.5 kg (184 lb)06/13/2025 11:54 AM EDT Uoskgp446.7 cm (5' 8 )06/13/2025 11:54 AM EDTBody Mass Index27.9806/13/2025 11:54 AM EDT Plan of Treatment DateTypeDepartmentCare Team (Latest Contact Info)Nsawcfcpqkf02/06/2025 10:00 AM ESTOffice Visit [facility] [address] [facility] [address] [place] [address] Kit Solitario DPM [address] [facility] [address] [place] [address] Insurance Care Teams Team MemberRelationshipSpecialtyStart DateEnd Date Juno Rogers MD [address] [place], [place] [phone] PCP - GeneralInternal Medicine09/20/24
--- OUTSIDE RECORDS SUMMARY | 2025-06-13 12:30 | XMS_ITS | Encounter Summary ---
Author Organization [facility] Address [address] [place] [address] Care Team Providers Care Provider Contracting Consultant Name Role Phone Juno Rogers MD Primary Care Provider [phone] Encounter Details DateTypeDepartmentCare Team (Latest Contact Info)Ongubzoxswc71/23/2025Travel Social History Tobacco UseTypesPacks/DayYears UsedDateSmoking Tobacco: NeverSmokeless Tobacco: NeverAlcohol UseStandard Drinks/WeekCommentsYes3 (1 standard drink = 0.6 oz pure alcohol)CommentsUnknownSex and Gender InformationValueDate RecordedSex Assigned at BirthNot on fileLegal EfoAgeeln59/15/2023 7:00 PM EDTGender Identity Not on fileSexual OrientationNot on filedocumented as of this encounter Plan of Treatment DateTypeDepartmentCare Team (Latest Contact Info)Ardbnlwlous14/06/2025 10:00 AM ESTOffice Visit [facility] [address] [facility] [address] [place] [address] Kit Solitario DPM [address] [facility] [address] [place], [place] [id number] documented as of this encounter Visit Diagnoses Not on filedocumented in this encounter Care Teams Team MemberRelationshipSpecialtyStart DateEnd Date Juno Rogers MD [address] [place] [phone] PCP - GeneralInternal Medicine09/20/24documented as of this encounter
--- OUTSIDE RECORDS SUMMARY | 2025-06-13 12:30 | XMS_ITS | Clinical Summary ---
Author Organization [facility] Address [address] [place] [address] Care Team Providers Care Certified Tumor Registrar Name Role Phone Steve Avila Primary Care Provider [phone] Medications MedicationSigDispense QuantityRefillsLast FilledStart DateEnd DateStatus XANAX 1MG TABLET Take one(1) tablet three times daily.Active PAXIL CR 25MG TABLET Take one(1) tablet daily.Active Social History Tobacco UseTypesPacks/DayYears UsedDateSmoking Tobacco: Never Assessed CommentsNoSex and Gender InformationValueDate RecordedSex Assigned at BirthNot on fileLegal ZuvIrcqub53/02/2012 8:58 AM ESTGender IdentityNot on fileSexual OrientationNot on file Last Filed Vital Signs Vital SignReadingTime TakenCommentsBlood Yubiyqqh513/9108 1:00 PM EDT Mggax743104/20/2004 1:00 PM EDTTemperature--Respiratory Rate--Oxygen Saturation-- Inhaled Oxygen Concentration--Cmiasb24.9 kg (118 lb 13.3 oz)04/20/2004 1:00 PM IUEXzvbhs616.2 cm (5' 7 )04/20/2004 1:00 PM EDTBody Mass Index18.6108 1:00 PM EDT Plan of Treatment Health MaintenanceDue DateLast DoneCommentsAnxiety Wxyjyqxzy88/18/2000Depression Hucwtmxlx25/18/2000HIV Xbapfrlac80/18/2000DTaP,Tdap,Td Vaccine (1 - Tdap) 2000Hepatitis B Vaccine (1 of 3 - 19+ 3-dose series)2000Cervical Cancer Wdmcnzbyo22/18/2003HPV Vaccine (1 - 3-dose SCDM series)2008 Mammogram Vryrbpmhm01/18/2022Covid-19 Vaccine ( season)2025 Influenza Vaccine (#1)2025Hepatitis C UgmbubfklXwhutuodb60/30/2004, 04/20/2004, 04/20/2004 Procedures Procedure NamePriorityDate/TimeAssociated DiagnosisCommentsHEPATITIS C VIRUS (HCV) RNA, QUANTITATIVE PCR, PLASMA/TNRDBIvbtqut03/30/2004 2:09 PM EDT Vir Hep Nec W/O Coma W Hep C Chron from Last 3 Months or Most Recently Relevant to Health Maintenance Results * HCV QUANT RNA BY PCR (04/20/2004 2:09 PM EDT)ComponentValueRef RangeTest MethodAnalysis TimePerformed AtPathologist SignatureHCV RNA by PCR3,400,000 [facility]Comment: IU/mL The linear range of this assay is 600 IU/mL to 700,000 IU/mL. This test was developed and its performance characteristics determined by the [facility] Laboratories of the [facility]. It has not been cleared or approved by the US Food and Drug Administration. The FDA has determined that such clearance or approval is not necessary. Specimen (Source)Anatomical Location / LateralityCollection Method / Volume Collection TimeReceived TimeBlood specimen (specimen)BLOOD SPECIMEN / Unknown 04/20/2004 2:09 PM EDT Narrative Authorizing ProviderResult TypeResult StatusRobert S Yosef'Layne SKYLABORATORYFinal ResultPerforming OrganizationAddressCity/State/ZIP CodePhone Number [facility] [address] [place] [address] from Last 3 Months or Most Recently Relevant to Health Maintenance Insurance Care Teams Team MemberRelationshipSpecialtyStart DateEnd Date Steve Avila [address] [place] [address] [facility]03/03/04
--- OUTSIDE RECORDS SUMMARY | 2025-06-13 12:30 | XMS_ITS | Clinical Summary ---
Author Organization [employer] tem Address [id number] [address] [place] [address] Care Team Providers Care Health And Safety Coordinator Name Role Phone Unavailable Primary Care Provider Unavailabl e Allergies Active AllergyReactionsCriticalityNoted RtzxQmacfssvRbpcnemyc98/23/2023 Chest pain Medications MedicationSigDispense QuantityRefillsLast FilledStart DateEnd DateStatus cyclobenzaprine (FLEXERIL) 5 mg tablet TAKE 1 TABLET BY MOUTH THREE TIMES A DAY NEEDED FOR MUSCLE PHYNKC7209/04/2021 Active naproxen (NAPROSYN) 500 mg tablet Take 1 tablet (500 mg total) by mouth in the morning and 1 tablet (500 mg total) in the evening. Take with meals.11/15/2022ctive magnesium 30 mg tablet Take 1 tablet (30 mg total) by mouth in the morning and 1 tablet (30 mg total) before bedtime.Active estradioL (ESTRACE) 0.01 % (0.1 mg/gram) vaginal cream Insert 1 g into the vagina in the morning. 42.5 g ctive Active Problems No known active problems Family History Medical HistoryRelationNameCommentsDiabetesMaternal GrandmotherDepressionMother StrokePaternal GrandfatherBreast cancerNeg HxRelationNameStatusCommentsMaternal GrandmotherMotherPaternal Grandfather Social History Tobacco UseTypesPacks/DayYears UsedDateSmoking Tobacco: FormerCigarettesQuit: 2020Smokeless Tobacco: Never Tobacco Cessation:Counseling Given: Not Answered Alcohol UseStandard Drinks/WeekCommentsYes0 (1 standard drink = 0.6 oz pure alcohol)rareHunger ScreeningAnswerDate RecordedWithin the past 12 months we worried whether our food would run out before we got money to buy more.Never True12/07/2023Within the past 12 months the food we bought just didn't last and we didn't have money to get more.Never True12/07/2023CommentsNoSex and Gender InformationValueDate RecordedSex Assigned at BirthNot on fileLegal Sex Etcagq1001/03/2023 11:21 AM EDTGender IdentityNot on fileSexual OrientationNot on file Last Filed Vital Signs Vital SignReadingTime TakenCommentsBlood Hafafppa622/8604 2:26 PM EDT Xfoll4214/17/2024 2:26 PM IBB40l6Bkrtzjdqbxg46.5 ??C (97.7 ??F)12/07/2023 2:26 PM EDTRespiratory Utde751712/07/2023 2:26 PM EDTOxygen Saturation--Inhaled Oxygen Concentration--Asoghu94.9 kg (207 lb)12/07/2023 2:26 PM FSGQaegyc878.7 cm (5' 8 )12/07/2023 2:26 PM EDTBody Mass Index31.47012/07/2023 2:26 PM EDT Plan of Treatment Health MaintenanceDue DateLast DoneCommentsDepression Xhxqgkvjr50/18/1994 DTaP,Tdap and Td Vaccines (1 - Tdap)2000Adult BMI Cuvmmcrlu47/17/2025 12/07/2023Tobacco Ngoouhvfb20/19/91203812/09/2023Influenza Crrazjf7004/22/2025 Medical Devices Not on file Insurance
--- OUTSIDE RECORDS SUMMARY | 2025-06-13 12:30 | XMS_ITS | CCD ---
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 Name Role Phone SUE JUNO Primary Care Unavailable PAY, DR GALVIN Admitting Unavailable PAY, DR GALVIN Attending Unavailable PAY, DR GALVIN Consulting Unavailable ASHISH MARIN Consulting Unavailable ASHLYAZARIANJUNO Admitting Unavailable SINDYARIANJUNO Attending Unavailable SINDYARIAN, JUNO Primary Care Unavailable JUNO ROGERS Consulting Unavailable SINDYARIAN, [facility] Primary Care Unavailable HAY, DR KNIGHT Admitting Unavailable HAY, DR KNIGHT Attending Unavailable ADE, DR SHERITA Soto Consulting Unavailable ASHISH STRANGE Consulting Unavailable Yazmin Cash Unavailable KEDAR AGEE Attending Unavailable MARIANA BELTRAN Referring Unavailable MARIANA BELTRAN Attending Unavailable Sergo JAFFE Attending Unavailable Annel Teixeira Attending Unavailable SINDYARIAN, JUNO Primary Care Unavailable ASHLYAZARIAN, JUNO Referring Unavailable SINDYARIAN, JUNO Referring Unavailable SINDYARIAN, [facility] Primary Care Unavailable Sue SKY, [facility] Primary Care Provider Sue SKY [facility] Primary Care Provider Unavailable Primary Care Provider Unavailchirag Rogers MD, [facility] Primary Care Provider KIT SOLITARIO Attending Unavailable KIT SOLITARIO Attending Unavailable ERNIE PALMER Attending Unavailable ANA IBANEZ Referring Unavailab KIT Nunez Attending Unavailable KIT SOLITARIO Attending Unavailable ANDRESSA BAEZA Referring Unavailable KIT SOLITARIO Attending Unavailable Allergies Allergy ClassificationReported Allergen(s)Allergy TypeDate of OnsetReaction(s) Facility (1 source)ClindamycinDrug Xxeevuc03-81-7491Xve [facility] Repository (6 sources)celecoxib; Translations: [CELECOXIB]Drug Kilctto25-44-3903AleSnxzhk Repository (1 source)ClindamycinDrug Nxdljow91-28-9136[facility] Medications Current Medications MedicationDrug Class(es)DatesSig (Normalized)Sig (Original)Aircast Sport Ankle Brace/Left - (1 source)Start: 31-55-3290Qyggexk Sport Ankle Brace/Left - as directed Feb, Activeascorbic acid 1000 mg oral tablet (6 sources)Vitamin CStart: 03-15-2022 End: 69-53-7589wnlt 1 tablet by mouth once dailyCVS VITAMIN C 1000 MG tablet TAKE 1 TABLET BY MOUTH EVERY DAY 30 tablet 3 03/15/2022 Activecephalexin 500 mg oral capsule (1 source)Cephalosporin AntibacterialStart: 04-16-2024 End: 00-90-4777ibcr 1 capsule by mouth twice dailycephALEXin (KEFLEX) 500 MG capsule Indications: Cough headache Take 1 capsule by mouth 2 times daily for 7 days 14 capsule 04/16/2024 04/23/2024 Activecholecalciferol 0.025 mg oral tablet (1 source)Vitamin DStart: 79-23-6767sscv 2 tablets by mouth once dailyvitamin D3 (CHOLECALCIFEROL) 25 MCG (1000 UT) TABS tablet TAKE 2 TABLETS BY MOUTH DAILY 30 tablet 01/12/2022 Activecyclobenzaprine hydrochloride 5 mg oral tablet (6 sources)Muscle RelaxantStart: 07-03-5974qnek 1 tablet by mouth three times daily as needed for muscle spasmscyclobenzaprine (FLEXERIL) 5 MG tablet TAKE 1 TABLET BY MOUTH THREE TIMES A DAY NEEDED FOR MUSCLE SPASMS 90 tablet 1 07/05/2022 Activeestradiol 0.1 mg/ml vaginal cream (6 sources)EstrogenStart: 59-24-2146kwkolbafK (ESTRACE) 0.01 % (0.1 mg/gram) vaginal cream Insert 1 g into the vagina in the morning. 42.5 g 1 10/25/2023 ActiveStart: 10-18-2023 End: 96-15-2465upkqdyozF (VAGIFEM) 10 mcg tablet Indications: Rectocele , Vaginal prolapse , Stress incontinence of urine , Dyspareunia in female , Status post hysterectomy with oophorectomy Insert 1 tablet (10 mcgtotal) into the vagina in the morning. Daily for 2 weeks then twice weekly thereafter. 14 tablet 4 10/18/2023 10/25/2023 Zlaplknxmxgv70 hr guaiFENesin 600 mg extended release oral tablet (1 source)Start: 88-08-6331skqo 1 tablet by mouth twice dailyguaiFENesin (CVS MUCUS EXTENDED RELEASE) 600 MG extended release tablet Indications: Subacute bronchitis TAKE 1 TABLET BY MOUTH 2 TIMES DAILY FOR 15 DAYS 40 tablet 1 07/29/2023 Activemagnesium gluconate 550 mg oral tablet (5 sources)take 1 tablet by mouth in the morning, then take 1 tablet by mouth at bedtimemagnesium 30 mg tablet Take 1 tablet (30 mg total) by mouth in the morning and 1 tablet (30 mg total) before bedtime. Activemeloxicam 7.5 mg oral tablet (10 sources)Nonsteroidal Anti-inflammatory Drugtake 1 tablet by mouth twice daily as neededmeloxicam (Mobic) 7.5 MG tablet Take 7.5 mg by mouth 2 (two) times a day as needed ActivemethylPREDNISolone (5 sources)CorticosteroidStart: 58-78-7149stlmqfYDZSMCXhtpoc (Medrol Dospak) 4 MG tablets Indications: Capsulitis of metatarsophalangeal (MTP) joint of left foot Follow schedule on MEDROL PACK package instructions to be used as directed 21 tablet 05/16/2025 Activenaproxen 500 mg oral tablet (6 sources)Nonsteroidal Anti-inflammatory DrugStart: 28-63-6452wdep 1 tablet by mouth twice daily at mealtimenaproxen (NAPROSYN) 500 MG tablet Indications: Acute low back pain with bilateral sciatica, unspecified back pain laterality Take 1 tablet by mouth 2 times daily (with meals) 20 tablet 3 10/19/2023 Active terbinafine 250 mg oral tablet (9 sources)Allylamine AntifungalStart: 05-16-2025 End: 09-79-7701vaml 1 tablet by mouth once dailyterbinafine (LamISIL) 250 MG tablet Indications: Onychomycosis of Toenails Take 1 tablet (250 mg) by mouth Daily 30 tablet 05/16/2025 06/15/2025 ActiveStart: 11-01-2024 End: 21-97-6139xzcj 1 tablet by mouth once dailyterbinafine (LamISIL) 250 MG tablet Indications: Onychomycosis of Toenails Take 1 tablet (250 mg) by mouth Daily 30 tablet 1 11/01/2024 12/01/2024 ActiveStart: 09-20-2024 End: 03-77-0542mjus 1 tablet by mouth once dailyterbinafine (LamISIL) 250 MG tablet Indications: Onychomycosis of Toenails Take 1 tablet (250 mg) by mouth Daily 30 tablet 09/20/2024 10/20/2024 Activezinc gluconate 50 mg oral tablet (1 source)Start: 89-26-6439cdpa 1 tablet by mouth once dailyCVS ZINC GLUCONATE 50 MG tablet TAKE 1 TABLET BY MOUTH EVERY DAY 30 tablet 1 08/11/2022 Active Completed/Discontinued Medications MedicationDrug Class(es)DatesSig (Normalized)Sig (Original)cefTRIAXone (1 source)Cephalosporin AntibacterialStart: 26-98-5039Whmmbztb 500 mg Jan, 500 mg Problems Active Problems Problem ClassificationProblemDateDocumented DateEpisodic/ChronicAnxiety disorders (2 sources)Anxiety disorder, unspecified; Translations: [Anxiety]Onset: 025232-84-6178XvzpzcaBkskyjdyle associated with dizziness or vertigo (1 source)Dizziness and giddiness; Translations: [DIZZINESS AND GIDDINESS]Onset: 22-83-7329ElnmumqnGzjgrzbrnrovv symptoms and ill-defined conditions (4 sources)Stress incontinence (female) (male); Translations: [Genuine stress incontinence]Onset: 579169-02-9631XgaydwfChqrabtav (1 source)Chronic hepatitis C; Translations: [Chronic viral hepatitis C]Onset: 139268-33-6736AglqyunUzdvvfveu (1 source)Viral hepatitis C; Translations: [Hepatitis C]EpisodicMalaise and fatigue (1 source)Weakness; Translations: [WEAKNESS]Onset: 30-29-3947XfreahkaYuybshxvma disorders (1 source)Menopausal syndrome; Translations: [Menopausal and female climacteric states]80-76-7065AawtuzaJluutma (14 sources)Pain in toe; Translations: [Tinea unguium]58-00-7607KapmurxaVgbvx acquired deformities (10 sources)Contracture of joint of right ankle; Translations: [Contracture, right ankle]15-44-9280KdbxungMqubo acquired deformities (6 sources)Contracture of joint of left ankle; Translations: [Contracture, left ankle]68-41-6429YnibltfMampe connective tissue disease (10 sources)Plantar fasciitis; Translations: [Plantar fascial fibromatosis] 60-02-5788HactjwqcJjupg connective tissue disease (4 sources)Capsulitis of metatarsophalangeal joint of left foot; Translations: [Other enthesopathy of left foot and ankle]15-35-3723RnilvjvhRmkky diseases of bladder and urethra (1 source)Overactive bladder; Translations: [Overactive bladder]12-09-2023 ChronicOther female genital disorders (1 source)Unspecified dyspareunia; Translations: [Unspecified dyspareunia]Onset: 09-62-4751SoxvhyhNcltu female genital disorders (4 sources)Pain in female genitalia on intercourse; Translations: [Unspecified dyspareunia]00-30-8840UjopledLdffd nervous system disorders (3 sources)Other chronic pain; Translations: [Other chronic pain]Onset: 72-27-9111KsyvaqyMzjkoosi of female genital organs (18 sources)Rectocele; Translations: [Cystocele, unspecified]Onset: 12-07-2023 21-97-7163HhkzlsnLqtghwas codes; unclassified (2 sources)Acquired absence of both cervix and uterus; Translations: [ACQUIRED ABSENCE BOTH CERVIX AND UTERUS]Onset: 71-58-0411DmqdqmsdBduwuwlj codes; unclassified (1 source)Acquired absence of ovaries, unilateral; Translations: [Acquired absence of ovaries, unilateral]Onset: 84-87-2302PaantpviClymfexmunj; intervertebral disc disorders; other back problems (1 source)Inflammation of sacroiliac joint; Translations: [Sacroiliitis]Chronic Spondylosis; intervertebral disc disorders; other back problems (6 sources)Lumbago with sciatica, right side; Translations: [Lumbago with sciatica, left side]Onset: 36-42-6019JmymicjvFeeqmagbp-related disorders (1 source)Nicotine dependence, cigarettes, uncomplicated; Translations: [NICOTINE DEPEND CIGARETTES UNCOMP]Onset: 00-55-3735EimtoknNrnbelwcqmpj (3 sources)COUGH, UNSPECIFIED; Translations: [COUGH, UNSPECIFIED]Onset: 32-69-4499Pcwawznzcpdv (2 sources)CONTACT W/AND (SUSP) EXPOS COVID-19; Translations: [CONTACT W/AND (SUSP) EXPOS COVID-19]Onset: 37-58-0925Oghfjpbnaroo (1 source)Vaginal ProlapseOnset: 91-73-4382Vpblndjcilpg (1 source)ProlapseOnset: 27-25-1967Jijes infection (1 source)COVID-19; Translations: [COVID-19]Onset: 08-10-2021 Past or Other Problems Problem ClassificationProblemDateDocumented DateEpisodic/ChronicAbdominal pain (3 sources)Unspecified abdominal pain; Translations: [UNSPECIFIED ABDOMINAL PAIN]Onset: 55-05-4534TxozqbduXylgitco of lower limb (1 source)Other fracture of left lower leg, initial encounter for closed fractureOnset: 02-24-2022 Resolved: 94-41-6436YgvmoerjPvxemybdh and duodenitis (1 source)Gastritis, unspecified, without bleeding; Translations: [GASTRITIS UNS WITHOUT BLEEDING]Onset: 30-29-6529QlgrwjoeVpkxyb and vomiting (1 source)Nausea; Translations: [NAUSEA]Onset: 53-41-5040YkzafpooMkwmi gastrointestinal disorders (2 sources)Constipation; Translations: [Constipation]75-08-4071VxjwepdtPebuy lower respiratory disease (1 source)Cough; Translations: [Cough]Onset: 07-02-2019 Resolved: 512513-71-1141PtulbwnrVlqle non-traumatic joint disorders (1 source)Pain in left ankle and joints of left footOnset: 02-24-2022 Resolved: 35-75-8817WdcdzokiVldzc upper respiratory infections (1 source)Acute sinusitis; Translations: [Other acute sinusitis]Onset: 183102-23-0431BogcnfxaCqidtoju codes; unclassified (1 source)Acquired absence of cervix and uterus; Translations: [Acquired absence of both cervix and uterus]Onset: 117354-69-9587AzkuqkirXnzkhiatx and history of mental health and substance abuse codes (1 source)Personal history of nicotine dependence; Translations: [PERSONAL HISTORY OF NICOTINE DEPEND]Onset: 62-19-5177KtmqusioMvhylgaadmqh (1 source)COUGH, UNSPECIFIED; Translations: [COUGH, UNSPECIFIED]Onset: 92-24-1194Hqamjxqjaivt (1 source)CONTACT W/AND (SUSP) EXPOS COVID-19; Translations: [CONTACT W/AND (SUSP) EXPOS COVID-19]Onset: 05-15-2021 Results Test NameValueInterpretationReference RangeFacilityXR LUMBAR SPINE (2-3 VIEWS)on 28-57-9999VF LUMBAR SPINE (2-3 VIEWS)EXAM: XR LUMBAR SPINE (2-3 VIEWS) HISTORY: Chronic midline low back pain with bilateral sciatica. COMPARISON: None. IMPRESSION: FINDINGS/IMPRESSION: 1. Normal vertebral body and disc space heights for age. 2. No significant degenerative change. 3. SI joints normal. 4. No pars defects or fracture. Interpreted by: Robin Glass Jr., MD Signed by: Robin Glass Jr., MD 04/16/24 Final resultNormalMerJacobi Medical CenterMeasure post void residualon 12-07-2023 Cpftox94qvSnvMorled Health SystemProMedica Health SystemPOCT urinalysis dipstick onlyon 74-30-6734Ugoqdceqfj (U)clearProMedica Health SystemExternal Poct Urine BloodNegativeDetwiler Memorial Hospital Health SystemExternal Poct Urine CharacterclearPOhio State University [facility] SystemExternal Poct Urine Colordark yellowProMedica Health SystemExternal Poct Urine GlucoseNegativeProMedica Health SystemExternal Poct Urine Ketones NegativeProMedica Health SystemExternal Poct Urine Leukocyte EsteraseNegative [facility] Beachwoodedica Health SystemExternal Poct Urine NitriteNegativeProMedica Health SystemExternal Poct Urine Ph5.0ProMedica Health SystemExternal Poct Urine Protein3+[facility] SystemMayo Memorial HospitalMedica Health SystemXR ankle LT min 3V*on 99-58-8306NL ankle LT min 3V*[facility] [place] [address] XRay Report Signed Patient: Jazmin Cassidy MR#: [id number] 35 : 1980 Acct:[id number] Age/Sex: 41 / F ADM Date: 02/24/22 Loc: XDUCLY Room: Type: [facility] Attending Dr: Yazmin SORIA Copies to: YANG [...] Raoul Lindsey M.D.02/24/2022 7:00 PM Dictation Location: [place] [address] Transcribed By: [facility] 02/24/221899 Dictated By: Raoul Lindsey DO 02/24/221858 Signed By: 02/24/221899Peoples HospitalXR ankle LT min 3V*[facility] [employer] Other XR ankle LT min 3V*[facility] [employer] Other XR ankle LT min 3V*[address] [facility] [employer] Other XR ankle LT min 3V*[place] [address]QqzdzKlickitat Valley Health [employer] Other XR ankle LT min 3V*XRay [facility] [employer] Other XR ankle LT min 3V*[facility] [employer] Other XR ankle LT min 3V*Patient: Jazmin Cassidy MR#: [id number] [employer] Other XR ankle LT min 3V*[address] [place] [address] [employer] Other XR ankle LT min 3V*: 1980 Acct:[id number] [employer] Other XR ankle LT min 3V*Age/Sex: 41 / F ADM Date: 02/24/22 [employer] Other XR ankle LT min 3V*Loc: XDUCLY Room: Type: [facility] [employer] Other XR ankle LT min 3V*Attending Dr: Yazmin DEY [employer] Other XR ankle LT min 3V*Copies to: YISSEL Dubon [employer] Other XR ankle LT min 3V*Ordering Provider: YISSEL DubonCedar County Memorial Hospital [employer] Other XR ankle LT min 3V*Date of Service: 02/24/22[place] [employer] Other XR ankle LT min 3V* XR/XR ankle LT min 3V*: LEFT ANKLE INJURYNoozarks community hospital [employer] Other XR ankle LT min 3V*[address]views [address]ank[facility] [facility] [employer] Other XR ankle LT min 3V*COMPARISON:[facility] [employer] Other XR ankle LT min 3V*HISTORY: LEFT ankle injury.[employer] Other XR ankle LT min 3V*Mild anterior soft tissue swelling present. Tiny bony density inferior to the lateral malleolusWestbrookville [employer] Other XR ankle LT min 3V*may represent small avulsion fracture. Ankle mortise preserved.[employer] Other XR ankle LT min 3V* XR/XR ankle LT min 3V*[employer] Other XR ankle LT min 3V*IMPRESSION: Small avulsion fracture inferior to the lateral malleolus.[employer] Other XR ankle LT min 3V*Impression dictated by: Raoul Lindsey M.D.02/24/2022 7:00 PMNwright memorial hospital [employer] Other XR ankle LT min 3V*Dictation Location: [place] [address] [employer] Other XR ankle LT min 3V*Transcribed By: PWS 02/24/22 1900 [employer] Other XR ankle LT min 3V*Dictated By: Raoul Lindsey DO 02/24/22 1859No[facility] [employer] Other XR ankle LT min 3V*Signed By:[employer] Other XR ankle LT min 3V*02/24/22 190[facility] HospitalArcarios Other CBC AUTO DIFFon 13-71-7368YVDC #0.0 103/ulNormal 0.0-0.1[facility] HospitalComment on above:Performed By: #### CBC #### [facility] [address] [place] [address] [address] Javier HintonBasophils/100 WBC (Bld)0.3 %Normal0.2-2.0[facility] Comment on above:Performed By: #### CBC #### [facility] [address] [address] [address] Javier Tarango #0.0 103/ulNormal0.0-0.7The [facility] HospitalComment on above: Performed By: #### CBC #### [facility] [address] [address] [address] Javier Sanosinophils/100 WBC (Bld)0.3 %Critically low0.9-7.0The [facility] HospitalComment on above:Performed By: #### CBC #### [facility] [address] [address] [address] Javier Sanrythrocyte distribution width (RBC) [Ratio]13.3 %Mmsozx81.0-15.[address] Anne HospitalComment on above:Performed By: #### CBC #### [facility] [address] [place] [address] Dr. Javier HintonHematocrit (Bld) [Volume fraction]41.7 %Tgoloh98.0-48.0The [facility] HospitalComment on above:Performed By: #### CBC #### [facility] [address] [place] [address] Dr. Javier HintonHemoglobin (Bld) [Mass/Vol]13.7 g/vHLdffsg30.0-16.0The [facility] HospitalComment on above:Performed By: #### CBC #### [facility] [address] [place] [address] Dr. Javier Cannon #0.01 10e3/ulNormal0.00-0.03The [facility] HospitalComment on above:Performed By: #### CBC #### [facility] [address] [place] [address] Dr. Javier Cannon %0.3 %Normal0.0-0.5The [facility] HospitalComment on above: Performed By: #### CBC #### [facility] [address] [place] [address] Dr. Javier Joe #1.2 103/ulNormal1.2-3.8The [facility] HospitalComment on above:Performed By: #### CBC #### [facility] [address] [place] [address] Dr. Javier Panghocytes/100 WBC (Bld)31.4 %Qajsij10.5-60.0The [facility] HospitalComment on above:Performed By: #### CBC #### [facility] [address] [place] [address] Dr. Javier FabianUAL DIFF REQNONormalThe [facility] HospitalComment on above: Performed By: #### CBC #### [facility] [address] [place] [address] Dr. Javier Pham (RBC) [Entitic mass]28.0 hkLzccsp04.7-34.0The [facility] HospitalComment on above:Performed By: #### CBC #### [facility] [address] [place] [address] Dr. Javier Griffin (RBC) [Mass/Vol]32.9 g/hHInubns38.9-35.2The [facility] HospitalComment on above:Performed By: #### CBC #### [facility] [address] [place] [address] Dr. Javier Thomas (RBC) [Entitic vol]85.1 nBRpxnaa34.0-99.0The [facility] HospitalComment on above:Performed By: #### CBC #### [facility] [address] [place] [address] Dr. Javier Simmons #0.3 103/ulNormal0.3-0.8The [facility] HospitalComment on above:Performed By: #### CBC #### [facility] [address] [place] [address] Dr. Javier Robinsocytes/100 WBC (Bld)8.7 %Normal1.7-12.0The [facility] Comment on above:Performed By: #### CBC #### [facility] [address] [place] [address] Dr. Javier Melendez #2.3 103/ulNormal1.4-6.5The [facility] HospitalComment on above:Performed By: #### CBC #### [facility] [address] [place] [address] Dr. Jvaier Espinosautrophils/100 WBC (Bld)59.0 %Sdfluk33.0-75.0The [facility] HospitalComment on above:Performed By: #### CBC #### [facility] [address] [place] [address] Dr. Javier Stone mean volume (Bld) [Entitic vol]9.3 fLCritically low 9.5-13.5The [facility] HospitalComment on above:Performed By: #### CBC #### [facility] [address] [place] [address] Dr. Javier HintonPLT187 103/nuBijfni051-164Ypt [facility] HospitalComment on above: Performed By: #### CBC #### [facility] [address] [place] [address] Dr. Javier HintonRBC4.90 106/ulNormal4.20-5.40The [facility] HospitalComment on above:Performed By: #### CBC #### [facility] [address] [place] [address] Dr. Javier HintonWBC3.9 103/ulCritically low4.0-11.0The [facility] HospitalComment on above:Performed By: #### CBC #### [facility] [address] [place] [address] Dr. Javier HintonCovid-19 PCR (CVDTB)on 44-41-4388KSKI-CoV-2 (COVID-19) RNA MITRA+probe Ql (Unsp spec)DetectedCritically abnormalNOT DETECTEDThe [facility] HospitalComment on above:Result Comment: This test is not yet approved or cleared by the [place] FDA. When there are no FDA-approved or cleared tests available, and other criteria are met, FDA can make tests available under an emergency access mechanism called an Emergency Use Authorization (EUA). The EUA for this test is supported by the Foot Gatherer of Health and Human Service's declaration that circumstances exist to justify the emergency use of in vitro diagnostics for the detection and/or diagnosis of the virusthat causes COVID-19. This EUA will remain in effect for the duration of the COVID-19 declaration ju stifying emergency of IVDs, unless it is terminated or revoked by the FDA (after which the test mayno longer be used).Performed By: #### CVDTBH #### [facility] [address] [place] [address] Dr. Javier Olivier URINE PROFILEon 83-91-0314Txowuguve Ql (U)NegativeNormal NEGATIVEThe [facility] HospitalComment on above:Performed By: #### ERUR #### [facility] [address] [place] [address] Dr. Javier HintonClarity (U)CLEARNormalCLEARThe Mariah HospitalComment on above: Performed By: #### ERUR #### [facility] [address] [place] [address] [address] Javier Marcus (U)YELLOWNormalYELLOWMercer County Community HospitalComment on above: Performed By: #### ERUR #### [facility] [address] [place] [address] Dr. Javier [place] micrscopic examination will be performed if indicated. NormalMercer County Community HospitalComment on above:Performed By: #### ERUR #### [facility] [address] [place] [address] Dr. Javier HintonGlucose Ql (U)NegativeNormalNEGATIVEMercer County Community HospitalComment on above:Performed By: #### ERUR #### [facility] [address] [place] [address] Dr. Javier HintonHemoglobin Ql (U)NegativermalNEGMansfield Hospital Comment on above:Performed By: #### ERUR #### [facility] [address] [place] [address] Dr. Javier HintonKetones Ql (U)40 mg/dlAbnoalNEGMansfield Hospital Comment on above:Performed By: #### ERUR #### [facility] [address] [place] [address] Dr. Javier HintonLEUKOCYTESNegativeNormalNEGMansfield HospitalComveterans affairs [facility] on above:Performed By: #### ERUR #### [facility] [address] [place] [address] Dr. Javier HintonNitrite Ql (U)NegativeNormalNEGATIVEMercer County Community HospitalComment on above:Performed By: #### ERUR #### [facility] [address] [place] [address] Dr. Javier HintonpH (U)6.0 [pH]Normal5-9[facility] HospitalComment on above: Performed By: #### ERUR #### [facility] [address] [place] [address] Dr. Javier HintonProtein (U) [Mass/Vol]30 mg/dLAbnormalNEGATIVE/ TRACEThe [facility] HospitalComment on above:Performed By: #### ERUR #### [facility] [address] [place] [address] Dr. Javier HintonSPEC GRAVITY1.304Xbxtvu0.005-<=1.025Mer[facility] Community HospitalComment on above:Performed By: #### ERUR #### [facility] [address] [place] [address] Dr. Javier Tiwari MICRO INDNOT INDICATEDSouthview Medical CenterComment on above:Performed By: #### ERUR #### [facility] [facility] [address] [place] [address] Dr. Javier Lordgen Qn (U)0.2 {Ericka'U}/dLNormal0.2 - 1.0The [facility] on above:Performed By: #### ERUR #### [facility] [address] [place] [address] Dr. Javier ConnerZA A AND B AGon [id number] [facility] on above:Result Comment: Negative for Flu A protein angiten. Infection due to Flu A cannot be ruled out. FluA angiten in the sample may be below the detection limit of the test.Performed By: #### INFLUAB ####[facility] Ev[address] [place], [place] [address]DrKem HintonINFLUBNEGHSEE [facility] on above:Result Comment: Negative for Flu B protein antigen. Infection due to Flu B cannot be ruled out. FluB antigen in the sample may be below the detection limit of the test.Performed By: #### INFLUAB ####[facility] Vsympt[address] [place], [place] [address]DrKem Stack A AGNegativeNormalNEGATIVE SEE COMMENTMercer County Community HospitalComveterans affairs [facility] system on above:Performed By: #### INFLUAB ####[facility] Hmyuaw[address] [place], [place] [address]DrKem Jesus AGNegativeNormalNEGATIVE SEE COMMENTThe [facility] Comment on above:Performed By: #### INFLUAB ####[facility] [address] [address]DrKem HintonINTERNAL CONTROLSWithin Normal LimitsNormalWithin Normal LimitsThe [facility] HospitalComment on above: Performed By: #### INFLUAB ####[facility] [address] [address]DrKem HintonLACTATE/LACTIC ACIDon 13-35-0558Arbtsxr [Moles/Vol]0.9 mmol/LNormal0.7-2.0The [facility] HospitalComment on above: Performed By: #### LACT ####[facility] [address] [address]DrKem HintonPROF 14(COMP METB)on 03-25-7142Flvgjxz [Mass/Vol]3.7 g/dLNormal3.5-5.0The [facility] HospitalComment on above:Performed By: #### HSTROPN, CMP #### [facility] [address] [address] [address] Javier HintonAlbumin/Globulin [Mass ratio]0.9 {ratio}NormalThe [facility] HospitalComment on above:Performed By: #### HSTROPN, CMP #### [facility] [address] [address] [address] Javier Harris [Catalytic activity/Vol]88 U/XFfrqvt29-368Hhf [facility] HospitalComment on above:Performed By: #### HSTROPN, CMP #### [facility] [address] [address] [address] Javier Ha [Catalytic activity/Vol]28 U/LNormal9-52The [facility] Comment on above:Performed By: #### HSTROPN, CMP #### [facility] [address] [address] [address] Javier Schultz gap [Moles/Vol]14.5 mmol/LNormalThe [facility] Comment on above:Performed By: #### HSTROPN, CMP #### [facility] [address] [address] [address] Javier HintonAST [Catalytic activity/Vol]26 U/TWcyszx54-50Sjf [facility] HospitalComment on above:Performed By: #### HSTROPN, CMP #### [facility] [address] [address] [address] Javier HintonBilirubin [Mass/Vol]0.7 mg/dLNormal0.2-1.3The [facility] Comment on above:Performed By: #### HSTROPN, CMP #### [facility] [address] [address] [address] Javier HintonCalcium [Mass/Vol]9.0 mg/dLNormal8.4-10.2The [facility] Comment on above:Performed By: #### HSTROPN, CMP #### [facility] [address] [place] [address] Dr. Javier HintonChloride [Moles/Vol]99 mmol/KIseiwa00-129Shy [facility] Comment on above:Performed By: #### HSTROPN, CMP #### [facility] [address] [place] [address] Dr. Javier HintonCO2 [Moles/Vol]29.2 mmol/XPvgjmg90.0-30.0The [facility] Comment on above:Performed By: #### HSTROPN, CMP #### [facility] [address] [place] [address] Dr. Javier HintonCreatinine [Mass/Vol]0.80 mg/dLNormal0.52-1.04The [facility] HospitalComment on above:Performed By: #### HSTROPN, CMP #### [facility] [address] [place] [address] Dr. Javier Garcia-AF AMERICANNormal>=60The [facility] HospitalComment on above: Performed By: #### HSTROPN, CMP #### [facility] [address] [place] [address] Dr. Yilan ChangEGFR-NON AF AMERICANNormal>=60The [facility] HospitalComment on above:Performed By: #### MIKEY, CMP #### [facility] [address] [place] [address] Dr. Javier HintonGlobulin (S) [Mass/Vol]4.3 g/dLNormMiami Valley HospitalComment on above:Performed By: #### HSTRGERMÁN, CMP #### [facility] [address] [place] [address] Dr. Javier HintonGlucose [Mass/Vol]91 mg/hCEzrwjh61-947DjzMercer County Community Hospital Comment on above:Performed By: #### ARIELTRGERMÁN, CMP #### [facility] [address] [place] [address] Dr. Javier HintonPotassium [Moles/Vol]3.7 mmol/LNormal3.4-5.0The [facility] Comment on above:Performed By: #### MIKEY, CMP #### [facility] [address] [place] [address] Dr. Javier HintonProtein [Mass/Vol]8.0 g/dLNormal6.1-8.2[facility] Comment on above:Performed By: #### MIKEY, CMP #### [facility] [address] [place] [address] Dr. Javier HintonSodium [Moles/Vol]139 mmol/HPpfqlk653-209MroMercer County Community Hospital Comment on above:Performed By: #### HSTROPDeepak, CMP #### [facility] [address] [place] [address] Dr. Javier HintonUrea nitrogen [Mass/Vol]15.0 mg/dLNormal7.0-17.0The [facility] HospitalComment on above:Performed By: #### HSTROPN, CMP #### [facility] [address] [place] [address] Dr. Javier HintonUrea nitrogen/Creatinine [Mass ratio]18.8 mg/mgNoMiami Valley HospitalComment on above:Performed By: #### HSTROPN, CMP #### [facility] [address] [place], [place] [address] Dr. Javier Terrell, HIGH SENSITIVITYon 95-26-5501YDHBKL4.8 pg/mLNormal 4.0-35.5The [facility] on above:Result Comment: CUT-OFF POINTS HAVE BEEN ESTABLISHED BASED ON THE FOURTH UNIVERSAL DEFINITIONS OF MYOCARDIAL INFARCTION. THE UPPER REFERENCE LIMIT (URL) OF TROPONIN, DEFINED THE 99TH PERCENTILE OF cTnI DISTRIBUTION IN A REFERENCE POPULATION, HAS BEEN CONFIRMED THE DECISION THRESHOLD FOR ID DIAGNOSIS.Performed By: #### MIKEY, CMP #### [facility] [address] [place], [place] [address] Dr. Javier HintonXR CHEST 1 Von [id number] CHEST 1 VEXAMINATION: XR CHEST 1 V HISTORY: COUGH , [...] Electronically authenticated by: SHERITA BOOKER Date: 2021-08-06 16:56NormMiami Valley HospitalCovid-19 PCR (CVDTBH)on 68-11-0433OIZT-CoV-2 (COVID-19) RNA MITRA+probe Ql (Unsp spec)DetectedCritically abnormalNOT DETECTEDThe [facility] on above:Result Comment: This test is not yet approved or cleared by the [place] FDA. When there are no FDA-approved or cleared tests available, and other criteria are met, FDA can make tests available under an emergency access mechanism called an Emergency Use Authorization (EUA). The EUA for this test is supported by the Foot Gatherer of Health and Human Service's (HHS's) declaration [...] no longer be used). Performed By: #### CVDTBH #### [facility] [address] [place] [address] Dr. Javier HintonAMYLASEon 96-92-7539Zhzlpuq [Catalytic activity/Vol]55 U/LNormal 31-110The [facility] HospitalComment on above:Performed By: #### CMP, CAROLYN, LIPA #### [facility] [address] [address] Reji KarenCBC AUTO DIFFon [id number] #0.0 103/ulNormal0.0-0.1The [facility] HospitalComment on above:Performed By: #### CBC ####[facility] [address] [place], [place] [address]Gerken KarenBasophils/100 WBC (Bld)0.6 %Normal0.2-2.0The [facility] HospitalComment on above:Performed By: #### CBC ####[facility] [address]nieb[address] [place], [place] [address]Gerken KarenEO #0.1 103/ulNormal0.0-0.7The [facility] HospitalComment on above:Performed By: #### CBC ####[facility] U[address]vkb[address] [place], [place] [address]Gerken KarenEosinophils/100 WBC (Bld)2.1 %Normal 0.9-7.0The [facility] HospitalComment on above:Performed By: #### CBC ####[facility] Geeaksimcy[address] [place], [place] [address]Gerken Debbie Erythrocyte distribution width (RBC) [Ratio]12.7 %Onudfa10.0-15.0The [facility] Clinicment on above:Performed By: #### CBC ####[facility] [address] [place] [address] KarenHematocrit (Bld) [Volume fraction]38.8 %Klakig44.0-48.0The [facility] HospitalComment on above: Performed By: #### CBC ####[facility] [address] [place] [address] KarenHemoglobin (Bld) [Mass/Vol]12.8 g/dLNormal 12.0-16.0The [facility] HospitalComment on above:Performed By: #### CBC ####[facility] F[address] [place] [address] KarenIG #0.02 10e3/ulNormal0.00-0.03The [facility] HospitalComment on above: Performed By: #### CBC ####[facility] [address] [place] [address] KarenIG %0.3 %Normal0.0-0.5The [facility] HospitalComment on above:Performed By: #### CBC ####[facility] Ywaltgcryo[address] [place] [address] KarenLYMPH #2.3 103/ul Normal1.2-3.8The [facility] HospitalComment on above:Performed By: #### CBC ####[facility] [address]izrfs[address] [place] [address] KarenLymphocytes/100 WBC (Bld)33.7 %Bwvqsk81.5-60.0The [facility] HospitalComment on above:Performed By: #### CBC ####[facility] [address] [place] [address] KarenMANUAL DIFF REQNONormalThe [facility] HospitalComment on above:Performed By: #### CBC ####[facility] [address]ubwk[address] [place] [address] KarenH (RBC) [Entitic mass]28.1 kkRcvkom65.7-34.0The [facility] HospitalComment on above: Performed By: #### CBC ####[facility] K[address]byfxtif[address] [place] [address] KarenHC (RBC) [Mass/Vol]33.0 g/dLNormal 29.9-35.2The [facility] HospitalComment on above:Performed By: #### CBC ####[facility] Inxcehczde[address] [place] [address] KarenMCV (RBC) [Entitic vol]85.3 vWHdwvci04.0-99.0The [facility] HospitalComment on above:Performed By: #### CBC ####[facility] [address]vbxpfg[address] [place] [address] KarenMONO #0.5 103/ulNormal0.3-0.8The [facility] HospitalComment on above:Performed By: #### CBC ####[facility] [address]zdvfhr[address] [place] [address] KarenMonocytes/100 WBC (Bld)7.9 %Normal1.7-12.0The [facility] HospitalComment on above:Performed By: #### CBC ####[facility] Ugxrznlimf[address] [place] [address] KarenNEUT #3.7 103/ulNormal1.4-6.5The [facility] HospitalComment on above:Performed By: #### CBC ####[facility] Bmovchxwop[address] [place] [address] KarenNeutrophils/100 WBC (Bld)55.4 %Normal 43.0-75.0The [facility] HospitalComment on above:Performed By: #### CBC ####[facility] Ttlowj[address]uq[address] [place] [address] KarenPlatelet mean volume (Bld) [Entitic vol]9.6 fLNormal9.5-13.5The [facility] HospitalComment on above:Performed By: #### CBC ####[facility] Wdgxaaq[address] [place] [address] FbpouDWA533 103/ul Ubgduh746-030Omo [facility] HospitalComment on above:Performed By: #### CBC ####[facility] Tmmaxjbvlt[address] [place] [address] KarenRBC4.55 106/ulNormal4.20-5.40The [facility] HospitalComment on above: Performed By: #### CBC ####[facility] Bxtyzrckwv[address] [place] [address] KarenWBC6.7 103/ulNormal4.0-11.0[facility] HospitalComment on above:Performed By: #### CBC ####[facility] [address] [place] [address] URINE PROFILE on 98-13-5623Dnfvfuxak Ql (U)NegativeNormalNEGATIVEMercer County Community HospitalComment on above:Performed By: #### ERUR ####[facility] Himhghmorp[address] [place] [address] KarenClarity (U)CLEARNormalCLEARMercer County Community HospitalComment on above:Performed By: #### ERUR ####[facility] Xsryixwnls[address] [place] [address] KarenColor (U)LT. YELLOWNormalYELLOWMercer County Community HospitalComment on above:Performed By: #### ERUR ####[facility] Tnnyfxkurr[address] [place], [place] [address]UAHDA micrscopic examination will be performed if indicated.NormalThe [facility] HospitalComment on above:Performed By: #### ERUR ####[facility] Vwursescyq[address] [place] [address] KarenGlucose Ql (U) NegativeNormalNEGATIVEMercer County Community HospitalComment on above:Performed By: #### ERUR ####[facility] Iv[address]yykx[address]az[address] [place] [address] KarenHemoglobin Ql (U)NegativeNormalNEGATIVEAdena Pike Medical Center on above:Performed By: #### ERUR ####[facility] Afzecpdjjd[address] [place] [address] KarenKetones Ql (U)NegativeNormal NEGATIVEMercer County Community HospitalComment on above:Performed By: #### ERUR ####[facility] Jeqjptcdgq[address] KarenLEUKOCYTESNegativeNormalNEGATIVEThe [place] [place] HospitalComment on above: Performed By: #### ERUR ####[facility] Abnzjkgaol8476 [address] KarenNitrite Ql (U)NegativeNormalNEGATIVEThe [facility] HospitalComment on above:Performed By: #### ERUR ####[facility] Zoiwfoyklb[address]272 [address] KarenpH (U)6.0 [pH] Normal5-9The [facility] HospitalComment on above:Performed By: #### ERUR ####[facility] Ogiwmtltha2531 [address] KarenSPEC GRAVITY1.408Hyjphg1.005-<=1.025The [facility] HospitalComment on above: Performed By: #### ERUR ####[facility] U[address]qrj[address] [place] [address] KarenUA PROTEINNegativeNormalNEGATIVE/ TRACEThe [facility] HospitalComment on above:Performed By: #### ERUR ####[facility] Sflxzualkr6886 [address] KarenUR MICRO INDNOT INDICATEDNormalThe [facility] HospitalComment on above:Performed By: #### ERUR ####[facility] X[address] [place] [address] KarenUrobilinogen Qn (U)0.2 {Ericka'U}/dLNormal0.2 - 1.0The [facility] Comment on above:Performed By: #### ERUR ####[facility] Eydvepandh[address]25 [address] KarenLIPASEon 32-27-4174Lijedm [Catalytic activity/Vol]67.0 U/DCxxbbq87.0-300.0The [facility] HospitalComment on above:Performed By: #### CMP, CAROLYN, LIPA #### [facility] [address] KarenPROF 14(COMP METB)on 37-12-0963Rnzsswh [Mass/Vol]4.2 g/dLNormal 3.5-5.0[facility] HospitalComment on above:Performed By: #### CMP, CAROLYN, LIPA #### [facility] [address] [address] Reji KarenAlbumin/Globulin [Mass ratio]1.2 {ratio}NormalMercer County Community Hospital Comment on above:Performed By: #### CMP, CAROLYN, LIPA #### [facility] [address] [address] Reji KarenALP [Catalytic activity/Vol]94 U/PJvxtuk42-022Nnj [facility] Comment on above:Performed By: #### CMP, CAROLYN, LIPA #### [facility] [address] [address] Reji KarenALT [Catalytic activity/Vol]27 U/LNormal9-52The [facility] Comment on above:Performed By: #### CMP, CAROLYN, LIPA #### [facility] [address] [address] Reji KarenAnion gap [Moles/Vol]10.2 mmol/LNormalMercer County Community HospitalComment on above:Performed By: #### CMP, CAROLYN, LIPA #### [facility] [address] [address] Reji KarenAST [Catalytic activity/Vol]13 U/LCritically guu91-77Wfy [facility] HospitalComment on above:Performed By: #### CMP, CAROLYN, LIPA #### [facility] [address] [address] Reji KarenBilirubin [Mass/Vol]0.5 mg/dLNormal0.2-1.3The [facility] Comment on above:Performed By: #### CMP, CAROLYN, LIPA #### [facility] [address] [address] Reji KarenCalcium [Mass/Vol]9.3 mg/dLNormal8.4-10.2The [facility] Comment on above:Performed By: #### CMP, CAROLYN, LIPA #### [facility] [address] [address] Reji KarenChloride [Moles/Vol]106 mmol/WJobebx93-091Odw [facility] Comment on above:Performed By: #### CMP, CAROLYN, LIPA #### [facility] Laboratory [address] [place] [address] Reji KarenCO2 [Moles/Vol]25.7 mmol/FGuziut08.0-30.0The [facility] Comment on above:Performed By: #### CMP, CAROLYN, LIPA #### [facility] [address] [place] [address] Reji KarenCreatinine [Mass/Vol]0.78 mg/dLNormal0.52-1.04The [facility] Comment on above:Performed By: #### CMP, CAROLYN, LIPA #### [facility] [address] [place] [address] Reji KarenEGFR-AF COLOMBIAN>60Normal>=60The [facility] HospitalComment on above: Performed By: #### CMP, CAROLYN, LIPA #### [facility] [address] [place] [address] Reji KarenEGFR-NON AF COLOMBIAN>60Normal>=60The [facility] HospitalComment on above:Performed By: #### CMP, CAROLYN, LIPA #### [facility] [address] [place] [address] Reji KarenGlobulin (S) [Mass/Vol]3.4 g/dLNormalThe [facility] HospitalComment on above:Performed By: #### CMP, CAROLYN, LIPA #### [facility] [address] [place] [address] Reji KarenGlucose [Mass/Vol]94 mg/qCRpbsmu27-687Pdd [facility] HospitalComment on above:Performed By: #### CMP, CAROLYN, LIPA #### [facility] [address] [place] [address] Reji KarenPotassium [Moles/Vol]3.9 mmol/LNormal3.4-5.0The [facility] Comment on above:Performed By: #### CMP, CAROLYN, LIPA #### [facility] [address] [place] [address] Reji KarenProtein [Mass/Vol]7.6 g/dLNormal6.1-8.2[facility] HospitalComment on above:Performed By: #### CMP, CAROLYN, LIPA #### [facility] [address] [place] [address] Reji KarenSodium [Moles/Vol]138 mmol/EUkgfhc523-079Ncl [facility] Comment on above:Performed By: #### CMP, CAROLYN, LIPA #### [facility] [address] [place] [address] Reji KarenUrea nitrogen [Mass/Vol]14.0 mg/dLNormal7.0-17.0The [facility] HospitalComment on above:Performed By: #### CMP, CAROLYN, LIPA #### [facility] [address] [place] [address] Reji KarenUrea nitrogen/Creatinine [Mass ratio]17.9 mg/mgNormalThe [facility] HospitalComment on above:Performed By: #### DALE, CAROLYN, LIPA #### [facility] [address] [place] [address] Reji Debbie Vital Signs Date TimeVital SignValuePerforming XtwfybzgvTixmcyxu59-60-8040 09:49-0400Body bdudco290.7 cmKit Solitario DPM Work Phone: [facility] CenterShoswmmwuk03-55-0029 09:49-0400Body mass index (BMI) [Ratio]27.98 kg/a1WzgvpaqdKit Solitario DPM Work Phone: [facility] CenterHsuslrxdrj57-55-7631 09:49-0400Body yphhmw04.46 kgKit Solitario DPM Work Phone: [facility] CenterFzmuxitvui59-64-8334 09:49-0400Respiratory rate18 /minKit Solitario DPM Work Phone: [facility] CenterThufthwvcv93-20-2521 10:10-0400Body .7 cmNicholas Brown DPM Work Phone: [facility] CenterZcsqdpeqip17-30-4520 10:10-0400Body mass index (BMI) [Ratio]27.98 kg/m7Vidrpgwp Brown DPM Work Phone: [facility] CenterCuokibneek25-60-8129 10:10-0400Body .46 kgNicholas Brown DPM Work Phone: [facility] CenterQblmzzpkox44-64-9190 10:10-0400Respiratory rate18 /minNicholas Brown DPM Work Phone: [facility] CenterMqjzlmagky73-54-4853 10:09-0400Body ylsvpd813.7 cmPaul Laffay DO Work Phone: [facility] CenterFehvtgltvx68-18-4655 10:09-0400Body mass index (BMI) [Ratio]27.98 kg/m2Paul Laffay DO Work Phone: [facility] CenterQdumlvoynp69-31-0715 10:09-0400Body krqexk00.46 kgPaul Laffay DO Work Phone: [facility] CenterDxpaxsiopr56-35-7278 11:16-0400Body .7 cmNicholas Brown DPM Work Phone: [facility] CenterDmjbvjxgdy23-10-6850 11:16-0400Body mass index (BMI) [Ratio]27.83 kg/a2Ixlsqyar Brown DPM Work Phone: [phone] [place], [place] [address]Snbyypvjmw03-43-2919 11:16-0400Body bvliuq08.01 kgNicholas Brown DPM Work Phone: [facility] CenterNnsrdhgvpt63-61-9217 11:16-0400Respiratory rate18 /minNicholas Brown DPM Work Phone: [facility] CenterLrzloedxki13-77-7939 10:00-0500Body .7 cmNicholas Brown DPM Work Phone: [facility] CenterPjvtwjxvmk34-08-8487 10:00-0500Body mass index (BMI) [Ratio]27.83 kg/i0MorxtjwpKit Solitario DPM Work Phone: [facility] CenterOgtcxpyria05-39-4523 10:00-0500Body ejdljh92.01 kgKit Solitario DPM Work Phone: [facility] CenterLhvawkrhsr51-69-6832 10:00-0500Respiratory rate18 /minKit Solitario DPM Work Phone: [facility] CenterTdtzevbmfq51-42-8994 14:26-0400Body cpcoor110.7 cmKedar Agee MD Work Phone: [facility] [employer] Gpsobi25-69-8443 14:26-0400Body mass index (BMI) [Ratio]31.47 kg/x1BgvrenKedar Agee MD Work Phone: [facility] [employer] Uentxe69-64-8683 14:26-0400Body wlhbaepqhow61.7 [degF]Kedar Agee MD Work Phone: [facility] [employer] Wscjqd64-44-0272 14:26-0400Body .89 kgKedar Agee MD Work Phone: [facility] HospitalT[facility] Cogovw88-02-2127 14:26-0400Diastolic blood zbuoagmy12 mm[Hg]Kedar Agee MD Work Phone: [facility] [employer] Zcilbt81-43-9279 14:26-0400Heart rate 72 /Mukul Agee MD Work Phone: [facility] [employer] [facility] HospitalComment on above:45v398-55-4880 14:26-0400Respiratory rate14 /Mukul Agee MD Work Phone: [facility] [employer] Mgyrot30-47-5592 14:26-0400Systolic blood qpxitxbu299 mm[Hg]Kedar Agee MD Work Phone: [facility] [employer] Xbcwzg61-92-1984 09:54-0500Body vvfrov462.7 Gerda Beltran DO Work Phone: [employer]02-27-2024 09:54-0500Body mass index (BMI) [Ratio]31.32 kg/c2ArqbfMariana Beltran DO Work Phone: [employer]02-27-2024 09:54-0500Body avsebg02.44 kgMariana Beltran DO Work Phone: [facility] HospitalTowandas book02-27-2024 09:54-0500Diastolic blood tejnmmmg97 mm[Hg]Mariana Beltran DO Work Phone: [facility] HospitalTowandas book02-27-2024 09:54-0500Systolic blood oibrylnl204 mm[Hg]Mariana Beltran DO Work Phone: [employer]07-06-2022 18:55-0400Body .45 cmPameleladia FritzShreya Other [employer] Other 07-06-2022 18:55-0400Body mass index (BMI) [Ratio] 29.62 kg/l3Pxjhjt Shreya Other [employer] Other 07-06-2022 18:55-0400Body lvdxujycafv35.2 [degF]Yazmin Shreya Other [employer] Other 07-06-2022 18:55-0400Body .09 kgYazmin Shreya Other [employer] Other 07-06-2022 18:55-0400Diastolic blood wgyyswlu09 mm[Hg] Yazmin Shreya Other [employer] Other 07-06-2022 18:55-0400Respiratory rate18 /minAshisheliot Cash Other [employer] Other 07-06-2022 18:55-0739ViD6% (BldA) [Mass fraction]100 % Yazmin Cash Other [facility] [employer] Other 07-06-2022 18:55-0400Systolic blood lgawtcpf194 mm[Hg] Yazmin Cash Other [facility] [employer] Other Encounters Encounter DateEncounter TypeCare ProviderFacilityStart: 05-30-2025 End: 10-32-5137Sggocp flowsheetNicholas A Brown DPM Work Phone: [facility] CI PODIATRYStart: 05-30-2025 End: 27-22-3777Zlhnsc flowsheetNicholas A Brown DPM Work Phone: [facility] CI PODIATRYStart: 05-30-2025 End: 81-19-4678dphwxwrsucKIIWYFKC A BROWNNot AvailableStart: 05-30-2025 End: 09-90-9348Uykejx outpatient visit 15 minutesNicholas A Brown DPM Work Phone: [facility] CI PODIATRYComment on above:Capsulitis of metatarsophalangeal (MTP) joint of left foot (Primary Dx); Contracture of left ankle; Pain due to onychomycosis of toenails of both feet; Plantar fasciitis; Contracture of right ankleStart: 05-16-2025 End: 34-80-2977Qjevme flowsheetNicholas A Brown DPM Work Phone: [facility] CI PODIATRYStart: 05-16-2025 End: 35-42-5900Ssumtb flowsheetNicholas A Brown DPM Work Phone: [facility] CI PODIATRYStart: 05-16-2025 End: 00-45-4861Vapknq outpatient visit 25 minutesNicholas A Brown DPM Work Phone: noms CI PODIATRYComment on above:Pain due to onychomycosis of toenails of both feet (Primary Dx); Plantar fasciitis; Contracture of right ankle; Contracture of left ankle; Capsulitis of metatarsophalangeal (MTP) joint of left foot; OnychomycosisStart: 05-16-2025 End: 26-85-6283mjnguwembsGRMEMVNN A BROWNNot AvailableStart: 02-04-2025 End: 70-67-3098Npmzgh flowsheetNicholas A Brown DPM Work Phone: noms DE PODStart: 02-04-2025 End: 0313Jbgbmq flowsheetNicholas A Altaf DPM Work Phone: noms DE PODStart: 02-04-2025 End: 85-83-5199jgcvszhjwfQFTLRASI Eladia Norris AvailableStart: 02-01-2025 End: 91-56-6645Fdpkqbo encounter procedureNicnikolas A Altaf DPM Work Phone: [facility]oms DE PODComment on above:Plantar fasciitis (Primary Dx); Contracture of right ankle; Contracture of left ankleStart: 12-07-2024 End: 49-76-0036adkadkllowBFLO C LAFFAYNot AvailableStart: 12-07-2024 End: 78-58-4234Sxflnn outpatient new 45 minutesPaul C Laffay DO Work Phone: noms ST GENSComment on above:RectoceleStart: 11-01-2024 End: 09-45-8093Tahmcd flowsheetNicnikolas A Altaf DPM Work Phone: [facility] CI PODIATRYStart: 11-01-2024 End: 70-75-1161Vmyion flowsheetNicholas A Brown DPM Work Phone: [facility] CI PODIATRYStart: 11-01-2024 End: 33-26-7953Zdqhzs outpatient visit 25 minutesNicnikolas Solitario DPM Work Phone: noms CI PODIATRYComment on above:Plantar fasciitis (Primary Dx); Contracture of right ankle; Pain due to onychomycosis of toenails of both feet; OnychomycosisStart: 11-01-2024 End: 71-65-2315cgopxyslkaUBMBOPMH Eladia BROWNNot AvailableStart: 09-20-2024 End: 66-75-4273Wwvfrf flowsheetNicnikolas A Altaf DPM Work Phone: [facility] CI PODIATRYStart: 09-20-2024 End: 83-65-2598Kugsxo flowsheetNicnikolas A Altaf DPM Work Phone: [facility] CI PODIATRYStart: 09-20-2024 End: 35-80-6514pmkxsnofgfENMWTCUT A BROWNNot AvailableStart: 09-20-2024 End: 93-61-4695Raqcfe outpatient new 45 minutesNicnikolas Solitario DPM Work Phone: noms CI PODIATRYComment on above:Plantar fasciitis (Primary Dx); Contracture of right ankle; Pain due to onychomycosis of toenails of both feet; OnychomycosisStart: 56-05-7689motbprtyafAWJHQOhioHealth Grant Medical Center Start: 04-16-2024 End: 52-12-9211Axflnogfca hospital visit by Kaci Rogers MD Work Phone: [facility] RadiologyStart: 12-26-2023 End: 20-81-4726osfprvksdbPdtxcbr R WATERSFacility:EU BellevueStart: 12-07-2023 End: 97-14-6765ajxckchchkCHCZUE C KASSISLima City Hospital Ambulatory PPGStart: 12-07-2023 End: 73-97-7918Irjgny outpatient new 45 Ginger Agee MD Work Phone: [facility] Health - UrogynComment on above:Rectocele (Primary Dx); Stress incontinence of urine; Constipation, unspecified constipation type; Dyspareunia in female; OAB (overactive bladder)Start: 25-92-2218WuffmnTavo Beltran DO Work Phone: [facility] Obstetrics/GynecologyComment on above:Dyspareunia in female (Primary Dx); Menopause syndromeStart: 17-49-9582Nghfbl OnlyAlicieladia Patel Physicians Obstetrics/GynecologyComment on above:Rectocele (Primary Dx); Vaginal prolapse; Stress incontinence of urine; Dyspareunia in femaleStart: 60-00-3133Lxwffvcot encounterNicole Santi SHORTN [facility] - CyldeStart: 10-18-2023 End: 29-84-0688lvtlswqokvIXDWJ L WATSONLima City Hospital Ambulatory PPGStart: 10-18-2023 End: 99-91-6543Gywnbo outpatient visit 15 minutesMariana Beltran DO Work Phone: [facility] Obstetrics/GynecologyComment on above:Vaginal prolapse (Primary Dx); Rectocele; Stress incontinence of urine; Dyspareunia in female; Status post hysterectomy with oophorectomyStart: 08-31-2023 End: 37-73-7949szaqblxtnhShwhg M. LueFacility:EU evueStart: 06-01-2023 ambulatoryPaireland army community hospitalk WATERSFacility:EU BellevueStart: 02-24-2022 End: 38-04-6274nlmczvocahTuimjs Dymond Other [place] [employer] Other Start: 14-75-7020Ztgton outpatient new 20 minutes Yazmin CashFPG Urgent Care ClydeStart: 08-06-2021 End: 89-94-2616nkwjrftpjyTXDBS GHAZARIANFacility:J5Tzmrp: 05-15-2021 End: 00-93-4989ijcowmlbipPLYZC GHAZARIANFacility:Z7Ghrwm: 03-03-2021 End: 59-57-6480mhkeoitzkkULQEC GHAZARIANFacility:H1 Procedures DateProcedureProcedure DetailPerforming ClinicianStart: 51-42-5193XEWKGHT POST VOID RESIDUALNadine Aisha Agee MD Work Phone: Start: 84-68-3554Iiopd dip stick/tablet rgnt non-auto w/o micrscpNadine Aisha Agee MD Work Phone: H/O: surgeryStatus post hysterectomy with oophorectomy Mariana Rick Beltran DO Work Phone: Plan of Treatment DateCare ActivityDetailAuthorStart: 06-20-2025 End: 48-92-4541Ntmwaaa encounter /30/2025 9:40 AM EDT Office Visit [facility] [address] [place] [address] [place] [address] Kit Solitario DPM [address] [address] [facility] CI PODIATRYStart: 05-16-2025 End: 51-83-9008Kgpciab aminotransferase [Enzymatic activity/volume] in Serum or PlasmaALANINE AMINOTRANSFERASE Lab Routine Onychomycosis Expected: 05/16/2025 (Approximate), Expires[facility]25[facility] HealthcareComment on above:Expected: 05/16/2025 (Approximate), Expires: 06/15/2025Start: 05-16-2025 End: 47-88-4316Quycbbamp aminotransferase [Enzymatic activity/volume] in Serum or PlasmaASPARTATE AMINO TRANSFERASE Lab Routine Onychomycosis Expected: 05/16/2025 (Approximate), Expires: 06/15/2025[facility] Healthcare Work Phone: Comment on above:Expected: 05/16/2025 (Approximate), Expires: 06/15/2025Start: 05-16-2025 End: 23-98-0120Awtvduq encounter lyxrgewcb12/25/2025 10:30 AM EDT Office Visit [facility] [address] [facility] [address] [place] [address] Kit Solitario DPM [address] [address] Pain due to onychomycosis of toenails of both feet (Primary Dx); Plantar fasciitis; Contracture of right ankle; Contracture of left ankleNOMS CI PODIATRYComment on above:Pain due to onychomycosis of toenails of both feet (Primary Dx); Plantar fasciitis; Contracture of right ankle; Contracture of left ankleStart: 60-87-0850Ekhriietub ScreenDepression ScreenHEALTHSOUTH MEDICAL CENTERStart: 37-81-4744Rcrrcagvo for malignant neoplasm of breast Breast cancer screenBuchanan General Hospitalart: 99-52-0791Tcgdixk Screening Tobacco ScreeningTransylvania Regional Hospitaltart: 53-73-4559Lqbcd BMI Screening Adult BMI ScreeningTransylvania Regional Hospitaltart: 11-01-2024 End: 77-98-8838Rjdmpbp aminotransferase [Enzymatic activity/volume] in Serum or PlasmaALANINE AMINOTRANSFERASE Lab Routine Onychomycosis Expected: 11/01/2024 (Approximate), Expires: 12/02/2024NOVT HealthcareComment on above:Expected: 11/01/2024 (Approximate), Expires: 12/02/2024Start: 11-01-2024 End: 64-93-8127Hveikofxj aminotransferase [Enzymatic activity/volume] in Serum or PlasmaASPARTATE AMINO TRANSFERASE Lab Routine Onychomycosis Expected: 11/01/2024 (Approximate), Expires: 12/02/2024[facility] Work Phone: Comment on above:Expected: 11/01/2024 (Approximate), Expires: 12/02/2024Start: 11-01-2024 End: 81-46-4610Rduspfa encounter iixlukuvc98/13/2025 11:10 AM EDT Office Visit [facility] [address] [place] [address] [address] [place] [address] Kit Solitario, JOSE ANTONIO [address] [facility] [address] [place] [address] Plantar fasciitis (Primary Dx); Contracture of right ankle; Pain due to onychomycosis of toenails of both feetNOMS CI PODIATRYComment on above:Plantar fasciitis (Primary Dx); Contracture of right ankle; Pain due to onychomycosis of toenails of both feetStart: 10-25-2024 End: 11-99-9828Zulgddn encounter ascmagopy23/06/2025 10:20 AM EST Office Visit [facility] [address] [facility] [address] [place] [address] Kit Solitario DPM [address] [facility] [address] [place] [address] [facility] ANGI PODIATRYStart: 34-29-6124Lgmnj BMI Screening Adult BMI ScreeningProHenry County Hospital SystemStart: 46-60-5028Nirqtrk Screening Tobacco ScreeningProHenry County Hospital SystemStart: 09-20-2024 End: 91-02-7276Onrkkvk aminotransferase [Enzymatic activity/volume] in Serum or PlasmaALANINE AMINOTRANSFERASE Lab Routine Onychomycosis Expected: 09/20/2024 (Approximate), Expires: 10/19/2024[facility] HealthcareComment on above:Expected: 09/20/2024 (Approximate), Expires: 10/19/2024Start: 09-20-2024 End: 54-35-5114Fiobxfzbt aminotransferase [Enzymatic activity/volume] in Serum or PlasmaASPARTATE AMINO TRANSFERASE Lab Routine Onychomycosis Expected: 09/20/2024 (Approximate), Expires: 10/19/2024[facility] Work Phone: Comment on above:Expected: 09/20/2024 (Approximate), Expires: 10/19/2024Start: 05-31-2024 End: 58-18-9520Zimvcga encounter xubdpbyce98/10/2024 11:00 AM EDT Office Visit [facility] [address] [place] [address] Jay Ryan DO [address] [place] [address] [phone] (Work) M54.41, M54.42, G89.29 (ICD-10-CM) - Chronic midline low back pain with bilateral sciaticaMerJoint Township District [facility] Hospital Physical Medicine & RehabilitationComment on above:M54.41, M54.42, G89.29 (ICD-10-CM) - Chronic midline low back pain with bilateral sciaticaStart: 69-39-5785Fvjnaqawj vaccinationInfluenza VaccineTransylvania Regional Hospitaltart: 63-46-4327Nqwcyypvb vaccinationFlu vaccine (#1)[facility] Hospitalart: 02-01-2024 End: 81-81-7670Jzscgvi encounter fpxpbjzoj28/12/2024 1:30 PM EDT Procedure visit [facility] [address] [place] [address] Kedar Agee MD [address] [facility] [address] [place] [address] [facility] - UrogynStart: 12-07-2023 End: 64-19-7419Nnrnazf encounter ehraoymzv19/17/2024 2:30 PM EDT Office Visit [facility] [address] [place] [address] Kedar Agee MD [address] [facility] [address] [place] [address] [facility] - UrogynStart: 99-21-6588PVRAZ-19 Vaccine ( season) COVID-19 Vaccine ( season)[facility] Hospitalart: 04-22-2023 Influenza vaccinationInfluenza VaccineTransylvania Regional Hospitaltart: 2021 Lipid panelLipidsBON [facility]: 15-81-9755Gbatzmso screen Diabetes screenBON [facility]: 65-60-9559WMyW,Tdap and Td Vaccines (1 - Tdap)DTaP,Tdap and Td Vaccines (1 - Tdap)[facility] Start: 93-64-6706NPlW/Tdap/Td vaccine (1 - Tdap)DTaP/Tdap/Td vaccine (1 - Tdap) [facility] Hospitalart: 73-92-1639Xuftasnly B vaccine (1 of 3 - 19+ 3- dose series)Hepatitis B vaccine (1 of 3 - 19+ 3-dose series)[facility]ENTERStart: 48-65-1456Thgtg BMI Follow Up PlanAdult BMI Follow Up PlanTransylvania Regional Hospitaltart: 20-06-0377Rtcpnogli vaccine (1 of 2 - 13+ 2-dose series) Varicella vaccine (1 of 2 - 13+ 2-dose series)[facility]ENTERStart: 48-83-5248Ypbjrkfcbd ScreeningDepression ScreeningProOhioHealth Doctors Hospitaltart: 90-82-5979Psaegrypxvwe 0-64 years Vaccine (1 of 2 - PCV)Pneumococcal 0-64 years Vaccine (1 of 2 - PCV)[facility] Immunizations Immunization DateImmunizationNotesCare QxishanxUdfynxpc86-12-0552bymxzmykf A vaccine, adult dosageJuno Rogers MD Work Phone: [facility] CENTERZUSZDJ81-71-7388thfwepqod A vaccine, adult dosageJuno Rogers MD Work Phone: [facility] Payers DatePayer CategoryPayerPolicy ID2023Medicaid (Managed Care)[employer] [id number] 2021MedicaidBU[place] MEDICA[place] [employer] [employer] [id number] 2021-Present [phone] [place] [id number] [id number] 2.16.840.1.499761.3.57[id number] 2.16840.1.738756.3.57[id number] 2.16840.1.861171.3.57[id number] 2.840.1.529996.3.57[id number] 2.840.1.088347.3.57[id number] 2.840.1.539353.3.57[id number] 2.840.1.377668.3.57[id number] 2.0.1.622114.3.57[id number] 2.0.1.141984.3.57[id number] 2.840.1.253645.3.57[id number] 2.840.1.054200.3.57[id number] 2.840.1.849796.3.57[id number] 2.840.1.604332.3.57[id number] 2.840.1.380696.3.57[id number] 2.840.1.993022.3.57[id number] 2.16.840.1.096296.3.57[id number] Social History DateTypeDetailFacilityStart: 04-16-2024 End: 50-76-6091Uay Assigned At [facility] [employer] Other Start: 01-11-2023 End: 83-92-0320Qlwnudg smoking status NHISEx-smokerKettering Health Behavioral Medical Center SystemStart: 10-20-2001 End: 77-21-7332Ueaprfy of tobacco useCurrent smokerKettering Health Behavioral Medical Center SystemStart: 10-20-2001 End: 05-69-0811Xdbrvgf of tobacco useCigarette SmokerKettering Health Behavioral Medical Center System Start: 04-16-2024 End: 23-05-7100Rhniikiivy smoked current (pack per day) - Reported0.5PSt. James Parish Hospital [employer] SystemStart: 04-16-2024 End: 93-33-0712Pioqusg use and exposureSmokeless tobacco non-userKettering Health Behavioral Medical Center SystemStart: 43-98-4931Ixjbciwfs beverage intakeCurrent non-drinker of alcohol (finding)[employer] HEALTHHow hard is it for you to pay for the very basics like food, housing, medical care, and heatingNot hard at all [facility](I/We) worried whether (my/our) food would run out before (I/we) got money to buy more.Never trueBON QlikaAt any time in the past 12 months, were you homeless or living in mcfp [including now]?NoBON [employer] [facility]ENTERStart: 41-26-4612Lfyyeugiz99MOJ [employer] HEALTHStart: 20-05-0820Ikv assigned at birthFemaleBON [employer] [facility]ENTERStart: 03-02-2021 Gender identityIdentifies as female gender (finding)[employer] Start: 52-35-4599Fspwjo orientationHeterosexual (finding)[employer] [facility]ENTERStart: 49-43-2218Irqqtia smoking status NHISTobacco smoking consumption unknownNOVT HealthcareStart: 08-62-5720Zrb assigned at birthNot on fileKettering Health Behavioral Medical Center SystemStart: 12-09-2023 End: 73-76-6691Yigbobzlr beverage intakeCurrent drinker of alcohol (finding) [facility] SystemStart: 01-59-8420Ggtqyyy CommentraBluffton Hospital SystemStart: 59-05-4351Ygvcgcg smoking status NHISNever smoked tobaccoHedrick Medical Center Clinical Notes 02-24-2022 to 05-30-2025 Note Date & GcosYbhaVeewjjtb13-02-1362 History of Present illness Narrative* Kit Acevedo Altaf, DPM - 05/30/2025 9:40 AM EDT Patient: [...] Resource Strain: Low Risk (04/16/2024) Received from [facility] Overall Financial Resource Strain (CARDIA) Difficulty of Paying Living Expenses: Not hard at all Food Insecurity: No Food Insecurity (04/16/2024) Received from [facility] Hunger Vital Sign Worried About Running Out of Food in the Last Year: Never true Ran Out of Food in the Last Year: Never true Transportation Needs: Unknown (04/16/2024) Received from [facility] PRAPARE - Transportation Lack of Transportation (Medical): Not on file Lack of Transportation (Non-Medical): No Physical Activity: Not on file Stress: Not on file Social Connections: Not on file Intimate Partner Violence: Not on file Housing Stability: Unknown (04/16/2024) Received from [facility] Housing Stability Vital Sign Unable to [...] past Kit Solitario DPM documented in this encounterHedrick Medical CenterIripxhlemo76-41-7442 History of Present illness Narrative* Kit Solitario DPM - 05/16/2025 10:30 AM EDT Patient: Jazmin [...] Resource Strain: Low Risk (04/16/2024) Received from [facility] Overall Financial Resource Strain (CARDIA) Difficulty of Paying Living Expenses: Not hard at all Food Insecurity: No Food Insecurity (04/16/2024) Received from [facility] Hunger Vital Sign Worried About Running Out of Food in the Last Year: Never true Ran Out of Food in the Last Year: Never true Transportation Needs: Unknown (04/16/2024) Received from [facility] PRAPARE - Transportation Lack of Transportation (Medical): Not on file Lack of Transportation (Non-Medical): No Physical Activity: Not on file Stress: Not on file Social Connections: Not on file Intimate Partner Violence: Not on file Housing Stability: Unknown (04/16/2024) Received from [facility] Housing Stability Vital Sign Unable to [...] add metatarsal pads but she will purchase uftz-yqs-haqupio metatarsal pads at this time and also has note needed for doctor's appointment as well as FMLA to be off 4 times per month Kit Solitario DPM documented in this encounterHedrick Medical CenterWxpsecefsf57-01-9361 History of Present illness Narrative* Kit Solitario DPM - 02/01/2025 2:50 PM EDT Pt was f dispensedcustom made orthotics today. Patient informedof proper break in of devices. Patient education on break in of device. ABN signed and in chart if warranted. 1. Plantar fasciitis 2. Contracture of right ankle 3. Contracture of left ankle documented in this encounterHedrick Medical CenterJelgbmeyqi13-46-8730 History of Present illness Narrative* Ernie Palmer, - 12/07/2024 10:00 AM EDT Images from the original note were not included. Jazmin Tom Cassidy 1980 Jazmin Cassidy is a 44 [...] Unknown Physical Exam Exam conducted with a groundskeeping maintenance worker present. Constitutional: Appearance: Normal appearance. HENT: Head: [...] exam there is good tone there is nogross blood there is no masses. Skin: Findings: No bruising. Neurological: Mental Status: She is alert. Gait: Gait normal. ASSESSMENT AND PLAN: Assessment/Plan Diagnoses and all orders for this visit: Rectocele - Ambulatory referral to General Surgery Patient has a symptomatic rectocele she does not have rectal prolapse. That was confirmed by evaluation by Gynecology in [place] previously. I do not fix rectocele. I did educate patient on the difference between rectal prolapse and rectocele which she appreciated. She will call that practice assistant back and see them about possible repair. I will see her again on an as-needed basis otherwise she is discharged from my care. documented in this encounterHedrick Medical CenterKksmduomdf26-96-2722 History of Present illness Narrative* Kit Solitario DPM - 11/01/2024 11:10 AM EDT Patient: Jazmin Cassidy : 1980 PCP: Juno Rogers MD SUBJECTIVE This is a 43 y.o. female that presents today for a follow up of Lamisil medication for the past 30 days and states with minimal improvement to bilateral great digit nails Patient also states that shehas had this problem for the past 2 [...] Resource Strain: Low Risk (04/16/2024) Received from [facility] Overall Financial Resource Strain (CARDIA) Difficulty of Paying Living Expenses: Not hard at all Food Insecurity: No Food Insecurity (04/16/2024) Received from [facility] Hunger Vital Sign Worried About Running Out of Food in the Last Year: Never true Ran Out of Food in the Last Year: Never true Transportation Needs: Unknown (04/16/2024) Received from [facility] PRAPARE - Transportation Lack of Transportation (Medical): Not on file Lack of Transportation (Non-Medical): No Physical Activity: Not on file Stress: Not on file Social Connections: Not on file Intimate Partner Violence: Not on file Housing Stability: Unknown (04/16/2024) Received from [facility] Housing Stability Vital Sign Unable to [...] medial calcaneal tubercle AST/ALT: November 02, 2019 AST 17 ALT 30 ASSESSMENT 1. Plantar fasciitis 2. Contracture of right ankle 3. Pain due to onychomycosis of toenails of both feet PLAN Patient to continue with oral anti - inflammatories as needed for pain and recommended OTC medications such as tylenol or Ibuprofen Patient may stop in [place] location for orthotic pickup Patient is to [...] months Kit Solitario DPM documented in this encounterHedrick Medical CenterUhbpttiqru26-00-2320 History of Present illness Narrative* Kit Solitario DPM - 09/20/2024 9:40 AM EST Patient: Jazmin Cassidy : 1980 PCP: Juno [...] that is history of plantar fasciitis in thepast and does stretching exercises with positive improvement [...] Resource Strain: Low Risk (04/16/2024) Received from [facility] Overall Financial Resource Strain (CARDIA) Difficulty of Paying Living Expenses: Not hard at all Food Insecurity: No Food Insecurity (04/16/2024) Received from [facility] Hunger Vital Sign Worried About Running Out of Food in the Last Year: Never true Ran Out of Food in the Last Year: Never true Transportation Needs: Unknown (04/16/2024) Received from [facility] PRAPARE - Transportation Lack of Transportation (Medical): Not on file Lack of Transportation (Non-Medical): No Physical Activity: Not on file Stress: Not on file Social Connections: Not on file Intimate Partner Violence: Not on file Housing Stability: Unknown (04/16/2024) Received from [facility] Housing Stability Vital Sign Unable to [...] for the devices. The patient is ambulatory maybenefit functionally for this device. It may be [...] month Kit Solitario DPM documented in this encounterHedrick Medical CenterFmffzlxqfz22-28-1537 History of Present illness Narrative* Kedar Agee MD - 12/07/2023 2:30 PM EDT SUBJECTIVE Chief Complaint: POP HPI Ms. Jazmin [...] notes dyspareunia. Has recently started VET. 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 Would be a good candidate for [place] tissue repair - posterior colporrhaphyand iliococcygeal suspension. We discussed the correlation between [...] for UDS. Avoid bladder irritants. PVR normal. YIELD ANALYST negative. UA negative. This chart note was [...] and similarly generated notes. documented in this encounterFostoria City Hospital03-05-2024 History of Present illness Narrative* Mariana Beltran DO - 10/25/2023 4:32 PM EST Vagifem was changed to Estrace vaginal cream documented in this encounterFostoria City Hospital02-29-2024 Miscellaneous Notes* Telephone Encounter - Faiza Hancock LPN - 10/20/2023 8:35 AM EST Pts script for Vagifem got denied. Is there another medication you would like to try? Pt aware. documented in this encounterFostoria City Hospital02-29-2024 Telephone encounter Note* Telephone Encounter - Faiza Hancock LPN - 10/20/2023 8:35 AM EST Pts script for Vagifem got denied. Is there another medication you would like to try? Pt aware. [facility] Digital [id number] History of Present illness Narrative* Mariana Beltran, - 10/18/2023 9:30 AM EST Subjective Patient ID: Jazmin Cassidy is a [...] a lump outside of her vagina recently. Sheis also losing urine and having some difficulties making it to the bathroom on time . She reports recently going to the [place] and completely soaking her pants through. She [...] past medical history, past social history, past surgicalhistory, problem list, and medication reconciliation was completed including current medication andpost discharge medication. Review of Systems Constitutional: negative [...] Sosa as his office is closer the [place]. [facility]* Encounter Date Diagnosis Assessment Notes Treatment Notes Treatment Clinical Notes Feb, Acute left ankle pain (ICD-10 - M25.572) Feb,losed avulsion fracture of left ankle, initial encounter (ICD-10 - S82.892A)Wear the boot at all times until seen by your orthopedic physician. Ice and elevate your foot 2-3 times a day. You may bear weight as tolerated. Take Tylenol or Motrin as needed for pain. Call your orthopedic physician tomorrow morning for an appointment to be seen as soon as possible. Patient prefers to see Dr. Gabriel, orthopedic physician in [place] in follow-up. She states she willarrange her appointment Feb,therAnkle fracture material was printed [facility] Other Evaluation note* Diagnosis Plantar fasciitis- Primary Plantar fascial fibromatosis Contracture of right ankle Pain due to onychomycosis of toenails of both feet Onychomycosis Dermatophytosis of nail [facility] Diagnosis Rectocele- Primary Stress incontinence of urine Constipation, unspecified constipation type Dyspareunia in female OAB (overactive bladder) documented in this encounter [facility]* Diagnosis Vaginal prolapse- Primary Unspecified prolapse of vaginal chris Rectocele Stress incontinence of urine Dyspareunia in female 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 [facility] Diagnosis Rectocele- Primary Vaginal prolapse Unspecified prolapse of vaginal chris Stress incontinence of urine Dyspareunia in female documented in this encounter [facility]* Diagnosis Dyspareunia in female- Primary Menopause syndrome Symptomatic menopausal or female climacteric states documented in this encounter [facility]* Diagnosis Plantar fasciitis- Primary Plantar fascial fibromatosis Contracture of right ankle Pain due to onychomycosis of toenails of both feet Onychomycosis Dermatophytosis of nail documented in this encounter [facility] HealthcareEvaluation [facility]* Diagnosis Rectocele documented in this encounter [facility]Evaluation [facility]* Diagnosis Plantar fasciitis- Primary Plantar fascial fibromatosis Contracture of right ankle Contracture of left ankle documented in this encounter [facility]* Diagnosis Pain due to onychomycosis of toenails of both feet- Primary Plantar fasciitis Plantar fascial fibromatosis Contracture of right ankle Contracture of left ankle Capsulitis of metatarsophalangeal (MTP) joint of left foot Onychomycosis Dermatophytosis of nail documented in this encounter [facility] Healthcare[facility] note* Diagnosis Capsulitis of metatarsophalangeal (MTP) joint of left foot- Primary Contracture of left ankle Pain due to onychomycosis of toenails of both feet Plantar fasciitis Plantar fascial fibromatosis Contracture of right ankle documented in this encounter [facility] HealthcareHistory general Narrative - Reported* Type Description Date Medical History Endometriosis Medical HistoryBack painMedical HistorySeizuresMedical HistoryMigrainesMedical HistoryPTSDMedical HistoryAnxiety DisorderMedical HistoryHepatitis C-[facility] [id number] HistoryExploratory laparoscopy-endometriosi (2)Surgical HistoryTumor removed left finger Hospitalization HistorySee past surgical hxHospitalization HistorySeizures [facility] Other InstructionsNot on filedocumented in this encounter [facility]* Attachments The following attachments cannot be sent through Care Everywhere. * Pelvic Floor Exercises (Maldivian) * Vaginal dryness (Maldivian) * Vaginal Prolapse (Maldivian) documented in [facility] encounterPro[facility] SystemInstructionsNot on file documented in this encounterProHenry County Hospital SystemInstructionsNot on file documented in this encounterProHenry County Hospital SystemReason for referral (narrative)* Consultation (Routine) - Pending ReviewSpecialtyDiagnoses / ProceduresReferred By ContactReferred To ContactUrology Diagnoses Rectocele Vaginal prolapse Stress incontinence of urine Dyspareunia in female Status post hysterectomy with oophorectomy Mariana Beltran DO [address] [place] [address] [place] [address] [place] [address] Referral IDStatusReasonStart DateExpiration DateVisits RequestedVisits [id number] Review Specialty Services Required / * Medication Prior Authorization - Pending ReviewSpecialtyDiagnoses / Procedures Referred By ContactReferred To Contact Diagnoses Rectocele Vaginal prolapse Stress incontinence of urine Dyspareunia in female Status post hysterectomy with oophorectomy Mariana Beltran DO [address] [place] [address] Referral IDStatusReasonStart DateExpiration DateVisits RequestedVisits [id number] [facility] SystemReason for referral (narrative)* Consultation (Routine) - Pending ReviewSpecialtyDiagnoses / ProceduresReferred By ContactReferred To ContactUrogynecology / Gynecology Diagnoses Rectocele Vaginal prolapse Stress incontinence of urine Dyspareunia in female Mariana Beltran DO [address] [place] [address] Kedar Agee MD [address] [facility] [address] [place] [address] Referral IDStatusReasonStart DateExpiration DateVisits RequestedVisits [id number] Review Specialty Services Required [facility] Summary Purpose Family History No Family History Records FoundNo Family History Records FoundNo Family History Records FoundNo Family History Records FoundNo Family History Records FoundNo Family History Records Found Advance Directives No Advanced Directives Records FoundHealthcare Agents on File NameRelationshipHealthcare Agent RelationshipCommunicationKenady Dereck Primary Decision Maker* * Reason for Referral SpecialtyDiagnoses / ProceduresReferred By ContactReferred To Contact Diagnoses Rectocele Vaginal prolapse Stress incontinence of urine Dyspareunia in female Procedures Measure post void residual Kedar Agee MD [address] [facility] [address] [place] [address] Referral IDStatusReasonStart DateExpiration DateVisits RequestedVisits [id number] Review/ Additional Source Comments INFORMATION SOURCE (unrecogn ized section and content) DATE CREATED AUTHOR 08/10/2021 [facility] DATE CREATED AUTHOR AUTHOR'S ORGANIZ ATION 03/11/2022 [facility] DATE CREATED AUTHOR AUTHOR'S ORGANIZ ATION 12/09/2023 [facility] DATE CREATED AUTHOR AUTHOR'S ORGANIZ ATION 12/28/2023 [facility] DATE CREATED AUTHOR AUTHOR'S ORGANIZ ATION 04/18/2024 [facility] DATE CREATED AUTHOR AUTHOR'S ORGANIZ ATION 06/01/2025 [facility] EPIC REASON FOR VISIT (unrecogniz ed section and content) ReasonCommentsToenail ProblemThick niaclementine, poss fungusReasonCommentsVaginal ProlapseSpecialtyDiagnoses / ProceduresReferred By ContactReferred To Contact Urogynecology / Gynecology Diagnoses Rectocele Vaginal prolapse Stress incontinence of urine Dyspareunia in female Mariana Beltran DO [address] [place] [address] Kedar Agee MD [address] [facility] [address] [place] [address] Referral IDStatusReasonStart DateExpiration DateVisits RequestedVisits [id number] Specialty Services Required [id number]kmskv a few months ago, feels a bulge ReasonCommentsFollow-upRt pf checkReasonCommentsConsultRectal prolapseSpecialty Diagnoses / ProceduresReferred By ContactReferred To ContactGeneral Surgery Diagnoses Rectal prolapse Procedures TX OFFICE/OUTPATIENT NEW HIGH MDM 60 MINUTES Ana Ibanez INTERIOR DESIGN TEACHER [address] [facility] [place] [address] Phone: tel: fax: [facility] [address] [facility] [address] [place] [address] Phone: tel: fax: Referral IDStatusReasonStart DateExpiration DateVisits RequestedVisits [id number] Specialty Services Required [id number] PainSpecialtyDiagnoses / ProceduresReferred By ContactReferred To ContactPodiatry Diagnoses LT FT PAIN Procedures TX OFFICE/OUTPATIENT ESTABLISHED LOW MDM 20 MIN Andressa Baeza, PAUL [address] [place] [address] Phone: tel: fax: Kit Solitario, DPM [address] [facility] [address] [place] [address] Phone: tel: fax: Referral IDStatusReasonStart DateExpiration DateVisits RequestedVisits [id number]-wyLy 2nd cap Care Teams (unrecognized sec tion and content) Team MemberRelationshipSpecialtyStart DateEnd Date Juno Rogers MD PCP - GeneralInternal Lewvcays09/1/18Team MemberRelationshipSpecialtyStart Date End Date uJno Rogers MD [address] [place] [address] PCP - GeneralInternal Medicine09/20/24Te MemberRelationshipSpecialtyStart Date End Date Juno Rogers MD [address] [place] [address] PCP - GeneralInternal Medicine09/20/24Team MemberRelationshipSpecialtyStart Date End Date Juno Rogers MD [address] [place] [address] PCP - GeneralInternal Medicine09/20/24Team MemberRelationshipSpecialtyStart Date End Date Juno Rogers MD [address] [place] [address] PCP - GeneralInternal Medicine09/20/24Team MemberRelationshipSpecialtyStart Date End Date Juno Rogers MD [address] [place] [address] PCP - GeneralInternal Medicine09/20/24Team MemberRelationshipSpecialtyStart Date End Date Juno Rogers MD [address] [place] [address] PCP - GeneralInternal Medicine09/20/24Te MemberRelationshipSpecialtyStart Date End Date Juno Rogers MD [address] [place] [address] PCP - GeneralInternal Medicine09/20/24Te MemberRelationshipSpecialtyStart Date End Date Juno Rogers MD [address] [place] [address] PCP - GeneralKingman Regional Medical Centernal Medicine09/20/24 FOR RECORDS PERTAINING TO PATIENTS WHO ARE [...] BE BASED ON THE PRIMARY CLINICAL RECORDS. [facility] [employer] [facility]. provides no warranty or guarantee of the accuracy or completeness of information in this document.
--- OUTSIDE RECORDS SUMMARY | 2025-06-13 12:30 | XMS_ITS | Encounter Summary ---
Author Organization [facility] Address [address] [place] [address] Care Team Providers Care Abalone Fisherman Name Role Phone Juno Rogers MD Primary Care Provider [phone] Encounter Details DateTypeDepartmentCare Team (Latest Contact Info)Ebhrhpqyunl96/09/2025amboo flowsheet [facility] [address] [place] [address] Kit Solitario DPM [address] [address] Social History Tobacco UseTypesPacks/DayYears UsedDateSmoking Tobacco: NeverSmokeless Tobacco: NeverAlcohol UseStandard Drinks/WeekCommentsYes3 (1 standard drink = 0.6 oz pure alcohol)CommentsUnknownSex and Gender InformationValueDate RecordedSex Assigned at BirthNot on fileLegal PdyZqjupb06/15/2023 7:00 PM EDTGender IdentityNot on fileSexual OrientationNot on filedocumented as of this encounter Plan of Treatment DateTypeDepartmentCare Team (Latest Contact Info)Nxotzbrtqob26/06/2025 10:00 AM ESTOffice Visit [facility] [address] [place] [address] Kit Solitario DPM [address] [address] documented as of this encounter Visit Diagnoses Not on filedocumented in this encounter Care Teams Team MemberRelationshipSpecialtyStart DateEnd Date Juno Rogers MD [address] [place] [address] PCP - GeneralInternal Medicine09/20/24documented as of this encounter
[2025-06-13 13:59] LABS: Alanine Aminotransferase 22 U/L (14-59); Aspartate Amino Transferase 7 U/L (15-37)
== END 2025-06-13 12:24 | disposition home or self-care (01) ==
LOC: LAB 12:26
PROVIDERS: PCP Nurse Practitioner Family
DX: B35.1 Tinea unguium (principal)
CPT/HCPCS: 36415; 84450; 84460